=== PATIENT | female | born 1950 | race Caucasian/White ===

== ENCOUNTER → 2017-08-02 | Outpatient (CLI) | payer MEDICARE ==
[2017-08-02 11:33] LABS: ALT 35 U/L (9-52); AST 51 U/L (14-36); Albumin 2.6 g/dL (3.5-5.0); Alkaline Phosphatase 136 U/L (38-126); Amylase 79 U/L (30-110); Anion Gap 10 mmol/L; Bilirubin, Delta 0.4 mg/dL (0.0-0.2); Bilirubin,Unconjugated 0.5 mg/dL (0.0-1.1); Blood Urea Nitrogen 15 mg/dL (7-17); Calcium 7.9 mg/dL (8.4-10.2); Carbon Dioxide 32 mmol/L (22-30); Chloride 96 mmol/L (98-107); Glucose 245 mg/dL (74-99); LDH 631 U/L (313-618); Lipase 212 U/L (23-300); Potassium 3.4 mmol/L (3.5-5.1); Sodium 138 mmol/L (137-145); Total Bilirubin 0.9 mg/dL (0.2-1.3); Total Protein 5.7 g/dL (6.3-8.2)
[2017-08-02 11:42] LABS: Anisocytosis Slight; HGB 9.5 gm/dL (11.4-16.0); Hypochromasia Moderate; MCH 25.9 pg (25.0-35.0); MCHC 31.7 g/dL (31.0-37.0); MCV 81.6 fL (80.0-100.0); Mean Platelet Volume 7.3; Platelet Count 102 k/uL (150-450); Poikilocytosis Moderate; RBC 3.68 m/uL (3.80-5.40); WBC 5.7 k/uL (3.8-10.6)
[2017-08-02 17:39] LABS: Hemoglobin A1C 5.6 % (4.0-6.0)
[2017-08-02 17:52] LABS: Urine Alcohol Negative (Negative); Urine Barbiturate Negative (Negative); Urine Cocaine Negative (Negative); Urine Methadone Negative (Negative); Urine Opiates Negative (Negative); Urine Phencyclidine Negative (Negative)
== END | disposition home or self-care (01) ==
LOC: LABWHC1 10:54
PROVIDERS: ATTEND Nurse Practitioner Adult Health
DX: I25.10 Atherosclerotic heart disease of native coronary artery without angina pectoris (principal); I10 Essential (primary) hypertension; E78.5 Hyperlipidemia, unspecified; J44.0 Chronic obstructive pulmonary disease with (acute) lower respiratory infection; K72.90 Hepatic failure, unspecified without coma; E11.69 Type 2 diabetes mellitus with other specified complication
CPT/HCPCS: 36415; 80053; 80306; 82140; 82150; 82248; 83036; 83615; 83690; 85027

== ENCOUNTER 2017-08-05 16:32 | Observation (INO) | payer MEDICARE ==
[2017-08-05] MEDS ORDERED: KETOROLAC 30 MG/ML 1 ML VIAL IVP STA (17:05)
[2017-08-05] MEDS ORDERED: IPRATROPIUM-ALBUTEROL 3 ML NEB INHALATION STA (17:12)
--- NOTE | 2017-08-05 17:12 | ED ---
Abdominal Pain HPI - General Chief Complaint: Abdominal Pain Stated Complaint: SOB Time Seen by Provider: 08/05/17 16:56 Source: patient Mode of arrival: wheelchair Limitations: physical limitation - History of Present Illness Initial Comments: Patient is a 66-year-old female with a history of [place] who presents with a chief complaint of abdominal pain and distention. Patient states that she is new to the area just moved from [place]. Patient states she normally gets paracentesis performed every 2 weeks. She has not had a paracentesis in about 2 weeks. Patient states that her abdomen is very full and she has a "stretching " type pain. There are no aggravating or alleviating factors. Timing is constant. Patient denies fever, chills, or changes in shortness of breath. She has a history of COPD and currently smoke about 5 cigarettes a day. - Related Data Home Medications Medication Instructions Recorded Confirmed Acetaminophen Tab [Tylenol Tab] 1,000 mg PO Q6HR PRN 08/05/17 08/05/17 Albuterol Inhaler [Ventolin Hfa 1 - 2 puff INHALATION RT-Q6H PRN 08/05/17 Inhaler] Aspirin 81 mg PO DAILY 08/05/17 08/05/17 Atorvastatin [Lipitor] 80 mg PO DAILY 08/05/17 08/05/17 Diltiazem HCl 60 mg PO Q6H 08/05/17 08/05/17 Furosemide [Lasix] 40 mg PO DAILY 08/05/17 08/05/17 Glimepiride [Amaryl] 8 mg PO BID 08/05/17 08/05/17 Metoprolol Tartrate [Lopressor] 50 mg PO BID 08/05/17 08/05/17 Ondansetron [Zofran] 4 mg PO TID PRN 08/05/17 08/05/17 Pantoprazole [Protonix] 40 mg PO DAILY 08/05/17 08/05/17 Spironolactone 100 mg PO DAILY 08/05/17 08/05/17 Tiotropium 18 Mcg/Puff [Spiriva] 1 cap INHALATION RT-DAILY 08/05/17 08/05/17 Venlafaxine HCl [Effexor] 37.5 mg PO BID 08/05/17 08/05/17 Allergies Allergy/AdvReac Type Severity Reaction Status Date / Time albumin colloid, human AdvReac Dyspnea Verified 08/05/17 16:47 Review of Systems ROS Statement: Those systems with pertinent positive or pertinent negative responses have been documented in the HPI. ROS Other: All systems not noted in ROS Statement are negative. Gastrointestinal: Reports: abdominal pain Past Medical History Past Medical History: Atrial Fibrillation, Heart Failure, COPD, Diabetes Mellitus, GERD/Reflux, Hyperlipidemia Additional Past Medical History / Comment(s): end stage lever History of Any Multi-Drug Resistant Organisms: None Reported Past Surgical History: Adenoidectomy, Cholecystectomy, Heart Catheterization, Heart Catheterization With Stent, Joint Replacement, Tubal Ligation Additional Past Surgical History / Comment(s): paracentesis, lefroectomy, hip replace, esophageal banding, Past Psychological History: No Psychological Hx Reported Smoking Status: Current every day smoker Past Alcohol Use History: None Reported Past Drug Use History: None Reported General Exam Limitations: physical limitation General appearance: alert, in no apparent distress Head exam: Present: atraumatic, normocephalic Eye exam: Present: normal appearance, PERRL ENT exam: Present: normal exam, mucous membranes moist Neck exam: Present: normal inspection Respiratory exam: Present: wheezes. Absent: respiratory distress Cardiovascular Exam: Present: regular rate, normal rhythm GI/Abdominal exam: Present: distended Rectal exam: Present: deferred Extremities exam: Present: pedal edema Back exam: Present: normal inspection Neurological exam: Present: alert, oriented X3 Psychiatric exam: Present: normal affect, normal mood Skin exam: Present: warm, dry, intact Course Vital Signs 08/05/17 08/05/17 08/05/17 16:40 17:44 17:54 Temperature 98.0 F Pulse Rate 87 81 88 Respiratory 22 16 16 Rate Blood Pressure 129/60 O2 Sat by Pulse 99 Oximetry 08/05/17 18:02 Temperature 98.1 F Pulse Rate 84 Respiratory 20 Rate Blood Pressure 115/58 O2 Sat by Pulse 100 Oximetry Medical Decision Making - Medical Decision Making Patient is 66-year-old. His chief complaint of abdominal pain. Patient has a history of national requires periodic paracentesis, she states normally every 2 weeks. She is noted to the area and has not had a paracentesis since moving. On initial evaluation, vital signs are stable, patient is in no acute distress. Abdomen is full but non-peritoneal. Patient will need to have paracentesis arranged, I'll speak with interventional radiology to see her this can be arranged. 5:19 PM Case discussed with Dr. Chandler who states that if the patient is stable, she will have paracentesis performed in the AM. patient appears stable at this time. 524 PM Case discussed with Dr. Mcdonnell, he excepts admission for paracentesis in the morning. Patient will be evaluated with labs including coagulations study and liver enzymes. Patient given breathing treatments that she is wheezing on exam. Patient and daughter updated on a care plan, they're agreeable. 6:51 PM Blood gas analysis shows a stable pH of 7.37, CO2 is mildly elevated however patient appears well compensated and in no respiratory distress. Patient stable for transfer to the floor. - Lab Data Result diagrams: 08/05/17 17:20 08/05/17 17:20 Lab Results 08/05/17 08/05/17 08/05/17 Range/Units 17:20 17:20 17:20 WBC 5.9 (3.8-10.6) k/uL RBC 3.57 L (3.80-5.40) m/uL Hgb 9.1 L (11.4-16.0) gm/dL Hct 28.9 L (34.0-46.0) % MCV 81.0 (80.0-100.0) fL MCH 25.6 (25.0-35.0) pg MCHC 31.6 (31.0-37.0) g/dL RDW 17.0 H (11.5-15.5) % Plt Count 109 L (150-450) k/uL Neutrophils % 70 % Lymphocytes % 17 % Monocytes % 8 % Eosinophils % 2 % Basophils % 1 % Neutrophils # 4.2 (1.3-7.7) k/uL Lymphocytes # 1.0 (1.0-4.8) k/uL Monocytes # 0.4 (0-1.0) k/uL Eosinophils # 0.1 (0-0.7) k/uL Basophils # 0.0 (0-0.2) k/uL Hypochromasia Moderate Poikilocytosis Moderate Anisocytosis Slight PT 12.0 (9.0-12.0) sec INR 1.3 H (<1.2) Sodium 140 (137-145) mmol/L Potassium 3.7 (3.5-5.1) mmol/L Chloride 98 (98-107) mmol/L Carbon Dioxide 33 H (22-30) mmol/L Anion Gap 9 mmol/L BUN 15 (7-17) mg/dL Creatinine 0.60 (0.52-1.04) mg/dL Est GFR (CKD-EPI)AfAm >90 (>60 ml/min/1.73 sqM) Est GFR (CKD-EPI)NonAf >90 (>60 ml/min/1.73 sqM) Glucose 163 H (74-99) mg/dL Calcium 8.3 L (8.4-10.2) mg/dL Total Bilirubin 1.2 (0.2-1.3) mg/dL AST 60 H (14-36) U/L ALT 31 (9-52) U/L Alkaline Phosphatase 147 H (38-126) U/L Total Protein 5.7 L (6.3-8.2) g/dL Albumin 2.7 L (3.5-5.0) g/dL Disposition Clinical Impression: Ascites Disposition: ADMITTED IP TO THIS HOSP Condition: Good Is patient prescribed a controlled substance at d/c from ED?: No - Out of Hospital Transfer - Req. Specs Out of Hospital Transfer - Requested Specifics: Telemetry Unit
[2017-08-05] MEDS ORDERED: NALOXONE 0.4 MG/ML 1 ML VIAL IV PRN ×2 (17:21→21:33)
[2017-08-05 17:32] LABS: Anisocytosis Slight; Basophils % (A) 1 %; Eosinophils # (A) 0.1 k/uL (0-0.7); Eosinophils % (A) 2 %; HCT 28.9 % (34.0-46.0); HGB 9.1 gm/dL (11.4-16.0); Hypochromasia Moderate; Lymphocytes % (A) 17 %; MCH 25.6 pg (25.0-35.0); MCHC 31.6 g/dL (31.0-37.0); Mean Platelet Volume 7.5; Monocytes # (A) 0.4 k/uL (0-1.0); Monocytes % (A) 8 %; Neutrophils # (A) 4.2 k/uL (1.3-7.7); Neutrophils % (A) 70 %; Platelet Count 109 k/uL (150-450); Poikilocytosis Moderate; RBC 3.57 m/uL (3.80-5.40); WBC 5.9 k/uL (3.8-10.6)
[2017-08-05 17:39] LABS: INR 1.3 (<1.2)
[2017-08-05 17:41] LABS: ALT 31 U/L (9-52); AST 60 U/L (14-36); Albumin 2.7 g/dL (3.5-5.0); Alkaline Phosphatase 147 U/L (38-126); Anion Gap 9 mmol/L; Blood Urea Nitrogen 15 mg/dL (7-17); Calcium 8.3 mg/dL (8.4-10.2); Carbon Dioxide 33 mmol/L (22-30); Chloride 98 mmol/L (98-107); Glucose 163 mg/dL (74-99); Potassium 3.7 mmol/L (3.5-5.1); Sodium 140 mmol/L (137-145); Total Bilirubin 1.2 mg/dL (0.2-1.3); Total Protein 5.7 g/dL (6.3-8.2)
[2017-08-05 18:17] LABS: VBG PH 7.37 (7.31-7.41)
[2017-08-05 20:31] VITALS: BMI 37.2
[2017-08-05 20:35] LABS: Glucose,Whole Blood 174 mg/dL (75-99)
--- NOTE | 2017-08-05 21:47 | P.HPIM ---
History of Present Illness H&P Date: 08/05/17 This 66-year-old female with past medical history of [place] and liver cirrhosis and ascites that requires paracentesis every few weeks patient states that she has been taking Lasix without significant improvement in the symptoms and continued to get worse and came for shortness of breath and increased swelling in the abdomen and lower extremities denies any chest pain denies any vomiting or fever Review of systems and systems has been reviewed all negative and positive findings as per hpi Past Medical History Past Medical History: Atrial Fibrillation, Heart Failure, COPD, Diabetes Mellitus, GERD/Reflux, Hyperlipidemia Additional Past Medical History / Comment(s): end stage lever History of Any Multi-Drug Resistant Organisms: None Reported Past Surgical History: Adenoidectomy, Cholecystectomy, Heart Catheterization, Heart Catheterization With Stent, Joint Replacement, Tubal Ligation Additional Past Surgical History / Comment(s): paracentesis, lefroectomy, hip replace, esophageal banding, Past Psychological History: No Psychological Hx Reported Smoking Status: Current every day smoker Past Alcohol Use History: None Reported Past Drug Use History: None Reported family history not known at this time Vital Signs Temp Pulse Resp BP Pulse Ox 98.0 F 87 22 129/60 99 08/05/17 16:40 08/05/17 16:40 08/05/17 16:40 08/05/17 16:40 08/05/17 16:40 Laboratory Results - last 24 hr 08/05/17 08/05/17 08/05/17 17:20 17:20 17:20 WBC 5.9 RBC 3.57 L Hgb 9.1 L Hct 28.9 L MCV 81.0 MCH 25.6 MCHC 31.6 RDW 17.0 H Plt Count 109 L Neutrophils % 70 Lymphocytes % 17 Monocytes % 8 Eosinophils % 2 Basophils % 1 Neutrophils # 4.2 Lymphocytes # 1.0 Monocytes # 0.4 Eosinophils # 0.1 Basophils # 0.0 Hypochromasia Moderate Poikilocytosis Moderate Anisocytosis Slight PT 12.0 INR 1.3 H VBG pH VBG pCO2 VBG HCO3 Sodium 140 Potassium 3.7 Chloride 98 Carbon Dioxide 33 H Anion Gap 9 BUN 15 Creatinine 0.60 Est GFR (CKD-EPI)AfAm >90 Est GFR (CKD-EPI)NonAf >90 Glucose 163 H POC Glucose (mg/dL) POC Glu [employer] ID Calcium 8.3 L Total Bilirubin 1.2 AST 60 H ALT 31 Alkaline Phosphatase 147 H Total Protein 5.7 L Albumin 2.7 L 08/05/17 08/05/17 18:04 20:31 WBC RBC Hgb Hct MCV MCH MCHC RDW Plt Count Neutrophils % Lymphocytes % Monocytes % Eosinophils % Basophils % Neutrophils # Lymphocytes # Monocytes # Eosinophils # Basophils # Hypochromasia Poikilocytosis Anisocytosis PT INR VBG pH 7.37 VBG pCO2 61 H VBG HCO3 34 H Sodium Potassium Chloride Carbon Dioxide Anion Gap BUN Creatinine Est GFR (CKD-EPI)AfAm Est GFR (CKD-EPI)NonAf Glucose POC Glucose (mg/dL) 174 H POC Glu [employer] Laly Wilder Calcium Total Bilirubin AST ALT Alkaline Phosphatase Total Protein Albumin Constitutional: No acute distress, conversant, pleasant Eyes: Anicteric sclerae, moist conjunctiva, no lid-lag PERRLA ENMT: NC/AT Oropharynx clear, no erythema, exudates Neck: Supple, FROM, no masses, or JVD No carotid bruits No thyromegaly Lungs: Clear to auscultation Clear to percussion Normal respiratory effort, no accessory muscle use Cardiovascular: Heart regular in rate and rhythm, No murmurs, gallops, or rubs No peripheral edema Abdominal: Soft Nontender, significant ascites no tenderness Skin: Normal temperature, tone, texture, turgor No induration No subcutaneous nodules No rash, lesions No ulcers Extremities: No digital cyanosis No clubbing 4+ edema bilaterally Psychiatric:Alert and oriented to person, place and time Appropriate affect Intact judgement Neuro: Muscles Strength 5/5 in all 4 extremities Sensation to light touch grossly present throughout Cranial nerves II-XII grossly intact No focal sensory deficits Assessment and plan anasarca due to liver cirrhosis and [place] we will start the patient on IV Lasix patient did not respond to by mouth Lasix as an outpatient Recurrent ascites will consult interventional radiology for paracentesis Diabetes we'll put the patient with sliding scale insulin DVT and GI prophylaxis we will not start the patient on heparin or Plavix due to the thrombocytopenia Admit the patient regular medical floor Past Medical History Past Medical History: Atrial Fibrillation, Coronary Artery Disease (CAD), Heart Failure, COPD, Diabetes Mellitus, GERD/Reflux, GI Bleed, Hyperlipidemia, Hypertension Additional Past Medical History / Comment(s): COPD with 3.5Lnc home O2, end stage lever, cirrhosis, Barretts esophagus with bleed requiring banding X 3, hiatal hernia, iron def anemia, thrombocytopenia, chronic back pain, pancreatitis, colon polyps, pt states she needs one of her heart valve replaced but doesnt know which one - paperwork she provided suggests mitral valve, septic infection with PICC line since removed History of Any Multi-Drug Resistant Organisms: MRSA Date of last positivie culture/infection: 2015 MDRO Source:: nose Past Surgical History: Adenoidectomy, Appendectomy, Section, Cholecystectomy, Heart Catheterization, Heart Catheterization With Stent, Joint Replacement, Tubal Ligation Additional Past Surgical History / Comment(s): paracentesis, lefroectomy, right hip replace, esophageal banding, bone marrow bx, EGD and colonoscopy Past Anesthesia/Blood Transfusion Reactions: No Reported Reaction Date of Last Stent Placement:: 2016 Past Psychological History: Depression Smoking Status: Current every day smoker Past Alcohol Use History: None Reported Past Drug Use History: None Reported - Past Family History Father Family Medical History: Cancer, Coronary Artery Disease (CAD), Diabetes Mellitus Additional Family Medical History / Comment(s): bladder ca Mother Family Medical History: Cancer, COPD, Diabetes Mellitus Additional Family Medical History / Comment(s): lung ca Medications and Allergies Home Medications Medication Instructions Recorded Confirmed Type Acetaminophen Tab [Tylenol Tab] 1,000 mg PO Q6HR PRN 08/05/17 08/05/17 History Albuterol Inhaler [Ventolin Hfa 1 - 2 puff INHALATION RT-Q6H PRN 08/05/17 History Inhaler] Aspirin 81 mg PO DAILY 08/05/17 08/05/17 History Atorvastatin [Lipitor] 80 mg PO DAILY 08/05/17 08/05/17 History Diltiazem HCl 60 mg PO Q6H 08/05/17 08/05/17 History Furosemide [Lasix] 40 mg PO DAILY 08/05/17 08/05/17 History Glimepiride [Amaryl] 8 mg PO BID 08/05/17 08/05/17 History Metoprolol Tartrate [Lopressor] 50 mg PO BID 08/05/17 08/05/17 History Ondansetron [Zofran] 4 mg PO TID PRN 08/05/17 08/05/17 History Pantoprazole [Protonix] 40 mg PO DAILY 08/05/17 08/05/17 History Spironolactone 100 mg PO DAILY 08/05/17 08/05/17 History Tiotropium 18 Mcg/Puff [Spiriva] 1 cap INHALATION RT-DAILY 08/05/17 08/05/17 History Venlafaxine HCl [Effexor] 37.5 mg PO BID 08/05/17 08/05/17 History Allergies Allergy/AdvReac Type Severity Reaction Status Date / Time albumin colloid, human AdvReac Dyspnea Verified 08/05/17 16:47 sulfamethoxazole AdvReac Rash/Hives Verified 08/05/17 20:31 [From Bactrim] trimethoprim [From Bactrim] AdvReac Rash/Hives Verified 08/05/17 20:31 Physical Exam Vitals: Vital Signs Temp Pulse Pulse Resp BP BP Pulse Ox 08/05/17 19:25 98.0 F 96 16 132/62 97 08/05/17 18:02 98.1 F 84 20 115/58 100 08/05/17 17:54 88 16 08/05/17 17:44 81 16 08/05/17 16:40 98.0 F 87 22 129/60 99 Intake and Output 08/05/17 08/05/17 08/05/17 06:59 14:59 22:59 Other: Weight 98.4 kg Results CBC & Chem 7: 08/05/17 17:20 08/05/17 17:20 Labs: Abnormal Lab Results - Last 24 Hours (Table) 08/05/17 08/05/17 08/05/17 Range/Units 17:20 17:20 17:20 RBC 3.57 L (3.80-5.40) m/uL Hgb 9.1 L (11.4-16.0) gm/dL Hct 28.9 L (34.0-46.0) % RDW 17.0 H (11.5-15.5) % Plt Count 109 L (150-450) k/uL INR 1.3 H (<1.2) VBG pCO2 (37-51) mmHg VBG HCO3 (24-28) mmol/L Carbon Dioxide 33 H (22-30) mmol/L Glucose 163 H (74-99) mg/dL POC Glucose (mg/dL) (75-99) mg/dL Calcium 8.3 L (8.4-10.2) mg/dL AST 60 H (14-36) U/L Alkaline Phosphatase 147 H (38-126) U/L Total Protein 5.7 L (6.3-8.2) g/dL Albumin 2.7 L (3.5-5.0) g/dL 08/05/17 08/05/17 Range/Units 18:04 20:31 RBC (3.80-5.40) m/uL Hgb (11.4-16.0) gm/dL Hct (34.0-46.0) % RDW (11.5-15.5) % Plt Count (150-450) k/uL INR (<1.2) VBG pCO2 61 H (37-51) mmHg VBG HCO3 34 H (24-28) mmol/L Carbon Dioxide (22-30) mmol/L Glucose (74-99) mg/dL POC Glucose (mg/dL) 174 H (75-99) mg/dL Calcium (8.4-10.2) mg/dL AST (14-36) U/L Alkaline Phosphatase (38-126) U/L Total Protein (6.3-8.2) g/dL Albumin (3.5-5.0) g/dL Thrombosis Risk Factor Assmnt - Choose All That Apply Each Factor Represents 1 point: Abnormal pulmonary function (COPD), Obesity ( BMI >25), Swollen legs (current) Each Risk Factor Represents 2 Points: Age 61-74 years Thrombosis Risk Factor Assessment Total Risk Factor Score: 5 Thrombosis Risk Factor Assessment Level: High Risk
[2017-08-05] MEDS: DILTIAZEM ORAL 60 MG TAB PO SCH (22:17)
[2017-08-05] MEDS: PANTOPRAZOLE 40 MG TABLET PO SCH (22:17)
[2017-08-05] MEDS: VENLAFAXINE HCL 37.5 MG TAB PO SCH (22:18)
[2017-08-05] MEDS: METOPROLOL TARTRATE 50 MG TAB PO SCH (22:18)
[2017-08-05] MEDS: HYDROcodone/APAP 5-325MG 1 EACH TAB PO PRN (22:18)
[2017-08-05] MEDS: FUROSEMIDE 10 MG/ML 4 ML VIAL IV SCH (22:19)
[2017-08-06] MEDS: ALBUTEROL NEBULIZED 2.5 MG/3 ML INHALATION PRN ×2 (02:11→11:39)
[2017-08-06] MEDS: DILTIAZEM ORAL 60 MG TAB PO SCH ×2 (06:39→11:27)
[2017-08-06 06:48] LABS: Glucose,Whole Blood 163 mg/dL (75-99)
[2017-08-06 06:55] LABS: Anisocytosis Slight; Basophils % (A) 1 %; Eosinophils # (A) 0.1 k/uL (0-0.7); Eosinophils % (A) 1 %; HCT 27.2 % (34.0-46.0); HGB 8.2 gm/dL (11.4-16.0); Hypochromasia Marked; Lymphocytes # (A) 0.9 k/uL (1.0-4.8); Lymphocytes % (A) 21 %; MCH 24.8 pg (25.0-35.0); MCV 82.6 fL (80.0-100.0); Mean Platelet Volume 7.5; Monocytes # (A) 0.3 k/uL (0-1.0); Monocytes % (A) 8 %; Neutrophils % (A) 68 %; Poikilocytosis Slight; RBC 3.29 m/uL (3.80-5.40); RDW 17.6 % (11.5-15.5); WBC 4.4 k/uL (3.8-10.6)
[2017-08-06 06:58] LABS: INR 1.3 (<1.2)
[2017-08-06 07:08] LABS: ALT 35 U/L (9-52); AST 48 U/L (14-36); Albumin 2.3 g/dL (3.5-5.0); Alkaline Phosphatase 122 U/L (38-126); Anion Gap 5 mmol/L; Blood Urea Nitrogen 14 mg/dL (7-17); Carbon Dioxide 36 mmol/L (22-30); Chloride 99 mmol/L (98-107); Glucose 155 mg/dL (74-99); Potassium 3.7 mmol/L (3.5-5.1); Sodium 140 mmol/L (137-145); Total Bilirubin 0.8 mg/dL (0.2-1.3); Total Protein 5.1 g/dL (6.3-8.2)
[2017-08-06 07:11] LABS: Platelet Count 83 k/uL (150-450)
[2017-08-06] MEDS: IPRATROPIUM 0.5 MG/2.5 ML NEBU INHALATION SCH ×3 (08:04→16:14)
--- NOTE | 2017-08-06 08:25 | US ---
EXAMINATION TYPE: US venous doppler duplex LE DATE OF EXAM: 08/06/2017 8:08 AM COMPARISON: NONE CLINICAL HISTORY: LOWER EXT SWELLING RO DVT . Bilateral leg edema SIDE PERFORMED: Bilateral TECHNIQUE: The lower extremity deep venous system is examined utilizing real time linear array sonog carmelo with graded compression, doppler sonography and color-flow sonography. VESSELS IMAGED: External Iliac Vein (EIV) Common Femoral Vein Deep Femoral Vein Greater Saphenous Vein * Femoral Vein Popliteal Vein Small Saphenous Vein * Proximal Calf Veins (* superficial vessels) Somewhat limited study due to extensive edema to legs/ distal femoral vein bilaterally unable to be imaged Right Leg: Negative for DVT Left Leg: Negative for DVT Grayscale, color doppler, spectral doppler imaging performed of the deep veins of the bilateral lower extremities. There is normal flow, compressibility, vascular waveforms in the proximal portions. IMPRESSION: Suboptimal study due to moderate to severe subcutaneous edema noted bilaterally. Visuali zed portion of bilateral lower extremities show no acute DVT.
[2017-08-06] MEDS: FUROSEMIDE 10 MG/ML 4 ML VIAL IV SCH (08:26)
[2017-08-06] MEDS: METOPROLOL TARTRATE 50 MG TAB PO SCH (08:26)
[2017-08-06] MEDS: PANTOPRAZOLE 40 MG TABLET PO SCH (08:26)
[2017-08-06] MEDS: VENLAFAXINE HCL 37.5 MG TAB PO SCH (08:27)
--- NOTE | 2017-08-06 08:34 | CT ---
EXAMINATION TYPE: CT abdomen pelvis wo con DATE OF EXAM: 08/06/2017 HISTORY: Abd distention, BARRY ascites CT DLP: 1196.2 mGycm. Automated Exposure Control for Dose Reduction was Utilized. TECHNIQUE: CT scan of the abdomen and pelvis is performed without oral or IV contrast. COMPARISON: NONE FINDINGS: Within the limitations of a non-contrast study, the following observations are made. LUNG BASES: There are small to moderate-sized left pleural effusion with associated left basilar comp ressive atelectasis. There is trace right pleural effusion. There are calcifications at level of mitr al and aortic valve. LIVER/GB: Liver is small in size with lobulated peripheral contour, imaging findings consistent with underlying cirrhosis. Cholecystectomy clips are present. PANCREAS: No significant abnormality is seen. SPLEEN: Splenomegaly is seen measuring 17.5 cm long axis axial image 31. There is 1.8 cm splenule in splenic hilum. ADRENALS: No significant abnormality is seen. KIDNEYS: No significant abnormality is seen. BOWEL: Small size hiatal hernia is present. No suspicious bowel dilatation is seen. GENITAL ORGANS: Anteverted uterus is seen. Tubal ligation clips are noted in the periphery. LYMPH NODES: No greater than 1cm abdominal or pelvic lymph nodes are appreciated. OSSEOUS STRUCTURES: There is metallic hardware from total right hip arthroplasty causing streak artif act limiting evaluation of pelvic structures. OTHER: There is moderate calcified plaque of distal abdominal aorta extending into pelvic branch vess els. There is moderate to large amount of abdominal and pelvic ascites. There is moderate diffuse subcutan eous edema. IMPRESSION: Findings consistent with cirrhosis and underlying portal hypertension as there is cirrhot ic liver, splenomegaly, and moderate to large amount of abdominal ascites with moderate diffuse subcu taneous edema and small to moderate-sized left pleural effusion.
[2017-08-06] MEDS ORDERED: ASPIRIN 81 MG PO SCH (09:00)
[2017-08-06] MEDS ORDERED: ATORVASTATIN 80 MG TAB PO SCH (09:00)
[2017-08-06] MEDS ORDERED: SPIRONOLACTONE 25 MG TAB PO SCH (09:00)
[2017-08-06] MEDS: HYDROcodone/APAP 5-325MG 1 EACH TAB PO PRN (10:38)
[2017-08-06] MEDS ORDERED: LIDOCAINE (PF) 10 MG/ML 5ML AMP SQ STA (12:26)
[2017-08-06 12:58] LABS: Hemoglobin A1C 5.6 % (4.0-6.0)
[2017-08-06 14:17] LABS: Glucose,Whole Blood 120 mg/dL (75-99)
[2017-08-06 14:29] VITALS: RESP 18; TEMP 97.8
--- NOTE | 2017-08-06 15:31 | US ---
Therapeutic paracentesis. DATE OF EXAM: 08/06/2017 CLINICAL HISTORY: Ascites The procedure was discussed with the patient. The risks, complications, benefits, and alternatives we re discussed and any questions were answered. Informed consent was obtained. The patient was placed s upine on the ultrasound table and prepped and draped in the usual sterile fashion. All elements of maximal barrier technique were utilized. Under ultrasound guidance, access into the left lower quadrant was obtained, via the paracentesis catheter system and direct ultrasound guidance . Approximately 11.35 liters of straw-colored fluid was removed. The patient was stable throughout the procedure and remained stable upon discharge from Department of Radiology. IMPRESSION: Successful therapeutic paracentesis under ultrasound guidance.
[2017-08-06 16:26] VITALS: BP 113/41; PULSE 75
--- NOTE | 2017-08-06 16:55 | P.DS ---
Providers Date of admission: 08/05/17 17:21 Attending physician: Michael Silveira MD Consults: 08/05/17 17:21 Consult Physician Stat Consulting Provider: Shawn Chandler Reason/Comments: IR paracentesis, Ascites Do you want consulting provider notified?: Yes [facility] Course: final diagnosis at discharge Symptomatic ascites with SOB secondary chronic diagnosis Barrettes esophagus chronic anemia liver cirhosis This 66-year-old female with past medical history of [place] and liver cirrhosis and ascites that requires paracentesis every few weeks patient states that she has been taking Lasix without significant improvement in the symptoms and continued to get worse and came for shortness of breath and increased swelling in the abdomen and lower extremities denies any chest pain denies any vomiting or fever or abd pain. Patient underwent ultrasound-guided paracentesis today over 11 L were taken, patient reported that normally she would drain anywhere between 10-12 L each time she gets paracentesis. Patient was seen and examined today before discharge, Patient feels significantly better, denies any further shortness of breath or abdominal discomfort. Upon further questioning patient admits to off-and-on black stools with her history of melena and esophageal varices. She currently denies any active bleeding. Patient was informed that she has anemia. Constitutional: vital signs stable, Not in acute distress, pleasant, conversant Lungs: Clear to auscultation bilaterally, clear to percussion, normal respiratory effort Gastrointestinal: Soft, no tenderness to palpation bowel sounds positive Extremities: Bilateral leg edema +2 no tenderness palpation of the calf muscles Psych: Alert, oriented to place, person and time, appropriate affect, intact judgment Discharge home, referral given to PCP upon her request as she is new to the community, information for Dr. Nolasco was provided Patient was also provided information for Dr. Stapleton GI service for her request to follow Patient did not request any refills on her medications Patient counseled to continue on PPI for her parents esophagus history, and to monitor for any evidence of GI bleeding, I stressed the importance of following up with GI specialist Patient was discharged home in stable clinical condition Procedures: Ultrasound-guided paracentesis Patient Condition at Discharge: Good Plan - Discharge Summary New Discharge Prescriptions: Continue Aspirin 81 mg PO DAILY Albuterol Inhaler [Ventolin Hfa Inhaler] 1 - 2 puff INHALATION RT-Q6H PRN PRN Reason: Shortness Of Breath Venlafaxine HCl [Effexor] 37.5 mg PO BID Tiotropium 18 Mcg/Puff [Spiriva] 1 cap INHALATION RT-DAILY Pantoprazole [Protonix] 40 mg PO DAILY Ondansetron [Zofran] 4 mg PO TID PRN PRN Reason: Nausea Glimepiride [Amaryl] 8 mg PO BID Spironolactone 100 mg PO DAILY Metoprolol Tartrate [Lopressor] 50 mg PO BID Furosemide [Lasix] 40 mg PO DAILY Diltiazem HCl 60 mg PO Q6H Atorvastatin [Lipitor] 80 mg PO DAILY Acetaminophen Tab [Tylenol] 1,000 mg PO Q6HR PRN PRN Reason: Pain Discharge Medication List Acetaminophen Tab [Tylenol] 1,000 mg PO Q6HR PRN 08/05/17 [History] Albuterol Inhaler [Ventolin Hfa Inhaler] 1 - 2 puff INHALATION RT-Q6H PRN [History] Aspirin 81 mg PO DAILY 08/05/17 [History] Atorvastatin [Lipitor] 80 mg PO DAILY 08/05/17 [History] Diltiazem HCl 60 mg PO Q6H 08/05/17 [History] Furosemide [Lasix] 40 mg PO DAILY 08/05/17 [History] Glimepiride [Amaryl] 8 mg PO BID 08/05/17 [History] Metoprolol Tartrate [Lopressor] 50 mg PO BID 08/05/17 [History] Ondansetron [Zofran] 4 mg PO TID PRN 08/05/17 [History] Pantoprazole [Protonix] 40 mg PO DAILY 08/05/17 [History] Spironolactone 100 mg PO DAILY 08/05/17 [History] Tiotropium 18 Mcg/Puff [Spiriva] 1 cap INHALATION RT-DAILY 08/05/17 [History] Venlafaxine HCl [Effexor] 37.5 mg PO BID 08/05/17 [History] Follow up Appointment(s)/Referral(s): Irena Hernandez MD [STAFF PHYSICIAN] - As Needed Ivan Nolasco MD [Primary Care Provider] - 1-2 days Patient Instructions/Handouts: Ascites (DC) Discharge Disposition: HOME SELF-CARE
[2017-08-06 17:06] LABS: Glucose,Whole Blood 146 mg/dL (75-99)
== END 2017-08-06 17:35 | disposition home or self-care (01) ==
LOC: EC 16:32 → SUPCPDRO 16:32 → 3OBS 17:21
PROVIDERS: ADMIT Internal Medicine; ATTEND Internal Medicine
DX: K75.81 Nonalcoholic steatohepatitis (NASH) (principal); R18.8 Other ascites; K74.60 Unspecified cirrhosis of liver; K22.70 Barrett's esophagus without dysplasia; J44.9 Chronic obstructive pulmonary disease, unspecified; I85.00 Esophageal varices without bleeding; I11.0 Hypertensive heart disease with heart failure; I50.9 Heart failure, unspecified; K21.9 Gastro-esophageal reflux disease without esophagitis; D69.6 Thrombocytopenia, unspecified; I48.91 Unspecified atrial fibrillation; E78.5 Hyperlipidemia, unspecified; E11.9 Type 2 diabetes mellitus without complications; D50.9 Iron deficiency anemia, unspecified; F32.9 Major depressive disorder, single episode, unspecified; E66.9 Obesity, unspecified; Z68.37 Body mass index [BMI] 37.0-37.9, adult; D64.9 Anemia, unspecified; G89.29 Other chronic pain; M54.9 Dorsalgia, unspecified; K44.9 Diaphragmatic hernia without obstruction or gangrene; F17.210 Nicotine dependence, cigarettes, uncomplicated; Z95.5 Presence of coronary angioplasty implant and graft; Z79.82 Long term (current) use of aspirin; Z79.84 Long term (current) use of oral hypoglycemic drugs; Z79.899 Other long term (current) drug therapy; Z88.1 Allergy status to other antibiotic agents; Z88.2 Allergy status to sulfonamides; Z88.8 Allergy status to other drugs, medicaments and biological substances; Z87.19 Personal history of other diseases of the digestive system; Z86.010 Personal history of colon polyps; Z86.14 Personal history of Methicillin resistant Staphylococcus aureus infection; Z90.49 Acquired absence of other specified parts of digestive tract; Z96.641 Presence of right artificial hip joint; Z99.81 Dependence on supplemental oxygen; Z83.3 Family history of diabetes mellitus; Z82.49 Family history of ischemic heart disease and other diseases of the circulatory system; Z82.5 Family history of asthma and other chronic lower respiratory diseases; Z80.1 Family history of malignant neoplasm of trachea, bronchus and lung; Z80.52 Family history of malignant neoplasm of bladder
CPT/HCPCS: 99285 ×2; 96374 ×2; 96375; 96376; 36415; 94640 ×3; 93005; 80053 ×2; 82803; 85025 ×2; 85610 ×2; 83036; 49083; 93970; 74176; G0378 ×2; J1940 ×2; J2001; J1885

== ENCOUNTER 2017-08-11 20:39 | Inpatient (IN) | payer MEDICARE ==
[2017-08-11] MEDS ORDERED: HYDROcodone/APAP 5-325MG 1 EACH TAB PO STA (20:48)
[2017-08-11] MEDS ORDERED: cefTRIAXone IN SWFI 1,000 MG/10 ML SYRINGE IVP STA (20:49)
[2017-08-11] MEDS ORDERED: ACETAMINOPHEN TAB 325 MG TAB PO STA (21:04)
[2017-08-11 21:07] LABS: Anisocytosis Slight; Basophils % (A) 0 %; Eosinophils # (A) 0.3 k/uL (0-0.7); Eosinophils % (A) 2 %; HCT 31.2 % (34.0-46.0); HGB 10.1 gm/dL (11.4-16.0); Hypochromasia Moderate; Lymphocytes # (A) 1.1 k/uL (1.0-4.8); Lymphocytes % (A) 11 %; MCHC 32.4 g/dL (31.0-37.0); MCV 80.3 fL (80.0-100.0); Microcytosis Slight; Monocytes # (A) 0.7 k/uL (0-1.0); Monocytes % (A) 6 %; Neutrophils # (A) 8.1 k/uL (1.3-7.7); Neutrophils % (A) 79 %; Platelet Count 104 k/uL (150-450); Poikilocytosis Slight; RBC 3.89 m/uL (3.80-5.40); RDW 18.1 % (11.5-15.5); WBC 10.2 k/uL (3.8-10.6)
[2017-08-11] MEDS: SODIUM CHLORIDE 0.9% 500 ML IV SCH ×2 (21:08→21:44)
--- NOTE | 2017-08-11 21:13 | ED ---
Abdominal Pain HPI - General Chief Complaint: Abdominal Pain Stated Complaint: ABD PAIN Time Seen by Provider: 08/11/17 20:43 Source: patient, EMS Mode of arrival: EMS Limitations: no limitations - History of Present Illness Initial Comments: This is a 58-year-old female to history of [place] and liver cirrhosis with ascites who presents emergency department for shortness of breath, abdominal pain. She states that the symptoms gradually got worse over the last 5 days. She typically gets a paracentesis every 10 days and gets 10-12 L of fluid drained. She last had one on the ninth of this month. She states that she had increasing amount of ascites develop and developed some shortness of breath. She states that she has some abdominal discomfort as well. Denies any other urinary complaints. She does admit to some nausea and vomiting. No diarrhea. Admits to chills. No other acute complaints this time. - Related Data Home Medications Medication Instructions Recorded Confirmed Acetaminophen Tab [Tylenol] 1,000 mg PO Q6HR PRN 08/05/17 08/11/17 Albuterol Inhaler [Ventolin Hfa 1 - 2 puff INHALATION RT-Q6H PRN 08/05/17 Inhaler] Aspirin 81 mg PO DAILY 08/05/17 08/11/17 Atorvastatin [Lipitor] 80 mg PO DAILY 08/05/17 08/11/17 Diltiazem HCl 60 mg PO Q6H 08/05/17 08/11/17 Furosemide [Lasix] 40 mg PO DAILY 08/05/17 08/11/17 Glimepiride [Amaryl] 8 mg PO BID 08/05/17 08/11/17 Metoprolol Tartrate [Lopressor] 50 mg PO BID 08/05/17 08/11/17 Ondansetron [Zofran] 4 mg PO TID PRN 08/05/17 08/11/17 Pantoprazole [Protonix] 40 mg PO DAILY 08/05/17 08/11/17 Spironolactone 100 mg PO DAILY 08/05/17 08/11/17 Tiotropium 18 Mcg/Puff [Spiriva] 1 cap INHALATION RT-DAILY 08/05/17 08/11/17 Venlafaxine HCl [Effexor] 37.5 mg PO BID 08/05/17 08/11/17 Collagenase [Santyl] 1 applic TOPICAL DAILY 08/11/17 08/11/17 traMADol HCL [Ultram] 50 mg PO Q12H PRN 08/11/17 08/11/17 Allergies Allergy/AdvReac Type Severity Reaction Status Date / Time albumin colloid, human AdvReac Dyspnea Verified 08/11/17 21:01 sulfamethoxazole AdvReac Rash/Hives Verified 08/11/17 21:01 [From Bactrim] trimethoprim [From Bactrim] AdvReac Rash/Hives Verified 08/11/17 21:01 Review of Systems ROS Statement: Those systems with pertinent positive or pertinent negative responses have been documented in the HPI. ROS Other: All systems not noted in ROS Statement are negative. Past Medical History Past Medical History: Atrial Fibrillation, Coronary Artery Disease (CAD), Heart Failure, COPD, Diabetes Mellitus, GERD/Reflux, GI Bleed, Hyperlipidemia, Hypertension Additional Past Medical History / Comment(s): COPD with 3.5Lnc home O2, end stage lever, cirrhosis, Barretts esophagus with bleed requiring banding X 3, hiatal hernia, iron def anemia, thrombocytopenia, chronic back pain, pancreatitis, colon polyps, pt states she needs one of her heart valve replaced but doesnt know which one - paperwork she provided suggests mitral valve, septic infection with PICC line since removed History of Any Multi-Drug Resistant Organisms: MRSA Date of last positivie culture/infection: 2015 MDRO Source:: nose Past Surgical History: Adenoidectomy, Appendectomy, Section, Cholecystectomy, Heart Catheterization, Heart Catheterization With Stent, Joint Replacement, Tubal Ligation Additional Past Surgical History / Comment(s): paracentesis, lefroectomy, right hip replace, esophageal banding, bone marrow bx, EGD and colonoscopy Past Anesthesia/Blood Transfusion Reactions: No Reported Reaction Date of Last Stent Placement:: 2016 Past Psychological History: Depression Smoking Status: Current every day smoker Past Alcohol Use History: None Reported Past Drug Use History: None Reported - Past Family History Father Family Medical History: Cancer, Coronary Artery Disease (CAD), Diabetes Mellitus Additional Family Medical History / Comment(s): bladder ca Mother Family Medical History: Cancer, COPD, Diabetes Mellitus Additional Family Medical History / Comment(s): lung ca General Exam - General Exam Comments Initial Comments: Constitutional: Awake alert appears in mild distress Head: Normocephalic atraumatic Eyes: no conjunctival injection No scleral icterus EOMI Neck: No JVD Supple Heart: Tachycardic with regular rhythm normal S1-S2 no murmurs Lungs: Clear to auscultation bilaterally No wheezing No rales Abdomen: Soft abdomen is severely distended, generally tender however no rebound or guarding Extremities: Non edematous DP pulses intact Radial pulses intact Neuro: A&Ox3 No focal neurologic deficits Psych: Appropriate mood and affect Limitations: no limitations Course Vital Signs 08/11/17 08/11/17 08/11/17 20:45 21:10 21:38 Temperature 101 F H Pulse Rate 129 H 131 H 140 H Respiratory 24 22 22 Rate Blood Pressure 154/68 154/68 144/57 O2 Sat by Pulse 100 99 98 Oximetry 08/11/17 21:48 Temperature 99.8 F H Pulse Rate Respiratory Rate Blood Pressure O2 Sat by Pulse Oximetry - Reevaluation(s) Reevaluation #1: 08/11/17 21:13 EKG showing sinus tachycardia with a rate of 131. There is no abnormal ST segment changes or T-wave inversion. QTC is 443. Other intervals are normal. No ectopy. Procedures - Paracentesis Consent Obtained: written consent Local Anesthetic Used: Lidocaine 1% Amount of Anesthesia Used (mLs): 4 Fluid: clear, Sent to Lab for Analysis Post Procedure Exam: awake, alert, normal BP, normal SpO2 Patient Tolerated Procedure: well Complications: none Medical Decision Making - Medical Decision Making Is a 58-year-old female who presents emergency department for abdominal pain, nausea and abdominal distention. Patient was febrile on arrival and tachycardic. She did state that she did not take her metoprolol tonight. Blood pressure was normal. Patient did a little bit of tenderness on examination. A bedside paracentesis was performed for cell counts. This is currently pending. Chest x-ray did show possible pneumonia and vancomycin and Rocephin were given. Urinalysis is still pending. At this time the patient is hemodynamically improved however still tachycardic. I'm concern for SBP as the cause of her fever and tachycardia. The patient will be admitted to [facility] for close monitoring. Dr. Valverde with sound group except see admission. Patient was updated and agrees. - Lab Data Result diagrams: 08/11/17 20:51 08/11/17 20:51 Lab Results 08/11/17 08/11/17 08/11/17 Range/Units 20:51 20:51 20:51 WBC 10.2 (3.8-10.6) k/uL RBC 3.89 (3.80-5.40) m/uL Hgb 10.1 L (11.4-16.0) gm/dL Hct 31.2 L (34.0-46.0) % MCV 80.3 (80.0-100.0) fL MCH 26.0 (25.0-35.0) pg MCHC 32.4 (31.0-37.0) g/dL RDW 18.1 H (11.5-15.5) % Plt Count 104 L (150-450) k/uL Neutrophils % 79 % Lymphocytes % 11 % Monocytes % 6 % Eosinophils % 2 % Basophils % 0 % Neutrophils # 8.1 H (1.3-7.7) k/uL Lymphocytes # 1.1 (1.0-4.8) k/uL Monocytes # 0.7 (0-1.0) k/uL Eosinophils # 0.3 (0-0.7) k/uL Basophils # 0.0 (0-0.2) k/uL Hypochromasia Moderate Poikilocytosis Slight Anisocytosis Slight Microcytosis Slight PT (9.0-12.0) sec INR (<1.2) APTT (22.0-30.0) sec Sodium (137-145) mmol/L Potassium (3.5-5.1) mmol/L Chloride (98-107) mmol/L Carbon Dioxide (22-30) mmol/L Anion Gap mmol/L BUN (7-17) mg/dL Creatinine (0.52-1.04) mg/dL Est GFR (CKD-EPI)AfAm (>60 ml/min/1.73 sqM) Est GFR (CKD-EPI)NonAf (>60 ml/min/1.73 sqM) Glucose (74-99) mg/dL Plasma Lactic Acid [place] 1.8 (0.7-2.0) mmol/L Calcium (8.4-10.2) mg/dL Total Bilirubin (0.2-1.3) mg/dL AST (14-36) U/L ALT (9-52) U/L Alkaline Phosphatase (38-126) U/L Total Creatine Kinase 38 (30-135) U/L CK-MB (CK-2) 0.9 (0.0-2.4) ng/mL CK-MB (CK-2) Rel Index 2.4 Troponin I <0.012 (0.000-0.034) ng/mL Total Protein (6.3-8.2) g/dL Albumin (3.5-5.0) g/dL Influenza Type A RNA (Not Detectd) Influenza Type B (PCR) (Not Detectd) 08/11/17 08/11/17 08/11/17 Range/Units 20:51 20:51 21:36 WBC (3.8-10.6) k/uL RBC (3.80-5.40) m/uL Hgb (11.4-16.0) gm/dL Hct (34.0-46.0) % MCV (80.0-100.0) fL MCH (25.0-35.0) pg MCHC (31.0-37.0) g/dL RDW (11.5-15.5) % Plt Count (150-450) k/uL Neutrophils % % Lymphocytes % % Monocytes % % Eosinophils % % Basophils % % Neutrophils # (1.3-7.7) k/uL Lymphocytes # (1.0-4.8) k/uL Monocytes # (0-1.0) k/uL Eosinophils # (0-0.7) k/uL Basophils # (0-0.2) k/uL Hypochromasia Poikilocytosis Anisocytosis Microcytosis PT 12.2 H (9.0-12.0) sec INR 1.3 H (<1.2) APTT 24.4 (22.0-30.0) sec Sodium 134 L (137-145) mmol/L Potassium 4.1 (3.5-5.1) mmol/L Chloride 94 L (98-107) mmol/L Carbon Dioxide 30 (22-30) mmol/L Anion Gap 10 mmol/L BUN 20 H (7-17) mg/dL Creatinine 0.70 (0.52-1.04) mg/dL Est GFR (CKD-EPI)AfAm >90 (>60 ml/min/1.73 sqM) Est GFR (CKD-EPI)NonAf 89 (>60 ml/min/1.73 sqM) Glucose 160 H (74-99) mg/dL Plasma Lactic Acid [place] (0.7-2.0) mmol/L Calcium 7.9 L (8.4-10.2) mg/dL Total Bilirubin 1.2 (0.2-1.3) mg/dL AST 43 H (14-36) U/L ALT 40 (9-52) U/L Alkaline Phosphatase 126 (38-126) U/L Total Creatine Kinase (30-135) U/L CK-MB (CK-2) (0.0-2.4) ng/mL CK-MB (CK-2) Rel Index Troponin I (0.000-0.034) ng/mL Total Protein 5.7 L (6.3-8.2) g/dL Albumin 2.5 L (3.5-5.0) g/dL Influenza Type A RNA Not Detected (Not Detectd) Influenza Type B (PCR) Not Detected (Not Detectd) Disposition Clinical Impression: Ascites, SIRS (systemic inflammatory response syndrome), HCAP (healthcare- associated pneumonia) Disposition: ADMITTED IP TO THIS HOSP Condition: Serious
[2017-08-11 21:16] LABS: INR 1.3 (<1.2); Partial Thromboplastin Time 24.4 sec (22.0-30.0); Prothrombin Time 12.2 sec (9.0-12.0)
[2017-08-11 21:20] LABS: ALT 40 U/L (9-52); AST 43 U/L (14-36); Albumin 2.5 g/dL (3.5-5.0); Alkaline Phosphatase 126 U/L (38-126); Anion Gap 10 mmol/L; Blood Urea Nitrogen 20 mg/dL (7-17); Calcium 7.9 mg/dL (8.4-10.2); Carbon Dioxide 30 mmol/L (22-30); Chloride 94 mmol/L (98-107); Glucose 160 mg/dL (74-99); Potassium 4.1 mmol/L (3.5-5.1); Sodium 134 mmol/L (137-145); Total Bilirubin 1.2 mg/dL (0.2-1.3); Total Protein 5.7 g/dL (6.3-8.2)
[2017-08-11 21:21] LABS: Creatine Kinase 38 U/L (30-135)
[2017-08-11 21:34] LABS: Creatine Kinase MB 0.9 ng/mL (0.0-2.4); Troponin I <0.012 ng/mL (0.000-0.034)
--- NOTE | 2017-08-11 22:06 | XR ---
EXAMINATION: XR chest 1V portable DATE AND TIME: 08/11/2017 9:06 PM ORDERING PROVIDER: Yahir Justin DO CLINICAL INDICATION: Fever TECHNIQUE: Upright AP COMPARISON: None. DESCRIPTION: There is partial airlessness at the left lung base consistent with partial atelectasis and/or develop ing bronchopneumonia. The lungs are otherwise clear and well-expanded bilaterally. The pleural spaces are negative. The cardiac silhouette is not enlarged. The skeletal structures are intact without focal findings. The soft tissues are unremarkable. IMPRESSION: SUSPECT LEFT LOWER LOBE BRONCHOPNEUMONIA; WOULD ADVISE 9 WEEK FOLLOW-UP RADIOGRAPHS TO PROVE COMPLETE RESOLUTION.
[2017-08-11] MEDS ORDERED: METOPROLOL TARTRATE 5 MG/5 ML VIAL IVP STA (22:08)
[2017-08-11] MEDS ORDERED: VANCOMYCIN IV PER PHARMACY 1 EACH MISC MISCELLANE PRN (22:14)
[2017-08-11] MEDS ORDERED: VANCOMYCIN 2,000 MG in SODIUM CHLORIDE 0.9% 500 ML IVPB ONE (22:30)
[2017-08-11] MEDS ORDERED: SODIUM CHLORIDE 0.9% 1,000 ML IV SCH (22:45)
[2017-08-11 22:59] LABS: Appearance,BF Hazy; Color,BF Yellow; Nucleated Cells, Body Fluid 108 /uL; RBC, Body Fluid 1571 /uL
[2017-08-11 23:10] LABS: Mononuclear WBC,Body Fluid 31 %; Polynuclear WBC,Body Fluid 69 %; Total Cells Counted,Body Fluid 100
[2017-08-11] MEDS ORDERED: NALOXONE 0.4 MG/ML 1 ML VIAL IV PRN (23:31)
[2017-08-11] MEDS ORDERED: ACETAMINOPHEN TAB 325 MG TAB PO PRN (23:31)
[2017-08-11] MEDS ORDERED: MORPHINE ORAL SOLN 10 MG/5 ML CUP PO PRN ×2 (23:31→23:51)
[2017-08-11] MEDS ORDERED: MORPHINE SULFATE 4 MG/ML SYRINGE IV PRN ×2 (23:31→23:51)
[2017-08-11] MEDS ORDERED: ONDANSETRON 4 MG/2 ML VIAL IVP PRN (23:31)
[2017-08-11] MEDS ORDERED: traMADol 50 MG TAB PO PRN (23:47)
[2017-08-11] MEDS ORDERED: ALBUTEROL NEBULIZED 2.5 MG/3 ML INHALATION PRN (23:47)
--- NOTE | 2017-08-12 00:18 | P.HPIM ---
History of Present Illness H&P Date: 08/11/17 Chief Complaint: abdominal pain Patient is a 66-year-old female with a past medical history of cirrhosis that is dependent on frequent paracentesis secondary to an half, congestive heart failure, COPD on 4 L nasal cannula, [place]'s esophagus, esophageal varices, and diabetes mellitus who presented to the ER with abdominal pain. She had recently been hospitalized here from 08/05/2017 through and underwent large volume paracentesis. She was discharged home and subsequently continued to have reaccumulation of her ascites. In the ER she underwent an extensive evaluation. Her vital signs on arrival showed a temperature of 101, heart rate of 124, respirations 24 and blood pressure 154/ 68. EKG revealed sinus tachycardia. Chest x-ray revealed possible left-sided pneumonia. Laboratory analysis showed a normal white blood cell count, anemia consistent with her prior results, slightly elevated INR, and normal lactic acid. They did a bedside paracentesis to evaluate for SBP and she received a dose of rocephin and vancomycin. She will be admitted for further managemen of her SIRS and ascities. Patient seen and examined in the emergency department. She states that after leaving the hospital on 08/06 after large volume paracentesis she had immediately reaccumulation of her ascites. She has been taking her Lasix and Aldactone and has not missed any doses. She has also developed abdominal pain that is worsening as her distention is worsening. This is associated with a wheeze and shortness of breath. She developed diarrhea 3 days ago. She had a wheeze and her shortness of breath is worse with exertion. She was using oxygen at 3.5 L nasal cannula but has been wearing 4 L recently. Last night her daughter noted subjective fevers. Patient denies chills. Daughter said she had increased confusion last night. She has had a decreased appetite secondary to her abdominal distention and pain. She feels nauseous but has not vomited. She has had poor sleep secondary to her shortness of breath and the fact that her hospital bed was taken away and she is awaiting a new one. Her cough is productive of clear phlegm is chronic in nature. She reports that her palms are reddened and this is atypical for her. She also reports worsening lower extremity edema. She denies any chest pain, dysuria, headache, blurry vision, syncope, unusual weakness when laying. She also states that she was hospitalized in [facility] approximately one month ago. This was for paracentesis. She had a large amount of ascites drained off and ultimately ended up going into respiratory distress requiring ventilation and has sepsis secondary to what sounds like bacteremia. Her daughter states that for the last several months she has been requiring paracentesis every 12-14 days but this time has only made it 5 days without significant worsening. They have an appointment scheduled Dr. Hernandez on August 28 but have been unable to get in sooner than this. They also have a standing appointment for paracentesis on August 18 with interventional radiology. Review of Systems Hospitalist: +, Pain, + shortness of breath, + nausea, + decreased appetite, + edema Pertinent positives and negatives as discussed in HPI, a complete review of systems was performed and all other systems are negative. 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, Barretts esophagus, esophageal varicies with bleed requiring banding X 3, hiatal hernia, iron def anemia, thrombocytopenia, chronic back pain, pancreatitis, colon polyps, pt states she needs one of her heart valve replaced but doesnt know which one - paperwork she provided suggests mitral valve, septic infection with PICC line since removed History of Any Multi-Drug Resistant Organisms: MRSA Date of last positivie culture/infection: 2015 MDRO Source:: nose Past Surgical History: Adenoidectomy, Appendectomy, Section, Cholecystectomy, Heart Catheterization, Heart Catheterization With Stent, Joint Replacement, Tubal Ligation Additional Past Surgical History / Comment(s): paracentesis, right JUSTINO esophageal banding, bone marrow bx, EGD and colonoscopy Past Anesthesia/Blood Transfusion Reactions: No Reported Reaction Date of Last Stent Placement:: 2016 Past Psychological History: Depression Smoking Status: Current every day smoker Past Alcohol Use History: None Reported Past Drug Use History: None Reported Additional History: Lives with daughter, has multiple assistive devices - Past Family History Father Family Medical History: Cancer, Coronary Artery Disease (CAD), Diabetes Mellitus Additional Family Medical History / Comment(s): bladder ca Mother Family Medical History: Cancer, COPD, Diabetes Mellitus Additional Family Medical History / Comment(s): lung ca Medications and Allergies Home Medications Medication Instructions Recorded Confirmed Type Acetaminophen Tab [Tylenol] 1,000 mg PO Q6HR PRN 08/05/17 08/11/17 History Albuterol Inhaler [Ventolin Hfa 1 - 2 puff INHALATION RT-Q6H PRN 08/05/17 History Inhaler] Aspirin 81 mg PO DAILY 08/05/17 08/11/17 History Atorvastatin [Lipitor] 80 mg PO DAILY 08/05/17 08/11/17 History Diltiazem HCl 60 mg PO Q6H 08/05/17 08/11/17 History Furosemide [Lasix] 40 mg PO DAILY 08/05/17 08/11/17 History Glimepiride [Amaryl] 8 mg PO BID 08/05/17 08/11/17 History Metoprolol Tartrate [Lopressor] 50 mg PO BID 08/05/17 08/11/17 History Ondansetron [Zofran] 4 mg PO TID PRN 08/05/17 08/11/17 History Pantoprazole [Protonix] 40 mg PO DAILY 08/05/17 08/11/17 History Spironolactone 100 mg PO DAILY 08/05/17 08/11/17 History Tiotropium 18 Mcg/Puff [Spiriva] 1 cap INHALATION RT-DAILY 08/05/17 08/11/17 History Venlafaxine HCl [Effexor] 37.5 mg PO BID 08/05/17 08/11/17 History Collagenase [Santyl] 1 applic TOPICAL DAILY 08/11/17 08/11/17 History traMADol HCL [Ultram] 50 mg PO Q12H PRN 08/11/17 08/11/17 History Allergies Allergy/AdvReac Type Severity Reaction Status Date / Time albumin colloid, human AdvReac Dyspnea Verified 08/11/17 21:01 sulfamethoxazole AdvReac Rash/Hives Verified 08/11/17 21:01 [From Bactrim] trimethoprim [From Bactrim] AdvReac Rash/Hives Verified 08/11/17 21:01 Physical Exam Osteopathic Statement: *. No significant issues noted on an osteopathic structural exam other than those noted in the History and Physical/Consult. Vitals: Vital Signs Temp Pulse Resp BP Pulse Ox 08/11/17 23:16 110 H 22 136/65 100 08/11/17 22:56 119 H 22 136/65 100 08/11/17 22:53 129 H 22 146/73 100 08/11/17 21:48 99.8 F H 08/11/17 21:38 140 H 22 144/57 98 08/11/17 21:10 131 H 22 154/68 99 08/11/17 20:45 101 F H 129 H 24 154/68 100 Intake and Output 08/11/17 08/11/17 08/12/17 14:59 22:59 06:59 Other: Weight 98.43 kg General: Ill-appearing, moderate distress, appears older than stated age, normal weight Derm: Erythema of bilateral palms, diffuse ecchymoses, caput [place], stage IV sacral decub with good granulation tissue, not malodorus warm, dry Head: atraumatic, normocephalic, symmetric Eyes: EOMI, no lid lag, + anicteric sclera, pupils equal round reactive to light ENT: Nose and ears atraumatic, no thrush, no pharyngeal erythema Neck: No thyromegaly, no cervical lymphadenopathy, trachea midline, supple Mouth: no lip lesion, mucus membranes moist Cardiovascular: S1 and S2 tachycardic, no murmur, positive posterior tibial pulse bilateral, 3+ edema bilateral lower extremity, capillary refill less than 2 seconds Lungs: Bilateral bases, wheezes right base, + accessory muscle use Abdominal: soft distention, nontender to palpation, no guarding, no appreciable organomegaly, normal bowel sounds Ext: no gross muscle atrophy, muscle strength 5 out of 5 in all 4 extremities grossly, no contractures, Neuro: CN II-XI grossly intact, light touch intact all 4 extremities, finger to nose within normal limits, + asterixis Psych: Alert, oriented, appropriate affect Results CBC & Chem 7: 08/11/17 20:51 08/11/17 20:51 Labs: Abnormal Lab Results - Last 24 Hours (Table) 08/11/17 08/11/17 08/11/17 Range/Units 20:51 20:51 20:51 Hgb 10.1 L (11.4-16.0) gm/dL Hct 31.2 L (34.0-46.0) % RDW 18.1 H (11.5-15.5) % Plt Count 104 L (150-450) k/uL Neutrophils # 8.1 H (1.3-7.7) k/uL PT 12.2 H (9.0-12.0) sec INR 1.3 H (<1.2) Sodium 134 L (137-145) mmol/L Chloride 94 L (98-107) mmol/L BUN 20 H (7-17) mg/dL Glucose 160 H (74-99) mg/dL Calcium 7.9 L (8.4-10.2) mg/dL AST 43 H (14-36) U/L Total Protein 5.7 L (6.3-8.2) g/dL Albumin 2.5 L (3.5-5.0) g/dL Thrombosis Risk Factor Assmnt - DVT/VTE Prophylaxis DVT/VTE Prophylaxis: Mechanical Prophylaxis ordered Assessment and Plan Assessment: Cirrhosis with refractory ascites due to BARRY - NPO after midnight - diagnostic and therapeutic paracentesis with IR - change to IV lasix and aldactone - patient refuses albumin with paracentesis because she believes this caused pneumonia in the past. discussed at length that this seems unlikely - Rocephin until cultures from para available - consider GI consult - consider lovenox after paracentesis Systemic inflammatory response syndrome -Chest x-ray does not consistently like pneumonia, repeat chest x-ray after paracentesis tomorrow -Received 1 dose of Rocephin and 1 dose of vancomycin in the ER -Initial paracentesis not consistent with SBP -Check C. diff with history of diarrhea -Change fluids to half-normal saline -Await blood cultures -Obtain records from recent hospitalizations in [facility] with bacteremia Stage IV sacral decub - continue with santyl and daily dressing changes - good granulation tissue - frequent turns DM 2 - hold orals - follow BS - SSI - A1C 5.6 can likely come off oral meds at D/C Congestive heart failure, unknown ejection fraction, currently appears compensated in that fluid overload is coming from liver failure -Continue with beta jaime -IV Lasix secondary to ascites -Aldactone -Not chronically on SELMA inhibitor will not initiate at this point in time of plan for large volume paracentesis in a.m. and patient's refusal of albumin Chronic iron deficiency anemia -Hemoglobin is above what it was last time at discharge -Follow intermittent CBC Chronic: COPD without exacerbation Hypertension, controlled Coronary artery disease GERD History of esophageal varices Chronic back pain Coronary artery disease Surrogate decision-maker: Daughter Petrona Norwood [phone] CODE STATUS:Full DVT prophylaxis: SCDs Discussed with: Patient, family, ED physician, ED nursing, pharmacy Anticipated discharge: 3-[address]: home with home heal, ? hospice A total of 35 minutes was spent on the care of this complex patient more than 50 % of the time was spent in counseling and care coordination.
[2017-08-12] MEDS: HYDROcodone/APAP 5-325MG 1 EACH TAB PO PRN ×2 (00:47→20:27)
[2017-08-12] MEDS: SODIUM CHLORIDE 0.45% 1,000 ML IV SCH ×2 (02:00→09:37)
[2017-08-12 02:21] VITALS: BMI 35.8
[2017-08-12] MEDS: DILTIAZEM ORAL 60 MG TAB PO SCH ×4 (03:01→17:52)
[2017-08-12 06:15] LABS: Glucose,Whole Blood 118 mg/dL (75-99)
[2017-08-12] MEDS: INSULIN ASPART 100 UNIT/ML 1 ML 10 ML VIAL SQ SCH ×4 (06:24→21:39)
[2017-08-12 07:07] LABS: Appearance,Urine Cloudy (Clear); Bacteria,Urine Occasional /hpf; Bilirubin,Urine Negative (Negative); Blood,Urine Small (Negative); Color,Urine Yellow; Glucose,Urine (UA) Negative (Negative); Hyaline Casts,Urine 12 /lpf (0-2); Ketones,Urine Negative (Negative); Leukocyte Esterase,Urine Small (Negative); Mucus,Urine Rare /hpf; Nitrite,Urine Negative (Negative); Protein,Urine Trace (Negative); RBC,Urine 5 /hpf (0-5); Specific Gravity,Urine 1.014 (1.001-1.035); Squamous Epithelial Cell,Urine 13 /hpf (0-4); Urobilinogen,Urine <2.0 mg/dL (<2.0); WBC,Urine 3 /hpf (0-5)
[2017-08-12] MEDS: IPRATROPIUM 0.5 MG/2.5 ML NEBU INHALATION SCH ×4 (08:24→19:55)
--- NOTE | 2017-08-12 08:58 | P.PN ---
Subjective Progress Note Date: 08/12/17 Principal diagnosis: Patient is seen in follow-up for symptomatic ascites Patient seen and examined today, still reporting difficulty with breathing however positional due to huge belly. Denies any fevers or chills overnight. Denies any chest pain. Denies any leg pain however does report bilateral leg swelling. Objective - Vital Signs Vital signs: Vital Signs Temp 97.6 F 08/12/17 07:55 Pulse 100 08/12/17 08:34 Resp 18 08/12/17 08:24 BP 133/64 08/12/17 07:55 Pulse Ox 98 08/12/17 07:55 Intake & Output 08/11/17 08/12/17 08/12/17 18:59 06:59 18:59 Intake Total 1100 Output Total 300 Balance 1100 -300 Weight 94.6 kg Intake: IV 1100 Sodium Chloride 0.45% 1, 600 000 ml @ 100 mls/hr IV . Q10H [facility] Rx#:[id number] Vancomycin 2,000 mg In 500 Sodium Chloride 0.9% 500 ml @ 167 mls/hr IVPB ONCE ONE Rx#:[id number] Output: Urine 300 Other: Voiding Method Bedside Commode # Voids 1 # Bowel Movements 0 - Exam Constitutional: vital signs stable, Not in acute distress, pleasant, conversant Lungs: Decreased breath sounds at lung bases bilaterally right more than left, normal respiratory effort Cardiovascular: Regular rate and rhythm, no murmurs, no gallops, no rubs, +3 bilateral peripheral leg edema Gastrointestinal: Severely distended, no tenderness to palpation, some discomfort with deep palpation though, could not appreciate organomegaly due to severe abdominal distention, bowel sounds positive Skin: Stage IV sacral decub, dry, healthy granulation tissue Extremities: No digital cyanosis or clubbing, peripheral pulses palpable and equal over bilateral radial arteries and dorsalis pedis artery, no calf muscle tenderness, capillary refill is immediate bilaterally Psych: Alert, oriented to place, person and time, appropriate affect, intact judgment - Labs CBC & Chem 7: 08/11/17 20:51 08/11/17 20:51 Labs: Abnormal Lab Results - Last 24 Hours (Table) 08/11/17 08/11/17 08/11/17 Range/Units 20:51 20:51 20:51 Hgb 10.1 L (11.4-16.0) gm/dL Hct 31.2 L (34.0-46.0) % RDW 18.1 H (11.5-15.5) % Plt Count 104 L (150-450) k/uL Neutrophils # 8.1 H (1.3-7.7) k/uL PT 12.2 H (9.0-12.0) sec INR 1.3 H (<1.2) Sodium 134 L (137-145) mmol/L Chloride 94 L (98-107) mmol/L BUN 20 H (7-17) mg/dL Glucose 160 H (74-99) mg/dL POC Glucose (mg/dL) (75-99) mg/dL Calcium 7.9 L (8.4-10.2) mg/dL AST 43 H (14-36) U/L Total Protein 5.7 L (6.3-8.2) g/dL Albumin 2.5 L (3.5-5.0) g/dL Urine Appearance (Clear) Urine Protein (Negative) Urine Blood (Negative) Ur Leukocyte Esterase (Negative) Ur Squamous Epith Cells (0-4) /hpf Urine Bacteria (None) /hpf Hyaline Casts (0-2) /lpf Urine Mucus (None) /hpf 08/12/17 08/12/17 Range/Units 06:14 06:53 Hgb (11.4-16.0) gm/dL Hct (34.0-46.0) % RDW (11.5-15.5) % Plt Count (150-450) k/uL Neutrophils # (1.3-7.7) k/uL PT (9.0-12.0) sec INR (<1.2) Sodium (137-145) mmol/L Chloride (98-107) mmol/L BUN (7-17) mg/dL Glucose (74-99) mg/dL POC Glucose (mg/dL) 118 H (75-99) mg/dL Calcium (8.4-10.2) mg/dL AST (14-36) U/L Total Protein (6.3-8.2) g/dL Albumin (3.5-5.0) g/dL Urine Appearance Cloudy H (Clear) Urine Protein Trace H (Negative) Urine Blood Small H (Negative) Ur Leukocyte Esterase Small H (Negative) Ur Squamous Epith Cells 13 H (0-4) /hpf Urine Bacteria Occasional H (None) /hpf Hyaline Casts 12 H (0-2) /lpf Urine Mucus Rare H (None) /hpf Assessment and Plan Assessment: 66-year-old female with history of [place], she recently moved to the city and has not been able to establish relationship with outpatient GI and PCP service. Patient was here a week ago for therapeutic paracentesis after which she felt very comfortable when we removed around 11 L last admission. However that's been less than a week and she came back with her abdomen severely distended affecting her breathing. Patient was scheduled for outpatient paracentesis however she did not believe she can wait for another 6 days, so she presented to the hospital seeking further care. She initially was started on antibiotic for possible spontaneous bacterial peritonitis to do some abdominal pain. However diagnostic tap was performed in the ED prior to receiving any antibiotics and that did not show any evidence of SBP. However antibiotics were continued for presumed possible pneumonia, and until blood cultures were negative for more than 48 hours and bacteremia is ruled out due to patient reporting recent history of bacteremia at a different facility. Plan: #Severe symptomatic ascites due to [place] #Liver cirrhosis secondary to [place] Await therapeutic paracentesis Continue diuretics Patient continues to refuse albumin with paracentesis she believes that it has caused pneumonia in the past GI following #Sirs, rule out underlying infection Patient was started in the ER on antibiotic for presumed pneumonia, no clinical history of pneumonia However antibiotics were continued due to recent hospitalization and patient reporting bacteremia at a different facility recently. Blood cultures are negative to date. C. diff pending Await records from her recent hospitalization in [facility] with bacteremia #Stage IV sacral decub, present on admission Local wound care #Type 2 diabetes mellitus Continue insulin sliding scale #Chronic anemia Currently hemoglobin is stable #DVT prophylaxis Currently mechanical Once patient's gets her paracentesis done will start patient on heparin subcu Chronic conditions COPD without exacerbation Hypertension with Control blood pressure GERD Esophageal varices CAD CHF Possible discharge home if blood cultures continues to be negative after 48 hours
[2017-08-12] MEDS ORDERED: PANTOPRAZOLE 40 MG/10 ML VIAL IV SCH (09:00)
[2017-08-12] MEDS: SPIRONOLACTONE 25 MG TAB PO SCH (09:35)
[2017-08-12] MEDS: METOPROLOL TARTRATE 50 MG TAB PO SCH ×2 (09:35→20:20)
[2017-08-12] MEDS: VENLAFAXINE HCL 37.5 MG TAB PO SCH ×2 (09:36→20:20)
[2017-08-12] MEDS: FUROSEMIDE 10 MG/ML 4 ML VIAL IV SCH ×2 (09:36→20:20)
[2017-08-12] MEDS: ATORVASTATIN 80 MG TAB PO SCH (09:38)
[2017-08-12 11:46] LABS: Glucose,Whole Blood 215 mg/dL (75-99)
[2017-08-12] MEDS: COLLAGENASE 250 UNIT/GM OINTMENT 30 GM TUBE TOPICAL SCH (12:20)
[2017-08-12] MEDS ORDERED: MORPHINE ORAL SOLN 10 MG/5 ML CUP PO PRN (13:32)
[2017-08-12] MEDS ORDERED: LIDOCAINE (PF) 10 MG/ML 5ML AMP SQ STA (13:36)
[2017-08-12 14:33] LABS: Total Protein, Body Fluid 411 mg/dL
--- NOTE | 2017-08-12 15:22 | US ---
EXAMINATION TYPE: US paracentesis abd w/image DATE OF EXAM: 08/12/2017 COMPARISON: NONE HISTORY: Ascites. PROCEDURE: Maximal barrier technique was utilized. The skin overlying a suitable pocket of fluid was localized with ultrasound and the overlying skin was prepped and draped. Ultrasound was utilized with sterile technique. Lidocaine was used for local anesthesia and a skin aiden made with a scalpel. Catheter was advanced under direct ultrasound guidance into a suitable pocket of fluid and approximately 8 liters of serous fluid were removed. Catheter was withdrawn and hemostasis achieved. There is no immediate complication; the patient is discharged in stable condition. IMPRESSION: STATUS POST ULTRASOUND GUIDED PARACENTESIS FOR PALLIATION OF ASCITES. THIS PROCEDURE WA S PERFORMED BY THE UNDERSIGNED.
[2017-08-12 15:32] LABS: Hemoglobin A1C 5.8 % (4.0-6.0)
[2017-08-12] MEDS: VANCOMYCIN 1,750 MG in SODIUM CHLORIDE 0.9% 250 ML IVPB SCH (16:31)
[2017-08-12 16:50] LABS: Glucose,Whole Blood 118 mg/dL (75-99)
[2017-08-12] MEDS: cefTRIAXone IN SWFI 1,000 MG/10 ML SYRINGE IVP SCH (20:20)
[2017-08-12 21:21] LABS: Glucose,Whole Blood 143 mg/dL (75-99)
[2017-08-13] MEDS: DILTIAZEM ORAL 60 MG TAB PO SCH ×5 (00:24→23:22)
[2017-08-13 06:01] LABS: Glucose,Whole Blood 123 mg/dL (75-99)
[2017-08-13] MEDS: INSULIN ASPART 100 UNIT/ML 1 ML 10 ML VIAL SQ SCH ×4 (06:28→21:15)
[2017-08-13] MEDS: PANTOPRAZOLE 40 MG TABLET PO SCH (06:31)
[2017-08-13] MEDS: VANCOMYCIN 1,750 MG in SODIUM CHLORIDE 0.9% 250 ML IVPB SCH ×2 (06:31→21:47)
[2017-08-13 06:50] LABS: Calcium 7.5 mg/dL (8.4-10.2); Potassium 3.9 mmol/L (3.5-5.1)
[2017-08-13] MEDS: ATORVASTATIN 80 MG TAB PO SCH (08:00)
[2017-08-13] MEDS: SPIRONOLACTONE 25 MG TAB PO SCH (08:01)
[2017-08-13] MEDS: FUROSEMIDE 10 MG/ML 4 ML VIAL IV SCH (08:01)
[2017-08-13] MEDS: VENLAFAXINE HCL 37.5 MG TAB PO SCH ×2 (08:01→20:58)
[2017-08-13] MEDS: METOPROLOL TARTRATE 50 MG TAB PO SCH ×2 (08:01→20:59)
[2017-08-13] MEDS: HYDROcodone/APAP 5-325MG 1 EACH TAB PO PRN ×2 (08:07→21:03)
[2017-08-13] MEDS: IPRATROPIUM 0.5 MG/2.5 ML NEBU INHALATION SCH ×4 (08:11→19:49)
[2017-08-13] MEDS ORDERED: MORPHINE ORAL SOLN 10 MG/5 ML CUP PO PRN (10:32)
[2017-08-13 11:35] LABS: Glucose,Whole Blood 192 mg/dL (75-99)
--- NOTE | 2017-08-13 14:14 | P.PN ---
Subjective Progress Note Date: 08/13/17 Principal diagnosis: Patient is seen in follow-up for symptomatic ascites, and SIRS Patient seen and examined today, patient reports big relief after paracentesis where 8 L were removed. She denies any further shortness of breath or trouble breathing. Patient is eager to go home. She is tolerating by mouth intake. Objective - Vital Signs Vital signs: Vital Signs Temp 98.4 F 08/13/17 08:00 Pulse 65 08/13/17 11:28 Resp 20 08/13/17 08:00 BP 113/58 08/13/17 08:00 Pulse Ox 95 08/13/17 08:00 Intake & Output 08/12/17 08/13/17 08/13/17 18:59 06:59 18:59 Intake Total 240 1050 600 Output Total 300 550 200 Balance -60 500 400 Weight 94.6 kg 89.2 kg Intake: IV 1000 Sodium Chloride 0.45% 1, 1000 000 ml @ 100 mls/hr IV . Q10H [facility] Rx#:[id number] Intake, IV Titration 50 Amount cefTRIAXone 1,000 mg In 50 Sodium Chloride 0.9% 50 ml @ 100 mls/hr IVPB Q24HR [facility] Rx#:[id number] Oral 240 600 Output: Urine 300 550 200 Other: Voiding Method Bedside Commode Bedside Commode # Voids 2 1 # Bowel Movements 1 0 - Exam Constitutional: vital signs stable, Not in acute distress, pleasant, conversant Lungs: Decreased breath sounds at lung bases bilaterally right more than left, normal respiratory effort Cardiovascular: Regular rate and rhythm, no murmurs, no gallops, no rubs, +2 bilateral peripheral leg edema Gastrointestinal: distended abdomen improved compared to yesterday, no tenderness to palpation, bowel sounds positive Skin: Stage IV sacral decub, dry, healthy granulation tissue Extremities: No digital cyanosis or clubbing, peripheral pulses palpable and equal over bilateral radial arteries and dorsalis pedis artery, no calf muscle tenderness, capillary refill is immediate bilaterally Psych: Alert, oriented to place, person and time, appropriate affect, intact judgment - Labs CBC & Chem 7: 08/11/17 20:51 08/13/17 06:15 Labs: Abnormal Lab Results - Last 24 Hours (Table) 08/12/17 08/12/17 08/13/17 Range/Units 16:48 21:01 05:59 Sodium (137-145) mmol/L Chloride (98-107) mmol/L Carbon Dioxide (22-30) mmol/L BUN (7-17) mg/dL Glucose (74-99) mg/dL POC Glucose (mg/dL) 118 H 143 H 123 H (75-99) mg/dL Calcium (8.4-10.2) mg/dL 08/13/17 08/13/17 Range/Units 06:15 11:34 Sodium 133 L (137-145) mmol/L Chloride 96 L (98-107) mmol/L Carbon Dioxide 31 H (22-30) mmol/L BUN 19 H (7-17) mg/dL Glucose 121 H (74-99) mg/dL POC Glucose (mg/dL) 192 H (75-99) mg/dL Calcium 7.5 L (8.4-10.2) mg/dL Microbiology - Last 24 Hours (Table) 08/11/17 20:00 Gram Stain - Preliminary Paracentesis Fluid Body Fluid Culture - Preliminary 08/11/17 21:34 Blood Culture - Preliminary Blood No Growth after 24 hours 08/11/17 20:51 Blood Culture - Preliminary Blood No Growth after 24 hours 08/12/17 06:53 Urine Culture - Preliminary Urine,Voided Assessment and Plan Assessment: 66-year-old female with history of [place], she recently moved to the city and has not been able to establish relationship with outpatient GI and PCP service. Patient was here a week ago for therapeutic paracentesis after which she felt very comfortable when we removed around 11 L last admission. However that's been less than a week and she came back with her abdomen severely distended affecting her breathing. Patient was scheduled for outpatient paracentesis however she did not believe she can wait for another 6 days, so she presented to the hospital seeking further care. She initially was started on antibiotic for possible spontaneous bacterial peritonitis to do some abdominal pain. However diagnostic tap was performed in the ED prior to receiving any antibiotics and that did not show any evidence of SBP. However antibiotics were continued for presumed possible pneumonia, and until blood cultures were negative for more than 48 hours and bacteremia is ruled out due to patient reporting recent history of bacteremia at a different facility. Patient had paracentesis done yesterday 08/12 and 8 liters were taken out patient refused to have albumin infused due to concerns regarding pneumonia despite the fact that her physicians has explained to her that's probably not related. Patient was scheduled to have regular visits to IR to have scheduled paracentesis until she follows up with GI. For symptomatic relief Plan: #Severe symptomatic ascites due to [place] #Liver cirrhosis secondary to [place] Therapeutic paracentesis done 8 L removed Continue diuretics, switch to by mouth Patient continues to refuse albumin with paracentesis she believes that it has caused pneumonia in the past outpatient follow-up with GI #Sirs, rule out underlying infection Patient was started in the ER on antibiotic for presumed pneumonia, no clinical history of pneumonia However antibiotics were continued due to recent hospitalization and patient reporting bacteremia at a different facility recently. Blood cultures are negative to date. Await records from her recent hospitalization in [facility] with bacteremia, these are not available yet I will await negative blood cultures for 48 hours prior to discharge #Stage IV sacral decub, present on admission Local wound care #Type 2 diabetes mellitus Continue insulin sliding scale #Chronic anemia Currently hemoglobin is stable #DVT prophylaxis Start heparin subcu 3 times a day Chronic conditions COPD without exacerbation Hypertension with Control blood pressure GERD Esophageal varices CAD CHF Possible discharge home if blood cultures continues to be negative after 48 hours
[2017-08-13] MEDS: COLLAGENASE 250 UNIT/GM OINTMENT 30 GM TUBE TOPICAL SCH (16:34)
[2017-08-13] MEDS: HEPARIN SODIUM,PORCINE 5,000 UNIT/ML 1 ML VIAL SQ SCH ×2 (16:35→23:21)
[2017-08-13 16:46] LABS: Glucose,Whole Blood 193 mg/dL (75-99)
[2017-08-13] MEDS ORDERED: COLLAGENASE 250 UNIT/GM OINTMENT 30 GM TUBE TOPICAL SCH (21:00)
[2017-08-13] MEDS: cefTRIAXone IN SWFI 1,000 MG/10 ML SYRINGE IVP SCH (21:04)
[2017-08-13 21:07] LABS: Glucose,Whole Blood 211 mg/dL (75-99)
[2017-08-13 23:56] VITALS: RESP 17
[2017-08-14 06:16] VITALS: BP 124/59; TEMP 96.7
[2017-08-14] MEDS: DILTIAZEM ORAL 60 MG TAB PO SCH ×2 (06:30→11:27)
[2017-08-14] MEDS: IPRATROPIUM 0.5 MG/2.5 ML NEBU INHALATION SCH ×2 (07:35→11:50)
[2017-08-14 07:39] VITALS: PULSE 72
[2017-08-14] MEDS: HEPARIN SODIUM,PORCINE 5,000 UNIT/ML 1 ML VIAL SQ SCH (07:44)
[2017-08-14] MEDS: INSULIN ASPART 100 UNIT/ML 1 ML 10 ML VIAL SQ SCH ×2 (07:44→11:27)
[2017-08-14] MEDS: PANTOPRAZOLE 40 MG TABLET PO SCH (07:44)
[2017-08-14 07:45] LABS: Glucose,Whole Blood 166 mg/dL (75-99)
[2017-08-14] MEDS: ATORVASTATIN 80 MG TAB PO SCH (07:45)
[2017-08-14] MEDS: VENLAFAXINE HCL 37.5 MG TAB PO SCH (07:45)
[2017-08-14] MEDS: METOPROLOL TARTRATE 50 MG TAB PO SCH (07:45)
[2017-08-14] MEDS: SPIRONOLACTONE 25 MG TAB PO SCH (07:45)
[2017-08-14] MEDS ORDERED: FUROSEMIDE 40 MG TAB PO SCH (09:00)
--- NOTE | 2017-08-14 10:16 | P.DS ---
Providers Date of admission: 08/11/17 22:39 Expected date of discharge: 08/14/17 Attending physician: Pauline Fowler DO Primary care physician: Ivan Nolasco - Discharge Diagnosis(es) (1) Ascites Current Visit: Yes Status: Acute (2) Decubital ulcer Current Visit: Yes Status: Acute (3) Diabetes mellitus Current Visit: Yes Status: Acute (4) Anemia Current Visit: Yes Status: Acute Hospital Course: This is a 66-year-old female that was admitted with discomfort from ascites. Patient had paracentesis with 8 L out. There was report of patient having bacteremia at [place]. But there is no signs of any acute infection here. Blood cultures have been negative for 48 hours. So no need for further antibiotics upon discharge. Patient will be discharged home in stable condition Patient Condition at Discharge: Stable Plan - Discharge Summary Discharge Rx Participant: No New Discharge Prescriptions: Continue Aspirin 81 mg PO DAILY Albuterol Inhaler [Ventolin Hfa Inhaler] 1 - 2 puff INHALATION RT-Q6H PRN PRN Reason: Shortness Of Breath Venlafaxine HCl [Effexor] 37.5 mg PO BID Tiotropium 18 Mcg/Puff [Spiriva] 1 cap INHALATION RT-DAILY Pantoprazole [Protonix] 40 mg PO DAILY Ondansetron [Zofran] 4 mg PO TID PRN PRN Reason: Nausea Glimepiride [Amaryl] 8 mg PO BID Spironolactone 100 mg PO DAILY Metoprolol Tartrate [Lopressor] 50 mg PO BID Furosemide [Lasix] 40 mg PO DAILY Diltiazem HCl 60 mg PO Q6H Atorvastatin [Lipitor] 80 mg PO DAILY Acetaminophen Tab [Tylenol] 1,000 mg PO Q6HR PRN PRN Reason: Pain traMADol HCL [Ultram] 50 mg PO Q12H PRN PRN Reason: Pain Collagenase [Santyl] 1 applic TOPICAL DAILY Discharge Medication List Acetaminophen Tab [Tylenol] 1,000 mg PO Q6HR PRN 08/05/17 [History] Albuterol Inhaler [Ventolin Hfa Inhaler] 1 - 2 puff INHALATION RT-Q6H PRN [History] Aspirin 81 mg PO DAILY 08/05/17 [History] Atorvastatin [Lipitor] 80 mg PO DAILY 08/05/17 [History] Diltiazem HCl 60 mg PO Q6H 08/05/17 [History] Furosemide [Lasix] 40 mg PO DAILY 08/05/17 [History] Glimepiride [Amaryl] 8 mg PO BID 08/05/17 [History] Metoprolol Tartrate [Lopressor] 50 mg PO BID 08/05/17 [History] Ondansetron [Zofran] 4 mg PO TID PRN 08/05/17 [History] Pantoprazole [Protonix] 40 mg PO DAILY 08/05/17 [History] Spironolactone 100 mg PO DAILY 08/05/17 [History] Tiotropium 18 Mcg/Puff [Spiriva] 1 cap INHALATION RT-DAILY 08/05/17 [History] Venlafaxine HCl [Effexor] 37.5 mg PO BID 08/05/17 [History] Collagenase [Santyl] 1 applic TOPICAL DAILY 08/11/17 [History] traMADol HCL [Ultram] 50 mg PO Q12H PRN 08/11/17 [History] Follow up Appointment(s)/Referral(s): [facility], [NON-STAFF] - 1 Week Discharge Disposition: HOME SELF-CARE
[2017-08-14 11:39] LABS: Glucose,Whole Blood 201 mg/dL (75-99)
[2017-08-14] MEDS ORDERED: VANCOMYCIN TROUGH DUE 1 EACH MISC MISCELLANE ONE (13:00)
== END 2017-08-14 12:00 | disposition home health service (06) | DRG 441 ==
LOC: EC 20:39 → 6SEL 22:39 → 4MS4W 08-14 00:42
PROVIDERS: ADMIT Internal Medicine; ATTEND Internal Medicine
PROC: 0W9G3ZX Drainage of Peritoneal Cavity, Percutaneous Approach, Diagnostic (ICD-10-PCS; principal; 2017-08-11)
PROC: 0W9G3ZZ Drainage of Peritoneal Cavity, Percutaneous Approach (ICD-10-PCS; 2017-08-12)
DX: K75.81 Nonalcoholic steatohepatitis (NASH) (principal); L89.154 Pressure ulcer of sacral region, stage 4; R18.8 Other ascites; I85.10 Secondary esophageal varices without bleeding; R65.10 Systemic inflammatory response syndrome (SIRS) of non-infectious origin without acute organ dysfunction; K72.90 Hepatic failure, unspecified without coma; D69.6 Thrombocytopenia, unspecified; I11.0 Hypertensive heart disease with heart failure; I50.9 Heart failure, unspecified; Z99.81 Dependence on supplemental oxygen; K74.60 Unspecified cirrhosis of liver; J44.9 Chronic obstructive pulmonary disease, unspecified; D50.9 Iron deficiency anemia, unspecified; E11.9 Type 2 diabetes mellitus without complications; I25.10 Atherosclerotic heart disease of native coronary artery without angina pectoris; K21.9 Gastro-esophageal reflux disease without esophagitis; E78.5 Hyperlipidemia, unspecified; K22.70 Barrett's esophagus without dysplasia; F32.9 Major depressive disorder, single episode, unspecified; K44.9 Diaphragmatic hernia without obstruction or gangrene; M54.9 Dorsalgia, unspecified; G89.29 Other chronic pain; R19.7 Diarrhea, unspecified; F17.210 Nicotine dependence, cigarettes, uncomplicated; Z71.6 Tobacco abuse counseling; Z79.82 Long term (current) use of aspirin; Z79.84 Long term (current) use of oral hypoglycemic drugs; Z79.899 Other long term (current) drug therapy; Z86.14 Personal history of Methicillin resistant Staphylococcus aureus infection; Z86.010 Personal history of colon polyps; Z90.49 Acquired absence of other specified parts of digestive tract; Z95.5 Presence of coronary angioplasty implant and graft; Z96.641 Presence of right artificial hip joint; Z86.79 Personal history of other diseases of the circulatory system; Z98.51 Tubal ligation status; Z88.2 Allergy status to sulfonamides; Z88.8 Allergy status to other drugs, medicaments and biological substances; Z82.49 Family history of ischemic heart disease and other diseases of the circulatory system; Z83.3 Family history of diabetes mellitus; Z80.52 Family history of malignant neoplasm of bladder; Z80.1 Family history of malignant neoplasm of trachea, bronchus and lung; Z82.5 Family history of asthma and other chronic lower respiratory diseases
CPT/HCPCS: 36415; 49082; 49083; 71045; 80048; 80053; 81001; 82550; 82553; 82945; 83036; 83605; 84157; 84484; 85025; 85610; 85730; 87040; 87070; 87086; 87205; 87502; 89050; 93005; 94640; 96365; 96375; 99285

== ENCOUNTER 2017-08-18 08:41 | Day surgery (SDC) | payer MEDICARE ==
[2017-08-18 09:50] LABS: Mean Platelet Volume 7.4; Platelet Count 108 k/uL (150-450)
[2017-08-18 10:00] LABS: INR 1.2 (<1.2); Prothrombin Time 11.1 sec (9.0-12.0)
[2017-08-18 10:02] LABS: Glucose 142 mg/dL (74-99)
[2017-08-18] MEDS ORDERED: LIDOCAINE 1% INJ 10MG/ML (20 ML MDV) SQ ONE (10:22)
[2017-08-18 10:27] VITALS: TEMP 97.3
[2017-08-18] MEDS: ALBUMIN HUMAN 25% 50 ML in EMPTY BAG 1 BAG IVPB SCH ×4 (10:35→11:19)
[2017-08-18 11:22] VITALS: RESP 18
--- NOTE | 2017-08-18 11:58 | US ---
EXAMINATION TYPE: US paracentesis abd w/image DATE OF EXAM: 08/18/2017 COMPARISON: NONE HISTORY: Ascites. PROCEDURE: Maximal barrier technique was utilized. The skin overlying a suitable pocket of fluid was localized with ultrasound and the overlying skin was prepped and draped. Ultrasound was utilized with sterile technique. Lidocaine was used for local anesthesia and a skin aiden made with a scalpel. Catheter was advanced under direct ultrasound guidance into a suitable pocket of fluid and approximately 8.5 liter s of serous fluid were removed. Catheter was withdrawn and hemostasis achieved. There is no immedia te complication; the patient is discharged in stable condition. IMPRESSION: STATUS POST ULTRASOUND GUIDED PARACENTESIS FOR PALLIATION OF ASCITES. THIS PROCEDURE WA S PERFORMED BY THE UNDERSIGNED.
[2017-08-18 12:13] VITALS: BP 161/73; PULSE 108
== END 2017-08-18 12:00 | disposition home or self-care (01) ==
LOC: RADPROMAIN 08:41
PROVIDERS: ATTEND Internal Medicine
DX: R18.8 Other ascites (principal)
CPT/HCPCS: 82565; 82947; 85049; 85610; 96365; 36415; 49083; J2001; P9047

== ENCOUNTER 2017-08-26 11:50 | Day surgery (SDC) | payer MEDICARE ==
[2017-08-26 12:39] LABS: Mean Platelet Volume 7.1; Platelet Count 115 k/uL (150-450)
[2017-08-26 12:46] LABS: INR 1.3 (<1.2); Prothrombin Time 11.9 sec (9.0-12.0)
[2017-08-26 12:48] VITALS: TEMP 97.6
[2017-08-26] MEDS ORDERED: LIDOCAINE 1% INJ 10MG/ML (20 ML MDV) SQ ONE (13:28)
[2017-08-26 13:33] VITALS: RESP 16
[2017-08-26] MEDS: ALBUMIN HUMAN 25% 50 ML in EMPTY BAG 1 BAG IVPB SCH ×4 (13:45→14:32)
--- NOTE | 2017-08-26 14:30 | US ---
EXAMINATION TYPE: US paracentesis abd w/image DATE OF EXAM: 08/26/2017 COMPARISON: NONE HISTORY: Ascites. PROCEDURE: Maximal barrier technique was utilized. The skin overlying a suitable pocket of fluid was localized with ultrasound and the overlying skin was prepped and draped. Ultrasound was utilized with sterile technique. Lidocaine was used for local anesthesia and a skin aiden made with a scalpel. Catheter was advanced under direct ultrasound guidance into a suitable pocket of fluid and approximately 8.5 liter s of serous fluid were removed. Catheter was withdrawn and hemostasis achieved. There is no immedia te complication; the patient is discharged in stable condition. IMPRESSION: STATUS POST ULTRASOUND GUIDED PARACENTESIS FOR PALLIATION OF ASCITES. THIS PROCEDURE WA S PERFORMED BY THE UNDERSIGNED.
[2017-08-26 15:48] VITALS: BP 129/61; PULSE 71
== END 2017-08-26 15:00 | disposition home or self-care (01) ==
LOC: RADPROMAIN 11:50
PROVIDERS: ATTEND Internal Medicine
DX: R18.8 Other ascites (principal)
CPT/HCPCS: 82565; 82947; 85049; 85610; 96365; 36415; 49083; J2001; P9047

== ENCOUNTER 2017-09-01 12:09 | Day surgery (SDC) | payer MEDICARE ==
[2017-09-01 12:53] VITALS: TEMP 98.3
[2017-09-01 12:53] LABS: INR 1.3 (<1.2); Prothrombin Time 12.1 sec (9.0-12.0)
[2017-09-01 13:00] LABS: ALT 41 U/L (9-52); AST 53 U/L (14-36); Albumin 3.1 g/dL (3.5-5.0); Alkaline Phosphatase 116 U/L (38-126); Anion Gap 12 mmol/L; Blood Urea Nitrogen 15 mg/dL (7-17); Calcium 8.3 mg/dL (8.4-10.2); Carbon Dioxide 31 mmol/L (22-30); Chloride 96 mmol/L (98-107); Glucose 194 mg/dL (74-99); Potassium 3.7 mmol/L (3.5-5.1); Sodium 139 mmol/L (137-145); Total Bilirubin 1.1 mg/dL (0.2-1.3); Total Protein 6.2 g/dL (6.3-8.2)
[2017-09-01 13:24] LABS: Anisocytosis Slight; Basophils % (A) 0 %; Eosinophils # (A) 0.1 k/uL (0-0.7); Eosinophils % (A) 1 %; HCT 30.1 % (34.0-46.0); HGB 9.6 gm/dL (11.4-16.0); Hypochromasia Slight; Lymphocytes # (A) 0.9 k/uL (1.0-4.8); Lymphocytes % (A) 15 %; MCH 25.2 pg (25.0-35.0); MCHC 31.8 g/dL (31.0-37.0); MCV 79.4 fL (80.0-100.0); Mean Platelet Volume 7.6; Microcytosis Slight; Monocytes # (A) 0.4 k/uL (0-1.0); Monocytes % (A) 7 %; Neutrophils # (A) 4.2 k/uL (1.3-7.7); Neutrophils % (A) 75 %; Poikilocytosis Slight; RBC 3.79 m/uL (3.80-5.40); RDW 18.4 % (11.5-15.5); WBC 5.6 k/uL (3.8-10.6)
[2017-09-01 13:32] LABS: Platelet Count 95 k/uL (150-450)
[2017-09-01] MEDS ORDERED: LIDOCAINE 1% INJ 10MG/ML (20 ML MDV) SQ ONE (13:40)
[2017-09-01 13:47] VITALS: RESP 20
[2017-09-01] MEDS: ALBUMIN HUMAN 25% 50 ML in EMPTY BAG 1 BAG IVPB SCH ×6 (13:50→15:10)
--- NOTE | 2017-09-01 15:21 | US ---
EXAMINATION TYPE: US paracentesis abd w/image DATE OF EXAM: 09/01/2017 COMPARISON: NONE HISTORY: Ascites. PROCEDURE: Maximal barrier technique was utilized. The skin overlying a suitable pocket of fluid was localized with ultrasound and the overlying skin was prepped and draped. Ultrasound was utilized with sterile technique. Lidocaine was used for local anesthesia and a skin aiden made with a scalpel. Catheter was advanced under direct ultrasound guidance into a suitable pocket of fluid and approximately 10.1 lite rs of serous fluid were removed. Catheter was withdrawn and hemostasis achieved. There is no immedi ate complication; the patient is discharged in stable condition. IMPRESSION: STATUS POST ULTRASOUND GUIDED PARACENTESIS FOR PALLIATION OF ASCITES. THIS PROCEDURE WA S PERFORMED BY THE UNDERSIGNED.
[2017-09-01 15:29] VITALS: BP 133/61; PULSE 89
== END 2017-09-01 15:50 | disposition home or self-care (01) ==
LOC: RADPROMAIN 12:09
PROVIDERS: ATTEND Internal Medicine
DX: R18.8 Other ascites (principal); K74.60 Unspecified cirrhosis of liver
CPT/HCPCS: 80053; 85025; 85610; 96365; 36415; 49083; J2001; P9047

== ENCOUNTER 2017-09-08 12:10 | Day surgery (SDC) | payer MEDICARE ==
[2017-09-08 12:30] VITALS: RESP 20; TEMP 98.2
[2017-09-08] MEDS ORDERED: ALBUMIN HUMAN 25% 50 ML in EMPTY BAG 1 BAG IVPB SCH (12:30)
[2017-09-08 12:58] LABS: Anisocytosis Slight; Basophils % (A) 1 %; Eosinophils # (A) 0.1 k/uL (0-0.7); Eosinophils % (A) 2 %; HCT 28.7 % (34.0-46.0); HGB 9.1 gm/dL (11.4-16.0); Hypochromasia Moderate; INR 1.2 (<1.2); Lymphocytes % (A) 17 %; MCH 25.4 pg (25.0-35.0); MCHC 31.6 g/dL (31.0-37.0); MCV 80.4 fL (80.0-100.0); Mean Platelet Volume 7.4; Microcytosis Slight; Monocytes # (A) 0.4 k/uL (0-1.0); Monocytes % (A) 7 %; Neutrophils # (A) 4.3 k/uL (1.3-7.7); Neutrophils % (A) 71 %; Poikilocytosis Slight; Prothrombin Time 11.7 sec (9.0-12.0); RBC 3.57 m/uL (3.80-5.40)
[2017-09-08 13:00] LABS: Platelet Count 97 k/uL (150-450)
[2017-09-08 13:01] LABS: ALT 42 U/L (9-52); AST 61 U/L (14-36); Albumin 3.2 g/dL (3.5-5.0); Alkaline Phosphatase 116 U/L (38-126); Anion Gap 10 mmol/L; Blood Urea Nitrogen 14 mg/dL (7-17); Calcium 8.2 mg/dL (8.4-10.2); Carbon Dioxide 33 mmol/L (22-30); Chloride 95 mmol/L (98-107); Glucose 163 mg/dL (74-99); Sodium 138 mmol/L (137-145); Total Bilirubin 1.1 mg/dL (0.2-1.3); Total Protein 6.1 g/dL (6.3-8.2)
[2017-09-08 13:13] LABS: Potassium 2.9 mmol/L (3.5-5.1)
[2017-09-08] MEDS: ALBUMIN HUMAN 25% 50 ML in EMPTY BAG 1 BAG IVPB SCH ×6 (13:39→14:59)
[2017-09-08] MEDS ORDERED: POTASSIUM CHLORIDE ER 20 MEQ TAB.ER PO STA (13:50)
[2017-09-08 15:08] VITALS: BP 139/49; PULSE 91
--- NOTE | 2017-09-09 08:00 | US ---
Therapeutic paracentesis. DATE OF EXAM: 09/08/2017 CLINICAL HISTORY: Ascites The procedure was discussed with the patient. The risks, complications, benefits, and alternatives we re discussed and any questions were answered. Informed consent was obtained. The patient was placed s upine on the ultrasound table and prepped and draped in the usual sterile fashion. All elements of maximal barrier technique were utilized. Under ultrasound guidance, access into the left lower quadrant was obtained, via the paracentesis catheter system and direct ultrasound guidance . Approximately 10 liters of straw-colored fluid was removed. The patient was stable throughout the pro cedure and remained stable upon discharge from Department of Radiology. IMPRESSION: Successful therapeutic paracentesis under ultrasound guidance.
== END 2017-09-08 15:45 | disposition home or self-care (01) ==
LOC: RADPROMAIN 12:10
PROVIDERS: ATTEND Internal Medicine
DX: R18.8 Other ascites (principal); K74.60 Unspecified cirrhosis of liver
CPT/HCPCS: 80053; 85025; 85610; 96365; 96366; 36415; 49083; P9047

== ENCOUNTER 2017-09-15 11:42 | Day surgery (SDC) | payer MEDICARE ==
[2017-09-15 12:23] LABS: Anisocytosis Slight; Basophils % (A) 1 %; Eosinophils # (A) 0.1 k/uL (0-0.7); Eosinophils % (A) 1 %; HCT 31.6 % (34.0-46.0); HGB 9.9 gm/dL (11.4-16.0); Hypochromasia Moderate; Lymphocytes % (A) 19 %; MCHC 31.5 g/dL (31.0-37.0); MCV 79.6 fL (80.0-100.0); Mean Platelet Volume 7.9; Microcytosis Slight; Monocytes # (A) 0.5 k/uL (0-1.0); Monocytes % (A) 9 %; Neutrophils # (A) 3.6 k/uL (1.3-7.7); Neutrophils % (A) 68 %; Platelet Count 100 k/uL (150-450); Poikilocytosis Slight; RBC 3.97 m/uL (3.80-5.40); RDW 18.4 % (11.5-15.5); WBC 5.3 k/uL (3.8-10.6)
[2017-09-15 12:25] VITALS: TEMP 98.1
[2017-09-15 12:32] LABS: ALT 38 U/L (9-52); AST 55 U/L (14-36); Albumin 3.7 g/dL (3.5-5.0); Alkaline Phosphatase 116 U/L (38-126); Anion Gap 8 mmol/L; Blood Urea Nitrogen 12 mg/dL (7-17); Calcium 8.8 mg/dL (8.4-10.2); Carbon Dioxide 34 mmol/L (22-30); Chloride 97 mmol/L (98-107); Glucose 136 mg/dL (74-99); INR 1.2 (<1.2); Prothrombin Time 11.6 sec (9.0-12.0); Sodium 139 mmol/L (137-145); Total Bilirubin 1.1 mg/dL (0.2-1.3); Total Protein 6.8 g/dL (6.3-8.2)
[2017-09-15 12:36] LABS: Potassium 4.1 mmol/L (3.5-5.1)
[2017-09-15] MEDS: ALBUMIN HUMAN 25% 50 ML in EMPTY BAG 1 BAG IVPB SCH ×4 (14:00→14:58)
[2017-09-15 15:51] VITALS: RESP 16
[2017-09-15 15:52] VITALS: BP 115/68; PULSE 74
--- NOTE | 2017-09-15 15:59 | US ---
Therapeutic paracentesis. DATE OF EXAM: 09/15/2017 CLINICAL HISTORY: Ascites The procedure was discussed with the patient. The risks, complications, benefits, and alternatives we re discussed and any questions were answered. Informed consent was obtained. The patient was placed s upine on the ultrasound table and prepped and draped in the usual sterile fashion. All elements of maximal barrier technique were utilized. Under ultrasound guidance, access into the right lower quadrant was obtained, via the paracentesis catheter system and direct ultrasound guidanc e. Approximately 8.5 liters of straw-colored fluid was removed. The patient was stable throughout the pr ocedure and remained stable upon discharge from Department of Radiology. IMPRESSION: Successful therapeutic paracentesis under ultrasound guidance.
== END 2017-09-15 15:45 | disposition home or self-care (01) ==
LOC: RADPROMAIN 11:42
PROVIDERS: ATTEND Internal Medicine Gastroenterology
DX: R18.8 Other ascites (principal)
CPT/HCPCS: 80053; 85025; 85610; 96365; 36415; 49083; P9047

== ENCOUNTER 2017-09-22 11:50 | Day surgery (SDC) | payer MEDICARE ==
[2017-09-22 12:41] LABS: Anisocytosis Slight; Basophils % (A) 1 %; Eosinophils # (A) 0.1 k/uL (0-0.7); Eosinophils % (A) 1 %; HCT 31.5 % (34.0-46.0); Hypochromasia Marked; Lymphocytes % (A) 18 %; MCH 25.8 pg (25.0-35.0); MCHC 31.8 g/dL (31.0-37.0); MCV 81.1 fL (80.0-100.0); Mean Platelet Volume 7.2; Microcytosis Slight; Monocytes # (A) 0.5 k/uL (0-1.0); Monocytes % (A) 8 %; Neutrophils % (A) 70 %; Platelet Count 115 k/uL (150-450); Poikilocytosis Slight; RBC 3.88 m/uL (3.80-5.40); RDW 18.1 % (11.5-15.5); WBC 5.8 k/uL (3.8-10.6)
[2017-09-22 12:42] VITALS: RESP 16; TEMP 98.1
[2017-09-22 12:45] LABS: INR 1.2 (<1.2); Prothrombin Time 11.2 sec (9.0-12.0)
[2017-09-22 12:50] LABS: ALT 40 U/L (9-52); AST 54 U/L (14-36); Albumin 3.4 g/dL (3.5-5.0); Alkaline Phosphatase 111 U/L (38-126); Anion Gap 10 mmol/L; Blood Urea Nitrogen 14 mg/dL (7-17); Calcium 8.3 mg/dL (8.4-10.2); Carbon Dioxide 33 mmol/L (22-30); Chloride 96 mmol/L (98-107); Glucose 209 mg/dL (74-99); Potassium 3.6 mmol/L (3.5-5.1); Sodium 139 mmol/L (137-145); Total Bilirubin 1.2 mg/dL (0.2-1.3); Total Protein 6.1 g/dL (6.3-8.2)
[2017-09-22] MEDS: ALBUMIN HUMAN 25% 50 ML in EMPTY BAG 1 BAG IVPB SCH ×6 (13:26→15:06)
[2017-09-22] MEDS ORDERED: LIDOCAINE 1% INJ 10MG/ML (20 ML MDV) SQ ONE (14:00)
[2017-09-22 14:27] VITALS: BP 133/68; PULSE 76
--- NOTE | 2017-09-22 16:00 | US ---
EXAMINATION TYPE: US paracentesis abd w/image DATE OF EXAM: 09/22/2017 COMPARISON: NONE HISTORY: Ascites. PROCEDURE: Maximal barrier technique was utilized. The skin overlying a suitable pocket of fluid was localized with ultrasound and the overlying skin was prepped and draped. Ultrasound was utilized with sterile technique. Lidocaine was used for local anesthesia and a skin aiden made with a scalpel. Catheter was advanced under direct ultrasound guidance into a suitable pocket of fluid and approximately 7.7 liter s of serous fluid were removed. Catheter was withdrawn and hemostasis achieved. There is no immedia te complication; the patient is discharged in stable condition. IMPRESSION: STATUS POST ULTRASOUND GUIDED PARACENTESIS FOR PALLIATION OF ASCITES. THIS PROCEDURE WA S PERFORMED BY THE UNDERSIGNED.
== END 2017-09-22 15:20 | disposition home or self-care (01) ==
LOC: RADPROMAIN 11:50
PROVIDERS: ATTEND Internal Medicine Gastroenterology
DX: R18.8 Other ascites (principal); K74.60 Unspecified cirrhosis of liver
CPT/HCPCS: 80053; 85025; 85610; 96365; 49083; J2001; P9047

== ENCOUNTER 2017-09-29 11:47 | Day surgery (SDC) | payer MEDICARE ==
[2017-09-29 12:17] VITALS: RESP 16; TEMP 98.3
[2017-09-29 12:24] LABS: INR 1.2 (<1.2); Prothrombin Time 11.4 sec (9.0-12.0)
[2017-09-29 12:26] LABS: ALT 37 U/L (9-52); AST 42 U/L (14-36); Albumin 3.5 g/dL (3.5-5.0); Alkaline Phosphatase 109 U/L (38-126); Anion Gap 12 mmol/L; Blood Urea Nitrogen 11 mg/dL (7-17); Calcium 8.6 mg/dL (8.4-10.2); Carbon Dioxide 32 mmol/L (22-30); Chloride 93 mmol/L (98-107); Glucose 274 mg/dL (74-99); Potassium 3.7 mmol/L (3.5-5.1); Sodium 137 mmol/L (137-145); Total Bilirubin 1.2 mg/dL (0.2-1.3); Total Protein 6.3 g/dL (6.3-8.2)
[2017-09-29 12:28] LABS: Mean Platelet Volume 7.3; Platelet Count 114 k/uL (150-450)
[2017-09-29] MEDS: ALBUMIN HUMAN 25% 50 ML in EMPTY BAG 1 BAG IVPB SCH ×6 (13:14→15:20)
--- NOTE | 2017-09-29 14:42 | US ---
Therapeutic paracentesis. DATE OF EXAM: 09/29/2017 CLINICAL HISTORY: Ascites The procedure was discussed with the patient. The risks, complications, benefits, and alternatives we re discussed and any questions were answered. Informed consent was obtained. The patient was placed s upine on the ultrasound table and prepped and draped in the usual sterile fashion. All elements of maximal barrier technique were utilized. Under ultrasound guidance, access into the left lower quadrant was obtained, via the paracentesis catheter system and direct ultrasound guidance . Approximately 6.4 liters of straw-colored fluid was removed. The patient was stable throughout the pr ocedure and remained stable upon discharge from Department of Radiology. IMPRESSION: Successful therapeutic paracentesis under ultrasound guidance.
[2017-09-29 14:45] VITALS: BP 140/63; PULSE 98
== END 2017-09-29 14:55 | disposition home or self-care (01) ==
LOC: RADPROMAIN 11:47
PROVIDERS: ATTEND Internal Medicine Gastroenterology
DX: R18.8 Other ascites (principal); K74.60 Unspecified cirrhosis of liver
CPT/HCPCS: 80053; 85049; 85610; 96365; 49083; P9047

== ENCOUNTER 2017-10-06 11:49 | Day surgery (SDC) | payer MEDICARE ==
[2017-10-06 12:36] LABS: Mean Platelet Volume 8.1; Platelet Count 117 k/uL (150-450)
[2017-10-06 12:53] LABS: INR 1.2 (<1.2); Prothrombin Time 11.3 sec (9.0-12.0)
[2017-10-06] MEDS: ALBUMIN HUMAN 25% 50 ML in EMPTY BAG 1 BAG IVPB SCH ×3 (13:40→15:08)
[2017-10-06 14:29] LABS: Anisocytosis Slight; HCT 29.6 % (34.0-46.0); HGB 9.5 gm/dL (11.4-16.0); Hypochromasia Moderate; MCH 25.4 pg (25.0-35.0); MCHC 32.3 g/dL (31.0-37.0); MCV 78.6 fL (80.0-100.0); Mean Platelet Volume 7.4; Microcytosis Slight; Platelet Count 110 k/uL (150-450); Poikilocytosis Slight; RBC 3.76 m/uL (3.80-5.40); RDW 18.2 % (11.5-15.5); WBC 6.2 k/uL (3.8-10.6)
[2017-10-06 14:42] LABS: Albumin 3.6 g/dL (3.5-5.0); Calcium 9.1 mg/dL (8.4-10.2); Total Bilirubin 1.3 mg/dL (0.2-1.3); Total Protein 6.7 g/dL (6.3-8.2)
[2017-10-06 15:15] VITALS: TEMP 98.1
[2017-10-06 15:19] VITALS: RESP 16
[2017-10-06 15:20] VITALS: BP 132/74; PULSE 76
--- NOTE | 2017-10-06 15:53 | US ---
EXAMINATION TYPE: US paracentesis abd w/image DATE OF EXAM: 10/06/2017 COMPARISON: NONE HISTORY: Ascites. PROCEDURE: Maximal barrier technique was utilized. The skin overlying a suitable pocket of fluid was localized with ultrasound and the overlying skin was prepped and draped. Ultrasound was utilized with sterile technique. Lidocaine was used for local anesthesia and a skin aiden made with a scalpel. Catheter was advanced under direct ultrasound guidance into a suitable pocket of fluid and approximately 4.2 liter s of serous fluid were removed. Catheter was withdrawn and hemostasis achieved. There is no immedia te complication; the patient is discharged in stable condition. IMPRESSION: STATUS POST ULTRASOUND GUIDED PARACENTESIS FOR PALLIATION OF ASCITES. THIS PROCEDURE WA S PERFORMED BY THE UNDERSIGNED.
== END 2017-10-06 15:30 | disposition home or self-care (01) ==
LOC: RADPROMAIN 11:49
PROVIDERS: ATTEND Internal Medicine Gastroenterology
DX: R18.8 Other ascites (principal); K74.60 Unspecified cirrhosis of liver
CPT/HCPCS: 80053; 85027; 85049; 85610; 96365; 36415; 49083; P9047; 82565

== ENCOUNTER 2017-10-10 08:01 | Inpatient (IN) | payer MEDICARE ==
[2017-10-10] MEDS ORDERED: SODIUM CHLORIDE 0.9% 1,000 ML IV STA (08:29)
[2017-10-10 08:36] LABS: Anisocytosis Slight; Basophils % (A) 0 %; Eosinophils % (A) 1 %; HCT 27.4 % (34.0-46.0); HGB 8.8 gm/dL (11.4-16.0); Hypochromasia Moderate; Lymphocytes # (A) 0.7 k/uL (1.0-4.8); Lymphocytes % (A) 10 %; MCH 25.2 pg (25.0-35.0); MCV 78.6 fL (80.0-100.0); Mean Platelet Volume 6.8; Microcytosis Slight; Monocytes # (A) 0.6 k/uL (0-1.0); Monocytes % (A) 9 %; Neutrophils # (A) 5.9 k/uL (1.3-7.7); Neutrophils % (A) 79 %; Poikilocytosis Slight; RBC 3.48 m/uL (3.80-5.40); RDW 18.3 % (11.5-15.5); WBC 7.4 k/uL (3.8-10.6)
--- NOTE | 2017-10-10 08:37 | ED ---
General Adult HPI - General Source: EMS, RN notes reviewed Mode of arrival: EMS Limitations: no limitations <Gokul Saunders - Last Filed: 10/10/17 12:12> <Jasvir Dallas - Last Filed: 10/10/17 13:00> - General Chief complaint: Extremity Injury, Upper Stated complaint: fall Time Seen by Provider: 10/10/17 08:16 - History of Present Illness Initial comments: 66-year-old female with significant past medical history of liver cirrhosis, COPD, CHF, diabetes, presenting by EMS with a chief complaint of abdominal pain and a fall that occurred 2 days ago. Patient does admit that she does have a history of liver cirrhosis. States that she has abdominal ascites and had fluid drained 4 days ago. She states that since that time she's felt a little dizzy at times. She states that she had a fall in the middle of the night 2 nights ago when she was up getting some water. Patient's unsure if she tripped or slipped on something. She admits that she was having increased abdominal pain going across the abdomen today. She states it's worse than usual for her history of ascites and liver cirrhosis. Patient also admits to some right- sided chest pain underneath the right breast. Patient denies any other complaints or symptoms at this time. Patient was given 4 mg of morphine by EMS along with Zofran. Currently pain free. Patient denies any recent fever, chills , back pain, nausea or vomiting, numbness or tingling, dysuria or hematuria, constipation or diarrhea, headaches or visual changes, or any other complaints. (Gokul Saunders) - Related Data Home Medications Medication Instructions Recorded Confirmed Acetaminophen Tab [Tylenol] 1,000 mg PO Q6HR PRN 08/05/17 10/10/17 Atorvastatin [Lipitor] 80 mg PO HS 08/05/17 10/10/17 Diltiazem HCl 60 mg PO Q6H 08/05/17 10/10/17 Furosemide [Lasix] 80 mg PO BID 08/05/17 10/10/17 Metoprolol Tartrate [Lopressor] 50 mg PO BID 08/05/17 10/10/17 Ondansetron [Zofran] 4 mg PO TID PRN 08/05/17 10/10/17 Pantoprazole [Protonix] 40 mg PO DAILY 08/05/17 10/10/17 Spironolactone 100 mg PO DAILY 08/05/17 10/10/17 Tiotropium 18 Mcg/Puff [Spiriva] 1 cap INHALATION RT-DAILY 08/05/17 10/10/17 Venlafaxine HCl [Effexor] 37.5 mg PO BID 08/05/17 10/10/17 Albuterol Sulfate [Proair Hfa] 2 puff INHALATION RT-QID PRN 09/22/17 10/10/17 Aspirin EC [Ecotrin Low Dose] 81 mg PO HS 10/10/17 10/10/17 Glimepiride [Amaryl] 2 mg PO BID 10/10/17 10/10/17 Insulin Glargine,Hum.rec.anlog 20 unit SQ BID 10/10/17 10/10/17 [Lantus Solostar] Allergies Allergy/AdvReac Type Severity Reaction Status Date / Time sulfamethoxazole AdvReac Rash/Hives Verified 10/10/17 08:17 [From Bactrim] trimethoprim [From Bactrim] AdvReac Rash/Hives Verified 10/10/17 08:17 Review of Systems ROS Other: All systems not noted in ROS Statement are negative. <Gokul Saunders - Last Filed: 10/10/17 12:12> ROS Other: All systems not noted in ROS Statement are negative. <Jasvir Dallas - Last Filed: 10/10/17 13:00> ROS Statement: Those systems with pertinent positive or pertinent negative responses have been documented in the HPI. 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, Barretts esophagus, esophageal varicies with bleed requiring banding X 3, hiatal hernia, iron def anemia, thrombocytopenia, chronic back pain, pancreatitis, colon polyps, pt states she needs one of her heart valve replaced but doesnt know which one - paperwork she provided suggests mitral valve, septic infection with PICC line since removed History of Any Multi-Drug Resistant Organisms: MRSA Date of last positivie culture/infection: 2015 MDRO Source:: nose Past Surgical History: Adenoidectomy, Appendectomy, Section, Cholecystectomy, Heart Catheterization, Heart Catheterization With Stent, Joint Replacement, Tubal Ligation Additional Past Surgical History / Comment(s): paracentesis, right JUSTINO esophageal banding, bone marrow bx, EGD and colonoscopy Past Anesthesia/Blood Transfusion Reactions: No Reported Reaction Date of Last Stent Placement:: 2016 Past Psychological History: Depression Smoking Status: Current every day smoker Past Alcohol Use History: None Reported Past Drug Use History: None Reported - Past Family History Father Family Medical History: Cancer, Coronary Artery Disease (CAD), Diabetes Mellitus Additional Family Medical History / Comment(s): bladder ca Mother Family Medical History: Cancer, COPD, Diabetes Mellitus Additional Family Medical History / Comment(s): lung ca <Gokul Saunders - Last Filed: 10/10/17 12:12> General Exam Limitations: no limitations <Gokul Saunders - Last Filed: 10/10/17 12:12> <Jasvir Dallas - Last Filed: 10/10/17 13:00> - General Exam Comments Initial Comments: General: The patient is awake and alert, in no distress, and does not appear acutely ill. Eye: Pupils are equal, round and reactive to light, extra-ocular movements are intact. No nystagmus. There is normal conjunctiva bilaterally. No signs of icterus. Ears, nose, mouth and throat: There are moist mucous membranes and no oral lesions. Neck: The neck is supple, there is no tenderness or JVD. Cardiovascular: There is a regular rate and rhythm. No murmur, rub or gallop is appreciated. Respiratory: Lungs are clear to auscultation, respirations are non-labored, breath sounds are equal. No wheezes, stridor, rales, or rhonchi. Gastrointestinal: Distended abdomen. Tender over both right and left upper quadrants. No rebound, guarding or CVA tenderness. Musculoskeletal: Normal ROM, no tenderness. Strength 5/5. Sensation intact. Pulses equal bilaterally 2+. Neurological: A&O x 3. CN II-XII intact, There are no obvious motor or sensory deficits. Coordination appears grossly intact. Speech is normal. Skin: Skin is warm and dry and no rashes or lesions are noted. Psychiatric: Cooperative, appropriate mood & affect, normal judgment. (Gokul Saunders) Vital Signs 07/10/10/17 10/10/17 08:03 09:21 10:19 Temperature 98.5 F 98.8 F Pulse Rate 98 101 H 104 H Respiratory 18 20 18 Rate Blood Pressure 141/65 151/76 143/63 O2 Sat by Pulse 100 99 95 Oximetry 10/10/17 10/10/17 11:50 12:41 Temperature 98 F Pulse Rate 105 H 108 H Respiratory 18 18 Rate Blood Pressure 149/69 126/57 O2 Sat by Pulse 95 96 Oximetry Medical Decision Making - Lab Data Result diagrams: 10/10/17 08:09 10/10/17 08:09 <Gokul Saunders - Last Filed: 10/10/17 12:12> - Lab Data Result diagrams: 10/10/17 08:09 10/10/17 08:09 <Jasvir Dallas - Last Filed: 10/10/17 13:00> - Medical Decision Making Patient reexamined here the emergency room at this time shows no signs of distress. She is feeling better here in the emergency room. She was given 4 mg of morphine by EMS. She still very drowsy. Patient is arousable to voice. Patient labs been reviewed does show mildly elevated lipase. CT the abdomen and pelvis was reviewed and showing evidence for cirrhosis, ascites, possible enteritis. Patient does have moderate swelling of the abdomen. His discussed and seen by attending physician Dr. Salazar. Case was discussed with admitting physician Dr. [id number] with the patient with consult to Dr. Hernandez. ( Gokul Saunders) Provider Attestation PA attestation: I personally saw and examined the patient. I have reviewed and agree with the PA's findings, including all diagnostic interpretations and treatment plans as written unless ohterwise stated. I was present for sheets portions of any procedures performed and the inclusive time noted for any critical care statement. (Jasvir Dallas) - Lab Data Lab Results 10/10/17 10/10/17 10/10/17 Range/Units 08:09 08:09 08:09 WBC 7.4 (3.8-10.6) k/uL RBC 3.48 L (3.80-5.40) m/uL Hgb 8.8 L (11.4-16.0) gm/dL Hct 27.4 L (34.0-46.0) % MCV 78.6 L (80.0-100.0) fL MCH 25.2 (25.0-35.0) pg MCHC 32.0 (31.0-37.0) g/dL RDW 18.3 H (11.5-15.5) % Plt Count 98 L (150-450) k/uL Neutrophils % 79 % Lymphocytes % 10 % Monocytes % 9 % Eosinophils % 1 % Basophils % 0 % Neutrophils # 5.9 (1.3-7.7) k/uL Lymphocytes # 0.7 L (1.0-4.8) k/uL Monocytes # 0.6 (0-1.0) k/uL Eosinophils # 0.0 (0-0.7) k/uL Basophils # 0.0 (0-0.2) k/uL Dimorphic RBCs Present Polychromasia Present Hypochromasia Moderate Poikilocytosis Slight Anisocytosis Slight Microcytosis Slight Ovalocytes Present PT (9.0-12.0) sec INR (<1.2) APTT (22.0-30.0) sec Sodium 135 L (137-145) mmol/L Potassium 4.3 (3.5-5.1) mmol/L Chloride 95 L (98-107) mmol/L Carbon Dioxide 31 H (22-30) mmol/L Anion Gap 9 mmol/L BUN 16 (7-17) mg/dL Creatinine 0.92 (0.52-1.04) mg/dL Est GFR (CKD-EPI)AfAm 74 (>60 ml/min/1.73 sqM) Est GFR (CKD-EPI)NonAf 64 (>60 ml/min/1.73 sqM) Glucose 201 H (74-99) mg/dL Calcium 8.3 L (8.4-10.2) mg/dL Total Bilirubin 1.4 H (0.2-1.3) mg/dL AST 40 H (14-36) U/L ALT 36 (9-52) U/L Alkaline Phosphatase 107 (38-126) U/L Ammonia (<30) umol/L Total Creatine Kinase 64 (30-135) U/L CK-MB (CK-2) 0.5 (0.0-2.4) ng/mL CK-MB (CK-2) Rel Index 0.8 Troponin I <0.012 (0.000-0.034) ng/mL Total Protein 6.0 L (6.3-8.2) g/dL Albumin 3.3 L (3.5-5.0) g/dL Amylase 118 H (30-110) U/L Lipase 574 H (23-300) U/L 10/10/17 10/10/17 Range/Units 08:09 09:18 WBC (3.8-10.6) k/uL RBC (3.80-5.40) m/uL Hgb (11.4-16.0) gm/dL Hct (34.0-46.0) % MCV (80.0-100.0) fL MCH (25.0-35.0) pg MCHC (31.0-37.0) g/dL RDW (11.5-15.5) % Plt Count (150-450) k/uL Neutrophils % % Lymphocytes % % Monocytes % % Eosinophils % % Basophils % % Neutrophils # (1.3-7.7) k/uL Lymphocytes # (1.0-4.8) k/uL Monocytes # (0-1.0) k/uL Eosinophils # (0-0.7) k/uL Basophils # (0-0.2) k/uL Dimorphic RBCs Polychromasia Hypochromasia Poikilocytosis Anisocytosis Microcytosis Ovalocytes PT 11.7 (9.0-12.0) sec INR 1.2 H (<1.2) APTT 24.0 (22.0-30.0) sec Sodium (137-145) mmol/L Potassium (3.5-5.1) mmol/L Chloride (98-107) mmol/L Carbon Dioxide (22-30) mmol/L Anion Gap mmol/L BUN (7-17) mg/dL Creatinine (0.52-1.04) mg/dL Est GFR (CKD-EPI)AfAm (>60 ml/min/1.73 sqM) Est GFR (CKD-EPI)NonAf (>60 ml/min/1.73 sqM) Glucose (74-99) mg/dL Calcium (8.4-10.2) mg/dL Total Bilirubin (0.2-1.3) mg/dL AST (14-36) U/L ALT (9-52) U/L Alkaline Phosphatase (38-126) U/L Ammonia 22 (<30) umol/L Total Creatine Kinase (30-135) U/L CK-MB (CK-2) (0.0-2.4) ng/mL CK-MB (CK-2) Rel Index Troponin I (0.000-0.034) ng/mL Total Protein (6.3-8.2) g/dL Albumin (3.5-5.0) g/dL Amylase (30-110) U/L Lipase (23-300) U/L Disposition Is patient prescribed a controlled substance at d/c from ED?: No Time of Disposition: 12:04 <Gokul Saunders - Last Filed: 10/10/17 12:12> <Jasvir Dallas - Last Filed: 10/10/17 13:00> Clinical Impression: Ascites, Liver cirrhosis, Abdominal pain, Altered mental status, unspecified Disposition: ADMITTED IP TO THIS HOSP Condition: Stable
[2017-10-10 08:45] LABS: INR 1.2 (<1.2); Prothrombin Time 11.7 sec (9.0-12.0)
[2017-10-10 08:53] LABS: Albumin 3.3 g/dL (3.5-5.0); Calcium 8.3 mg/dL (8.4-10.2); Potassium 4.3 mmol/L (3.5-5.1); Total Bilirubin 1.4 mg/dL (0.2-1.3)
[2017-10-10 08:56] LABS: Creatine Kinase 64 U/L (30-135)
[2017-10-10 08:57] LABS: Platelet Count 98 k/uL (150-450)
[2017-10-10 08:58] LABS: Mixed Population RBC Present; Polychromasia Present
[2017-10-10 08:59] LABS: Ovalocytes Present
[2017-10-10 09:09] LABS: Creatine Kinase MB 0.5 ng/mL (0.0-2.4); Troponin I <0.012 ng/mL (0.000-0.034)
--- NOTE | 2017-10-10 09:35 | XR ---
EXAMINATION TYPE: XR KUB DATE OF EXAM: 10/10/2017 9:28 AM CLINICAL HISTORY: Recent paracentesis. Abdominal pain. Fall. Cirrhosis. TECHNIQUE: Single supine KUB image of the abdomen is obtained. COMPARISON: None. FINDINGS: There is large bowel dilatation along the splenic flexure measuring up to 8.9 cm that appea rs gaseous. Some air is seen in the distal large bowel with surgical clips in the right hemipelvis an d low pelvis centrally. Right-sided arthroplasty is seen. Retained right hemicolonic stool is moderat e. Gastric rugal folds are pronounced and thickened. Cholecystectomy clips are seen within the right upper quadrant. IMPRESSION: Nonspecific gaseous dilation of the splenic flexure with overall paucity of gas in the re ctum. Findings could be on the basis of colonic ileus or early obstruction.
--- NOTE | 2017-10-10 09:40 | XR ---
EXAMINATION TYPE: XR chest 2V DATE OF EXAM: 10/10/2017 COMPARISON: 08/11/2017 HISTORY: Shortness of breath TECHNIQUE: Frontal and lateral views of the chest are obtained. FINDINGS: Scattered senescent parenchymal changes noted. Hyperinflation compatible with COPD. No evidence for infiltrate. No evidence for atelectasis. Heart size is stable. Mediastinal structures are stable and grossly unremarkable. No evidence for hilar prominence. Degenerative changes dorsal spine. IMPRESSION: 1. No evidence for acute pulmonary disease.
--- NOTE | 2017-10-10 09:41 | XR ---
EXAMINATION TYPE: XR ribs RT DATE OF EXAM: 10/10/2017 CLINICAL HISTORY: Pain, Fall Four views of the ribs fail demonstrate evidence for displaced rib fracture or secondary sign of rib fracture. Visualized lungs are clear. No evidence for pneumothorax. IMPRESSION: 1. No displaced rib fractures seen. ICD 10 NO FRACTURE, INITIAL EVALUATION
--- NOTE | 2017-10-10 11:27 | CT ---
EXAMINATION TYPE: CT abdomen pelvis w con DATE OF EXAM: 10/10/2017 COMPARISON: 08/06/2017 HISTORY: No prior CT. No contrast. Fall in driveway, multiple facial abrasions CT DLP: 838.8 mGycm CONTRAST: CT scan of the abdomen and pelvis is performed without Oral Contrast and with IV Contrast, patient in jected with 100 mL of Isovue 300. FINDINGS: LUNG BASES-: No visible nodule. No infiltrate. Right basilar pleural effusion AP dimension of 3.2 cm . LIVER/GB: Cirrhotic liver disease are noted with moderate to large amount of surrounding fluid. Tahira cystectomy clips in place. No evidence for hepatic mass. PANCREAS: No inflammation. No distinct mass. SPLEEN: Splenomegaly measuring 15.1 cm craniocaudal dimension. No lesion seen. ADRENALS: No nodule. No thickening. KIDNEYS/BLADDER: No hydronephrosis. No nephrolithiasis. No distinct renal mass. Urinary bladder g rossly unremarkable. BOWEL: Distal esophageal paraesophageal varices. Jejunal wall thickening which may reflect enteritis. Nonvisualization of the appendix. Normal appendix. Normal bowel caliber. No inflammation. GENITAL ORGANS: Leiomyomatous change of the uterus. LYMPH NODES: No greater than 1cm abdominal or pelvic lymph nodes are appreciated. AORTA: No significant abnormality. OSSEOUS STRUCTURES: No significant abnormality is seen. OTHER: Low anterior abdominal wall hernia is again stable. Moderate ascites improved from prior exami nation. IMPRESSION: 1. Cirrhotic liver disease. 2. Splenomegaly. 3. Paraesophageal varices. 4. Moderate but improved ascites in right basilar pleural effusion. 5. Jejunal enteritis is suspected.
[2017-10-10] MEDS ORDERED: SODIUM CHLORIDE 0.9% 1,000 ML IV ONE (12:09)
[2017-10-10] MEDS ORDERED: ACETAMINOPHEN TAB 325 MG TAB PO PRN (12:09)
[2017-10-10] MEDS ORDERED: NALOXONE 0.4 MG/ML 1 ML VIAL IV PRN ×2 (12:09→15:43)
[2017-10-10] MEDS ORDERED: LORazepam 2 MG/ML INJ IV PRN (12:09)
[2017-10-10] MEDS ORDERED: ONDANSETRON 4 MG/2 ML VIAL IVP PRN (12:09)
[2017-10-10] MEDS ORDERED: ALBUTEROL NEBULIZED 2.5 MG/3 ML INHALATION PRN (15:37)
[2017-10-10] MEDS ORDERED: ONDANSETRON 4 MG TAB PO PRN (15:37)
[2017-10-10] MEDS ORDERED: ACETAMINOPHEN TAB 500 MG TAB PO PRN (15:37)
--- NOTE | 2017-10-10 16:08 | CT ---
EXAMINATION TYPE: CT brain wo con DATE OF EXAM: 10/10/2017 COMPARISON: NONE HISTORY: Lethargy and fall. CT DLP: 1072.3 mGycm Automated exposure control for dose reduction was used. FINDINGS: There are generalized changes of sulcal prominence and ventriculomegaly, compatible with atrophic connie nge. There is diffuse periventricular white matter lucency, compatible with chronic white matter isch emic change. There is no discrete focal lesion, mass effect or midline shift. I do not see evidence o f intracranial blood. The orbits are unremarkable. There is an air-fluid level in the left maxillary sinus. The remainder the paranasal sinuses and mast oids are clear. The bony calvarium is intact. IMPRESSION: 1. NO ACUTE INTRACRANIAL ABNORMALITY. 2. ACUTE LEFT MAXILLARY SINUSITIS. 3. DEGENERATIVE CHANGE.
--- NOTE | 2017-10-10 16:09 | XR ---
EXAMINATION TYPE: XR Hip Complete RT , 2 VIEWS DATE OF EXAM ORDERED: 10/10/2017 HISTORY: pain, fall. COMPARISON: None. FINDINGS: There is a right hip arthroplasty in place. Prosthetic elements appear in good position. N o fracture is seen. IMPRESSION: STATUS POST RIGHT HIP ARTHROPLASTY.
--- NOTE | 2017-10-10 16:13 | P.HPIM ---
History of Present Illness H&P Date: 10/10/17 Chief Complaint: Fall and confusion Patient is a 66 yo CF with a history of Cirrhosis requiring frequent large volume paracentesis, CHF, COPD with chronic home O2 use and multiple other conditions who presented with abdominal pain following. In the emergency department she underwent an extensive evaluation. Her initial vital signs are normal limits. Initial laboratory analysis was consistent with her baseline labs. Chest x-ray was negative, rib x-ray did not show any fractures, KUB was negative. CT abdomen and pelvis showed cirrhotic liver, splenomegaly, paraesophageal varices, and moderately improved ascites of the right basilar pleural effusion. It also showed suspected jejunal enteritis. She was started on IVF and admitted to the general medical floor. Patient seen and examined at bedside. She is lethargic and having a hard time staying awake. She states that she fell last night when trying to get up. She denies and lightheadedness or passing out. She complains of lower abdominal pain but it unable to quantify. She denied any associated chest pain or shortness of breath. She denies any diarrhea or constipation. She states she never started taking the lactulose prescribed to her as it makes her vomit. Patient also complains of pain in her right hip. Her daughter states that she has been complaining of dizziness last 1 week. She states that her mother has not seen a complex director and she will hospital last time. She did recently have her Lasix increased to 80 mg twice daily by Dr. Stapleton. She has been getting paracentesis every 7 days but after an increase in her diuretics. Trying to stretch it every 10 days. Her daughter reports that she's been more confused over the last 2 days but today is a large difference from yesterday. She is a poor historian and daughter helps with history giving. Thorough records review occurred of her last hospitilazation in July 2017. 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, Barretts esophagus, esophageal varicies with bleed requiring banding X 3, hiatal hernia, iron def anemia, thrombocytopenia, chronic back pain, pancreatitis, colon polyps, needs one of her heart valve replaced , septic infection with PICC line since removed History of Any Multi-Drug Resistant Organisms: MRSA Date of last positivie culture/infection: 2015 MDRO Source:: nose Past Surgical History: Adenoidectomy, Appendectomy, Section, Cholecystectomy, Heart Catheterization, Heart Catheterization With Stent, Joint Replacement, Tubal Ligation Additional Past Surgical History / Comment(s): paracentesis, right JUSTINO, esophageal banding X 3, bone marrow bx, EGD and colonoscopy Past Anesthesia/Blood Transfusion Reactions: No Reported Reaction Date of Last Stent Placement:: 2016 Past Psychological History: Depression Smoking Status: Current every day smoker Past Alcohol Use History: None Reported Past Drug Use History: None Reported Additional History: Lives with daughter. Uses a cane but no longer needs a walker. - Past Family History Father Family Medical History: Cancer, Coronary Artery Disease (CAD), Diabetes Mellitus Additional Family Medical History / Comment(s): bladder ca Mother Family Medical History: Cancer, COPD, Diabetes Mellitus Additional Family Medical History / Comment(s): lung ca Medications and Allergies Home Medications Medication Instructions Recorded Confirmed Type Acetaminophen Tab [Tylenol] 1,000 mg PO Q6HR PRN 08/05/17 10/10/17 History Atorvastatin [Lipitor] 80 mg PO HS 08/05/17 10/10/17 History Diltiazem HCl 60 mg PO Q6H 08/05/17 10/10/17 History Furosemide [Lasix] 80 mg PO BID 08/05/17 10/10/17 History Metoprolol Tartrate [Lopressor] 50 mg PO BID 08/05/17 10/10/17 History Ondansetron [Zofran] 4 mg PO TID PRN 08/05/17 10/10/17 History Pantoprazole [Protonix] 40 mg PO DAILY 08/05/17 10/10/17 History Spironolactone 100 mg PO DAILY 08/05/17 10/10/17 History Tiotropium 18 Mcg/Puff [Spiriva] 1 cap INHALATION RT-DAILY 08/05/17 10/10/17 History Venlafaxine HCl [Effexor] 37.5 mg PO BID 08/05/17 10/10/17 History Albuterol Sulfate [Proair Hfa] 2 puff INHALATION RT-QID PRN 09/22/17 10/10/17 History Aspirin EC [Ecotrin Low Dose] 81 mg PO HS 10/10/17 10/10/17 History Glimepiride [Amaryl] 2 mg PO BID 10/10/17 10/10/17 History Insulin Glargine,Hum.rec.anlog 20 unit SQ BID 10/10/17 10/10/17 History [Lantus Solostar] Allergies Allergy/AdvReac Type Severity Reaction Status Date / Time sulfamethoxazole AdvReac Rash/Hives Verified 10/10/17 08:17 [From Bactrim] trimethoprim [From Bactrim] AdvReac Rash/Hives Verified 10/10/17 08:17 Physical Exam Osteopathic Statement: *. No significant issues noted on an osteopathic structural exam other than those noted in the History and Physical/Consult. Vitals: Vital Signs Temp Pulse Pulse Resp BP BP Pulse Ox 10/10/17 15:07 16 10/10/17 15:00 99.4 F 115 H 16 127/76 98 10/10/17 12:41 98 F 108 H 18 126/57 96 10/10/17 11:50 105 H 18 149/69 95 10/10/17 10:19 98.8 F 104 H 18 143/63 95 10/10/17 09:21 101 H 20 151/76 99 10/10/17 08:03 98.5 F 98 18 141/65 100 Intake and Output 10/10/17 10/10/17 10/10/17 06:59 14:59 22:59 Other: Voiding Method Bedpan Weight 73.936 kg General: ill appearing, no distress, appears older than stated age, normal weight Derm: no unusual rashes/lesions + ecchymoses suprapubic, warm, dry Head: atraumatic, normocephalic, symmetric Eyes: EOMI, no lid lag, anicteric sclera, pupils equal round reactive to light ENT: Nose and ears atraumatic, no thrush, no pharyngeal erythema Neck: No thyromegaly, no cervical lymphadenopathy, trachea midline, supple Mouth: no lip lesion, mucus membranes dry Cardiovascular: S1S2 reg, no murmur, positive posterior tibial pulse bilateral, 3+ edema, capillary refill less than 2 seconds Lungs: Wheeze b/l with Rhonchi , no accessory muscle use Abdominal: + distended, nontender RUQ and suprapubic, no guarding, no appreciable organomegaly, normal bowel sounds Ext: Atrophy bilaterally. There is and extensors, muscle strength 5 out of 5 in all 4 extremities grossly, no contractures, Neuro: CN II-XI grossly intact, light touch intact all 4 extremities, poor finger to nose, + asterixis Psych: Alert, oriented to self, not place or year, answers questions appropriately but falls back asleep quickly. Results CBC & Chem 7: 10/10/17 08:09 10/10/17 08:09 Labs: Abnormal Lab Results - Last 24 Hours (Table) 10/10/17 10/10/17 10/10/17 Range/Units 08:09 08:09 08:09 RBC 3.48 L (3.80-5.40) m/uL Hgb 8.8 L (11.4-16.0) gm/dL Hct 27.4 L (34.0-46.0) % MCV 78.6 L (80.0-100.0) fL RDW 18.3 H (11.5-15.5) % Plt Count 98 L (150-450) k/uL Lymphocytes # 0.7 L (1.0-4.8) k/uL INR 1.2 H (<1.2) Sodium 135 L (137-145) mmol/L Chloride 95 L (98-107) mmol/L Carbon Dioxide 31 H (22-30) mmol/L Glucose 201 H (74-99) mg/dL Calcium 8.3 L (8.4-10.2) mg/dL Total Bilirubin 1.4 H (0.2-1.3) mg/dL AST 40 H (14-36) U/L Total Protein 6.0 L (6.3-8.2) g/dL Albumin 3.3 L (3.5-5.0) g/dL Amylase 118 H (30-110) U/L Lipase 574 H (23-300) U/L Chest x-ray: report reviewed Abdominal x-ray: report reviewed CT scan - abdomen: report reviewed CT scan - pelvis: report reviewed Thrombosis Risk Factor Assmnt - DVT/VTE Prophylaxis DVT/VTE Prophylaxis: Contraindicated - See note (May need paracentesis) Assessment and Plan Assessment: Altered mentation after fall - stat head CT - recheck Ammonia level - Neuro checks - UA - Fall precautions - PT/OT consult Abdominal pain - Check UA - Consult GI - check right hip x-ray Dizziness - Tele - echo - check orthostatic vitals Cirrhosis with ascites due to [place], compensated compared to baseline in this patient - Continue with lasix and aldactone - on metoprolol so no propranolol - check Ammonia level - GI consult -Patient is trying to wait for her outpatient thoracentesis until Friday -Initiate SBP prophylaxis COPD with probable exacerbation -Bronchodilators -Solu-Medrol -Check ABG -Pulmonary hygiene Diabetes mellitus type 2 -Hold Amaryl -Hold Lantus dose with patient not tolerating diet -Sliding-scale insulin -Hemoglobin A1c 5.8 08/11/2017 Chronic conditions: Hypertension Coronary artery disease GERD History of esophageal varices Chronic back pain Coronary artery disease The patient is admitted with an anticipated greater than 2 midnight stay for evaluation of altered mentation, dizziness, and COPD exacerbation. Treatment with frequent bronchodilators, Solu-Medrol.. Surrogate decision-maker: Daughter Petrona Norwood [phone] CODE STATUS:Full DVT prophylaxis: SCDs Discussed with: Patient, daughter, nursing Anticipated discharge date: 2-[address]: home with home health A total of 75 minutes was spent on the care of this complex patient more than 50 % of the time was spent in counseling and care coordination.
[2017-10-10] MEDS: methylPREDNISolone SOD SUCCI 125 MG/2 ML VIAL IV SCH (17:21)
[2017-10-10] MEDS: DILTIAZEM ORAL 60 MG TAB PO SCH (17:22)
[2017-10-10] MEDS: INSULIN ASPART 100 UNIT/ML 1 ML 10 ML VIAL SQ SCH ×2 (17:23→21:12)
[2017-10-10 17:24] LABS: Glucose,Whole Blood 156 mg/dL (75-99)
[2017-10-10 17:35] LABS: ABG PCO2 48 mmHg (35-45); ABG PH 7.44 (7.35-7.45)
[2017-10-10 17:36] LABS: ABG Base Excess 8.2 mmol/L; ABG HCO3 32 mmol/L (21-25); ABG PO2 72 mmHg (83-108); ABG TCO2 34 mmol/L (19-24)
[2017-10-10] MEDS ORDERED: DILTIAZEM DRIP BOLUS FROM BAG 1 MG SOLN IV ONE (18:50)
[2017-10-10] MEDS ORDERED: SODIUM CHLORIDE 0.9% 500 ML IV ONE (18:57)
[2017-10-10] MEDS ORDERED: DILTIAZEM 50 MG in SODIUM CHLORIDE 0.9% 40 ML IV SCH ×4 (19:00)
[2017-10-10 19:02] LABS: Appearance,Urine Clear (Clear); Bilirubin,Urine Negative (Negative); Blood,Urine Negative (Negative); Color,Urine Light Yellow; Glucose,Urine (UA) Negative (Negative); Ketones,Urine Negative (Negative); Leukocyte Esterase,Urine Negative (Negative); Nitrite,Urine Negative (Negative); PH, Urine 5.5 (5.0-8.0); Protein,Urine Negative (Negative); Specific Gravity,Urine 1.018 (1.001-1.035); Urobilinogen,Urine <2.0 mg/dL (<2.0)
[2017-10-10] MEDS: IPRATROPIUM-ALBUTEROL 3 ML NEB INHALATION SCH (19:18)
[2017-10-10] MEDS: SODIUM CHLORIDE 0.9% 1,000 ML IV SCH (20:17)
--- NOTE | 2017-10-10 20:28 | P.PN ---
Progress Note - Text Progress Note Date: 10/10/17 patient converted to sinus rhythm on her own, heart rate in low 100 cardizem was not started, and will be discontinued
[2017-10-10 20:52] LABS: Glucose,Whole Blood 135 mg/dL (75-99)
[2017-10-10] MEDS ORDERED: GLIMEPIRIDE 2 MG TAB PO SCH (21:00)
[2017-10-10] MEDS ORDERED: INSULIN DETEMIR 100 UNIT/ML 10 ML VIAL SQ SCH (21:00)
[2017-10-10] MEDS: ATORVASTATIN 80 MG TAB PO SCH (21:12)
[2017-10-10] MEDS: FUROSEMIDE 80 MG TAB PO SCH (21:12)
[2017-10-10] MEDS: METOPROLOL TARTRATE 50 MG TAB PO SCH (21:12)
[2017-10-10] MEDS: VENLAFAXINE HCL 37.5 MG TAB PO SCH (21:12)
[2017-10-11] MEDS: methylPREDNISolone SOD SUCCI 125 MG/2 ML VIAL IV SCH ×2 (00:54→08:46)
[2017-10-11] MEDS: DILTIAZEM ORAL 60 MG TAB PO SCH ×5 (00:54→23:47)
[2017-10-11] MEDS: HYDROcodone/APAP 5-325MG 1 EACH TAB PO PRN ×2 (03:26→18:33)
[2017-10-11 06:16] LABS: Glucose,Whole Blood 174 mg/dL (75-99)
[2017-10-11 06:29] LABS: Anisocytosis Slight; Basophils % (A) 0 %; Eosinophils % (A) 0 %; HCT 27.2 % (34.0-46.0); HGB 8.4 gm/dL (11.4-16.0); Hypochromasia Moderate; Lymphocytes # (A) 0.3 k/uL (1.0-4.8); Lymphocytes % (A) 5 %; MCH 24.4 pg (25.0-35.0); MCV 78.7 fL (80.0-100.0); Mean Platelet Volume 6.9; Microcytosis Slight; Monocytes # (A) 0.3 k/uL (0-1.0); Monocytes % (A) 5 %; Neutrophils # (A) 5.7 k/uL (1.3-7.7); Neutrophils % (A) 89 %; Poikilocytosis Slight; RBC 3.46 m/uL (3.80-5.40); RDW 18.5 % (11.5-15.5); WBC 6.4 k/uL (3.8-10.6)
[2017-10-11 06:33] LABS: Platelet Count 68 k/uL (150-450)
[2017-10-11] MEDS: INSULIN ASPART 100 UNIT/ML 1 ML 10 ML VIAL SQ SCH ×4 (06:40→21:20)
[2017-10-11] MEDS: PANTOPRAZOLE 40 MG TABLET PO SCH (06:40)
[2017-10-11] MEDS: SODIUM CHLORIDE 0.9% 1,000 ML IV SCH (06:41)
[2017-10-11 06:54] LABS: Albumin 2.8 g/dL (3.5-5.0); Calcium 8.3 mg/dL (8.4-10.2); Potassium 3.8 mmol/L (3.5-5.1); Total Protein 5.5 g/dL (6.3-8.2)
[2017-10-11] MEDS ORDERED: IPRATROPIUM 0.5 MG/2.5 ML NEBU INHALATION SCH (08:00)
[2017-10-11] MEDS: FUROSEMIDE 80 MG TAB PO SCH ×2 (08:46→20:44)
[2017-10-11] MEDS: SPIRONOLACTONE 25 MG TAB PO SCH (08:46)
[2017-10-11] MEDS: VENLAFAXINE HCL 37.5 MG TAB PO SCH ×2 (08:47→20:44)
[2017-10-11] MEDS ORDERED: CIPROFLOXACIN HCL 500 MG TAB PO SCH (09:00)
--- NOTE | 2017-10-11 09:13 | P.PN ---
Subjective Progress Note Date: 10/11/17 Principal diagnosis: abdominal pain Patient is a 66 yo CF with a history of Cirrhosis requiring frequent large volume paracentesis, CHF, COPD with chronic home O2 use and multiple other conditions who presented with abdominal pain following a fall. In the emergency department she underwent an extensive evaluation. Her initial vital signs were within normal limits. Initial laboratory analysis was consistent with her baseline labs. Chest x-ray was negative, rib x-ray did not show any fractures, KUB was negative. CT abdomen and pelvis showed cirrhotic liver, splenomegaly, paraesophageal varices, and moderately improved ascites of the right basilar pleural effusion. It also showed suspected jejunal enteritis. She was started on IVF and admitted to the general medical floor. She underwent CT of head which showed no acute process. Her ammonia level was normal and UA was negative. She developed A fib with RVR and a fever of 100.2 She was transferred to [facility] care. She received a bolus of fluids and IV fluids were started her heart rate normalized without need for additional medications. There was concern for BMP and rocephin was ordered. IR consult was also ordered but they are not available at this time. Patient seen and examined at bedside with daughter present. She is feeling better today and is less sleepy. She is still having lower abdominal pain, no nausea, decreased appetite. minial SOB but better than yesterday. No other complaints currently. Objective - Vital Signs Vital signs: Vital Signs Temp 98.3 F 10/11/17 08:00 Pulse 89 10/11/17 08:00 Resp 18 10/11/17 08:00 BP 108/45 10/11/17 08:00 Pulse Ox 93 L 10/11/17 08:00 Intake & Output 10/10/17 10/11/17 10/11/17 18:59 06:59 18:59 Intake Total 1300 120 Output Total 1100 Balance 200 120 Weight 73.936 kg 75.5 kg Intake: Intake, IV Titration 1300 Amount Sodium Chloride 0.9% 1, 800 000 ml @ 100 mls/hr IV . Q10H [facility]ART[facility] Rx#:[id number] Sodium Chloride 0.9% 500 500 ml @ 999 mls/hr IV .Q31M ONE Rx#:[id number] Oral 120 Output: Urine 1100 Other: Voiding Method Bedpan Bedside Commode Bedside Commode # Voids 1 - Exam General: ill appearing, no distress, appears older than stated age Derm: warm, dry, no additional ecchymosis Head: atraumatic, normocephalic, symmetric Eyes: EOMI, no lid lag, anicteric sclera Mouth: no lip lesion, mucus membranes dry Cardiovascular: S1S2 irreg with murmur systolic, positive posterior tibial pulse bilateral, Lungs: Rhonchi b/l without wheeze] , no accessory muscle use Abdominal: soft, distentded, + tender to palpation suprapubic, no guarding, no appreciable organomegaly, reducible periumbilical hernia Ext: no gross muscle atrophy, no edema, no contractures Neuro: CN II-XI grossly intact, no focal neuro deficits Psych: Alert, oriented, appropriate affect - Labs CBC & Chem 7: 10/11/17 06:16 10/11/17 06:16 Labs: Abnormal Lab Results - Last 24 Hours (Table) 10/10/17 10/10/17 10/10/17 Range/Units 08:09 08:09 17:22 RBC 3.48 L (3.80-5.40) m/uL Hgb 8.8 L (11.4-16.0) gm/dL Hct 27.4 L (34.0-46.0) % MCV 78.6 L (80.0-100.0) fL MCH (25.0-35.0) pg RDW 18.3 H (11.5-15.5) % Plt Count 98 L (150-450) k/uL Lymphocytes # 0.7 L (1.0-4.8) k/uL ABG pCO2 (35-45) mmHg ABG pO2 (83-108) mmHg ABG HCO3 (21-25) mmol/L ABG Total CO2 (19-24) mmol/L Sodium 135 L (137-145) mmol/L Chloride 95 L (98-107) mmol/L Carbon Dioxide 31 H (22-30) mmol/L Glucose 201 H (74-99) mg/dL POC Glucose (mg/dL) 156 H (75-99) mg/dL Calcium 8.3 L (8.4-10.2) mg/dL Total Bilirubin 1.4 H (0.2-1.3) mg/dL AST 40 H (14-36) U/L Total Protein 6.0 L (6.3-8.2) g/dL Albumin 3.3 L (3.5-5.0) g/dL Amylase 118 H (30-110) U/L Lipase 574 H (23-300) U/L 10/10/17 10/10/17 10/11/17 Range/Units 17:29 20:51 06:15 RBC (3.80-5.40) m/uL Hgb (11.4-16.0) gm/dL Hct (34.0-46.0) % MCV (80.0-100.0) fL MCH (25.0-35.0) pg RDW (11.5-15.5) % Plt Count (150-450) k/uL Lymphocytes # (1.0-4.8) k/uL ABG pCO2 48 H (35-45) mmHg ABG pO2 72 L (83-108) mmHg ABG HCO3 32 H (21-25) mmol/L ABG Total CO2 34 H (19-24) mmol/L Sodium (137-145) mmol/L Chloride (98-107) mmol/L Carbon Dioxide (22-30) mmol/L Glucose (74-99) mg/dL POC Glucose (mg/dL) 135 H 174 H (75-99) mg/dL Calcium (8.4-10.2) mg/dL Total Bilirubin (0.2-1.3) mg/dL AST (14-36) U/L Total Protein (6.3-8.2) g/dL Albumin (3.5-5.0) g/dL Amylase (30-110) U/L Lipase (23-300) U/L 10/11/17 10/11/17 Range/Units 06:16 06:16 RBC 3.46 L (3.80-5.40) m/uL Hgb 8.4 L (11.4-16.0) gm/dL Hct 27.2 L (34.0-46.0) % MCV 78.7 L (80.0-100.0) fL MCH 24.4 L (25.0-35.0) pg RDW 18.5 H (11.5-15.5) % Plt Count 68 L (150-450) k/uL Lymphocytes # 0.3 L (1.0-4.8) k/uL ABG pCO2 (35-45) mmHg ABG pO2 (83-108) mmHg ABG HCO3 (21-25) mmol/L ABG Total CO2 (19-24) mmol/L Sodium (137-145) mmol/L Chloride (98-107) mmol/L Carbon Dioxide (22-30) mmol/L Glucose 148 H (74-99) mg/dL POC Glucose (mg/dL) (75-99) mg/dL Calcium 8.3 L (8.4-10.2) mg/dL Total Bilirubin 2.0 H (0.2-1.3) mg/dL AST (14-36) U/L Total Protein 5.5 L (6.3-8.2) g/dL Albumin 2.8 L (3.5-5.0) g/dL Amylase (30-110) U/L Lipase (23-300) U/L Assessment and Plan Assessment: Acute encephalopathy after fall - ? secondary to BMP - Neuro checks - work up as below - Ammonia was normal Probable SBP Abdominal pain - [place] - Consult GI -IR consult ordered not here over weekend. Empiric abx started. Cirrhosis with ascites due to [place], compensated compared to baseline in this patient - Continue with lasix and aldactone - on metoprolol so no propranolol - GI consult -Patient is trying to wait for her outpatient thoracentesis until Friday when IR available due to IVF needed -Rocephin COPD with probable exacerbation -Bronchodilators -Solu-Medrol change to prednisone -ABG with in normal -Pulmonary hygiene -Rocephin Diabetes mellitus type 2 -Hold Amaryl -Hold Lantus -Sliding-scale insulin -Hemoglobin A1c 5.8 08/11/2017 Chronic conditions: Hypertension Coronary artery disease GERD History of esophageal varices Chronic back pain Coronary artery disease Dizziness, resolved DVT prophylaxis: SCDs Discussed with: Patient, daughter Anticipated discharge date: 2-[address]: home with home health A total of 35 minutes was spent on the care of this complex patient more than 50 % of the time was spent in counseling and care coordination.
[2017-10-11] MEDS: IPRATROPIUM-ALBUTEROL 3 ML NEB INHALATION SCH ×4 (09:29→20:01)
--- NOTE | 2017-10-11 09:33 | P.CRDCN ---
History of Present Illness Consult date: 10/11/17 Chief complaint: Shortness of breath History of present illness: Physical pleasant 66-year-old female patient with an extensive past medical history consistent off coronary artery disease and prior coronary artery stenting with unknown details, valvular heart disease, liver cirrhosis and the patient requires paracentesis every 7 days, as well as diabetes, hypertension, dyslipidemia presented to the hospital complaining of shortness of breath. The patient did not have any symptoms of chest pain or chest discomfort nor heart racing or fluttering nor dizziness or lightheadedness or syncope. The patient stated that his symptoms started only a few days before. The chest x-ray showed no acute abnormalities. The EKG showed sinus rhythm with the patient presented to the hospital. During her hospitalization she went into an A. fib with RVR and she was started on Cardizem drip and converted to normal sinus mechanism and she has been maintaining normal sinus mechanism on Cardizem by mouth. The patient is not a candidate to receive any kind of oral anticoagulation giving her history of liver cirrhosis and the paracentesis required every 7 days. She stated that she does have valvular heart disease and she was seen recently by a marbleizer in [place] who recommended a valve replacement but the patient did go through her liver issues and that was not done. She does have quite significant systolic murmur in the right upper sternal border as well as in the apex. Past Medical History Past Medical History: Atrial Fibrillation, Coronary Artery Disease (CAD), Heart Failure, COPD, Diabetes Mellitus, GERD/Reflux, GI Bleed, Hyperlipidemia, Hypertension Additional Past Medical History / Comment(s): COPD with home O2 at night, end stage liver disease (was previously documentedwith refractory acsities q7-10 days). Barretts esophagus, esophageal varicies with bleed requiring banding X 3 , hiatal hernia, iron def anemia, thrombocytopenia, chronic back pain, pancreatitis, colon polyps, needs one of her heart valve replaced , septic infection with PICC line since removed History of Any Multi-Drug Resistant Organisms: MRSA Date of last positivie culture/infection: 2015 MDRO Source:: nose Past Surgical History: Adenoidectomy, Appendectomy, Section, Cholecystectomy, Heart Catheterization, Heart Catheterization With Stent, Joint Replacement, Tubal Ligation Additional Past Surgical History / Comment(s): paracentesis, right JUSTINO, esophageal banding X 3, bone marrow bx, EGD and colonoscopy Past Anesthesia/Blood Transfusion Reactions: No Reported Reaction Date of Last Stent Placement:: 2016 Smoking Status: Current every day smoker - Past Family History Father Family Medical History: Cancer, Coronary Artery Disease (CAD), Diabetes Mellitus Additional Family Medical History / Comment(s): bladder ca Mother Family Medical History: Cancer, COPD, Diabetes Mellitus Additional Family Medical History / Comment(s): lung ca Medications and Allergies Home Medications Medication Instructions Recorded Confirmed Type Acetaminophen Tab [Tylenol] 1,000 mg PO Q6HR PRN 08/05/17 10/10/17 History Atorvastatin [Lipitor] 80 mg PO HS 08/05/17 10/10/17 History Diltiazem HCl 60 mg PO Q6H 08/05/17 10/10/17 History Furosemide [Lasix] 80 mg PO BID 08/05/17 10/10/17 History Metoprolol Tartrate [Lopressor] 50 mg PO BID 08/05/17 10/10/17 History Ondansetron [Zofran] 4 mg PO TID PRN 08/05/17 10/10/17 History Pantoprazole [Protonix] 40 mg PO DAILY 08/05/17 10/10/17 History Spironolactone 100 mg PO DAILY 08/05/17 10/10/17 History Tiotropium 18 Mcg/Puff [Spiriva] 1 cap INHALATION RT-DAILY 08/05/17 10/10/17 History Venlafaxine HCl [Effexor] 37.5 mg PO BID 08/05/17 10/10/17 History Albuterol Sulfate [Proair Hfa] 2 puff INHALATION RT-QID PRN 09/22/17 10/10/17 History Aspirin EC [Ecotrin Low Dose] 81 mg PO HS 10/10/17 10/10/17 History Glimepiride [Amaryl] 2 mg PO BID 10/10/17 10/10/17 History Insulin Glargine,Hum.rec.anlog 20 unit SQ BID 10/10/17 10/10/17 History [Lantus Solostar] Allergies Allergy/AdvReac Type Severity Reaction Status Date / Time sulfamethoxazole AdvReac Rash/Hives Verified 10/10/17 08:17 [From Bactrim] trimethoprim [From Bactrim] AdvReac Rash/Hives Verified 10/10/17 08:17 Physical Exam Vitals: Vital Signs Temp Pulse Pulse Resp BP BP Pulse Ox 10/11/17 08:00 98.3 F 89 18 108/45 93 L 10/11/17 04:00 98.3 F 85 21 107/56 96 10/10/17 23:55 97.1 F L 86 19 101/50 96 10/10/17 20:20 99.7 F H 107 H 18 125/54 98 10/10/17 19:30 110 H 16 10/10/17 19:22 99 10/10/17 19:18 109 H 16 10/10/17 15:07 16 10/10/17 15:00 99.4 F 115 H 16 127/76 98 10/10/17 12:41 98 F 108 H 18 126/57 96 10/10/17 11:50 105 H 18 149/69 95 10/10/17 10:19 98.8 F 104 H 18 143/63 95 Intake and Output 10/10/17 10/11/17 10/11/17 22:59 06:59 14:59 Intake Total 500 800 120 Output Total 600 500 Balance -100 300 120 Intake: Intake, IV Titration 500 800 Amount Sodium Chloride 0.9% 1, 800 000 ml @ 100 mls/hr IV . Q10H [facility] Rx#:[id number] Sodium Chloride 0.9% 500 500 ml @ 999 mls/hr IV .Q31M [facility] Rx#:[id number] Oral 120 Output: Urine 600 500 Other: Voiding Method Bedside Commode Bedside Commode Bedside Commode # Voids 1 Weight 75.5 kg - Constitutional General appearance: no acute distress - Respiratory Respiratory: bilateral: wheezing - Cardiovascular Rhythm: regular Heart sounds: normal: S1, S2 Abnormal Heart Sounds: systolic murmur Results 10/11/17 06:16 10/11/17 06:16 Cardiac Enzymes 10/10/17 10/11/17 Range/Units 18:28 06:16 AST 36 (14-36) U/L Troponin I <0.012 (0.000-0.034) ng/mL CBC 10/11/17 Range/Units 06:16 WBC 6.4 (3.8-10.6) k/uL RBC 3.46 L (3.80-5.40) m/uL Hgb 8.4 L (11.4-16.0) gm/dL Hct 27.2 L (34.0-46.0) % Plt Count 68 L (150-450) k/uL Comprehensive Metabolic Panel 10/11/17 Range/Units 06:16 Sodium 137 (137-145) mmol/L Potassium 3.8 (3.5-5.1) mmol/L Chloride 100 (98-107) mmol/L Carbon Dioxide 30 (22-30) mmol/L BUN 15 (7-17) mg/dL Creatinine 0.80 (0.52-1.04) mg/dL Glucose 148 H (74-99) mg/dL Calcium 8.3 L (8.4-10.2) mg/dL AST 36 (14-36) U/L ALT 35 (9-52) U/L Alkaline Phosphatase 97 (38-126) U/L Total Protein 5.5 L (6.3-8.2) g/dL Albumin 2.8 L (3.5-5.0) g/dL Current Medications Generic Name Dose Route Start Last Admin Trade Name Freq PRN Reason Stop Dose Admin Acetaminophen 650 mg 10/10/17 12:09 10/10/17 21:15 Tylenol Tab PO 650 mg Q6HR PRN Administration Mild Pain or Fever > 100.5 Hydrocodone Bitart/Acetaminophen 1 each 10/10/17 12:09 10/11/17 03:26 [place] 5-325 PO 1 each Q4HR PRN Administration Moderate Pain Albuterol Sulfate 2.5 mg 10/10/17 15:37 Ventolin Nebulized INHALATION RT-QID PRN Shortness Of Breath Albuterol/Ipratropium 3 ml 10/10/17 20:00 10/10/17 19:18 Duoneb 0.5 Mg-3 Mg/3 Ml Soln INHALATION 3 ml RT-QID [facility] Administration Atorvastatin Calcium 80 mg 10/10/17 21:00 10/10/17 21:12 Lipitor PO 80 mg HS [facility] Administration Ceftriaxone Sodium 2,000 mg 10/11/17 09:00 Rocephin IVP Q24HR [facility] Diltiazem HCl 60 mg 10/10/17 18:00 10/11/17 06:40 Cardizem Oral PO 60 mg Q6HR [facility] Administration Furosemide 80 mg 10/10/17 21:00 10/11/17 08:46 Lasix PO 80 mg BID [facility] Administration Diltiazem HCl 50 mg/ Sodium 50 mls @ 0 mls/hr 10/10/17 19:00 Chloride IV .Q0M [facility] Protocol Per Protocol Insulin Aspart 0 unit 10/10/17 17:30 10/11/17 06:40 Novolog SQ 2 unit ACHS [facility] Administration Protocol Metoprolol Tartrate 50 mg 10/10/17 21:00 10/10/17 21:12 Lopressor PO 50 mg BID [facility] Administration Naloxone HCl 0.2 mg 10/10/17 15:43 Narcan IV Q2M PRN Opioid Reversal Ondansetron HCl 4 mg 10/10/17 12:09 Zofran IVP Q8HR PRN Nausea And Vomiting Ondansetron HCl 4 mg 10/10/17 15:37 Zofran PO TID PRN Nausea Pantoprazole Sodium 40 mg 10/11/17 07:30 10/11/17 06:40 Protonix PO 40 mg [id number]-[id number] [facility] Administration Prednisone 60 mg 10/12/17 09:00 PO DAILY [facility] Spironolactone 100 mg 10/11/17 09:00 10/11/17 08:46 Aldactone PO 100 mg DAILY [facility] Administration Venlafaxine HCl 37.5 mg 10/10/17 21:00 10/11/17 08:47 Effexor PO 37.5 mg BID [facility] Administration Intake and Output 10/10/17 10/11/17 10/11/17 22:59 06:59 14:59 Intake Total 500 800 120 Output Total 600 500 Balance -100 300 120 Intake: Intake, IV Titration 500 800 Amount Sodium Chloride 0.9% 1, 800 000 ml @ 100 mls/hr IV . Q10H [facility] Rx#:[id number] Sodium Chloride 0.9% 500 500 ml @ 999 mls/hr IV .Q31M [facility] Rx#:[id number] Oral 120 Output: Urine 600 500 Other: Voiding Method Bedside Commode Bedside Commode Bedside Commode # Voids 1 Weight 75.5 kg 10/11/17 06:16 10/11/17 06:16 Assessment and Plan Assessment: Assessment #1 A. fib with RVR. The patient converted to normal sinus mechanism #2 coronary artery disease and prior stenting with unknown details #3 end-stage liver disease/liver cirrhosis. #4 recurrent ascites #5 valvular heart disease Plan #1 the patient was converted to normal sinus mechanism. #2 we will continue the Cardizem by mouth at this point. #3 she is not a candidate to have any oral anticoagulation #4 we will obtain an echocardiogram was Doppler #5 she does have bilateral expiratory wheezing on examination. She seems euvolemic otherwise. She is on Lasix by mouth. I'm going to obtain a BNP at this point. #6 follow-up with the patient. Thank you for allowing us participate in her care
[2017-10-11] MEDS: cefTRIAXone IN SWFI 2,000 MG/20 ML SYRINGE IVP SCH (09:50)
[2017-10-11] MEDS: METOPROLOL TARTRATE 50 MG TAB PO SCH ×2 (09:52→20:44)
[2017-10-11 11:44] LABS: Glucose,Whole Blood 323 mg/dL (75-99)
--- NOTE | 2017-10-11 13:30 | ECHOF ---
Referral Reason:dizziness MEASUREMENTS -------- HEIGHT: 162.6 cm WEIGHT: 75.3 kg BP: 107/56 RVIDd: 2.4 cm (< 3.3) IVSd: 1.1 cm (0.6 - 1.1) LVIDd: 4.6 cm (3.9 - 5.3) LVPWd: 1.1 cm (0.6 - 1.1) IVSs: 1.3 cm LVIDs: 2.6 cm LVPWs: 1.4 cm LAESV Index (A-L): 35.48 ml/m Ao Diam: 3.3 cm (2.0 - 3.7) AV Cusp: 1.0 cm (1.5 - 2.6) LA Diam: 3.7 cm (2.7 - 3.8) MV E Tyron: 1.19 m/s MV DecT: 225 ms MV A Tyron: 1.39 m/s MV E/A Ratio: 0.86 AV maxP.19 mmHg AV meanP.78 mmHg AR PHT: 265 ms RAP: 5.00 mmHg RVSP: 47.28 mmHg FINDINGS -------- Sinus rhythm. This was a technically good study. The left ventricular size is normal. There is borderline concentric left ventricular hypertrophy. Overall left ventricular systolic function is normal with, an EF between 55 - 60 %. The right ventricle is normal in size and function. LA is moderately dilated 34-39 ml/m2 The right atrium is normal in size. There is severe aortic valve sclerosis. There is isef-tr-uxwjfzeo aortic regurgitation. There is ftnlvkca-dh-htonxc aortic stenosis present. Peak/mean gradient across the Aortic Valve is 63.19mmHg / 39.78mmHg. The mitral valve leaflets are mildly thickened. Todr-po-vrtyuapq mitral regurgitation is present. There is mildly calcified chordae. Mild tricuspid regurgitation present. There is mild pulmonary hypertension. The right ventricular systolic pressure, as measured by Doppler, is 47.28mmHg. The pulmonic valve was not well visualized. The aortic root size is normal. Normal inferior vena cava with normal inspiratory collapse consistent with estimated right atrial pre ssure of 5 mmHg. There is no pericardial effusion. CONCLUSIONS -------- 1. Sinus rhythm. 2. This was a technically good study. 3. The left ventricular size is normal. 4. There is borderline concentric left ventricular hypertrophy. 5. Overall left ventricular systolic function is normal with, an EF between 55 - 60 %. 6. LA is moderately dilated 34-39 ml/m2 7. There is severe aortic valve sclerosis. 8. There is vstl-xr-kedrbomn aortic regurgitation. 9. There is emiurpiz-em-yvqyqc aortic stenosis present. 10. Peak/mean gradient across the Aortic Valve is 63.19mmHg / 39.78mmHg. 11. The mitral valve leaflets are mildly thickened. 12. Kahk-lg-taspzubx mitral regurgitation is present. 13. There is mildly calcified chordae. 14. Mild tricuspid regurgitation present. 15. There is mild pulmonary hypertension. 16. The right ventricular systolic pressure, as measured by Doppler, is 47.28mmHg. 17. The pulmonic valve was not well visualized. 18. The aortic root size is normal. 19. There is no pericardial effusion. MANAGER LEARNING: Jayjay Mcpherson RDCS
[2017-10-11 16:54] LABS: Glucose,Whole Blood 352 mg/dL (75-99)
[2017-10-11] MEDS: ATORVASTATIN 80 MG TAB PO SCH (20:44)
[2017-10-11] MEDS ORDERED: INSULIN DETEMIR 100 UNIT/ML 10 ML VIAL SQ SCH (21:00)
[2017-10-11 21:09] LABS: Glucose,Whole Blood 384 mg/dL (75-99)
[2017-10-12] MEDS: HYDROcodone/APAP 5-325MG 1 EACH TAB PO PRN ×4 (00:09→20:57)
[2017-10-12 05:51] LABS: Glucose,Whole Blood 299 mg/dL (75-99)
[2017-10-12 06:24] LABS: Anisocytosis Slight; HCT 26.2 % (34.0-46.0); HGB 8.3 gm/dL (11.4-16.0); Hypochromasia Marked; MCHC 31.6 g/dL (31.0-37.0); MCV 79.2 fL (80.0-100.0); Mean Platelet Volume 7.6; Microcytosis Slight; Poikilocytosis Slight; RBC 3.31 m/uL (3.80-5.40); RDW 18.7 % (11.5-15.5); WBC 10.3 k/uL (3.8-10.6)
[2017-10-12 06:47] LABS: Albumin 2.8 g/dL (3.5-5.0); Calcium 8.2 mg/dL (8.4-10.2); Potassium 3.6 mmol/L (3.5-5.1); Total Bilirubin 0.9 mg/dL (0.2-1.3); Total Protein 5.3 g/dL (6.3-8.2)
[2017-10-12] MEDS: INSULIN ASPART 100 UNIT/ML 1 ML 10 ML VIAL SQ SCH ×4 (06:48→22:39)
[2017-10-12 06:49] LABS: Platelet Count 105 k/uL (150-450)
[2017-10-12] MEDS: DILTIAZEM ORAL 60 MG TAB PO SCH ×4 (06:49→23:23)
[2017-10-12] MEDS: PANTOPRAZOLE 40 MG TABLET PO SCH (06:49)
[2017-10-12] MEDS: IPRATROPIUM-ALBUTEROL 3 ML NEB INHALATION SCH ×4 (07:54→20:01)
[2017-10-12] MEDS: VENLAFAXINE HCL 37.5 MG TAB PO SCH ×2 (09:43→20:57)
[2017-10-12] MEDS: predniSONE 20 MG TAB PO SCH (09:43)
[2017-10-12] MEDS: METOPROLOL TARTRATE 50 MG TAB PO SCH ×2 (09:43→20:57)
[2017-10-12] MEDS: cefTRIAXone IN SWFI 2,000 MG/20 ML SYRINGE IVP SCH (09:43)
[2017-10-12] MEDS: SPIRONOLACTONE 25 MG TAB PO SCH (09:43)
[2017-10-12] MEDS: FUROSEMIDE 80 MG TAB PO SCH ×2 (09:43→20:57)
--- NOTE | 2017-10-12 09:59 | P.PN ---
Subjective Progress Note Date: 10/12/17 Principal diagnosis: abdominal pain Patient is a 66 yo CF with a history of Cirrhosis requiring frequent large volume paracentesis, CHF, COPD with chronic home O2 use and multiple other conditions who presented with abdominal pain following a fall. In the emergency department she underwent an extensive evaluation. Her initial vital signs were within normal limits. Initial laboratory analysis was consistent with her baseline labs. Chest x-ray was negative, rib x-ray did not show any fractures, KUB was negative. CT abdomen and pelvis showed cirrhotic liver, splenomegaly, paraesophageal varices, and moderately improved ascites of the right basilar pleural effusion. It also showed suspected jejunal enteritis. She was started on IVF and admitted to the general medical floor. She underwent CT of head which showed no acute process. Her ammonia level was normal and UA was negative. She developed A fib with RVR and a fever of 100.2 She was transferred to [facility] care. She received a bolus of fluids and IV fluids were started her heart rate normalized without need for additional medications. There was concern for SBP and rocephin was ordered. IR consult was also ordered but they are not available at this time. She felt much bettre after antibiotics were started and her confusion improved. She was asking about going home. ECHO show moderate to sever aortic stenosis and EF 40-45% Patient seen and examined at bedside. She feels almost back to baseline. Abdominal pain is resolved. no chest pain, mild shortness of breath. No nausea or vomiting. Foggy feeling has cleared. Objective - Vital Signs Vital signs: Vital Signs Temp 97.1 F L 10/12/17 04:00 Pulse 84 10/12/17 08:08 Resp 15 10/12/17 04:00 BP 108/54 10/12/17 04:00 Pulse Ox 92 L 10/12/17 04:00 Intake & Output 10/11/17 10/12/17 10/12/17 18:59 06:59 18:59 Intake Total 480 490 120 Output Total 1350 350 Balance -870 140 120 Weight 76.1 kg Intake: Intake, IV Titration 10 Amount Sodium Chloride 0.9% 1, 10 000 ml @ 100 mls/hr IV . Q10H [facility] Rx#:[id number] Oral 480 480 120 Output: Urine 1350 350 Other: Voiding Method Bedside Commode Bedside Commode # Bowel Movements 0 - Exam General: non toxic, no distress, appears older than stated age Derm: warm, dry, no additional ecchymosis Head: atraumatic, normocephalic, symmetric Eyes: EOMI, no lid lag, anicteric sclera Mouth: no lip lesion, mucus membranes dry Cardiovascular: S1S2 irreg with murmur systolic, positive posterior tibial pulse bilateral, Lungs: Rhonchi b/l without wheeze , no accessory muscle use Abdominal: soft, distentded, non tender to palpation, no guarding, no appreciable organomegaly, reducible periumbilical hernia Ext: no gross muscle atrophy, no edema, no contractures Neuro: CN II-XI grossly intact, no focal neuro deficits Psych: Alert, oriented, appropriate affect - Labs CBC & Chem 7: 10/12/17 06:00 10/12/17 06:00 Labs: Abnormal Lab Results - Last 24 Hours (Table) 10/11/17 10/11/17 10/11/17 Range/Units 11:37 16:32 21:07 RBC (3.80-5.40) m/uL Hgb (11.4-16.0) gm/dL Hct (34.0-46.0) % MCV (80.0-100.0) fL RDW (11.5-15.5) % Plt Count (150-450) k/uL Sodium (137-145) mmol/L Chloride (98-107) mmol/L Carbon Dioxide (22-30) mmol/L BUN (7-17) mg/dL Glucose (74-99) mg/dL POC Glucose (mg/dL) 323 H 352 H 384 H (75-99) mg/dL Calcium (8.4-10.2) mg/dL Total Protein (6.3-8.2) g/dL Albumin (3.5-5.0) g/dL 10/12/17 10/12/17 10/12/17 Range/Units 05:50 06:00 06:00 RBC 3.31 L (3.80-5.40) m/uL Hgb 8.3 L (11.4-16.0) gm/dL Hct 26.2 L (34.0-46.0) % MCV 79.2 L (80.0-100.0) fL RDW 18.7 H (11.5-15.5) % Plt Count 105 L D (150-450) k/uL Sodium 133 L (137-145) mmol/L Chloride 95 L (98-107) mmol/L Carbon Dioxide 31 H (22-30) mmol/L BUN 28 H (7-17) mg/dL Glucose 260 H (74-99) mg/dL POC Glucose (mg/dL) 299 H (75-99) mg/dL Calcium 8.2 L (8.4-10.2) mg/dL Total Protein 5.3 L (6.3-8.2) g/dL Albumin 2.8 L (3.5-5.0) g/dL Microbiology - Last 24 Hours (Table) 10/10/17 18:28 Blood Culture - Preliminary Blood No Growth after 24 hours Assessment and Plan Assessment: Probable SBP Abdominal pain - [place] - GI recs -IR consult ordered not here over weekend. Empiric abx started. Await paracentesis results, albumin needed with paracentesis Cirrhosis with ascites due to [place], compensated compared to baseline in this patient - Continue with lasix and aldactone - on metoprolol so no propranolol - GI recs -Patient is trying to wait for her outpatient thoracentesis until Friday, will have on friday when IR available due to IVF needed -Rocephin COPD with exacerbation -Bronchodilators -Prednisone -ABG with in normal -Pulmonary hygiene -Rocephin Diabetes mellitus type 2 -Levemir added twice daily -Sliding-scale insulin -Hemoglobin A1c 5.8 08/11/2017 Chronic conditions: Hypertension Coronary artery disease GERD History of esophageal varices Chronic back pain Coronary artery disease Dizziness, resolved Toxic metabolic encepalopathy likely related to SBP, resolved DVT prophylaxis: SCDs Discussed with: Patient, daughter Anticipated discharge date: 2-[address]: home with home health A total of 35 minutes was spent on the care of this complex patient more than 50 % of the time was spent in counseling and care coordination.
--- NOTE | 2017-10-12 10:40 | P.PN ---
Subjective Progress Note Date: 10/12/17 Principal diagnosis: Valvular heart disease This is a pleasant 66-year-old female patient with an extensive past medical history consistent off coronary artery disease and prior coronary artery stenting with unknown details, valvular heart disease, liver cirrhosis and the patient requires paracentesis every 7 days, as well as diabetes, hypertension, dyslipidemia presented to the hospital complaining of shortness of breath. The patient did not have any symptoms of chest pain or chest discomfort nor heart racing or fluttering nor dizziness or lightheadedness or syncope. The patient stated that his symptoms started only a few days before. The chest x-ray showed no acute abnormalities. The EKG showed sinus rhythm with the patient presented to the hospital. During her hospitalization she went into an A. fib with RVR and she was started on Cardizem drip and converted to normal sinus mechanism and she has been maintaining normal sinus mechanism on Cardizem by mouth. The patient is not a candidate to receive any kind of oral anticoagulation giving her history of liver cirrhosis and the paracentesis required every 7 days. She stated that she does have valvular heart disease and she was seen recently by a dietary aide cook in [place] who recommended a valve replacement but the patient did go through her liver issues and that was not done. She does have quite significant systolic murmur in the right upper sternal border as well as in the apex. The echocardiogram revealed normal LV function with evidence of moderate to severe aortic stenosis, salh-kb-kblqfjkb MR, and moderate pulmonary hypertension. On follow-up with the patient today, she is feeling better overall. She denies having any chest pain or discomfort or shortness of breath at this point. Hemodynamically the blood pressure is within normal limits and she is slightly tachycardic with a resting heart rate in the 90s. I would not push any of her medication to control the heart rate at this point because the pressure has been marginally low and we don't want to drop the pressure in patient with severe aortic stenosis. Objective - Vital Signs Vital signs: Vital Signs Temp 97.1 F L 10/12/17 04:00 Pulse 84 10/12/17 08:08 Resp 15 10/12/17 04:00 BP 108/54 10/12/17 04:00 Pulse Ox 92 L 10/12/17 04:00 Intake & Output 10/11/17 10/12/17 10/12/17 18:59 06:59 18:59 Intake Total 480 490 120 Output Total 1350 350 Balance -870 140 120 Weight 76.1 kg Intake: Intake, IV Titration 10 Amount Sodium Chloride 0.9% 1, 10 000 ml @ 100 mls/hr IV . Q10H [facility] Rx#:[id number] Oral 480 480 120 Output: Urine 1350 350 Other: Voiding Method Bedside Commode Bedside Commode # Bowel Movements 0 - Constitutional General appearance: Present: no acute distress - Respiratory Respiratory: bilateral: CTA - Cardiovascular Heart sounds: normal: S1, S2 Abnormal Heart Sounds: Present: systolic murmur - Labs CBC & Chem 7: 10/12/17 06:00 10/12/17 06:00 Labs: Abnormal Lab Results - Last 24 Hours (Table) 10/11/17 10/11/17 10/11/17 Range/Units 11:37 16:32 21:07 RBC (3.80-5.40) m/uL Hgb (11.4-16.0) gm/dL Hct (34.0-46.0) % MCV (80.0-100.0) fL RDW (11.5-15.5) % Plt Count (150-450) k/uL Sodium (137-145) mmol/L Chloride (98-107) mmol/L Carbon Dioxide (22-30) mmol/L BUN (7-17) mg/dL Glucose (74-99) mg/dL POC Glucose (mg/dL) 323 H 352 H 384 H (75-99) mg/dL Calcium (8.4-10.2) mg/dL Total Protein (6.3-8.2) g/dL Albumin (3.5-5.0) g/dL 10/12/17 10/12/17 10/12/17 Range/Units 05:50 06:00 06:00 RBC 3.31 L (3.80-5.40) m/uL Hgb 8.3 L (11.4-16.0) gm/dL Hct 26.2 L (34.0-46.0) % MCV 79.2 L (80.0-100.0) fL RDW 18.7 H (11.5-15.5) % Plt Count 105 L D (150-450) k/uL Sodium 133 L (137-145) mmol/L Chloride 95 L (98-107) mmol/L Carbon Dioxide 31 H (22-30) mmol/L BUN 28 H (7-17) mg/dL Glucose 260 H (74-99) mg/dL POC Glucose (mg/dL) 299 H (75-99) mg/dL Calcium 8.2 L (8.4-10.2) mg/dL Total Protein 5.3 L (6.3-8.2) g/dL Albumin 2.8 L (3.5-5.0) g/dL Microbiology - Last 24 Hours (Table) 10/10/17 18:28 Blood Culture - Preliminary Blood No Growth after 24 hours Assessment and Plan Assessment: Assessment #1 A. fib with RVR. The patient converted to normal sinus mechanism #2 coronary artery disease and prior stenting with unknown details #3 end-stage liver disease/liver cirrhosis. #4 recurrent ascites #5 valvular heart disease Plan #1 continue the current medical regimen #2 we will continue the Cardizem by mouth at this point. #3 she is not a candidate to have any oral anticoagulation #4 the echocardiogram was reviewed and described above #5 follow-up with the patient Thank you for allowing us participate in her care
[2017-10-12 11:51] LABS: Glucose,Whole Blood 274 mg/dL (75-99)
[2017-10-12] MEDS: INSULIN DETEMIR 100 UNIT/ML 10 ML VIAL SQ SCH ×2 (12:16→20:58)
[2017-10-12 20:51] LABS: Glucose,Whole Blood 432 mg/dL (75-99)
[2017-10-12] MEDS: ATORVASTATIN 80 MG TAB PO SCH (20:57)
[2017-10-13 05:02] LABS: Glucose,Whole Blood 322 mg/dL (75-99)
[2017-10-13] MEDS: DILTIAZEM ORAL 60 MG TAB PO SCH ×4 (06:12→23:19)
[2017-10-13] MEDS: PANTOPRAZOLE 40 MG TABLET PO SCH (06:12)
[2017-10-13 06:34] LABS: Glucose,Whole Blood 293 mg/dL (75-99)
[2017-10-13 06:45] LABS: Anisocytosis Slight; HCT 27.1 % (34.0-46.0); HGB 8.4 gm/dL (11.4-16.0); Hypochromasia Marked; MCH 24.8 pg (25.0-35.0); MCHC 31.1 g/dL (31.0-37.0); MCV 79.7 fL (80.0-100.0); Mean Platelet Volume 7.2; Microcytosis Slight; Platelet Count 110 k/uL (150-450); Poikilocytosis Slight; RDW 18.9 % (11.5-15.5); WBC 10.5 k/uL (3.8-10.6)
[2017-10-13 06:48] LABS: INR 1.3 (<1.2); Prothrombin Time 12.2 sec (9.0-12.0)
[2017-10-13 06:56] LABS: Albumin 2.8 g/dL (3.5-5.0); Calcium 8.3 mg/dL (8.4-10.2); Potassium 3.4 mmol/L (3.5-5.1); Total Bilirubin 0.6 mg/dL (0.2-1.3); Total Protein 5.4 g/dL (6.3-8.2)
[2017-10-13] MEDS: INSULIN ASPART 100 UNIT/ML 1 ML 10 ML VIAL SQ SCH ×4 (07:06→21:09)
--- NOTE | 2017-10-13 07:54 | P.CONS ---
History of Present Illness - Reason for Consult Consult date: 10/12/17 Ascites and possible Spontaneous Bacterial Peritinitis SBP - History of Present Illness 66-year-old female with significant past medical history of liver cirrhosis, COPD, CHF, diabetes, presenting by EMS with a chief complaint of abdominal pain and a fall that occurred 2 days ago. Patient does admit that she does have a history of liver cirrhosis. States that she has abdominal ascites and had fluid drained 4 days ago. She states that since that time she's felt a little dizzy at times. She states that she had a fall in the middle of the night 2 nights ago when she was up getting some water. Patient's unsure if she tripped or slipped on something. She admits that she was having increased abdominal pain going across the abdomen today. She states it's worse than usual for her history of ascites and liver cirrhosis. Patient also admits to some right- sided chest pain underneath the right breast. Patient denies any other complaints or symptoms at this time. Patient was given 4 mg of morphine by EMS along with Zofran. Currently pain free. Patient denies any recent fever, chills , back pain, nausea or vomiting, numbness or tingling, dysuria or hematuria, constipation or diarrhea, headaches or visual changes, or any other complaints. Review of Systems Constitutional: Denies fever, chills or unintentional weight loss Neurologic: No headaches, double vision, slurring in the speech or other sensory or motor changes Cardiopulmonary: No chest pains, shortness of breath or palpitations Gastrointestinal: See present illness above Genitourinary: No hematuria, dysuria or frequency Musculoskeletal: No joint swelling or pain Skin: No rashes Endocrine: No diabetes or thyroid disease Hematologic: No bleeding tendency or anemia Psychiatry: No anxiety or depression Past Medical History Past Medical History: Atrial Fibrillation, Coronary Artery Disease (CAD), Heart Failure, COPD, Diabetes Mellitus, GERD/Reflux, GI Bleed, Hyperlipidemia, Hypertension Additional Past Medical History / Comment(s): COPD with home O2 at night, end stage liver disease (was previously documentedwith refractory acsities q7-10 days). Barretts esophagus, esophageal varicies with bleed requiring banding X 3 , hiatal hernia, iron def anemia, thrombocytopenia, chronic back pain, pancreatitis, colon polyps, needs one of her heart valve replaced , septic infection with PICC line since removed History of Any Multi-Drug Resistant Organisms: MRSA Year Discovered:: 2016 MDRO Source:: nose Past Surgical History: Adenoidectomy, Appendectomy, Section, Cholecystectomy, Heart Catheterization, Heart Catheterization With Stent, Joint Replacement, Tubal Ligation Additional Past Surgical History / Comment(s): paracentesis, right JUSTINO, esophageal banding X 3, bone marrow bx, EGD and colonoscopy Past Anesthesia/Blood Transfusion Reactions: No Reported Reaction Date of Last Stent Placement:: 2016 Smoking Status: Current every day smoker - Past Family History Father Family Medical History: Cancer, Coronary Artery Disease (CAD), Diabetes Mellitus Additional Family Medical History / Comment(s): bladder ca Mother Family Medical History: Cancer, COPD, Diabetes Mellitus Additional Family Medical History / Comment(s): lung ca Medications and Allergies Home Medications Medication Instructions Recorded Confirmed Type Acetaminophen Tab [Tylenol] 1,000 mg PO Q6HR PRN 08/05/17 10/10/17 History Atorvastatin [Lipitor] 80 mg PO HS 08/05/17 10/10/17 History Diltiazem HCl 60 mg PO Q6H 08/05/17 10/10/17 History Furosemide [Lasix] 80 mg PO BID 08/05/17 10/10/17 History Metoprolol Tartrate [Lopressor] 50 mg PO BID 08/05/17 10/10/17 History Ondansetron [Zofran] 4 mg PO TID PRN 08/05/17 10/10/17 History Pantoprazole [Protonix] 40 mg PO DAILY 08/05/17 10/10/17 History Spironolactone 100 mg PO DAILY 08/05/17 10/10/17 History Tiotropium 18 Mcg/Puff [Spiriva] 1 cap INHALATION RT-DAILY 08/05/17 10/10/17 History Venlafaxine HCl [Effexor] 37.5 mg PO BID 08/05/17 10/10/17 History Albuterol Sulfate [Proair Hfa] 2 puff INHALATION RT-QID PRN 09/22/17 10/10/17 History Aspirin EC [Ecotrin Low Dose] 81 mg PO HS 10/10/17 10/10/17 History Glimepiride [Amaryl] 2 mg PO BID 10/10/17 10/10/17 History Insulin Glargine,Hum.rec.anlog 20 unit SQ BID 10/10/17 10/10/17 History [Lantus Tamaraostar] Allergies Allergy/AdvReac Type Severity Reaction Status Date / Time sulfamethoxazole AdvReac Rash/Hives Verified 10/10/17 08:17 [From Bactrim] trimethoprim [From Bactrim] AdvReac Rash/Hives Verified 10/10/17 08:17 Physical Exam Vitals: Vital Signs Temp Pulse Pulse Resp BP Pulse Ox 10/12/17 16:00 97.4 F L 89 16 107/46 90 L 10/12/17 12:00 97.3 F L 74 16 92/43 92 L 10/12/17 11:52 87 10/12/17 11:40 82 10/12/17 08:20 97.4 F L 87 16 98/39 94 L 10/12/17 08:08 84 10/12/17 07:54 84 10/12/17 04:00 97.1 F L 117 H 15 108/54 92 L 10/12/17 00:00 97.6 F 105 H 17 114/54 92 L 10/11/17 20:11 88 10/11/17 20:02 107 H 94 L 10/11/17 20:00 98.8 F 110 H 18 130/55 93 L 10/11/17 16:37 80 10/11/17 16:25 80 Intake and Output 10/12/17 10/12/17 10/12/17 06:59 14:59 22:59 Intake Total 490 120 Output Total 250 Balance 490 -130 Intake: Intake, IV Titration 10 Amount Sodium Chloride 0.9% 1, 10 000 ml @ 100 mls/hr IV . Q10H [facility] Rx#:[id number] Oral 480 120 Output: Urine 250 Other: Voiding Method Bedside Commode # Bowel Movements 0 Weight 76.1 kg General: Appeared stated age, very pleasant in no acute distress Head and neck: Normocephalic and atraumatic, conjunctivae pink and sclerae are not icteric, mucous membranes moist and pink. No masses in the neck or tracheal shifts Lungs: Clear to auscultation with no dullness to percussion Heart: Regular, no murmurs, gallops or friction rubs Abdomen: Soft, no masses or organomegalies. No tenderness. Bowel sounds present Extremities: No clubbing, cyanosis or edema Neurologic: Alert and oriented 3. Cranial nerves grossly intact, no gross sensory or motor abnormalities Results CBC & Chem 7: 10/13/17 06:15 10/13/17 06:15 Labs: Abnormal Lab Results - Last 24 Hours (Table) 10/11/17 10/11/17 10/12/17 Range/Units 16:32 21:07 05:50 RBC (3.80-5.40) m/uL Hgb (11.4-16.0) gm/dL Hct (34.0-46.0) % MCV (80.0-100.0) fL RDW (11.5-15.5) % Plt Count (150-450) k/uL Sodium (137-145) mmol/L Chloride (98-107) mmol/L Carbon Dioxide (22-30) mmol/L BUN (7-17) mg/dL Glucose (74-99) mg/dL POC Glucose (mg/dL) 352 H 384 H 299 H (75-99) mg/dL Calcium (8.4-10.2) mg/dL Total Protein (6.3-8.2) g/dL Albumin (3.5-5.0) g/dL 10/12/17 10/12/17 10/12/17 Range/Units 06:00 06:00 11:49 RBC 3.31 L (3.80-5.40) m/uL Hgb 8.3 L (11.4-16.0) gm/dL Hct 26.2 L (34.0-46.0) % MCV 79.2 L (80.0-100.0) fL RDW 18.7 H (11.5-15.5) % Plt Count 105 L D (150-450) k/uL Sodium 133 L (137-145) mmol/L Chloride 95 L (98-107) mmol/L Carbon Dioxide 31 H (22-30) mmol/L BUN 28 H (7-17) mg/dL Glucose 260 H (74-99) mg/dL POC Glucose (mg/dL) 274 H (75-99) mg/dL Calcium 8.2 L (8.4-10.2) mg/dL Total Protein 5.3 L (6.3-8.2) g/dL Albumin 2.8 L (3.5-5.0) g/dL Microbiology - Last 24 Hours (Table) 10/10/17 18:28 Blood Culture - Preliminary Blood No Growth after 24 hours Assessment and Plan Assessment: 66-year-old female with nonalcoholic cirrhosis of the liver with history of intractable ascites requiring frequent large volume paracentesis presenting with mental changes that could be related to spontaneous bacterial peritonitis. Plan: Agree with your current management. The patient is already on antibiotics. Large volume paracentesis is planned for Friday. Will review the ascitic fluid studies and make any further adjustments accordingly. I will discuss with you and follow with you with interest.
[2017-10-13] MEDS: IPRATROPIUM-ALBUTEROL 3 ML NEB INHALATION SCH ×4 (08:06→19:23)
--- NOTE | 2017-10-13 10:56 | CDI ---
Last Revision, February 2017 Documentation Clarification Form Date: 10/13/2017 12:00:00 AM From: Jessica Oliveira RN, CCDS Admit Date: 10/10/2017 12:09:00 PM Patient Name: Jenny Lenz Visit Number: [id number] Discharge Date: ATTENTION: The Clinical Documentation Specialists (CDI) and [facility] Coding Staff appreciate your assistance in clarifying documentation. Please respond to the clarification below the line at the bottom and electronically sign. The CDI & [facility] Coding staff will review the response and follow-up if needed. Please note: Queries are made part of the Legal Health Record. If you have any questions, please contact the author of this message via ITS. Dr. Don Figueroa Atrial fibrillation is documented in the past medical history and your consult and ongoing progress notes. History/Risk Factors: Atrial Fibrillation, Coronary Artery disease, heart Failure, COPD, Diabetes mellitus, Hypertension, End Stage liver disease, Clinical Indicators: On admission EKG was showing normal sinus rhythm, on she went into a. fib with with rvr Vital signs: 127/76 115 16 99.4 ECHO: Normal LV function with evidence of moderate to severe aortic stenosis, mild-to moderate MR and Moderate pulmonary hypertension. EF 55-60 % Treatment: Regional Maintenance Manager Cardizem PO In your professional opinion, can you please clarify the type of atrial fibrillation, if known? Chronic/Permanent Paroxysmal Persistent Other, please specify Unable to determine Please continue to document in your progress notes and discharge summary in order to capture severity of illness and risk of mortality. Include clinical findings that support your diagnosis. MTDD
[2017-10-13] MEDS: SPIRONOLACTONE 25 MG TAB PO SCH (11:28)
[2017-10-13] MEDS: METOPROLOL TARTRATE 50 MG TAB PO SCH ×2 (11:28→21:09)
[2017-10-13] MEDS ORDERED: FUROSEMIDE 10 MG/ML 2 ML VIAL IV ONE (11:29)
[2017-10-13] MEDS: VENLAFAXINE HCL 37.5 MG TAB PO SCH ×2 (11:29→21:09)
[2017-10-13] MEDS: predniSONE 20 MG TAB PO SCH (11:29)
[2017-10-13] MEDS: FUROSEMIDE 80 MG TAB PO SCH (11:29)
[2017-10-13] MEDS: INSULIN DETEMIR 100 UNIT/ML 10 ML VIAL SQ SCH ×2 (11:30→21:09)
[2017-10-13] MEDS: cefTRIAXone IN SWFI 2,000 MG/20 ML SYRINGE IVP SCH (11:33)
[2017-10-13 11:55] LABS: Glucose,Whole Blood 179 mg/dL (75-99)
--- NOTE | 2017-10-13 12:08 | XR ---
EXAMINATION TYPE: XR chest 1V portable DATE OF EXAM: 10/13/2017 COMPARISON: Prior chest 10/10/[address] abdomen pelvis 10/10/2017 HISTORY: Dyspnea TECHNIQUE: Single frontal view of the chest is obtained. FINDINGS: There is been interval increased right pleural effusion and associated atelectasis. No dayron dent pneumothorax. Heart size is somewhat obscured but thought to be stable. Left lung is clear. Ther e are overlying cardiac leads. IMPRESSION: Interval progression right pleural effusion and associated atelectasis possibly due to p osterior right rib fractures at the 10th and 11th ribs.
--- NOTE | 2017-10-13 12:57 | US ---
Discontinued paracentesis HISTORY: Ascites Exam correlated to prior ultrasound 10/06/2017 There is no significant ascites evident within the abdomen on this limited scan. IMPRESSION: Aborted paracentesis.
--- NOTE | 2017-10-13 13:19 | P.PN ---
Subjective Progress Note Date: 10/13/17 Principal diagnosis: Patient is a 66 yo CF with a history of Cirrhosis requiring frequent large volume paracentesis, CHF, COPD with chronic home O2 use and multiple other conditions who presented with abdominal pain following a fall. In the emergency department she underwent an extensive evaluation. Her initial vital signs were within normal limits. Initial laboratory analysis was consistent with her baseline labs. Chest x-ray was negative, rib x-ray did not show any fractures, KUB was negative. CT abdomen and pelvis showed cirrhotic liver, splenomegaly, paraesophageal varices, and moderately improved ascites of the right basilar pleural effusion. It also showed suspected jejunal enteritis. She was started on IVF and admitted to the general medical floor. She underwent CT of head which showed no acute process. Her ammonia level was normal and UA was negative. She developed A fib with RVR and a fever of 100.2 She [facility] She received a bolus of fluids and IV fluids were started her heart rate normalized without need for additional medications. There was concern for SBP and rocephin was ordered. IR consult was also ordered but they are not available at this time. She felt much bettre after antibiotics were started and her confusion improved. She was asking about going home. ECHO show moderate to sever aortic stenosis and EF 40-45% Patient is feeling good today, reports improvement of her dizziness. Nursing reports that apparently they were unable to get any fluid via paracentesis. Patient breathing comfortably on 4 L nasal cannula. Objective - Vital Signs Vital signs: Vital Signs Temp 97.5 F L 10/13/17 08:00 Pulse 88 10/13/17 12:05 Resp 16 10/13/17 04:00 BP 112/46 10/13/17 08:00 Pulse Ox 95 10/13/17 08:07 Intake & Output 10/12/17 10/13/17 10/13/17 18:59 06:59 18:59 Intake Total 480 Output Total 700 800 Balance -220 -800 Weight 75.4 kg Intake: Oral 480 Output: Urine 700 800 Other: Voiding Method Bedside Commode # Voids 1 1 # Bowel Movements 0 - Exam General: non toxic, no distress, appears older than stated age Derm: warm, dry, no additional ecchymosis Head: atraumatic, normocephalic, symmetric Eyes: EOMI, no lid lag, anicteric sclera Mouth: no lip lesion, mucus membranes dry Cardiovascular: S1S2 irreg with murmur systolic, positive posterior tibial pulse bilateral, Lungs: Rhonchi b/l without wheeze , no accessory muscle use Abdominal: soft, distentded, non tender to palpation, no guarding, no appreciable organomegaly, reducible periumbilical hernia Ext: no gross muscle atrophy, no edema, no contractures Neuro: CN II-XI grossly intact, no focal neuro deficits Psych: Alert, oriented, appropriate affect - Labs CBC & Chem 7: 10/13/17 06:15 10/13/17 06:15 Labs: Abnormal Lab Results - Last 24 Hours (Table) 10/12/17 10/13/17 10/13/17 Range/Units 20:48 04:59 06:15 RBC 3.40 L (3.80-5.40) m/uL Hgb 8.4 L (11.4-16.0) gm/dL Hct 27.1 L (34.0-46.0) % MCV 79.7 L (80.0-100.0) fL MCH 24.8 L (25.0-35.0) pg RDW 18.9 H (11.5-15.5) % Plt Count 110 L (150-450) k/uL PT (9.0-12.0) sec INR (<1.2) Sodium (137-145) mmol/L Potassium (3.5-5.1) mmol/L Chloride (98-107) mmol/L Carbon Dioxide (22-30) mmol/L BUN (7-17) mg/dL Glucose (74-99) mg/dL POC Glucose (mg/dL) 432 H 322 H (75-99) mg/dL Calcium (8.4-10.2) mg/dL Total Protein (6.3-8.2) g/dL Albumin (3.5-5.0) g/dL 10/13/17 10/13/17 10/13/17 Range/Units 06:15 06:15 06:32 RBC (3.80-5.40) m/uL Hgb (11.4-16.0) gm/dL Hct (34.0-46.0) % MCV (80.0-100.0) fL MCH (25.0-35.0) pg RDW (11.5-15.5) % Plt Count (150-450) k/uL PT 12.2 H (9.0-12.0) sec INR 1.3 H (<1.2) Sodium 136 L (137-145) mmol/L Potassium 3.4 L (3.5-5.1) mmol/L Chloride 96 L (98-107) mmol/L Carbon Dioxide 32 H (22-30) mmol/L BUN 29 H (7-17) mg/dL Glucose 258 H (74-99) mg/dL POC Glucose (mg/dL) 293 H (75-99) mg/dL Calcium 8.3 L (8.4-10.2) mg/dL Total Protein 5.4 L (6.3-8.2) g/dL Albumin 2.8 L (3.5-5.0) g/dL 10/13/17 Range/Units 11:45 RBC (3.80-5.40) m/uL Hgb (11.4-16.0) gm/dL Hct (34.0-46.0) % MCV (80.0-100.0) fL MCH (25.0-35.0) pg RDW (11.5-15.5) % Plt Count (150-450) k/uL PT (9.0-12.0) sec INR (<1.2) Sodium (137-145) mmol/L Potassium (3.5-5.1) mmol/L Chloride (98-107) mmol/L Carbon Dioxide (22-30) mmol/L BUN (7-17) mg/dL Glucose (74-99) mg/dL POC Glucose (mg/dL) 179 H (75-99) mg/dL Calcium (8.4-10.2) mg/dL Total Protein (6.3-8.2) g/dL Albumin (3.5-5.0) g/dL Microbiology - Last 24 Hours (Table) 10/10/17 18:28 Blood Culture - Preliminary Blood No Growth after 48 hours Assessment and Plan Plan: Probable SBP Abdominal pain - [place] - GI recs -IR consult ordered not here over weekend. Empiric abx started. Await paracentesis results, albumin needed with paracentesis Cirrhosis with ascites due to [place], compensated compared to baseline in this patient - Continue with lasix and aldactone - on metoprolol so no propranolol - GI recs -Patient is trying to wait for her outpatient thoracentesis until Friday, will have on friday when IR available due to IVF needed -Rocephin COPD with exacerbation -Bronchodilators -Prednisone -ABG with in normal -Pulmonary hygiene -Rocephin Diabetes mellitus type 2 -Levemir added twice daily -Sliding-scale insulin -Hemoglobin A1c 5.8 08/11/2017 Chronic conditions: Hypertension Coronary artery disease GERD History of esophageal varices Chronic back pain Coronary artery disease Dizziness, resolved Toxic metabolic encepalopathy likely related to SBP, resolved
--- NOTE | 2017-10-13 13:23 | P.PN ---
Subjective Progress Note Date: 10/13/17 Physical pleasant 66-year-old female patient with an extensive past medical history including coronary artery disease, prior coronary artery stenting with unknown details, valvular heart disease, liver cirrhosis, requiring paracentesis every 7 days, diabetes, hypertension, dyslipidemia. She has known severe aortic stenosis and was evaluated by a international sourcing manager in [place] who recommended valve replacement but due to the patient's significant liver issues this wasn't done. Echocardiogram revealed normal LV function with evidence of moderate to severe aortic stenosis, mild to moderate MR and moderate pulmonary hypertension. Upon examination this morning, patient sitting up at the side of the bed. She is quite tachypneic with labored breathing. Her oxygen saturation is 85% on 4 L. Objective - Vital Signs Vital signs: Vital Signs Temp 97.5 F L 10/13/17 08:00 Pulse 88 10/13/17 12:05 Resp 16 10/13/17 04:00 BP 112/46 10/13/17 08:00 Pulse Ox 95 10/13/17 08:07 Intake & Output 10/12/17 10/13/17 10/13/17 18:59 06:59 18:59 Intake Total 480 Output Total 700 800 Balance -220 -800 Weight 75.4 kg Intake: Oral 480 Output: Urine 700 800 Other: Voiding Method Bedside Commode # Voids 1 1 # Bowel Movements 0 - Exam PHYSICAL EXAMINATION: HEENT: Head is atraumatic, normocephalic. Pupils equal, round. Neck is supple. There is no elevated jugular venous pressure. HEART EXAMINATION: Heart sounds regular, S1 and S2 with a systolic ejection murmur. CHEST EXAMINATION: Lungs reveal extremely diminished air entry bilaterally with faint crackles in the right lower lobe. No chest wall tenderness is noted on palpation or with deep breathing. ABDOMEN: Soft, nontender. Bowel sounds are heard. No organomegaly noted. EXTREMITIES: 2+ peripheral pulses with no evidence of peripheral edema and no calf tenderness noted. NEUROLOGIC patient is awake, alert and oriented x3. . - Labs CBC & Chem 7: 10/13/17 06:15 10/13/17 06:15 Labs: Abnormal Lab Results - Last 24 Hours (Table) 10/12/17 10/13/17 10/13/17 Range/Units 20:48 04:59 06:15 RBC 3.40 L (3.80-5.40) m/uL Hgb 8.4 L (11.4-16.0) gm/dL Hct 27.1 L (34.0-46.0) % MCV 79.7 L (80.0-100.0) fL MCH 24.8 L (25.0-35.0) pg RDW 18.9 H (11.5-15.5) % Plt Count 110 L (150-450) k/uL PT (9.0-12.0) sec INR (<1.2) Sodium (137-145) mmol/L Potassium (3.5-5.1) mmol/L Chloride (98-107) mmol/L Carbon Dioxide (22-30) mmol/L BUN (7-17) mg/dL Glucose (74-99) mg/dL POC Glucose (mg/dL) 432 H 322 H (75-99) mg/dL Calcium (8.4-10.2) mg/dL Total Protein (6.3-8.2) g/dL Albumin (3.5-5.0) g/dL 10/13/17 10/13/17 10/13/17 Range/Units 06:15 06:15 06:32 RBC (3.80-5.40) m/uL Hgb (11.4-16.0) gm/dL Hct (34.0-46.0) % MCV (80.0-100.0) fL MCH (25.0-35.0) pg RDW (11.5-15.5) % Plt Count (150-450) k/uL PT 12.2 H (9.0-12.0) sec INR 1.3 H (<1.2) Sodium 136 L (137-145) mmol/L Potassium 3.4 L (3.5-5.1) mmol/L Chloride 96 L (98-107) mmol/L Carbon Dioxide 32 H (22-30) mmol/L BUN 29 H (7-17) mg/dL Glucose 258 H (74-99) mg/dL POC Glucose (mg/dL) 293 H (75-99) mg/dL Calcium 8.3 L (8.4-10.2) mg/dL Total Protein 5.4 L (6.3-8.2) g/dL Albumin 2.8 L (3.5-5.0) g/dL 10/13/17 Range/Units 11:45 RBC (3.80-5.40) m/uL Hgb (11.4-16.0) gm/dL Hct (34.0-46.0) % MCV (80.0-100.0) fL MCH (25.0-35.0) pg RDW (11.5-15.5) % Plt Count (150-450) k/uL PT (9.0-12.0) sec INR (<1.2) Sodium (137-145) mmol/L Potassium (3.5-5.1) mmol/L Chloride (98-107) mmol/L Carbon Dioxide (22-30) mmol/L BUN (7-17) mg/dL Glucose (74-99) mg/dL POC Glucose (mg/dL) 179 H (75-99) mg/dL Calcium (8.4-10.2) mg/dL Total Protein (6.3-8.2) g/dL Albumin (3.5-5.0) g/dL Microbiology - Last 24 Hours (Table) 10/10/17 18:28 Blood Culture - Preliminary Blood No Growth after 48 hours Assessment and Plan Assessment: #1 atrial fibrillation with rapid ventricular response, paroxysmal, currently maintaining sinus rhythm #2 coronary artery disease with prior stenting of unknown detail #3 end-stage liver disease, liver cirrhosis #4 recurrent ascites #5 valvular heart disease #6 symptoms of dyspnea, with labored breathing and hypoxia Plan: From cardiology's perspective, we obtained a chest x-ray which showed significant right-sided pleural effusion. We will give 1 dose of IV Lasix now and change patient to Lasix 80 mg IV push twice a day. Monitor electrolytes and renal function, daily weights and intake and output. We will order an ultrasound of the right chest. Further recommendations to follow. ASSISTANT INFANT TEACHER note has been reviewed, I agree with a documented findings and plan of care. Patient was seen and examined.
--- NOTE | 2017-10-13 15:54 | US ---
EXAMINATION TYPE: US chest DATE OF EXAM: 10/13/2017 COMPARISON: X-Ray 10/13/17 CLINICAL HISTORY: Right pleural effusion. EXAM MEASUREMENTS: Right Pleural Effusion fluid pocket: 2.1 cm Right skin to fluid thickness: 5.6 cm Right side marked for possible thoracentesis outside the dept. Pulmonologists are able to review the images in the patient?s EMR. IMPRESSIONS: Right-sided pleural effusion, appearing moderate in degree as seen on the prior chest ra diograph
[2017-10-13 16:53] LABS: Glucose,Whole Blood 245 mg/dL (75-99)
[2017-10-13 20:13] LABS: Glucose,Whole Blood 331 mg/dL (75-99)
[2017-10-13] MEDS: ATORVASTATIN 80 MG TAB PO SCH (21:09)
[2017-10-13] MEDS: FUROSEMIDE 10 MG/ML 10 ML VIAL IV SCH (21:09)
[2017-10-13] MEDS: HYDROcodone/APAP 5-325MG 1 EACH TAB PO PRN (21:18)
[2017-10-14 05:56] LABS: Glucose,Whole Blood 319 mg/dL (75-99)
[2017-10-14] MEDS: INSULIN ASPART 100 UNIT/ML 1 ML 10 ML VIAL SQ SCH ×4 (06:44→21:11)
[2017-10-14] MEDS: PANTOPRAZOLE 40 MG TABLET PO SCH (06:44)
[2017-10-14] MEDS: DILTIAZEM ORAL 60 MG TAB PO SCH ×4 (06:44→22:54)
[2017-10-14] MEDS: IPRATROPIUM-ALBUTEROL 3 ML NEB INHALATION SCH ×4 (07:22→19:50)
[2017-10-14] MEDS: cefTRIAXone IN SWFI 2,000 MG/20 ML SYRINGE IVP SCH (08:46)
[2017-10-14] MEDS: FUROSEMIDE 10 MG/ML 10 ML VIAL IV SCH ×2 (08:47→21:02)
[2017-10-14] MEDS: predniSONE 20 MG TAB PO SCH (08:47)
[2017-10-14] MEDS: SPIRONOLACTONE 25 MG TAB PO SCH (08:49)
[2017-10-14] MEDS: INSULIN DETEMIR 100 UNIT/ML 10 ML VIAL SQ SCH ×2 (08:49→21:11)
[2017-10-14] MEDS: METOPROLOL TARTRATE 50 MG TAB PO SCH ×2 (08:50→21:02)
[2017-10-14] MEDS: VENLAFAXINE HCL 37.5 MG TAB PO SCH ×2 (08:50→21:03)
--- NOTE | 2017-10-14 10:45 | P.PN ---
Subjective Progress Note Date: 10/14/17 Principal diagnosis: Valvular heart disease This is a pleasant 66-year-old female patient with an extensive past medical history including coronary artery disease, prior coronary artery stenting with unknown details, valvular heart disease, liver cirrhosis, requiring paracentesis every 7 days, diabetes, hypertension, dyslipidemia. She has known severe aortic stenosis and was evaluated by a tow car driver in [place] who recommended valve replacement but due to the patient's significant liver issues this wasn't done. Echocardiogram revealed normal LV function with evidence of moderate to severe aortic stenosis, mild to moderate MR and moderate pulmonary hypertension. When the patient was seen yesterday she was more short of breath. She was also slightly tachycardic. He goes of that we ordered a chest x-ray which showed right sided pleural effusion. Subsequently ordered an ultrasound of the chest which showed moderate right pleural effusion. The patient currently continues to be on IV Lasix. She is feeling slightly better today. Objective - Vital Signs Vital signs: Vital Signs Temp 97.9 F 10/14/17 08:00 Pulse 73 10/14/17 08:00 Resp 18 10/14/17 08:00 BP 107/58 10/14/17 08:00 Pulse Ox 94 L 10/14/17 08:00 Intake & Output 10/13/17 10/14/17 10/14/17 18:59 06:59 18:59 Intake Total 360 10 240 Output Total 350 650 Balance 10 -640 240 Weight 74.3 kg Intake: IV 10 .9 10 Oral 360 240 Output: Urine 350 650 Other: Voiding Method Bedside Commode Bedside Commode # Bowel Movements 1 - Constitutional General appearance: Present: no acute distress - Respiratory Respiratory: right: diminished, left: CTA - Cardiovascular Rhythm: regular Heart sounds: normal: S1, S2 Abnormal Heart Sounds: Present: systolic murmur - Labs CBC & Chem 7: 10/13/17 06:15 10/13/17 06:15 Labs: Abnormal Lab Results - Last 24 Hours (Table) 10/13/17 10/13/17 10/13/17 Range/Units 11:45 16:32 20:10 POC Glucose (mg/dL) 179 H 245 H 331 H (75-99) mg/dL 10/14/17 Range/Units 05:52 POC Glucose (mg/dL) 319 H (75-99) mg/dL Microbiology - Last 24 Hours (Table) 10/10/17 18:28 Blood Culture - Preliminary Blood No Growth after 72 hours Assessment and Plan Assessment: Assessment #1 A. fib with RVR. The patient converted to normal sinus mechanism #2 coronary artery disease and prior stenting with unknown details #3 end-stage liver disease/liver cirrhosis. #4 recurrent ascites #5 valvular heart disease #6 right sided pleural effusion Plan #1 continue the current medical regimen including diuretics #2 we will continue the Cardizem by mouth at this point. #3 she is not a candidate to have any oral anticoagulation #4 the echocardiogram was reviewed and described above #5 follow-up with the patient Thank you for allowing us participate in her care
[2017-10-14 11:57] LABS: Glucose,Whole Blood 264 mg/dL (75-99)
[2017-10-14 12:24] LABS: Albumin 2.9 g/dL (3.5-5.0); Calcium 8.1 mg/dL (8.4-10.2); Potassium 3.1 mmol/L (3.5-5.1); Total Bilirubin 0.6 mg/dL (0.2-1.3); Total Protein 5.6 g/dL (6.3-8.2)
[2017-10-14 12:45] LABS: Anisocytosis Slight; Basophils % (A) 0 %; Eosinophils # (A) 0.1 k/uL (0-0.7); Eosinophils % (A) 0 %; HCT 28.8 % (34.0-46.0); HGB 9.1 gm/dL (11.4-16.0); Hypochromasia Moderate; Lymphocytes # (A) 0.6 k/uL (1.0-4.8); Lymphocytes % (A) 5 %; MCHC 31.7 g/dL (31.0-37.0); MCV 78.7 fL (80.0-100.0); Mean Platelet Volume 7.3; Microcytosis Slight; Monocytes # (A) 0.8 k/uL (0-1.0); Monocytes % (A) 7 %; Neutrophils # (A) 10.3 k/uL (1.3-7.7); Neutrophils % (A) 86 %; Platelet Count 110 k/uL (150-450); Poikilocytosis Slight; RBC 3.66 m/uL (3.80-5.40)
[2017-10-14] MEDS ORDERED: Potassium Replacement Protocol 1 EACH MISC MISCELLANE PRN (13:05)
--- NOTE | 2017-10-14 13:19 | P.PN ---
Subjective Progress Note Date: 10/14/17 Principal diagnosis: Patient is a 66 yo CF with a history of Cirrhosis requiring frequent large volume paracentesis, CHF, COPD with chronic home O2 use and multiple other conditions who presented with abdominal pain following a fall. In the emergency department she underwent an extensive evaluation. Her initial vital signs were within normal limits. Initial laboratory analysis was consistent with her baseline labs. Chest x-ray was negative, rib x-ray did not show any fractures, KUB was negative. CT abdomen and pelvis showed cirrhotic liver, splenomegaly, paraesophageal varices, and moderately improved ascites of the right basilar pleural effusion. It also showed suspected jejunal enteritis. She was started on IVF and admitted to the general medical floor. She underwent CT of head which showed no acute process. Her ammonia level was normal and UA was negative. She developed A fib with RVR and a fever of 100.2 She was transferred to [facility]. She received a bolus of fluids and IV fluids were started her heart rate normalized without need for additional medications. There was concern for SBP and rocephin was ordered. IR consult was also ordered but they are not available at this time. She felt much bettre after antibiotics were started and her confusion improved. She was asking about going home. ECHO show moderate to sever aortic stenosis and EF 40-45% Patient is feeling good today, reports improvement of her dizziness. Nursing reports that apparently they were unable to get any fluid via paracentesis. Patient breathing comfortably on 4 L nasal cannula. Chest x-ray from yesterday indicating interval progression of the right pleural effusion and associated atelectasis. Chest ultrasound consistent with a moderate pleural effusion Objective - Vital Signs Vital signs: Vital Signs Temp 97.9 F 10/14/17 08:00 Pulse 88 10/14/17 12:00 Resp 18 10/14/17 08:00 BP 107/58 10/14/17 08:00 Pulse Ox 94 L 10/14/17 08:00 Intake & Output 10/13/17 10/14/17 10/14/17 18:59 06:59 18:59 Intake Total 360 10 240 Output Total 350 650 Balance 10 -640 240 Weight 74.3 kg Intake: IV 10 .9 10 Oral 360 240 Output: Urine 350 650 Other: Voiding Method Bedside Commode Bedside Commode # Voids 1 # Bowel Movements 1 - Exam General: non toxic, no distress, appears older than stated age Derm: warm, dry, no additional ecchymosis Head: atraumatic, normocephalic, symmetric Eyes: EOMI, no lid lag, anicteric sclera Mouth: no lip lesion, mucus membranes dry Cardiovascular: S1S2 irreg with murmur systolic, positive posterior tibial pulse bilateral, Lungs: Rhonchi b/l without wheeze , no accessory muscle use Abdominal: soft, distentded, non tender to palpation, no guarding, no appreciable organomegaly, reducible periumbilical hernia Ext: no gross muscle atrophy, no edema, no contractures Neuro: CN II-XI grossly intact, no focal neuro deficits Psych: Alert, oriented, appropriate affect - Labs CBC & Chem 7: 10/14/17 11:26 10/14/17 11:26 Labs: Abnormal Lab Results - Last 24 Hours (Table) 10/13/17 10/13/17 10/14/17 Range/Units 16:32 20:10 05:52 WBC (3.8-10.6) k/uL RBC (3.80-5.40) m/uL Hgb (11.4-16.0) gm/dL Hct (34.0-46.0) % MCV (80.0-100.0) fL RDW (11.5-15.5) % Plt Count (150-450) k/uL Sodium (137-145) mmol/L Potassium (3.5-5.1) mmol/L Chloride (98-107) mmol/L Carbon Dioxide (22-30) mmol/L BUN (7-17) mg/dL Glucose (74-99) mg/dL POC Glucose (mg/dL) 245 H 331 H 319 H (75-99) mg/dL Calcium (8.4-10.2) mg/dL Total Protein (6.3-8.2) g/dL Albumin (3.5-5.0) g/dL 10/14/17 10/14/17 10/14/17 Range/Units 11:26 11:26 11:37 WBC 12.0 H (3.8-10.6) k/uL RBC 3.66 L (3.80-5.40) m/uL Hgb 9.1 L (11.4-16.0) gm/dL Hct 28.8 L (34.0-46.0) % MCV 78.7 L (80.0-100.0) fL RDW 19.0 H (11.5-15.5) % Plt Count 110 L (150-450) k/uL Sodium 134 L (137-145) mmol/L Potassium 3.1 L (3.5-5.1) mmol/L Chloride 92 L (98-107) mmol/L Carbon Dioxide 35 H (22-30) mmol/L BUN 27 H (7-17) mg/dL Glucose 234 H (74-99) mg/dL POC Glucose (mg/dL) 264 H (75-99) mg/dL Calcium 8.1 L (8.4-10.2) mg/dL Total Protein 5.6 L (6.3-8.2) g/dL Albumin 2.9 L (3.5-5.0) g/dL Microbiology - Last 24 Hours (Table) 10/10/17 18:28 Blood Culture - Preliminary Blood No Growth after 72 hours Assessment and Plan Plan: Probable SBP Abdominal pain - Rocpehin - GI recs -Appreciate ID recommendations, will plan to continue Ceftin as patient approaches discharge Cirrhosis with ascites due to [place], compensated compared to baseline in this patient - Continue with lasix and aldactone - on metoprolol so no propranolol - GI recs -Patient is trying to wait for her outpatient thoracentesis until Friday, will have on friday when IR available due to IVF needed -Rocephin * Patient initiated on IV Lasix at 80 mg IV twice a day by cardiology Pleural effusion * Moderate right-sided pleural effusion * IR consulted for a right-sided thoracentesis due to moderate size pleural effusion Hypokalemia * Replace and recheck, likely precipitated by IV diuresis with Lasix COPD with exacerbation -Bronchodilators -Prednisone -ABG with in normal -Pulmonary hygiene -Rocephin Diabetes mellitus type 2 with hyperglycemia * Likely precipitated by steroids that for her COPD exacerbation we'll add sliding scale insulin -Levemir added twice daily -Sliding-scale insulin -Hemoglobin A1c 5.8 08/11/2017 Chronic conditions: Hypertension Coronary artery disease GERD History of esophageal varices Chronic back pain Coronary artery disease Dizziness, resolved Toxic metabolic encepalopathy likely related to SBP, resolved
--- NOTE | 2017-10-14 14:28 | CDI ---
Last Revision, February 2017 Documentation Clarification Form Date: 10/15/2017 12:00:00 AM From: Jessica Oliveira RN CCDS Admit Date: 10/10/2017 12:09:00 PM Patient Name: Jenny Lenz Visit Number: [id number] Discharge Date: ATTENTION: The Clinical Documentation Specialists (CDI) and [facility] Coding Staff appreciate your assistance in clarifying documentation. Please respond to the clarification below the line at the bottom and electronically sign. The CDI & [facility] Coding staff will review the response and follow-up if needed. Please note: Queries are made part of the Legal Health Record. If you have any questions, please contact the author of this message via ITS. Dr. Brett Callejas History/Risk Factors: COPD, Atrial fibrillation, coronary artery disease, heart Failure, Diabetes, mellitus, Hypertension, Barretts esophagus, End stage Liver disease Tobacco use: Current every day smoker Home oxygen: Chronic home O2, 4/L NC Clinical Indicators: 10/13/17 patient with complaints of dyspnea. She was sitting up at the bed side She is quite tachypneic with labored breathing. Her oxygen saturation is 85 % on 4/L NC Chest x-ray revealed progression right pleural effusion and associated atelectasis possible due to posterior right rib fractures at the 10 and 11th ribs Chest Ultrasound: Right-sided pleural effusion appearing moderate in degree as seen in the prior chest radiograph Vital signs: 103/43 74 84 % 4/L NC Lung/Breathing assessment: extremely diminished air entry bilaterally with faint crackles in the right lower lobe Treatment: Duoneb's QID Ventolin Nebulized PRN Lasix IV Monitor O2 Sat's (titrate) Prednisone PO In your professional opinion, can you please clarify if these findings signify one of the following conditions? Refer to progress note Please continue to document in your progress notes and discharge summary in order to capture severity of illness and risk of mortality. Include clinical findings that support your diagnosis. MTDD
[2017-10-14] MEDS: POTASSIUM CHLORIDE ER 20 MEQ TAB.ER PO SCH ×2 (14:36→15:14)
[2017-10-14 14:42] LABS: Poikilocytosis (M) Present; Polychromasia Present
--- NOTE | 2017-10-14 14:59 | CDI ---
Last Revision, February 2017 Documentation Clarification Form Date: 10/14/2017 12:00:00 AM From: Jessica Oliveira RN, CCDS Admit Date: 10/10/2017 12:09:00 PM Patient Name: Jenny Lenz Visit Number: [id number] Discharge Date: ATTENTION: The Clinical Documentation Specialists (CDI) and [facility] Coding Staff appreciate your assistance in clarifying documentation. Please respond to the clarification below the line at the bottom and electronically sign. The CDI & [facility] Coding staff will review the response and follow-up if needed. Please note: Queries are made part of the Legal Health Record. If you have any questions, please contact the author of this message via ITS. Dr. Don Figueroa History/Risk Factors:. COPD, Heart Failure, Diabetes mellitus, Hypertension, Atrial Fibrillation, End stage liver disease Clinical Indicators: Per past medical history patient has a diagnosis of heart failure. She present with abdominal pain and states she had ascites fluid drained 4 days ago. 10/13/17 She was noted to have symptoms of dyspnea, with labored breathing and hypoxia VS/Pulse OX: 112/46 77 90 % 4/L NC Echocardiogram Results: EF between 55-60 % moderate pulmonary hypertension Chest X Ray: significant right-sided pleural effusion Treatment: IV Lasix Aldactone PO Lopressor PO In your professional opinion, can you please clarify the acuity and type of CHF if known? Systolic Heart Failure: Acute Chronic Acute on Chronic Diastolic Heart Failure: Acute Chronic Acute on Chronic Systolic & Diastolic Heart Failure: Acute Chronic Acute on Chronic Heart Failure Unable to Determine Other, please specify Please continue to document in your progress notes and discharge summary in order to capture severity of illness and risk of mortality. Include clinical findings that support your diagnosis. MTDD
--- NOTE | 2017-10-14 16:55 | US ---
EXAMINATION TYPE: US thoracentesis DATE OF EXAM: 10/14/2017 COMPARISON: NONE HISTORY: Pleural effusion. FINDINGS: Maximal barrier technique was utilized. The skin overlying a suitable pocket of fluid was localized and the overlying skin prepped and draped. Lidocaine was used for local anesthesia. Ultras ound was used with sterile technique. A 5 Fr catheter over needle was advanced into the pleural flui d collection using ultrasound guidance and the catheter advanced, needle removed. Approximately 1.1 liter(s) of serous sanguinous fluid was removed. Catheter was withdrawn and hemostasis achieved. Th ere is no immediate complication. The patient discharged in stable condition without complication. IMPRESSION: STATUS POST ULTRASOUND GUIDED THORACENTESIS, POST PROCEDURE CHEST X-RAY PENDING. THIS WI OCEDURE WAS PERFORMED BY THE UNDERSIGNED.
[2017-10-14] MEDS: HYDROcodone/APAP 5-325MG 1 EACH TAB PO PRN (17:02)
[2017-10-14 17:15] LABS: Glucose,Whole Blood 348 mg/dL (75-99)
--- NOTE | 2017-10-14 17:17 | XR ---
EXAMINATION TYPE: XR chest 1V DATE OF EXAM: 10/14/2017 COMPARISON: Prior chest x-ray dated 10/13/2017 HISTORY: Rib fractures, trauma, status post thoracentesis TECHNIQUE: Single frontal view of the chest is obtained. FINDINGS: There is interval improvement in the amount of pleural fluid. Patient's posterior rib frac tures are not well seen as on CT scan 10/27/2017. No evident pneumothorax. Residual increased density present at the right lung base. IMPRESSION: No evident complication status post right thoracentesis.
[2017-10-14 21:01] LABS: Glucose,Whole Blood 374 mg/dL (75-99)
[2017-10-14] MEDS: ATORVASTATIN 80 MG TAB PO SCH (21:03)
--- NOTE | 2017-10-14 22:38 | CONS ---
CONSULTATION DATE OF SERVICE: 10/14/2017 REASON FOR CONSULTATION: Antibiotic recommendation. HISTORY OF PRESENT ILLNESS: The patient is a 66-year-old female with past medical history significant for liver cirrhosis. The patient did have an abdominal paracentesis done about 4 days prior to presentation to hospital on 10/10/2017. The patient presenting with the chief complaints of abdominal pain and a fall that occurred about 2 days prior to presentation to hospital. The patient did mention after the paracentesis, she has been feeling dizzy and weak. Apparently, did trip and fell down. The patient has been complaining of increasing abdominal pain. Pain has been mostly a dull aching pain in lower abdominal area 4/10 to 5/10 and no radiation. The patient denies any nausea, any vomiting with or without any diarrhea. With these symptoms, the patient has been evaluated by the ER physician. The patient has been afebrile since she presented to the hospital. The patient did have a normal white count of 7.4, though has been slightly elevated 17.4 today. She did have a UA that has been negative. The patient did have a CT of abdomen and pelvis completed with liver cirrhotic, large amount of chronic fluid, cholecystectomy clips in place, splenomegaly, esophageal varices and moderate, but improved ascites. Patient has been treated with Rocephin. Infectious Disease was consulted for further recommendation regarding antibiotic therapy. Overall, the patient has been feeling better since admitted to hospital. Her abdominal pain has resolved. Denies having nausea, vomiting. Breathing has improved and denies having any diarrhea. REVIEW OF SYSTEMS: CONSTITUTIONAL: Positive for weakness, but denies any high-grade fever. EYES: No complaint. ENT: No complaint. RESPIRATORY: No complaint. CARDIOVASCULAR: No complaint. GENITOURINARY: No complaint. GASTROINTESTINAL: As per HPI. MUSCULOSKELETAL: No complaint. INTEGUMENTARY: No complaint. PSYCHOLOGICAL: No complaint. ENDOCRINE: No complaint. NEUROLOGIC: No complaint. PAST MEDICAL HISTORY: Atrial fibrillation, coronary artery disease, heart failure, COPD, diabetes mellitus, disease, GI bleed, hypertension, hyperlipidemia, COPD, cirrhosis of the liver. PAST SURGICAL HISTORY: Appendectomy, , cholecystectomy, heart catheterization with stent, tubal ligation, esophageal variceal banding. SOCIAL HISTORY: Current everyday smoker. Denies drinking or drug use. FAMILY HISTORY: Father with history of diabetes mellitus and bladder cancer. Mother with history of lung cancer and COPD. ALLERGIES: To BACTRIM. MEDICATIONS: Include the patient is currently on: 1. Tylenol. 2. Longbranch. 3. Ventolin and. 4. DuoNeb. 5. Lipitor. 6. Rocephin. 7. Cardizem. 8. Lasix. 9. NovoLog. 10.Levemir. 11.Lopressor. 12.Narcan. 13.Zofran. 14.Protonix. 15.Prednisone. 16.Aldactone and. 17.Effexor. EXAMINATION: Blood pressure is 122/60 with a pulse of 82, temperature 98.3. She is 93% on 5L nasal cannula. General description is an elderly female lying in bed in no distress. No tachypnea or accessory muscles of respiration use. HEENT shows slight pallor. No scleral icterus. Oral mucosa is dry. No pharyngeal erythema or thrush. NECK: Trachea is central. No thyromegaly. LUNGS: Unlabored breathing. Clear to auscultation anteriorly. No wheeze or crackle. HEART: S1, S2. Regular rate and rhythm. ABDOMEN: Soft. No guarding, rigidity. No organomegaly. EXTREMITIES: No edema of feet. SKIN: No rash or mass palpable. Neurologically, patient is awake, alert, oriented. Mood and affect normal. LABS: Hemoglobin is 9.1, white count 12.1 with a BUN of 27, creatinine 0.90. Potassium slightly on the low side. Liver enzymes are normal. Blood culture on admission has been negative. No paracentesis done this admission. DIAGNOSTIC IMPRESSION AND PLAN: The patient admitted to the hospital with abdominal pain. The patient did have a history of cirrhosis. She did have a paracentesis done about 4 days prior to admission to the hospital with concern for possible spontaneous bacterial peritonitis; could be, however, no paracentesis has been done this admission. Hence, this cannot be ruled out or excluded, though the patient seemed to have shown overall improvement in abdominal pain with the Rocephin and Rocephin with transition to oral Ceftin discharge. PLAN: 1. Will keep the patient on Rocephin 1 g IV piggyback daily. 2. If the patient spikes any fever or any changes in clinical condition, do a re- culture and adjust antibiotic further. 3. If the patient continues to improve, continue therapy with oral Ceftin 500 mg b.i.d. for about a week. 4. We will follow up on clinical condition and further adjust medication if needed. Thank you for this consultation. Will follow the patient along with you. ANTONINO / PILLO: [id number] /
[2017-10-15 06:31] LABS: Glucose,Whole Blood 300 mg/dL (75-99)
[2017-10-15 06:56] LABS: Albumin 2.8 g/dL (3.5-5.0); Magnesium 2.2 mg/dL (1.6-2.3); Potassium 3.5 mmol/L (3.5-5.1); Total Bilirubin 0.7 mg/dL (0.2-1.3); Total Protein 5.3 g/dL (6.3-8.2)
[2017-10-15] MEDS: DILTIAZEM ORAL 60 MG TAB PO SCH ×3 (07:04→16:56)
[2017-10-15] MEDS: PANTOPRAZOLE 40 MG TABLET PO SCH (07:04)
[2017-10-15] MEDS: INSULIN ASPART 100 UNIT/ML 1 ML 10 ML VIAL SQ SCH ×4 (07:04→22:17)
[2017-10-15] MEDS: IPRATROPIUM-ALBUTEROL 3 ML NEB INHALATION SCH ×4 (07:39→20:09)
--- NOTE | 2017-10-15 08:11 | P.PN ---
Subjective Progress Note Date: 10/15/17 Principal diagnosis: BARRY s/p thoracentesis, No ascites for paracentesis at this time. Feels well. Afebrile. Objective - Vital Signs Vital signs: Vital Signs Temp 98.2 F 10/15/17 04:10 Pulse 70 10/15/17 07:55 Resp 17 10/15/17 04:10 BP 126/55 10/15/17 04:10 Pulse Ox 98 10/15/17 07:55 Intake & Output 10/14/17 10/15/17 10/15/17 18:59 06:59 18:59 Intake Total 600 380 360 Output Total 500 Balance 600 -120 360 Intake: IV 20 .9 20 Oral 600 360 360 Output: Urine 500 Other: Voiding Method Bedside Commode Bedside Commode # Voids 2 3 - Constitutional General appearance: Present: average body habitus - EENT Eyes: Present: normal appearance - Respiratory Respiratory: bilateral: CTA (slight diminsihed in bases bilaterally) - Cardiovascular Rhythm: regular Heart sounds: normal: S1, S2 - Gastrointestinal General gastrointestinal: Present: soft - Labs CBC & Chem 7: 10/14/17 11:26 10/15/17 06:23 Labs: Abnormal Lab Results - Last 24 Hours (Table) 10/14/17 10/14/17 10/14/17 Range/Units 11:26 11:26 11:37 WBC 12.0 H (3.8-10.6) k/uL RBC 3.66 L (3.80-5.40) m/uL Hgb 9.1 L (11.4-16.0) gm/dL Hct 28.8 L (34.0-46.0) % MCV 78.7 L (80.0-100.0) fL RDW 19.0 H (11.5-15.5) % Plt Count 110 L (150-450) k/uL Neutrophils # 10.3 H (1.3-7.7) k/uL Lymphocytes # 0.6 L (1.0-4.8) k/uL Sodium 134 L (137-145) mmol/L Potassium 3.1 L (3.5-5.1) mmol/L Chloride 92 L (98-107) mmol/L Carbon Dioxide 35 H (22-30) mmol/L BUN 27 H (7-17) mg/dL Glucose 234 H (74-99) mg/dL POC Glucose (mg/dL) 264 H (75-99) mg/dL Calcium 8.1 L (8.4-10.2) mg/dL Total Protein 5.6 L (6.3-8.2) g/dL Albumin 2.9 L (3.5-5.0) g/dL 10/14/17 10/14/17 10/15/17 Range/Units 17:10 20:59 06:23 WBC (3.8-10.6) k/uL RBC (3.80-5.40) m/uL Hgb (11.4-16.0) gm/dL Hct (34.0-46.0) % MCV (80.0-100.0) fL RDW (11.5-15.5) % Plt Count (150-450) k/uL Neutrophils # (1.3-7.7) k/uL Lymphocytes # (1.0-4.8) k/uL Sodium 135 L (137-145) mmol/L Potassium (3.5-5.1) mmol/L Chloride 92 L (98-107) mmol/L Carbon Dioxide 38 H (22-30) mmol/L BUN 27 H (7-17) mg/dL Glucose 250 H (74-99) mg/dL POC Glucose (mg/dL) 348 H 374 H (75-99) mg/dL Calcium 8.0 L (8.4-10.2) mg/dL Total Protein 5.3 L (6.3-8.2) g/dL Albumin 2.8 L (3.5-5.0) g/dL 10/15/17 Range/Units 06:29 WBC (3.8-10.6) k/uL RBC (3.80-5.40) m/uL Hgb (11.4-16.0) gm/dL Hct (34.0-46.0) % MCV (80.0-100.0) fL RDW (11.5-15.5) % Plt Count (150-450) k/uL Neutrophils # (1.3-7.7) k/uL Lymphocytes # (1.0-4.8) k/uL Sodium (137-145) mmol/L Potassium (3.5-5.1) mmol/L Chloride (98-107) mmol/L Carbon Dioxide (22-30) mmol/L BUN (7-17) mg/dL Glucose (74-99) mg/dL POC Glucose (mg/dL) 300 H (75-99) mg/dL Calcium (8.4-10.2) mg/dL Total Protein (6.3-8.2) g/dL Albumin (3.5-5.0) g/dL Microbiology - Last 24 Hours (Table) 10/10/17 18:28 Blood Culture - Preliminary Blood No Growth after 96 hours Assessment and Plan (1) BARRY (nonalcoholic steatohepatitis) Current Visit: Yes Status: Acute Code(s): K75.81 - NONALCOHOLIC STEATOHEPATITIS (BARRY) SNOMED Code(s): 866192851 (2) Portal hypertension Current Visit: Yes Status: Acute Code(s): K76.6 - PORTAL HYPERTENSION SNOMED Code(s): 39658821 (3) Pleural effusion Current Visit: Yes Status: Acute Code(s): J90 - PLEURAL EFFUSION, NOT ELSEWHERE CLASSIFIED SNOMED Code(s): 13458866 (4) S/P abdominal paracentesis Current Visit: Yes Status: Acute Code(s): Z98.890 - OTHER SPECIFIED POSTPROCEDURAL STATES SNOMED Code(s): 954625488 (5) SBP (spontaneous bacterial peritonitis) Narrative/Plan: resolved Current Visit: Yes Status: Acute Code(s): K65.2 - SPONTANEOUS BACTERIAL PERITONITIS SNOMED Code(s): 39975532 Plan: 1. Low salt diet. 2. Continue w/diuretics. 3. DC per medicine. 4. Paracentesis evaluation next Friday. Assessment and plan of care discussed with Dr. Hernandez
[2017-10-15] MEDS: SPIRONOLACTONE 25 MG TAB PO SCH (08:44)
[2017-10-15] MEDS: METOPROLOL TARTRATE 50 MG TAB PO SCH ×2 (08:45→22:18)
[2017-10-15] MEDS: VENLAFAXINE HCL 37.5 MG TAB PO SCH ×2 (08:45→22:18)
[2017-10-15] MEDS: cefTRIAXone IN SWFI 2,000 MG/20 ML SYRINGE IVP SCH (08:50)
[2017-10-15] MEDS: FUROSEMIDE 80 MG TAB PO SCH ×2 (08:50→16:56)
[2017-10-15] MEDS: HYDROcodone/APAP 5-325MG 1 EACH TAB PO PRN ×2 (08:51→22:28)
[2017-10-15] MEDS: INSULIN DETEMIR 100 UNIT/ML 10 ML VIAL SQ SCH ×3 (08:51→22:18)
[2017-10-15] MEDS ORDERED: predniSONE 20 MG TAB PO SCH (09:00)
--- NOTE | 2017-10-15 11:36 | P.PN ---
Subjective Progress Note Date: 10/15/17 Patient is feeling good today, reports improvement of her dizziness. Nursing reports that apparently they were unable to get any fluid via paracentesis. Patient breathing comfortably today and reports a significant improvement in her breathing. Patient had 1.1 L aspirated from her right lung field yesterday and feels much better Objective - Vital Signs Vital signs: Vital Signs Temp 97.5 F L 10/15/17 08:00 Pulse 76 10/15/17 11:23 Resp 16 10/15/17 08:00 BP 132/60 10/15/17 08:00 Pulse Ox 100 10/15/17 08:00 Intake & Output 10/14/17 10/15/17 10/15/17 18:59 06:59 18:59 Intake Total 600 380 360 Output Total 500 Balance 600 -120 360 Intake: IV 20 .9 20 Oral 600 360 360 Output: Urine 500 Other: Voiding Method Bedside Commode Bedside Commode # Voids 2 3 - Exam General: non toxic, no distress, appears older than stated age Derm: warm, dry, no additional ecchymosis Head: atraumatic, normocephalic, symmetric Eyes: EOMI, no lid lag, anicteric sclera Mouth: no lip lesion, mucus membranes dry Cardiovascular: S1S2 irreg with murmur systolic, positive posterior tibial pulse bilateral, Lungs: Rhonchi b/l without wheeze , no accessory muscle use Abdominal: soft, distentded, non tender to palpation, no guarding, no appreciable organomegaly, reducible periumbilical hernia Ext: no gross muscle atrophy, no edema, no contractures Neuro: CN II-XI grossly intact, no focal neuro deficits Psych: Alert, oriented, appropriate affect - Labs CBC & Chem 7: 10/14/17 11:26 10/15/17 06:23 Labs: Abnormal Lab Results - Last 24 Hours (Table) 10/14/17 10/14/17 10/14/17 Range/Units 11:26 11:26 11:37 WBC 12.0 H (3.8-10.6) k/uL RBC 3.66 L (3.80-5.40) m/uL Hgb 9.1 L (11.4-16.0) gm/dL Hct 28.8 L (34.0-46.0) % MCV 78.7 L (80.0-100.0) fL RDW 19.0 H (11.5-15.5) % Plt Count 110 L (150-450) k/uL Neutrophils # 10.3 H (1.3-7.7) k/uL Lymphocytes # 0.6 L (1.0-4.8) k/uL Sodium 134 L (137-145) mmol/L Potassium 3.1 L (3.5-5.1) mmol/L Chloride 92 L (98-107) mmol/L Carbon Dioxide 35 H (22-30) mmol/L BUN 27 H (7-17) mg/dL Glucose 234 H (74-99) mg/dL POC Glucose (mg/dL) 264 H (75-99) mg/dL Calcium 8.1 L (8.4-10.2) mg/dL Total Protein 5.6 L (6.3-8.2) g/dL Albumin 2.9 L (3.5-5.0) g/dL 10/14/17 10/14/17 10/15/17 Range/Units 17:10 20:59 06:23 WBC (3.8-10.6) k/uL RBC (3.80-5.40) m/uL Hgb (11.4-16.0) gm/dL Hct (34.0-46.0) % MCV (80.0-100.0) fL RDW (11.5-15.5) % Plt Count (150-450) k/uL Neutrophils # (1.3-7.7) k/uL Lymphocytes # (1.0-4.8) k/uL Sodium 135 L (137-145) mmol/L Potassium (3.5-5.1) mmol/L Chloride 92 L (98-107) mmol/L Carbon Dioxide 38 H (22-30) mmol/L BUN 27 H (7-17) mg/dL Glucose 250 H (74-99) mg/dL POC Glucose (mg/dL) 348 H 374 H (75-99) mg/dL Calcium 8.0 L (8.4-10.2) mg/dL Total Protein 5.3 L (6.3-8.2) g/dL Albumin 2.8 L (3.5-5.0) g/dL 10/15/17 Range/Units 06:29 WBC (3.8-10.6) k/uL RBC (3.80-5.40) m/uL Hgb (11.4-16.0) gm/dL Hct (34.0-46.0) % MCV (80.0-100.0) fL RDW (11.5-15.5) % Plt Count (150-450) k/uL Neutrophils # (1.3-7.7) k/uL Lymphocytes # (1.0-4.8) k/uL Sodium (137-145) mmol/L Potassium (3.5-5.1) mmol/L Chloride (98-107) mmol/L Carbon Dioxide (22-30) mmol/L BUN (7-17) mg/dL Glucose (74-99) mg/dL POC Glucose (mg/dL) 300 H (75-99) mg/dL Calcium (8.4-10.2) mg/dL Total Protein (6.3-8.2) g/dL Albumin (3.5-5.0) g/dL Microbiology - Last 24 Hours (Table) 10/10/17 18:28 Blood Culture - Preliminary Blood No Growth after 96 hours Assessment and Plan Plan: Acute on chronic respiratory failure * Multifactorial secondary to acute systolic CHF exacerbation superimposed on volume overload due to liver cirrhosis with a right pleural effusion with COPD exacerbation * Now resolved post thoracentesis * Weaned down to patient's baseline of 3 L Pleural effusion (resolved) * Status post right thoracentesis 1.1 L of serosanguineous fluid Cirrhosis with ascites due to [place], compensated compared to baseline in this patient - Continue with lasix and aldactone - on metoprolol * Patient resumed on Lasix 80 mg by mouth twice a day COPD with exacerbation -Bronchodilators -Prednisone -ABG with in normal -Pulmonary hygiene -Rocephin Acute systolic CHF exacerbation * Continue metoprolol Lasix and Aldactone * Now compensated Probable SBP Abdominal pain - Rocpehin - GI recs -Appreciate ID recommendations, will plan to continue Ceftin as patient approaches discharge Diabetes mellitus type 2 with hyperglycemia * Likely precipitated by steroids that for her COPD exacerbation we'll add sliding scale insulin -Levemir added twice daily -Sliding-scale insulin -Hemoglobin A1c 5.8 08/11/2017 Chronic conditions: Hypertension Coronary artery disease GERD History of esophageal varices Chronic back pain Coronary artery disease Dizziness, resolved Toxic metabolic encepalopathy likely related to SBP, resolved Disposition * Approaching discharge can likely be sent to [facility] tomorrow * Stable for transfer to the medical floor
[2017-10-15 11:46] LABS: Glucose,Whole Blood 424 mg/dL (75-99)
--- NOTE | 2017-10-15 15:42 | P.PN ---
Subjective Progress Note Date: 10/15/17 Physical pleasant 66-year-old female patient with an extensive past medical history including coronary artery disease, prior coronary artery stenting with unknown details, valvular heart disease, liver cirrhosis, requiring paracentesis every 7 days, diabetes, hypertension, dyslipidemia. She has known severe aortic stenosis and was evaluated by a django developer in [place] who recommended valve replacement but due to the patient's significant liver issues this wasn't done. Echocardiogram revealed normal LV function with evidence of moderate to severe aortic stenosis, mild to moderate MR and moderate pulmonary hypertension. Patient did have an episode of respiratory distress and hypoxia at which time chest x-ray showed significant right pleural effusion. Ultrasound showed moderate right-sided pleural effusion and patient subsequently underwent thoracentesis with drainage of 1.1 L. Upon examination this morning, patient is resting comfortably in bed. She feels her breathing is quite a bit better. She is anticipating being discharged to an extended care facility. Objective - Vital Signs Vital signs: Vital Signs Temp 97.5 F L 10/15/17 08:00 Pulse 71 10/15/17 12:00 Resp 16 10/15/17 11:44 BP 125/58 10/15/17 12:00 Pulse Ox 96 10/15/17 13:12 Intake & Output 10/14/17 10/15/17 10/15/17 18:59 06:59 18:59 Intake Total 600 380 840 Output Total 500 200 Balance 600 -120 640 Intake: IV 20 .9 20 Oral 600 360 840 Output: Urine 500 200 Other: Voiding Method Bedside Commode Bedside Commode Bedside Commode # Voids 2 3 1 # Bowel Movements 0 - Exam PHYSICAL EXAMINATION: HEENT: Head is atraumatic, normocephalic. Pupils equal, round. Neck is supple. There is no elevated jugular venous pressure. HEART EXAMINATION: Heart sounds regular, S1 and S2 with a systolic ejection murmur. CHEST EXAMINATION: Lungs reveal diminished air entry to right lower lobe. No chest wall tenderness is noted on palpation or with deep breathing. ABDOMEN: Soft, nontender. Bowel sounds are heard. No organomegaly noted. EXTREMITIES: 2+ peripheral pulses with no evidence of peripheral edema and no calf tenderness noted. NEUROLOGIC patient is awake, alert and oriented x3. . - Labs CBC & Chem 7: 10/14/17 11:26 10/15/17 06:23 Labs: Abnormal Lab Results - Last 24 Hours (Table) 10/14/17 10/14/17 10/15/17 Range/Units 17:10 20:59 06:23 Sodium 135 L (137-145) mmol/L Chloride 92 L (98-107) mmol/L Carbon Dioxide 38 H (22-30) mmol/L BUN 27 H (7-17) mg/dL Glucose 250 H (74-99) mg/dL POC Glucose (mg/dL) 348 H 374 H (75-99) mg/dL Calcium 8.0 L (8.4-10.2) mg/dL Total Protein 5.3 L (6.3-8.2) g/dL Albumin 2.8 L (3.5-5.0) g/dL 10/15/17 10/15/17 Range/Units 06:29 11:44 Sodium (137-145) mmol/L Chloride (98-107) mmol/L Carbon Dioxide (22-30) mmol/L BUN (7-17) mg/dL Glucose (74-99) mg/dL POC Glucose (mg/dL) 300 H 424 H (75-99) mg/dL Calcium (8.4-10.2) mg/dL Total Protein (6.3-8.2) g/dL Albumin (3.5-5.0) g/dL Microbiology - Last 24 Hours (Table) 10/10/17 18:28 Blood Culture - Preliminary Blood No Growth after 96 hours Assessment and Plan Assessment: #1 atrial fibrillation with rapid ventricular response, paroxysmal, currently maintaining sinus rhythm #2 coronary artery disease with prior stenting of unknown detail #3 end-stage liver disease, liver cirrhosis #4 recurrent ascites #5 valvular heart disease #6 right sided pleural effusion, s/p thoracentesis Plan: From cardiology's perspective, continue current dose of Lasix. From our perspective, patient is stable for discharge. She'll follow-up as an outpatient with Dr. Figueroa about 2-3 weeks. 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 Patient was seen and examined.
[2017-10-15 16:45] LABS: Glucose,Whole Blood 465 mg/dL (75-99)
[2017-10-15 16:46] LABS: Glucose,Whole Blood 420 mg/dL (75-99)
[2017-10-15 21:02] LABS: Glucose,Whole Blood 483 mg/dL (75-99)
[2017-10-15] MEDS: ATORVASTATIN 80 MG TAB PO SCH (22:18)
--- NOTE | 2017-10-15 23:15 | PN ---
PROGRESS NOTE DATE OF SERVICE: 10/15/2017. REASON FOR FOLLOWUP VISIT: Possible SBP. INTERVAL HISTORY: The patient is afebrile. She is breathing comfortably. She denies having any chest pain or shortness of breath cough. Her abdominal pain has improved. No nausea, vomiting or any diarrhea. EXAMINATION: Blood pressure 132/60 with a pulse of 75, temperature 97.5. She is 100% on 5L nasal cannula. General description is an elderly female lying in bed in no distress. RESPIRATORY SYSTEM: Unlabored breathing. Clear to auscultation anteriorly. HEART: S1, S2. Regular rate and rhythm. ABDOMEN: Soft. No tenderness. EXTREMITIES: No edema of the feet. LABS: BUN of 27, creatinine 0.7. DIAGNOSTIC IMPRESSION AND PLAN: Patient admitted to hospital with abdominal pain and the patient found to have history of underlying cirrhosis with recent paracentesis with concern for possible spontaneous bacterial peritonitis. Unfortunately, no paracentesis was done during this admission. She has responded to the Rocephin with a plan to finish therapy with oral Ceftin. Continue supportive care. MMODL / IJN: [id number] /
[2017-10-15 23:32] LABS: Glucose,Whole Blood 459 mg/dL (75-99)
--- NOTE | 2017-10-16 00:56 | P.PN ---
Progress Note - Text Progress Note Date: 10/16/17 patient was seen status post fall, patient claims that she slipped off the edge of the bed when she was trying to get up. denies any head injury or LOC. careful physical exam revealed no neck pain or focal neurological symptoms over the upper or lower extremities. no point tenderness over palpation of the spine no further imaging in required at this time neck collar could be safely removed at this time
[2017-10-16] MEDS ORDERED: INSULIN ASPART 100 UNIT/ML 1 ML 10 ML VIAL SQ ONE (01:04)
[2017-10-16] MEDS: KETOROLAC 30 MG/ML 1 ML VIAL IVP PRN (01:14)
[2017-10-16] MEDS: DILTIAZEM ORAL 60 MG TAB PO SCH ×3 (01:19→13:00)
[2017-10-16 04:29] LABS: Glucose,Whole Blood 268 mg/dL (75-99)
[2017-10-16] MEDS: INSULIN ASPART 100 UNIT/ML 1 ML 10 ML VIAL SQ SCH ×5 (04:50→20:52)
[2017-10-16 07:10] LABS: Glucose,Whole Blood 157 mg/dL (75-99)
[2017-10-16] MEDS: FUROSEMIDE 80 MG TAB PO SCH ×2 (07:51→17:13)
[2017-10-16] MEDS: METOPROLOL TARTRATE 50 MG TAB PO SCH ×2 (07:51→20:53)
[2017-10-16] MEDS: VENLAFAXINE HCL 37.5 MG TAB PO SCH ×2 (07:51→20:53)
[2017-10-16] MEDS: SPIRONOLACTONE 25 MG TAB PO SCH (07:51)
[2017-10-16] MEDS: PANTOPRAZOLE 40 MG TABLET PO SCH (07:51)
[2017-10-16] MEDS: IPRATROPIUM-ALBUTEROL 3 ML NEB INHALATION SCH ×4 (08:08→19:13)
[2017-10-16 09:26] LABS: Anisocytosis Slight; HCT 29.6 % (34.0-46.0); HGB 9.2 gm/dL (11.4-16.0); Hypochromasia Moderate; MCH 24.1 pg (25.0-35.0); MCV 77.8 fL (80.0-100.0); Mean Platelet Volume 7.1; Microcytosis Slight; Platelet Count 150 k/uL (150-450); Poikilocytosis Slight; RDW 18.6 % (11.5-15.5); WBC 14.6 k/uL (3.8-10.6)
[2017-10-16 09:32] LABS: Albumin 2.8 g/dL (3.5-5.0); Calcium 7.9 mg/dL (8.4-10.2); Potassium 3.3 mmol/L (3.5-5.1); Total Bilirubin 0.8 mg/dL (0.2-1.3); Total Protein 5.2 g/dL (6.3-8.2)
[2017-10-16] MEDS: INSULIN DETEMIR 100 UNIT/ML 10 ML VIAL SQ SCH ×2 (10:01→20:53)
[2017-10-16] MEDS: cefTRIAXone IN SWFI 2,000 MG/20 ML SYRINGE IVP SCH (10:01)
[2017-10-16 11:24] LABS: Glucose,Whole Blood 156 mg/dL (75-99)
[2017-10-16 13:19] VITALS: BMI 29.5
--- NOTE | 2017-10-16 13:36 | P.PN ---
Subjective Progress Note Date: 10/16/17 Principal diagnosis: abdominal pain Patient is a 66 yo CF with a history of Cirrhosis requiring frequent large volume paracentesis, CHF, COPD with chronic home O2 use and multiple other conditions who presented with abdominal pain following a fall. In the emergency department she underwent an extensive evaluation. Her initial vital signs were within normal limits. Initial laboratory analysis was consistent with her baseline labs. Chest x-ray was negative, rib x-ray did not show any fractures, KUB was negative. CT abdomen and pelvis showed cirrhotic liver, splenomegaly, paraesophageal varices, and moderately improved ascites of the right basilar pleural effusion. It also showed suspected jejunal enteritis. She was started on IVF and admitted to the general medical floor. She underwent CT of head which showed no acute process. Her ammonia level was normal and UA was negative. She developed A fib with RVR and a fever of 100.2 She was transferred to [facility] care. She received a bolus of fluids and IV fluids were started her heart rate normalized without need for additional medications. There was concern for SBP and rocephin was ordered. IR consult was also ordered but they are not available at this time. She felt much better after antibiotics were started and her confusion improved. She was asking about going home. ECHO show moderate to sever aortic stenosis and EF 40-45%. She was found to have a right sided pleural effusion and she had a thoracentesis completed by IR, unfortunately not fluid was sent for diagnositic analysis. She was found to have 2 right sided rib fractures. ID saw the patient and suggested completing a course of ceftin as she did not have enough fluid for paracentesis. She fell twice overnight on 10/15 and feels that she might be passing out. Patient seen and examined at bedside. Having right rib pain. Belly pain is resolved. Fell twice. No new pain. No neuro deficits. She is concerned that she may be passing out when standing but isnt certain. She is going to rehab on discharge. Objective - Vital Signs Vital signs: Vital Signs Temp 98 F 10/16/17 07:23 Pulse 76 10/16/17 11:49 Resp 16 10/16/17 08:00 BP 113/55 10/16/17 07:23 Pulse Ox 95 10/16/17 08:09 Intake & Output 10/15/17 10/16/17 10/16/17 18:59 06:59 18:59 Intake Total 840 790 Output Total 200 Balance 640 790 Weight 78 kg Intake: Oral 840 790 Output: Urine 200 Other: Voiding Method Bedside Commode Bedside Commode Bedpan # Voids 1 3 # Bowel Movements 0 - Exam General: non toxic, no distress, appears older than stated age Derm: warm, dry, Large ecchymosis right flank Head: atraumatic, normocephalic, symmetric Eyes: EOMI, no lid lag, anicteric sclera Mouth: no lip lesion, mucus membranes dry Cardiovascular: S1S2 irreg with murmur systolic, positive posterior tibial pulse bilateral, Lungs: decreased bs b/l , no accessory muscle use Abdominal: soft, distentded, non tender to palpation, no guarding, no appreciable organomegaly, reducible periumbilical hernia Ext: no gross muscle atrophy, no edema, no contractures Neuro: CN II-XI grossly intact, no focal neuro deficits Psych: Alert, oriented, appropriate affect - Labs CBC & Chem 7: 10/16/17 08:55 10/16/17 08:55 Labs: Abnormal Lab Results - Last 24 Hours (Table) 10/15/17 10/15/17 10/15/17 Range/Units 16:43 16:44 21:00 WBC (3.8-10.6) k/uL Hgb (11.4-16.0) gm/dL Hct (34.0-46.0) % MCV (80.0-100.0) fL MCH (25.0-35.0) pg RDW (11.5-15.5) % Sodium (137-145) mmol/L Potassium (3.5-5.1) mmol/L Chloride (98-107) mmol/L Carbon Dioxide (22-30) mmol/L BUN (7-17) mg/dL Glucose (74-99) mg/dL POC Glucose (mg/dL) 465 H 420 H 483 H (75-99) mg/dL Calcium (8.4-10.2) mg/dL AST (14-36) U/L Total Protein (6.3-8.2) g/dL Albumin (3.5-5.0) g/dL 10/15/17 10/16/17 10/16/17 Range/Units 23:29 04:28 07:09 WBC (3.8-10.6) k/uL Hgb (11.4-16.0) gm/dL Hct (34.0-46.0) % MCV (80.0-100.0) fL MCH (25.0-35.0) pg RDW (11.5-15.5) % Sodium (137-145) mmol/L Potassium (3.5-5.1) mmol/L Chloride (98-107) mmol/L Carbon Dioxide (22-30) mmol/L BUN (7-17) mg/dL Glucose (74-99) mg/dL POC Glucose (mg/dL) 459 H 268 H 157 H (75-99) mg/dL Calcium (8.4-10.2) mg/dL AST (14-36) U/L Total Protein (6.3-8.2) g/dL Albumin (3.5-5.0) g/dL 10/16/17 10/16/17 10/16/17 Range/Units 08:55 08:55 11:23 WBC 14.6 H (3.8-10.6) k/uL Hgb 9.2 L (11.4-16.0) gm/dL Hct 29.6 L (34.0-46.0) % MCV 77.8 L (80.0-100.0) fL MCH 24.1 L (25.0-35.0) pg RDW 18.6 H (11.5-15.5) % Sodium 133 L (137-145) mmol/L Potassium 3.3 L (3.5-5.1) mmol/L Chloride 89 L (98-107) mmol/L Carbon Dioxide 38 H (22-30) mmol/L BUN 25 H (7-17) mg/dL Glucose 141 H (74-99) mg/dL POC Glucose (mg/dL) 156 H (75-99) mg/dL Calcium 7.9 L (8.4-10.2) mg/dL AST 41 H (14-36) U/L Total Protein 5.2 L (6.3-8.2) g/dL Albumin 2.8 L (3.5-5.0) g/dL Microbiology - Last 24 Hours (Table) 10/10/17 18:28 Blood Culture - Preliminary Blood No Growth after 120 hours Assessment and Plan Assessment: Falls, possible syncopal event - orthostatic vitals - PT/OT recs - SNF on D/C - Fall precuations Probable SBP Abdominal pain - Rocpehin - GI recs - Unable to obtain paracentesis due to not enough fluid - ID recs, complete course of ceftin Acute exacerbation of systolic CHF, EF 45% with severe aortic stenosis -Metoprolol, lasix, aldactone - f/u Dr. Figueroa 2-3 weeks - no ACEI due to severe aortic stenosis Leukocytes, due to steroids - check UA again Cirrhosis with ascites due to [place], compensated compared to baseline in this patient - Continue with lasix and aldactone - on metoprolol so no propranolol - GI recs - Patient is trying to wait for her outpatient thoracentesis until Friday - Rocepwvn COPD with exacerbation, resolved -Bronchodilators -Prednisone completed -ABG with in normal -Pulmonary hygiene -Rocephin Diabetes mellitus type 2, hypeglycemia is improving. -Levemir increased yesterday twice daily -Sliding-scale insulin -Hemoglobin A1c 5.8 08/11/2017 Chronic conditions: Hypertension Coronary artery disease GERD History of esophageal varices Chronic back pain Coronary artery disease Dizziness, resolved Toxic metabolic encepalopathy likely related to SBP, resolved DVT prophylaxis: SCDs Discussed with: Patient, nursing Anticipated discharge date: 1-[address]: [facility] A total of 35 minutes was spent on the care of this complex patient more than 50 % of the time was spent in counseling and care coordination.
[2017-10-16 17:01] LABS: Glucose,Whole Blood 263 mg/dL (75-99)
[2017-10-16] MEDS: DILTIAZEM ORAL 30 MG TAB PO SCH (17:13)
[2017-10-16 17:52] LABS: Appearance,Urine Clear (Clear); Bacteria,Urine Rare /hpf; Bilirubin,Urine Negative (Negative); Blood,Urine Negative (Negative); Color,Urine Yellow; Glucose,Urine (UA) 1+ (Negative); Hyaline Casts,Urine 5 /lpf (0-2); Ketones,Urine Negative (Negative); Leukocyte Esterase,Urine Moderate (Negative); Mucus,Urine Rare /hpf; Nitrite,Urine Negative (Negative); PH, Urine 5.5 (5.0-8.0); Protein,Urine Negative (Negative); RBC,Urine 1 /hpf (0-5); Specific Gravity,Urine 1.008 (1.001-1.035); Squamous Epithelial Cell,Urine 1 /hpf (0-4); Urobilinogen,Urine <2.0 mg/dL (<2.0); WBC,Urine 3 /hpf (0-5)
[2017-10-16] MEDS: HYDROcodone/APAP 5-325MG 1 EACH TAB PO PRN (19:46)
[2017-10-16 20:48] LABS: Glucose,Whole Blood 216 mg/dL (75-99)
[2017-10-16] MEDS: ATORVASTATIN 80 MG TAB PO SCH (20:52)
[2017-10-16] MEDS ORDERED: FLUCONAZOLE 100 MG TAB PO ONE (21:00)
--- NOTE | 2017-10-16 21:22 | PN ---
PROGRESS NOTE DATE OF SERVICE: 10/16/2017. REASON FOR FOLLOWUP: Possible spontaneous bacterial peritonitis. INTERVAL HISTORY: The patient is afebrile. Her abdominal pain has improved, but did mention she did have 2 falls in the last 24 hours as the patient tried to get to the bathroom. The patient not having any chest pain or shortness of breath or cough. Abdominal pain has not resolved. No nausea, vomiting and no diarrhea. EXAMINATION: Blood pressure is 151/59 with a pulse of 82, temperature 98.4. She is 93% on 3L nasal cannula. General description is an elderly female lying in bed in no distress. RESPIRATORY SYSTEM: Unlabored breathing. Clear to auscultation anteriorly. HEART: S1, S2. Regular rate and rhythm. ABDOMEN: Soft. No tenderness. EXTREMITIES: No edema of feet. LABS: Hemoglobin 9.2, white count of 14.6 with a BUN of 25, creatinine 0.5. The patient did have a UA, showed mildly positive. DIAGNOSTIC IMPRESSION AND PLAN: Patient admitted to the hospital with abdominal pain with concern for possible spontaneous bacterial peritonitis; unfortunately, no paracentesis has been done. The patient initially responded to the Rocephin, now with slight the white count, questionably associated. Diflucan will be added to see response to the same. Repeating a CBC tomorrow. Continue supportive care. MMODL / IJN: [id number] /
[2017-10-17] MEDS ORDERED: DILTIAZEM ORAL 30 MG TAB ONE (00:45)
[2017-10-17] MEDS ORDERED: KETOROLAC 30 MG/ML 1 ML VIAL ONE (00:45)
[2017-10-17] MEDS ORDERED: HYDROcodone/APAP 5-325MG 1 EACH TAB ONE (00:45)
[2017-10-17 01:46] LABS: Glucose,Whole Blood 145 mg/dL (75-99)
[2017-10-17] MEDS ORDERED: DILTIAZEM 50 MG in SODIUM CHLORIDE 0.9% 40 ML IV SCH (02:15)
[2017-10-17] MEDS: DILTIAZEM ORAL 30 MG TAB PO SCH ×2 (04:57→06:22)
[2017-10-17 07:28] LABS: Glucose,Whole Blood 96 mg/dL (75-99)
[2017-10-17] MEDS: IPRATROPIUM-ALBUTEROL 3 ML NEB INHALATION SCH ×4 (07:44→19:44)
[2017-10-17] MEDS: INSULIN ASPART 100 UNIT/ML 1 ML 10 ML VIAL SQ SCH ×4 (08:04→21:03)
[2017-10-17 08:05] LABS: Anisocytosis Slight; HCT 29.7 % (34.0-46.0); HGB 9.5 gm/dL (11.4-16.0); Hypochromasia Moderate; MCH 24.7 pg (25.0-35.0); MCV 77.2 fL (80.0-100.0); Mean Platelet Volume 7.3; Microcytosis Slight; Platelet Count 102 k/uL (150-450); Poikilocytosis Slight; RBC 3.85 m/uL (3.80-5.40); RDW 18.6 % (11.5-15.5); WBC 14.3 k/uL (3.8-10.6)
[2017-10-17] MEDS: METOPROLOL TARTRATE 50 MG TAB PO SCH ×2 (08:09→20:11)
[2017-10-17] MEDS: PANTOPRAZOLE 40 MG TABLET PO SCH (08:09)
[2017-10-17] MEDS: cefTRIAXone IN SWFI 2,000 MG/20 ML SYRINGE IVP SCH (08:09)
[2017-10-17] MEDS: VENLAFAXINE HCL 37.5 MG TAB PO SCH ×2 (08:09→20:11)
[2017-10-17] MEDS: SPIRONOLACTONE 25 MG TAB PO SCH (08:09)
[2017-10-17] MEDS: FUROSEMIDE 80 MG TAB PO SCH ×2 (08:09→16:30)
[2017-10-17] MEDS: INSULIN DETEMIR 100 UNIT/ML 10 ML VIAL SQ SCH ×2 (08:10→21:03)
[2017-10-17 08:16] LABS: Albumin 2.7 g/dL (3.5-5.0); Calcium 7.8 mg/dL (8.4-10.2); Potassium 3.3 mmol/L (3.5-5.1); Total Bilirubin 1.1 mg/dL (0.2-1.3)
[2017-10-17] MEDS ORDERED: DIGOXIN 250 MCG/ML 2 ML AMP IVP ONE (11:18)
[2017-10-17 12:01] LABS: Glucose,Whole Blood 133 mg/dL (75-99)
--- NOTE | 2017-10-17 16:44 | P.PN ---
Subjective Progress Note Date: 10/17/17 Principal diagnosis: abdominal pain Patient is a 66 yo CF with a history of Cirrhosis requiring frequent large volume paracentesis, CHF, COPD with chronic home O2 use and multiple other conditions who presented with abdominal pain following a fall. In the emergency department she underwent an extensive evaluation. Her initial vital signs were within normal limits. Initial laboratory analysis was consistent with her baseline labs. Chest x-ray was negative, rib x-ray did not show any fractures, KUB was negative. CT abdomen and pelvis showed cirrhotic liver, splenomegaly, paraesophageal varices, and moderately improved ascites of the right basilar pleural effusion. It also showed suspected jejunal enteritis. She was started on IVF and admitted to the general medical floor. She underwent CT of head which showed no acute process. Her ammonia level was normal and UA was negative. She developed A fib with RVR and a fever of 100.2 She was transferred to [facility] care. She received a bolus of fluids and IV fluids were started her heart rate normalized without need for additional medications. There was concern for SBP and rocephin was ordered. IR consult was also ordered but they are not available at this time. She felt much better after antibiotics were started and her confusion improved. She was asking about going home. ECHO show moderate to sever aortic stenosis and EF 40-45%. She was found to have a right sided pleural effusion and she had a thoracentesis completed by IR, unfortunately not fluid was sent for diagnositic analysis. She was found to have 2 right sided rib fractures. ID saw the patient and suggested completing a course of ceftin as she did not have enough fluid for paracentesis. She fell twice overnight on 10/15 and feels that she might be passing out. On 10/16 her Cardizem was decreased to 30 mg by mouth every 6 hours secondary to orthostatic hypotension. At midnight on 10/17 she went into A. fib with RVR and then spontaneously converted to hours later. Patient seen and examined at bedside. Still feeling slightly dizzy but better than yesterday. She denies shortness of breath though appears dyspneic. Still having some right-sided rib pain. No nausea or vomiting. We had a long discussion regarding her prognosis with her valvular heart disease. Objective - Vital Signs Vital signs: Vital Signs Temp 98.1 F 10/17/17 05:45 Pulse 84 10/17/17 11:18 Resp 18 10/17/17 08:09 BP 111/53 10/17/17 05:45 Pulse Ox 97 10/17/17 07:47 Intake & Output 10/16/17 10/17/17 10/17/17 18:59 06:59 18:59 Intake Total 750 200 Balance 750 200 Weight 78 kg Intake: Oral 750 200 Other: Voiding Method Bedpan Bedpan Bedpan # Voids 2 1 # Bowel Movements 1 1 - Exam General: non toxic, no distress, appears older than stated age Derm: warm, dry, Large ecchymosis right flank Head: atraumatic, normocephalic, symmetric Eyes: EOMI, no lid lag, anicteric sclera Mouth: no lip lesion, mucus membranes dry Cardiovascular: S1S2 irreg with murmur systolic, positive posterior tibial pulse bilateral, Lungs: decreased bs b/l , no accessory muscle use Abdominal: soft, distentded, + tender to palpation over ecchymoses on right flank, no guarding, no appreciable organomegaly, reducible periumbilical hernia Ext: no gross muscle atrophy, no edema, no contractures Neuro: CN II-XI grossly intact, no focal neuro deficits Psych: Alert, oriented, appropriate affect - Labs CBC & Chem 7: 10/17/17 07:11 10/17/17 07:11 Labs: Abnormal Lab Results - Last 24 Hours (Table) 10/16/17 10/16/17 10/16/17 Range/Units 11:23 16:59 17:19 WBC (3.8-10.6) k/uL Hgb (11.4-16.0) gm/dL Hct (34.0-46.0) % MCV (80.0-100.0) fL MCH (25.0-35.0) pg RDW (11.5-15.5) % Plt Count (150-450) k/uL Sodium (137-145) mmol/L Potassium (3.5-5.1) mmol/L Chloride (98-107) mmol/L Carbon Dioxide (22-30) mmol/L BUN (7-17) mg/dL POC Glucose (mg/dL) 156 H 263 H (75-99) mg/dL Calcium (8.4-10.2) mg/dL AST (14-36) U/L Total Protein (6.3-8.2) g/dL Albumin (3.5-5.0) g/dL Urine Glucose (UA) 1+ H (Negative) Ur Leukocyte Esterase Moderate H (Negative) Urine Bacteria Rare H (None) /hpf Hyaline Casts 5 H (0-2) /lpf Urine Mucus Rare H (None) /hpf 10/16/17 10/17/17 10/17/17 Range/Units 20:46 01:45 07:11 WBC 14.3 H (3.8-10.6) k/uL Hgb 9.5 L (11.4-16.0) gm/dL Hct 29.7 L (34.0-46.0) % MCV 77.2 L (80.0-100.0) fL MCH 24.7 L (25.0-35.0) pg RDW 18.6 H (11.5-15.5) % Plt Count 102 L (150-450) k/uL Sodium (137-145) mmol/L Potassium (3.5-5.1) mmol/L Chloride (98-107) mmol/L Carbon Dioxide (22-30) mmol/L BUN (7-17) mg/dL POC Glucose (mg/dL) 216 H 145 H (75-99) mg/dL Calcium (8.4-10.2) mg/dL AST (14-36) U/L Total Protein (6.3-8.2) g/dL Albumin (3.5-5.0) g/dL Urine Glucose (UA) (Negative) Ur Leukocyte Esterase (Negative) Urine Bacteria (None) /hpf Hyaline Casts (0-2) /lpf Urine Mucus (None) /hpf 10/17/17 Range/Units 07:11 WBC (3.8-10.6) k/uL Hgb (11.4-16.0) gm/dL Hct (34.0-46.0) % MCV (80.0-100.0) fL MCH (25.0-35.0) pg RDW (11.5-15.5) % Plt Count (150-450) k/uL Sodium 132 L (137-145) mmol/L Potassium 3.3 L (3.5-5.1) mmol/L Chloride 88 L (98-107) mmol/L Carbon Dioxide 37 H (22-30) mmol/L BUN 26 H (7-17) mg/dL POC Glucose (mg/dL) (75-99) mg/dL Calcium 7.8 L (8.4-10.2) mg/dL AST 48 H (14-36) U/L Total Protein 5.0 L (6.3-8.2) g/dL Albumin 2.7 L (3.5-5.0) g/dL Urine Glucose (UA) (Negative) Ur Leukocyte Esterase (Negative) Urine Bacteria (None) /hpf Hyaline Casts (0-2) /lpf Urine Mucus (None) /hpf Microbiology - Last 24 Hours (Table) 10/10/17 18:28 Blood Culture - Final Blood No Growth after 144 hours Assessment and Plan Assessment: A. fib with RVR -Discontinue Cardizem in light of patient's orthostatic hypotension. As discussed with cardiology. We'll start digoxin. -Continue to monitor telemetry -Not a candidate for anticoagulation secondary to liver disease, coagulopathy, and frequent need for paracentesis -Continue with metoprolol Orthostatic hypotension -Concern for possible syncopal event related to aortic stenosis -Medication adjustments as outlined above -Repeat orthostatics in a.m. Falls, possible syncopal event - orthostatic vitals were positive on 10/16 - PT/OT recs - SN[facility] on D/C - Fall precuations Probable SBP Abdominal pain - [place] - GI recs - Unable to obtain paracentesis due to not enough fluid - ID recs, complete course of ceftin Acute exacerbation of systolic CHF, EF 45% with severe aortic stenosis -Metoprolol, lasix, aldactone - f/u Dr. Figueroa 2-3 weeks - no ACEI due to severe aortic stenosis Leukocytes, due to steroids -ID recommendations -Received 1 dose of Diflucan on 10/16 -Repeat CBC in a.m. Cirrhosis with ascites due to [place], compensated compared to baseline in this patient - Continue with lasix and aldactone - on metoprolol so no propranolol - GI recs - Patient is trying to wait for her outpatient thoracentesis until Friday - Rocephin COPD with exacerbation, resolved -Bronchodilators -Prednisone completed -ABG with in normal -Pulmonary hygiene -Rocephin Diabetes mellitus type 2, -Levemir twice daily -Sliding-scale insulin -Hemoglobin A1c 5.8 08/11/2017 Chronic conditions: Hypertension Coronary artery disease GERD History of esophageal varices Chronic back pain Coronary artery disease Dizziness, resolved Toxic metabolic encepalopathy likely related to SBP, resolved Hyperglycemia resolved DVT prophylaxis: SCDs Discussed with: Patient, nursing Anticipated discharge date: 1-[address]: [facility] A total of 35 minutes was spent on the care of this complex patient more than 50 % of the time was spent in counseling and care coordination.
[2017-10-17 17:11] LABS: Glucose,Whole Blood 136 mg/dL (75-99)
--- NOTE | 2017-10-17 17:26 | PN ---
PROGRESS NOTE DATE OF SERVICE: 10/17/2017 REASON FOR FOLLOWUP: Possible SBP. INTERVAL HISTORY: The patient is afebrile. She has been breathing comfortably. Denies having any chest pain or shortness of breath or cough. No abdominal pain or any diarrhea. PHYSICAL EXAMINATION: Her blood pressure is 111/53 with a pulse of 77, temperature 98.1. She is 98% on 4 L nasal cannula. General description is an elderly female lying in bed in no distress. RESPIRATORY SYSTEM: Unlabored breathing. Clear to auscultation anteriorly. HEART: S1, S2. Regular rate and rhythm. ABDOMEN: Soft. No tenderness. LABS: White count 14.3, BUN of 26, creatinine 0.93. DIAGNOSTIC IMPRESSION AND PLAN: Patient admitted to hospital with abdominal pain with concern for possible spontaneous bacterial peritonitis. Patient's abdominal pain resolved with the Rocephin the patient is currently on, transitioning to oral Ceftin on discharge. She did have elevated white count with slight improvement. The patient was started on Diflucan and that will be continued for about a week. Continue with supportive care. MMODL / IJN: [id number] /
[2017-10-17] MEDS: FLUCONAZOLE 100 MG TAB PO SCH (17:30)
[2017-10-17] MEDS: KETOROLAC 30 MG/ML 1 ML VIAL IVP PRN (17:30)
[2017-10-17] MEDS: DIGOXIN 125 MCG TAB PO SCH (17:31)
[2017-10-17] MEDS: ATORVASTATIN 80 MG TAB PO SCH (20:12)
[2017-10-17] MEDS: HYDROcodone/APAP 5-325MG 1 EACH TAB PO PRN (20:14)
[2017-10-17 20:19] LABS: Glucose,Whole Blood 239 mg/dL (75-99)
[2017-10-17] MEDS ORDERED: METOPROLOL TARTRATE 50 MG TAB PO STA (20:30)
[2017-10-18 07:13] LABS: Glucose,Whole Blood 111 mg/dL (75-99)
[2017-10-18] MEDS: INSULIN ASPART 100 UNIT/ML 1 ML 10 ML VIAL SQ SCH ×4 (07:23→21:39)
[2017-10-18] MEDS: PANTOPRAZOLE 40 MG TABLET PO SCH (07:31)
[2017-10-18] MEDS: DIGOXIN 125 MCG TAB PO SCH (07:31)
[2017-10-18] MEDS: VENLAFAXINE HCL 37.5 MG TAB PO SCH ×2 (07:31→21:27)
[2017-10-18] MEDS: FUROSEMIDE 20 MG TAB PO SCH ×2 (07:31→16:57)
[2017-10-18] MEDS: FLUCONAZOLE 100 MG TAB PO SCH (07:32)
[2017-10-18] MEDS: METOPROLOL TARTRATE 50 MG TAB PO SCH ×2 (07:32→18:42)
[2017-10-18] MEDS: SPIRONOLACTONE 25 MG TAB PO SCH (07:32)
[2017-10-18] MEDS: cefTRIAXone IN SWFI 2,000 MG/20 ML SYRINGE IVP SCH (07:32)
[2017-10-18] MEDS: IPRATROPIUM-ALBUTEROL 3 ML NEB INHALATION SCH ×4 (07:40→19:02)
[2017-10-18 07:52] LABS: Anisocytosis Slight; HCT 30.5 % (34.0-46.0); Hypochromasia Slight; MCH 24.9 pg (25.0-35.0); MCHC 32.7 g/dL (31.0-37.0); MCV 76.4 fL (80.0-100.0); Mean Platelet Volume 7.1; Microcytosis Slight; Platelet Count 122 k/uL (150-450); Poikilocytosis Moderate; RDW 18.5 % (11.5-15.5); WBC 22.3 k/uL (3.8-10.6)
[2017-10-18 08:24] LABS: Calcium 7.8 mg/dL (8.4-10.2); Potassium 3.6 mmol/L (3.5-5.1)
--- NOTE | 2017-10-18 10:19 | XR ---
EXAMINATION TYPE: XR chest 1V DATE OF EXAM: 10/18/2017 HISTORY: shortness of breath. REFERENCE: Previous study dated 10/13/2017. FINDINGS: There is worsening opacification of the right hemithorax. This is likely due to combination of fluid and atelectasis. Heart size is obscured. The right lung is clear. The patient's right-sided rib fractures are not visualized on this study. IMPRESSION: WORSENING OPACIFICATION OF THE RIGHT HEMITHORAX.
[2017-10-18 10:57] LABS: ABG HCO3 37 mmol/L (21-25); ABG PCO2 46 mmHg (35-45); ABG PH 7.51 (7.35-7.45); ABG PO2 72 mmHg (83-108)
[2017-10-18 10:58] LABS: ABG Base Excess 13.5 mmol/L; ABG TCO2 38 mmol/L (19-24)
--- NOTE | 2017-10-18 11:02 | XR ---
EXAMINATION TYPE: XR chest 1V portable DATE OF EXAM: 10/18/2017 HISTORY: paracentisis. REFERENCE: Previous study of earlier today. FINDINGS: I presume the history should be thoracentesis rather than paracentesis. There is been a reduction in the amount of pleural fluid on the right. There is improved aeration of the right lung. The left lung is clear. The heart is not enlarged. No pneumothorax is seen. IMPRESSION: IMPROVED AERATION, RIGHT LUNG.
[2017-10-18] MEDS: INSULIN DETEMIR 100 UNIT/ML 10 ML VIAL SQ SCH ×2 (11:41→21:38)
[2017-10-18 11:46] LABS: Glucose,Whole Blood 132 mg/dL (75-99)
[2017-10-18 12:09] LABS: Appearance,Urine Cloudy (Clear); Bilirubin,Urine Negative (Negative); Blood,Urine Negative (Negative); Cellular Casts,Urine 5 /lpf (0); Color,Urine Yellow; Glucose,Urine (UA) Negative (Negative); Hyaline Casts,Urine 26 /lpf (0-2); Ketones,Urine Negative (Negative); Leukocyte Esterase,Urine Negative (Negative); Mucus,Urine Rare /hpf; Nitrite,Urine Negative (Negative); PH, Urine 5.5 (5.0-8.0); Protein,Urine 1+ (Negative); RBC,Urine 2 /hpf (0-5); Specific Gravity,Urine 1.018 (1.001-1.035); Squamous Epithelial Cell,Urine <1 /hpf (0-4); Urobilinogen,Urine <2.0 mg/dL (<2.0); WBC,Urine 4 /hpf (0-5)
[2017-10-18 12:30] LABS: Glucose,Whole Blood 165 mg/dL (75-99)
--- NOTE | 2017-10-18 12:47 | P.CNPUL ---
History of Present Illness Consult date: 10/18/17 Requesting physician: Pauline Fowler Reason for consult: dyspnea, abnormal CXR/CT Chief complaint: Shortness breath History of present illness: This is a pleasant 66-year-old female patient who was admitted back on 2017 for complaints of abdominal pain following a fall. She does have a history of cirrhosis requiring frequent large-volume paracentesis, congestive heart failure, chronic hypoxic respiratory failure with chronic obstructive pulmonary disease and a computed tomography scan of the abdomen and pelvis showed cirrhotic liver, splenomegaly, para esophageal varices, and right pleural effusion. There is also concerned regarding jejunal enteritis which the patient was subsequently admitted. She is also had issues with atrial fibrillation with RVR. Echocardiogram showed severe aortic stenosis and impaired left ventricular function with ejection fraction 40-45%. She did undergo ultrasound guided thoracentesis of the right pleural effusion by IR with 1.1 L of serosanguineous fluid removed. Fluid was not sent for analysis or cytology at that time. We're consulted today 10/18/2017 as the patient developed significant shortness of breath. Chest x-ray showed worsening opacification of the right lung. She was noted to have rib fractures as well. She required increase of oxygen from 3 L to 5 L to maintain O2 saturations in the 90s. Arterial blood gases revealed a PaO2 of 72, pCO2 46, pH 7.51 on 40% FiO2. Lab results revealed WBC 22.3. Hemoglobin 10.0. Sodium 131. Potassium 3.6. Creatinine 1.04. Dr. Martinez came in and removed 2400 ML's of dark bloody fluid from the right chest. The patient did improve and is back down to 3 L/ min per nasal cannula. Review of Systems 14 point review of system was conducted. All negative other than as mentioned in the HPI. Past Medical History Past Medical History: Atrial Fibrillation, Coronary Artery Disease (CAD), Heart Failure, COPD, Diabetes Mellitus, GERD/Reflux, GI Bleed, Hyperlipidemia, Hypertension Additional Past Medical History / Comment(s): COPD with home O2 at night, end stage liver disease (was previously documentedwith refractory acsities q7-10 days). Barretts esophagus, esophageal varicies with bleed requiring banding X 3 , hiatal hernia, iron def anemia, thrombocytopenia, chronic back pain, pancreatitis, colon polyps, needs one of her heart valve replaced , septic infection with PICC line since removed History of Any Multi-Drug Resistant Organisms: MRSA Date of last positivie culture/infection: 2015 MDRO Source:: nose Past Surgical History: Adenoidectomy, Appendectomy, Section, Cholecystectomy, Heart Catheterization, Heart Catheterization With Stent, Joint Replacement, Tubal Ligation Additional Past Surgical History / Comment(s): paracentesis, right JUSTINO, esophageal banding X 3, bone marrow bx, EGD and colonoscopy Past Anesthesia/Blood Transfusion Reactions: No Reported Reaction Date of Last Stent Placement:: 2016 Smoking Status: Current every day smoker - Past Family History Father Family Medical History: Cancer, Coronary Artery Disease (CAD), Diabetes Mellitus Additional Family Medical History / Comment(s): bladder ca Mother Family Medical History: Cancer, COPD, Diabetes Mellitus Additional Family Medical History / Comment(s): lung ca Medications and Allergies Home Medications Medication Instructions Recorded Confirmed Type Acetaminophen Tab [Tylenol] 1,000 mg PO Q6HR PRN 08/05/17 10/10/17 History Atorvastatin [Lipitor] 80 mg PO HS 08/05/17 10/10/17 History Diltiazem HCl 60 mg PO Q6H 08/05/17 10/10/17 History Furosemide [Lasix] 80 mg PO BID 08/05/17 10/10/17 History Metoprolol Tartrate [Lopressor] 50 mg PO BID 08/05/17 10/10/17 History Ondansetron [Zofran] 4 mg PO TID PRN 08/05/17 10/10/17 History Pantoprazole [Protonix] 40 mg PO DAILY 08/05/17 10/10/17 History Spironolactone 100 mg PO DAILY 08/05/17 10/10/17 History Tiotropium 18 Mcg/Puff [Spiriva] 1 cap INHALATION RT-DAILY 08/05/17 10/10/17 History Venlafaxine HCl [Effexor] 37.5 mg PO BID 08/05/17 10/10/17 History Albuterol Sulfate [Proair Hfa] 2 puff INHALATION RT-QID PRN 09/22/17 10/10/17 History Aspirin EC [Ecotrin Low Dose] 81 mg PO HS 10/10/17 10/10/17 History Glimepiride [Amaryl] 2 mg PO BID 10/10/17 10/10/17 History Insulin Glargine,Hum.rec.anlog 20 unit SQ BID 10/10/17 10/10/17 History [Lynette Bee] Allergies Allergy/AdvReac Type Severity Reaction Status Date / Time sulfamethoxazole AdvReac Rash/Hives Verified 10/10/17 08:17 [From Bactrim] trimethoprim [From Bactrim] AdvReac Rash/Hives Verified 10/10/17 08:17 Physical Exam Vitals: Vital Signs Temp Pulse Pulse Pulse Pulse Resp BP 10/18/17 11:22 97.1 F L 104 H 20 10/18/17 10:53 100 10/18/17 08:50 82 93 102 H 24 10/18/17 07:53 92 10/18/17 07:41 98 10/18/17 07:00 98.7 F 102 H 24 10/17/17 23:30 98.4 F 77 16 10/17/17 22:00 82 10/17/17 21:33 98.9 F 136 H 18 10/17/17 21:05 127 H 20 10/17/17 20:10 157 H 20 10/17/17 19:55 82 10/17/17 19:45 80 10/17/17 16:00 82 77 18 10/17/17 15:41 84 10/17/17 13:43 82 93 93 90/47 BP BP Pulse Ox 10/18/17 11:22 122/60 93 L 10/18/17 10:53 10/18/17 08:50 10/18/17 07:53 10/18/17 07:41 10/18/17 07:00 120/67 92 L 10/17/17 23:30 95/67 96 10/17/17 22:00 107/52 10/17/17 21:33 90/50 94 L 10/17/17 21:05 101/60 94 L 10/17/17 20:10 114/54 92 L 10/17/17 19:55 10/17/17 19:45 10/17/17 16:00 10/17/17 15:41 93 L 10/17/17 13:43 91/42 127/58 Intake and Output 10/17/17 10/18/17 10/18/17 22:59 06:59 14:59 Intake Total 60 Output Total 600 100 Balance -600 -40 Intake: Oral 60 Output: Urine 600 100 Straight 600 Other: Voiding Method Bedpan Bedpan Incontinent # Voids 1 0 # Bowel Movements 1 GENERAL EXAM: Thin, frail, cachectic. Alert, in mild respiratory distress. HEAD: Normocephalic. EYES: Normal reaction of pupils, equal size. NOSE: Clear with pink turbinates. THROAT: No erythema or exudates. NECK: No masses, no JVD. CHEST: No chest wall deformity. LUNGS: Diminished in the right lung base. CVS: S1 and S2 normal with an audible murmur, irregular rhythm. ABDOMEN: Distended. Hepatomegaly, umbilical hernia, normal bowel sounds, no guarding or rigidity. SPINE: Scoliosis SKIN: No rashes CENTRAL NERVOUS SYSTEM: No focal deficits, tone is normal in all 4 extremities. EXTREMITIES: There is no peripheral edema. No clubbing, no cyanosis. Peripheral pulses are intact. Results - Laboratory Findings CBC and BMP: 10/18/17 07:20 10/18/17 07:20 ABG ABG pH 7.51 (7.35-7.45) H 10/18/17 10:22 ABG pCO2 46 mmHg (35-45) H 10/18/17 10:22 ABG pO2 72 mmHg (83-108) L 10/18/17 10:22 ABG O2 Saturation 95.0 % (94-97) 10/18/17 10:22 PT/INR, D-dimer PT 12.2 sec (9.0-12.0) H 10/13/17 06:15 INR 1.3 (<1.2) H 10/13/17 06:15 Abnormal lab findings: Abnormal Labs 10/10/17 10/10/17 10/10/17 08:09 08:09 08:09 WBC RBC 3.48 L Hgb 8.8 L Hct 27.4 L MCV 78.6 L MCH RDW 18.3 H Plt Count 98 L Neutrophils # Lymphocytes # 0.7 L PT INR 1.2 H ABG pH ABG pCO2 ABG pO2 ABG HCO3 ABG Total CO2 Sodium 135 L Potassium Chloride 95 L Carbon Dioxide 31 H BUN Glucose 201 H POC Glucose (mg/dL) Calcium 8.3 L Total Bilirubin 1.4 H AST 40 H Total Protein 6.0 L Albumin 3.3 L Amylase 118 H Lipase 574 H Urine Appearance Urine Protein Urine Glucose (UA) Ur Leukocyte Esterase Urine Bacteria Hyaline Casts Urine Mucus 10/10/17 10/10/17 10/10/17 17:22 17:29 20:51 WBC RBC Hgb Hct MCV MCH RDW Plt Count Neutrophils # Lymphocytes # PT INR ABG pH ABG pCO2 48 H ABG pO2 72 L ABG HCO3 32 H ABG Total CO2 34 H Sodium Potassium Chloride Carbon Dioxide BUN Glucose POC Glucose (mg/dL) 156 H 135 H Calcium Total Bilirubin AST Total Protein Albumin Amylase Lipase Urine Appearance Urine Protein Urine Glucose (UA) Ur Leukocyte Esterase Urine Bacteria Hyaline Casts Urine Mucus 10/11/17 10/11/17 10/11/17 06:15 06:16 06:16 WBC RBC 3.46 L Hgb 8.4 L Hct 27.2 L MCV 78.7 L MCH 24.4 L RDW 18.5 H Plt Count 68 L Neutrophils # Lymphocytes # 0.3 L PT INR ABG pH ABG pCO2 ABG pO2 ABG HCO3 ABG Total CO2 Sodium Potassium Chloride Carbon Dioxide BUN Glucose 148 H POC Glucose (mg/dL) 174 H Calcium 8.3 L Total Bilirubin 2.0 H AST Total Protein 5.5 L Albumin 2.8 L Amylase Lipase Urine Appearance Urine Protein Urine Glucose (UA) Ur Leukocyte Esterase Urine Bacteria Hyaline Casts Urine Mucus 10/11/17 10/11/17 10/11/17 11:37 16:32 21:07 WBC RBC Hgb Hct MCV MCH RDW Plt Count Neutrophils # Lymphocytes # PT INR ABG pH ABG pCO2 ABG pO2 ABG HCO3 ABG Total CO2 Sodium Potassium Chloride Carbon Dioxide BUN Glucose POC Glucose (mg/dL) 323 H 352 H 384 H Calcium Total Bilirubin AST Total Protein Albumin Amylase Lipase Urine Appearance Urine Protein Urine Glucose (UA) Ur Leukocyte Esterase Urine Bacteria Hyaline Casts Urine Mucus 10/12/17 10/12/17 10/12/17 05:50 06:00 06:00 WBC RBC 3.31 L Hgb 8.3 L Hct 26.2 L MCV 79.2 L MCH RDW 18.7 H Plt Count 105 L D Neutrophils # Lymphocytes # PT INR ABG pH ABG pCO2 ABG pO2 ABG HCO3 ABG Total CO2 Sodium 133 L Potassium Chloride 95 L Carbon Dioxide 31 H BUN 28 H Glucose 260 H POC Glucose (mg/dL) 299 H Calcium 8.2 L Total Bilirubin AST Total Protein 5.3 L Albumin 2.8 L Amylase Lipase Urine Appearance Urine Protein Urine Glucose (UA) Ur Leukocyte Esterase Urine Bacteria Hyaline Casts Urine Mucus 10/12/17 10/12/17 10/13/17 11:49 20:48 04:59 WBC RBC Hgb Hct MCV MCH RDW Plt Count Neutrophils # Lymphocytes # PT INR ABG pH ABG pCO2 ABG pO2 ABG HCO3 ABG Total CO2 Sodium Potassium Chloride Carbon Dioxide BUN Glucose POC Glucose (mg/dL) 274 H 432 H 322 H Calcium Total Bilirubin AST Total Protein Albumin Amylase Lipase Urine Appearance Urine Protein Urine Glucose (UA) Ur Leukocyte Esterase Urine Bacteria Hyaline Casts Urine Mucus 10/13/17 10/13/17 10/13/17 06:15 06:15 06:15 WBC RBC 3.40 L Hgb 8.4 L Hct 27.1 L MCV 79.7 L MCH 24.8 L RDW 18.9 H Plt Count 110 L Neutrophils # Lymphocytes # PT 12.2 H INR 1.3 H ABG pH ABG pCO2 ABG pO2 ABG HCO3 ABG Total CO2 Sodium 136 L Potassium 3.4 L Chloride 96 L Carbon Dioxide 32 H BUN 29 H Glucose 258 H POC Glucose (mg/dL) Calcium 8.3 L Total Bilirubin AST Total Protein 5.4 L Albumin 2.8 L Amylase Lipase Urine Appearance Urine Protein Urine Glucose (UA) Ur Leukocyte Esterase Urine Bacteria Hyaline Casts Urine Mucus 10/13/17 10/13/17 10/13/17 06:32 11:45 16:32 WBC RBC Hgb Hct MCV MCH RDW Plt Count Neutrophils # Lymphocytes # PT INR ABG pH ABG pCO2 ABG pO2 ABG HCO3 ABG Total CO2 Sodium Potassium Chloride Carbon Dioxide BUN Glucose POC Glucose (mg/dL) 293 H 179 H 245 H Calcium Total Bilirubin AST Total Protein Albumin Amylase Lipase Urine Appearance Urine Protein Urine Glucose (UA) Ur Leukocyte Esterase Urine Bacteria Hyaline Casts Urine Mucus 10/13/17 10/14/17 10/14/17 20:10 05:52 11:26 WBC 12.0 H RBC 3.66 L Hgb 9.1 L Hct 28.8 L MCV 78.7 L MCH RDW 19.0 H Plt Count 110 L Neutrophils # 10.3 H Lymphocytes # 0.6 L PT INR ABG pH ABG pCO2 ABG pO2 ABG HCO3 ABG Total CO2 Sodium Potassium Chloride Carbon Dioxide BUN Glucose POC Glucose (mg/dL) 331 H 319 H Calcium Total Bilirubin AST Total Protein Albumin Amylase Lipase Urine Appearance Urine Protein Urine Glucose (UA) Ur Leukocyte Esterase Urine Bacteria Hyaline Casts Urine Mucus 10/14/17 10/14/17 10/14/17 11:26 11:37 17:10 WBC RBC Hgb Hct MCV MCH RDW Plt Count Neutrophils # Lymphocytes # PT INR ABG pH ABG pCO2 ABG pO2 ABG HCO3 ABG Total CO2 Sodium 134 L Potassium 3.1 L Chloride 92 L Carbon Dioxide 35 H BUN 27 H Glucose 234 H POC Glucose (mg/dL) 264 H 348 H Calcium 8.1 L Total Bilirubin AST Total Protein 5.6 L Albumin 2.9 L Amylase Lipase Urine Appearance Urine Protein Urine Glucose (UA) Ur Leukocyte Esterase Urine Bacteria Hyaline Casts Urine Mucus 10/14/17 10/15/17 10/15/17 20:59 06:23 06:29 WBC RBC Hgb Hct MCV MCH RDW Plt Count Neutrophils # Lymphocytes # PT INR ABG pH ABG pCO2 ABG pO2 ABG HCO3 ABG Total CO2 Sodium 135 L Potassium Chloride 92 L Carbon Dioxide 38 H BUN 27 H Glucose 250 H POC Glucose (mg/dL) 374 H 300 H Calcium 8.0 L Total Bilirubin AST Total Protein 5.3 L Albumin 2.8 L Amylase Lipase Urine Appearance Urine Protein Urine Glucose (UA) Ur Leukocyte Esterase Urine Bacteria Hyaline Casts Urine Mucus 10/15/17 10/15/17 10/15/17 11:44 16:43 16:44 WBC RBC Hgb Hct MCV MCH RDW Plt Count Neutrophils # Lymphocytes # PT INR ABG pH ABG pCO2 ABG pO2 ABG HCO3 ABG Total CO2 Sodium Potassium Chloride Carbon Dioxide BUN Glucose POC Glucose (mg/dL) 424 H 465 H 420 H Calcium Total Bilirubin AST Total Protein Albumin Amylase Lipase Urine Appearance Urine Protein Urine Glucose (UA) Ur Leukocyte Esterase Urine Bacteria Hyaline Casts Urine Mucus 10/15/17 10/15/17 10/16/17 21:00 23:29 04:28 WBC RBC Hgb Hct MCV MCH RDW Plt Count Neutrophils # Lymphocytes # PT INR ABG pH ABG pCO2 ABG pO2 ABG HCO3 ABG Total CO2 Sodium Potassium Chloride Carbon Dioxide BUN Glucose POC Glucose (mg/dL) 483 H 459 H 268 H Calcium Total Bilirubin AST Total Protein Albumin Amylase Lipase Urine Appearance Urine Protein Urine Glucose (UA) Ur Leukocyte Esterase Urine Bacteria Hyaline Casts Urine Mucus 10/16/17 10/16/17 10/16/17 07:09 08:55 08:55 WBC 14.6 H RBC Hgb 9.2 L Hct 29.6 L MCV 77.8 L MCH 24.1 L RDW 18.6 H Plt Count Neutrophils # Lymphocytes # PT INR ABG pH ABG pCO2 ABG pO2 ABG HCO3 ABG Total CO2 Sodium 133 L Potassium 3.3 L Chloride 89 L Carbon Dioxide 38 H BUN 25 H Glucose 141 H POC Glucose (mg/dL) 157 H Calcium 7.9 L Total Bilirubin AST 41 H Total Protein 5.2 L Albumin 2.8 L Amylase Lipase Urine Appearance Urine Protein Urine Glucose (UA) Ur Leukocyte Esterase Urine Bacteria Hyaline Casts Urine Mucus 10/16/17 10/16/17 10/16/17 11:23 16:59 17:19 WBC RBC Hgb Hct MCV MCH RDW Plt Count Neutrophils # Lymphocytes # PT INR ABG pH ABG pCO2 ABG pO2 ABG HCO3 ABG Total CO2 Sodium Potassium Chloride Carbon Dioxide BUN Glucose POC Glucose (mg/dL) 156 H 263 H Calcium Total Bilirubin AST Total Protein Albumin Amylase Lipase Urine Appearance Urine Protein Urine Glucose (UA) 1+ H Ur Leukocyte Esterase Moderate H Urine Bacteria Rare H Hyaline Casts 5 H Urine Mucus Rare H 10/16/17 10/17/17 10/17/17 20:46 01:45 07:11 WBC 14.3 H RBC Hgb 9.5 L Hct 29.7 L MCV 77.2 L MCH 24.7 L RDW 18.6 H Plt Count 102 L Neutrophils # Lymphocytes # PT INR ABG pH ABG pCO2 ABG pO2 ABG HCO3 ABG Total CO2 Sodium Potassium Chloride Carbon Dioxide BUN Glucose POC Glucose (mg/dL) 216 H 145 H Calcium Total Bilirubin AST Total Protein Albumin Amylase Lipase Urine Appearance Urine Protein Urine Glucose (UA) Ur Leukocyte Esterase Urine Bacteria Hyaline Casts Urine Mucus 10/17/17 10/17/17 10/17/17 07:11 12:00 17:10 WBC RBC Hgb Hct MCV MCH RDW Plt Count Neutrophils # Lymphocytes # PT INR ABG pH ABG pCO2 ABG pO2 ABG HCO3 ABG Total CO2 Sodium 132 L Potassium 3.3 L Chloride 88 L Carbon Dioxide 37 H BUN 26 H Glucose POC Glucose (mg/dL) 133 H 136 H Calcium 7.8 L Total Bilirubin AST 48 H Total Protein 5.0 L Albumin 2.7 L Amylase Lipase Urine Appearance Urine Protein Urine Glucose (UA) Ur Leukocyte Esterase Urine Bacteria Hyaline Casts Urine Mucus 10/17/17 10/18/17 10/18/17 20:17 07:12 07:20 WBC 22.3 H RBC Hgb 10.0 L Hct 30.5 L MCV 76.4 L MCH 24.9 L RDW 18.5 H Plt Count 122 L Neutrophils # Lymphocytes # PT INR ABG pH ABG pCO2 ABG pO2 ABG HCO3 ABG Total CO2 Sodium Potassium Chloride Carbon Dioxide BUN Glucose POC Glucose (mg/dL) 239 H 111 H Calcium Total Bilirubin AST Total Protein Albumin Amylase Lipase Urine Appearance Urine Protein Urine Glucose (UA) Ur Leukocyte Esterase Urine Bacteria Hyaline Casts Urine Mucus 10/18/17 10/18/17 10/18/17 07:20 10:22 10:30 WBC RBC Hgb Hct MCV MCH RDW Plt Count Neutrophils # Lymphocytes # PT INR ABG pH 7.51 H ABG pCO2 46 H ABG pO2 72 L ABG HCO3 37 H ABG Total CO2 38 H Sodium 131 L Potassium Chloride 88 L Carbon Dioxide 35 H BUN 34 H Glucose POC Glucose (mg/dL) Calcium 7.8 L Total Bilirubin AST Total Protein Albumin Amylase Lipase Urine Appearance Cloudy H Urine Protein 1+ H Urine Glucose (UA) Ur Leukocyte Esterase Urine Bacteria Hyaline Casts 26 H Urine Mucus Rare H 10/18/17 11:44 WBC RBC Hgb Hct MCV MCH RDW Plt Count Neutrophils # Lymphocytes # PT INR ABG pH ABG pCO2 ABG pO2 ABG HCO3 ABG Total CO2 Sodium Potassium Chloride Carbon Dioxide BUN Glucose POC Glucose (mg/dL) 132 H Calcium Total Bilirubin AST Total Protein Albumin Amylase Lipase Urine Appearance Urine Protein Urine Glucose (UA) Ur Leukocyte Esterase Urine Bacteria Hyaline Casts Urine Mucus - Diagnostic Findings Chest x-ray: image reviewed Assessment and Plan Assessment: Impression: #1 Acute on chronic hypoxic respiratory failure secondary to large right pleural effusion, acute exacerbation of chronic systolic congestive heart failure,, moderate to severe aortic stenosis, acute exacerbation of chronic obstructive pulmonary disease.. #2 Large right pleural effusion status post thoracentesis with 2400 ML's of dark bloody fluid returned. Suspect hemothorax status post fall with rib fracture. #3 Acute exacerbation of chronic systolic congestive heart failure with ejection fraction 45%. #4 Moderate to severe aortic stenosis. #5 Cirrhosis with ascites requiring multiple paracentesis. #6 Chronic obstructive pulmonary disease. #7 Diabetes mellitus, type II. #8 Hypertension. #9 Gastroesophageal reflux disease. #10 History of esophageal varices. #11 Coronary artery disease. Plan: The patient was seen and evaluated by Dr. Martinez. Chest x-ray and labs were reviewed. He did perform a right-sided thoracentesis with approximately 2400 ML 's of dark bloody fluid returned. Suspect hemothorax. Cytology and fluid analysis pending. Continue with bronchodilators. Continue diuretics. Continue antibiotics. We will increase her activity as tolerated. We'll continue to follow. Plan upon discharge is to subacute rehabilitation. I, the cosigning physician, performed a history & physical examination of the patient. Lungs sounds diminished in the right lung base. Maintaining good O2 saturations in the 90s on 3 L/m per nasal cannula. I discussed the assessment and plan of care with my nurse practitioner, Awa Falcon. I attest to the above note as dictated by her. Time with Patient: Greater than 30
--- NOTE | 2017-10-18 12:50 | P.CNPUL ---
History of Present Illness Consult date: 10/18/17 Requesting physician: Pauline Fowler Reason for consult: pleural effusion Chief complaint: Shortness of breath History of present illness: This is a 66-year-old female admitted on 10/10/2017, known to have history of liver cirrhosis, multiple previous paracentesis procedures done in the past, history of recurrent falls patient was admitted with mostly chief complaint of fall and confusion. Upon admission she had extensive workup, and his CT of the abdomen and pelvis showed cirrhotic liver and splenomegaly paraesophageal varices, ascites, and right-sided pleural effusion. Patient has been quite lethargic since admission, since admission the patient was seen by many consultants including internal medicine, cardiology, gastroenterology, infectious disease, and she was even seen by interventional radiology underwent right-sided thoracentesis on 10/14/2017, but the fluid was not sent for any diagnostic studies. She was supposed to undergo paracentesis, but there was no evidence of significant ascites, hence the procedure was aborted. This morning , the patient was noted to have significant increase in her shortness of breath , and I was asked to see her on a stat consultation for a right sided thoracentesis. Chest x-ray showed significant whitening gout of the right lung , and large right-sided pleural effusion. In the meantime arrangements were being made to transfer the patient to a monitor bed on [facility]. I saw the patient immediately, reviewed her chest x-ray, and proceeded with a right-sided thoracentesis after the patient's consent, and she felt significantly improved post right sided thoracentesis. However the fluid was grossly bloody and I was able to drain 2400 mL of bloody pleural effusion, most likely related to fall or trauma with right sided hemothorax. The fluid was sent for different diagnostic studies, and the patient felt much better after the thoracentesis. The patient herself is not a great historian, she was in a quite a bit of distress before the thoracentesis which was done basically on an emergency basis. During my evaluation, patient had no headaches, no blurred vision, she did feel dizzy and lightheaded weak, denied any chest pain, but she was short of breath. Denies any nausea vomiting, no abdominal pain. No dysuria and no frequency no urgency. Review of Systems Patient is not the greatest historian, 14 point review of systems were obtained , please refer to pertinent positives in HPI otherwise remaining systems are negative. Past Medical History Past Medical History: Atrial Fibrillation, Coronary Artery Disease (CAD), Heart Failure, COPD, Diabetes Mellitus, GERD/Reflux, GI Bleed, Hyperlipidemia, Hypertension Additional Past Medical History / Comment(s): COPD with home O2 at night, end stage liver disease (was previously documentedwith refractory acsities q7-10 days). Barretts esophagus, esophageal varicies with bleed requiring banding X 3 , hiatal hernia, iron def anemia, thrombocytopenia, chronic back pain, pancreatitis, colon polyps, needs one of her heart valve replaced , septic infection with PICC line since removed History of Any Multi-Drug Resistant Organisms: MRSA Date of last positivie culture/infection: 2015 MDRO Source:: nose Past Surgical History: Adenoidectomy, Appendectomy, Section, Cholecystectomy, Heart Catheterization, Heart Catheterization With Stent, Joint Replacement, Tubal Ligation Additional Past Surgical History / Comment(s): paracentesis, right JUSTINO, esophageal banding X 3, bone marrow bx, EGD and colonoscopy Past Anesthesia/Blood Transfusion Reactions: No Reported Reaction Date of Last Stent Placement:: 2016 Smoking Status: Current every day smoker - Past Family History Father Family Medical History: Cancer, Coronary Artery Disease (CAD), Diabetes Mellitus Additional Family Medical History / Comment(s): bladder ca Mother Family Medical History: Cancer, COPD, Diabetes Mellitus Additional Family Medical History / Comment(s): lung ca Medications and Allergies Home Medications Medication Instructions Recorded Confirmed Type Acetaminophen Tab [Tylenol] 1,000 mg PO Q6HR PRN 08/05/17 10/10/17 History Atorvastatin [Lipitor] 80 mg PO HS 08/05/17 10/10/17 History Diltiazem HCl 60 mg PO Q6H 08/05/17 10/10/17 History Furosemide [Lasix] 80 mg PO BID 08/05/17 10/10/17 History Metoprolol Tartrate [Lopressor] 50 mg PO BID 08/05/17 10/10/17 History Ondansetron [Zofran] 4 mg PO TID PRN 08/05/17 10/10/17 History Pantoprazole [Protonix] 40 mg PO DAILY 08/05/17 10/10/17 History Spironolactone 100 mg PO DAILY 08/05/17 10/10/17 History Tiotropium 18 Mcg/Puff [Spiriva] 1 cap INHALATION RT-DAILY 08/05/17 10/10/17 History Venlafaxine HCl [Effexor] 37.5 mg PO BID 08/05/17 10/10/17 History Albuterol Sulfate [Proair Hfa] 2 puff INHALATION RT-QID PRN 09/22/17 10/10/17 History Aspirin EC [Ecotrin Low Dose] 81 mg PO HS 10/10/17 10/10/17 History Glimepiride [Amaryl] 2 mg PO BID 10/10/17 10/10/17 History Insulin Glargine,Hum.rec.anlog 20 unit SQ BID 10/10/17 10/10/17 History [Lantus Solostar] Allergies Allergy/AdvReac Type Severity Reaction Status Date / Time sulfamethoxazole AdvReac Rash/Hives Verified 10/10/17 08:17 [From Bactrim] trimethoprim [From Bactrim] AdvReac Rash/Hives Verified 10/10/17 08:17 Physical Exam Vitals: Vital Signs Temp Pulse Pulse Pulse Pulse Resp BP 10/18/17 11:22 97.1 F L 104 H 20 10/18/17 10:53 100 10/18/17 08:50 82 93 102 H 24 10/18/17 07:53 92 10/18/17 07:41 98 10/18/17 07:00 98.7 F 102 H 24 10/17/17 23:30 98.4 F 77 16 10/17/17 22:00 82 10/17/17 21:33 98.9 F 136 H 18 10/17/17 21:05 127 H 20 10/17/17 20:10 157 H 20 10/17/17 19:55 82 10/17/17 19:45 80 10/17/17 16:00 82 77 18 10/17/17 15:41 84 10/17/17 13:43 82 93 93 90/47 BP BP Pulse Ox 10/18/17 11:22 122/60 93 L 10/18/17 10:53 10/18/17 08:50 10/18/17 07:53 10/18/17 07:41 10/18/17 07:00 120/67 92 L 10/17/17 23:30 95/67 96 10/17/17 22:00 107/52 10/17/17 21:33 90/50 94 L 10/17/17 21:05 101/60 94 L 10/17/17 20:10 114/54 92 L 10/17/17 19:55 10/17/17 19:45 10/17/17 16:00 10/17/17 15:41 93 L 10/17/17 13:43 91/42 127/58 Intake and Output 10/17/17 10/18/17 10/18/17 22:59 06:59 14:59 Intake Total 60 Output Total 600 100 Balance -600 -40 Intake: Oral 60 Output: Urine 600 100 Straight 600 Other: Voiding Method Bedpan Bedpan Incontinent # Voids 1 0 # Bowel Movements 1 Physical Exam revealed a 66-year-old female, cachectic looking, frail, chronically ill, and looks much older than his stated age. Head: Atraumatic, normocephalic. HEENT:[Neck is supple.] [No neck masses.] [No thyromegaly.] [No JVD.] Dry mucous membranes. Chest: [Diminished breath sounds and dullness at the right base. Significant soft tissue edema noted, right flank hematoma/ecchymosis is noted..] Cardiac Exam: [Normal S1 and S2, no S3 gallop, no murmur.] Abdomen: [Soft, nontender, no megaly, no rebound, no guarding, normal bowel sounds.] Ecchymosis is noted in the right flank area. Extremities: [No clubbing, trace of bipedal edema, no cyanosis.] Neurological Exam: Patient is slightly lethargic, but arousable, followed all simple instructions, and seems to be oriented to place. Lymphatics: No lymphadenopathy. Results - Laboratory Findings CBC and BMP: 10/18/17 07:20 10/18/17 07:20 ABG ABG pH 7.51 (7.35-7.45) H 10/18/17 10:22 ABG pCO2 46 mmHg (35-45) H 10/18/17 10:22 ABG pO2 72 mmHg (83-108) L 10/18/17 10:22 ABG O2 Saturation 95.0 % (94-97) 10/18/17 10:22 PT/INR, D-dimer PT 12.2 sec (9.0-12.0) H 10/13/17 06:15 INR 1.3 (<1.2) H 10/13/17 06:15 Abnormal lab findings: Abnormal Labs 10/10/17 10/10/17 10/10/17 08:09 08:09 08:09 WBC RBC 3.48 L Hgb 8.8 L Hct 27.4 L MCV 78.6 L MCH RDW 18.3 H Plt Count 98 L Neutrophils # Lymphocytes # 0.7 L PT INR 1.2 H ABG pH ABG pCO2 ABG pO2 ABG HCO3 ABG Total CO2 Sodium 135 L Potassium Chloride 95 L Carbon Dioxide 31 H BUN Glucose 201 H POC Glucose (mg/dL) Calcium 8.3 L Total Bilirubin 1.4 H AST 40 H Total Protein 6.0 L Albumin 3.3 L Amylase 118 H Lipase 574 H Urine Appearance Urine Protein Urine Glucose (UA) Ur Leukocyte Esterase Urine Bacteria Hyaline Casts Urine Mucus 10/10/17 10/10/17 10/10/17 17:22 17:29 20:51 WBC RBC Hgb Hct MCV MCH RDW Plt Count Neutrophils # Lymphocytes # PT INR ABG pH ABG pCO2 48 H ABG pO2 72 L ABG HCO3 32 H ABG Total CO2 34 H Sodium Potassium Chloride Carbon Dioxide BUN Glucose POC Glucose (mg/dL) 156 H 135 H Calcium Total Bilirubin AST Total Protein Albumin Amylase Lipase Urine Appearance Urine Protein Urine Glucose (UA) Ur Leukocyte Esterase Urine Bacteria Hyaline Casts Urine Mucus 10/11/17 10/11/17 10/11/17 06:15 06:16 06:16 WBC RBC 3.46 L Hgb 8.4 L Hct 27.2 L MCV 78.7 L MCH 24.4 L RDW 18.5 H Plt Count 68 L Neutrophils # Lymphocytes # 0.3 L PT INR ABG pH ABG pCO2 ABG pO2 ABG HCO3 ABG Total CO2 Sodium Potassium Chloride Carbon Dioxide BUN Glucose 148 H POC Glucose (mg/dL) 174 H Calcium 8.3 L Total Bilirubin 2.0 H AST Total Protein 5.5 L Albumin 2.8 L Amylase Lipase Urine Appearance Urine Protein Urine Glucose (UA) Ur Leukocyte Esterase Urine Bacteria Hyaline Casts Urine Mucus 10/11/17 10/11/17 10/11/17 11:37 16:32 21:07 WBC RBC Hgb Hct MCV MCH RDW Plt Count Neutrophils # Lymphocytes # PT INR ABG pH ABG pCO2 ABG pO2 ABG HCO3 ABG Total CO2 Sodium Potassium Chloride Carbon Dioxide BUN Glucose POC Glucose (mg/dL) 323 H 352 H 384 H Calcium Total Bilirubin AST Total Protein Albumin Amylase Lipase Urine Appearance Urine Protein Urine Glucose (UA) Ur Leukocyte Esterase Urine Bacteria Hyaline Casts Urine Mucus 10/12/17 10/12/17 10/12/17 05:50 06:00 06:00 WBC RBC 3.31 L Hgb 8.3 L Hct 26.2 L MCV 79.2 L MCH RDW 18.7 H Plt Count 105 L D Neutrophils # Lymphocytes # PT INR ABG pH ABG pCO2 ABG pO2 ABG HCO3 ABG Total CO2 Sodium 133 L Potassium Chloride 95 L Carbon Dioxide 31 H BUN 28 H Glucose 260 H POC Glucose (mg/dL) 299 H Calcium 8.2 L Total Bilirubin AST Total Protein 5.3 L Albumin 2.8 L Amylase Lipase Urine Appearance Urine Protein Urine Glucose (UA) Ur Leukocyte Esterase Urine Bacteria Hyaline Casts Urine Mucus 10/12/17 10/12/17 10/13/17 11:49 20:48 04:59 WBC RBC Hgb Hct MCV MCH RDW Plt Count Neutrophils # Lymphocytes # PT INR ABG pH ABG pCO2 ABG pO2 ABG HCO3 ABG Total CO2 Sodium Potassium Chloride Carbon Dioxide BUN Glucose POC Glucose (mg/dL) 274 H 432 H 322 H Calcium Total Bilirubin AST Total Protein Albumin Amylase Lipase Urine Appearance Urine Protein Urine Glucose (UA) Ur Leukocyte Esterase Urine Bacteria Hyaline Casts Urine Mucus 10/13/17 10/13/17 10/13/17 06:15 06:15 06:15 WBC RBC 3.40 L Hgb 8.4 L Hct 27.1 L MCV 79.7 L MCH 24.8 L RDW 18.9 H Plt Count 110 L Neutrophils # Lymphocytes # PT 12.2 H INR 1.3 H ABG pH ABG pCO2 ABG pO2 ABG HCO3 ABG Total CO2 Sodium 136 L Potassium 3.4 L Chloride 96 L Carbon Dioxide 32 H BUN 29 H Glucose 258 H POC Glucose (mg/dL) Calcium 8.3 L Total Bilirubin AST Total Protein 5.4 L Albumin 2.8 L Amylase Lipase Urine Appearance Urine Protein Urine Glucose (UA) Ur Leukocyte Esterase Urine Bacteria Hyaline Casts Urine Mucus 10/13/17 10/13/17 10/13/17 06:32 11:45 16:32 WBC RBC Hgb Hct MCV MCH RDW Plt Count Neutrophils # Lymphocytes # PT INR ABG pH ABG pCO2 ABG pO2 ABG HCO3 ABG Total CO2 Sodium Potassium Chloride Carbon Dioxide BUN Glucose POC Glucose (mg/dL) 293 H 179 H 245 H Calcium Total Bilirubin AST Total Protein Albumin Amylase Lipase Urine Appearance Urine Protein Urine Glucose (UA) Ur Leukocyte Esterase Urine Bacteria Hyaline Casts Urine Mucus 10/13/17 10/14/17 10/14/17 20:10 05:52 11:26 WBC 12.0 H RBC 3.66 L Hgb 9.1 L Hct 28.8 L MCV 78.7 L MCH RDW 19.0 H Plt Count 110 L Neutrophils # 10.3 H Lymphocytes # 0.6 L PT INR ABG pH ABG pCO2 ABG pO2 ABG HCO3 ABG Total CO2 Sodium Potassium Chloride Carbon Dioxide BUN Glucose POC Glucose (mg/dL) 331 H 319 H Calcium Total Bilirubin AST Total Protein Albumin Amylase Lipase Urine Appearance Urine Protein Urine Glucose (UA) Ur Leukocyte Esterase Urine Bacteria Hyaline Casts Urine Mucus 10/14/17 10/14/17 10/14/17 11:26 11:37 17:10 WBC RBC Hgb Hct MCV MCH RDW Plt Count Neutrophils # Lymphocytes # PT INR ABG pH ABG pCO2 ABG pO2 ABG HCO3 ABG Total CO2 Sodium 134 L Potassium 3.1 L Chloride 92 L Carbon Dioxide 35 H BUN 27 H Glucose 234 H POC Glucose (mg/dL) 264 H 348 H Calcium 8.1 L Total Bilirubin AST Total Protein 5.6 L Albumin 2.9 L Amylase Lipase Urine Appearance Urine Protein Urine Glucose (UA) Ur Leukocyte Esterase Urine Bacteria Hyaline Casts Urine Mucus 10/14/17 10/15/17 10/15/17 20:59 06:23 06:29 WBC RBC Hgb Hct MCV MCH RDW Plt Count Neutrophils # Lymphocytes # PT INR ABG pH ABG pCO2 ABG pO2 ABG HCO3 ABG Total CO2 Sodium 135 L Potassium Chloride 92 L Carbon Dioxide 38 H BUN 27 H Glucose 250 H POC Glucose (mg/dL) 374 H 300 H Calcium 8.0 L Total Bilirubin AST Total Protein 5.3 L Albumin 2.8 L Amylase Lipase Urine Appearance Urine Protein Urine Glucose (UA) Ur Leukocyte Esterase Urine Bacteria Hyaline Casts Urine Mucus 10/15/17 10/15/17 10/15/17 11:44 16:43 16:44 WBC RBC Hgb Hct MCV MCH RDW Plt Count Neutrophils # Lymphocytes # PT INR ABG pH ABG pCO2 ABG pO2 ABG HCO3 ABG Total CO2 Sodium Potassium Chloride Carbon Dioxide BUN Glucose POC Glucose (mg/dL) 424 H 465 H 420 H Calcium Total Bilirubin AST Total Protein Albumin Amylase Lipase Urine Appearance Urine Protein Urine Glucose (UA) Ur Leukocyte Esterase Urine Bacteria Hyaline Casts Urine Mucus 10/15/17 10/15/17 10/16/17 21:00 23:29 04:28 WBC RBC Hgb Hct MCV MCH RDW Plt Count Neutrophils # Lymphocytes # PT INR ABG pH ABG pCO2 ABG pO2 ABG HCO3 ABG Total CO2 Sodium Potassium Chloride Carbon Dioxide BUN Glucose POC Glucose (mg/dL) 483 H 459 H 268 H Calcium Total Bilirubin AST Total Protein Albumin Amylase Lipase Urine Appearance Urine Protein Urine Glucose (UA) Ur Leukocyte Esterase Urine Bacteria Hyaline Casts Urine Mucus 10/16/17 10/16/17 10/16/17 07:09 08:55 08:55 WBC 14.6 H RBC Hgb 9.2 L Hct 29.6 L MCV 77.8 L MCH 24.1 L RDW 18.6 H Plt Count Neutrophils # Lymphocytes # PT INR ABG pH ABG pCO2 ABG pO2 ABG HCO3 ABG Total CO2 Sodium 133 L Potassium 3.3 L Chloride 89 L Carbon Dioxide 38 H BUN 25 H Glucose 141 H POC Glucose (mg/dL) 157 H Calcium 7.9 L Total Bilirubin AST 41 H Total Protein 5.2 L Albumin 2.8 L Amylase Lipase Urine Appearance Urine Protein Urine Glucose (UA) Ur Leukocyte Esterase Urine Bacteria Hyaline Casts Urine Mucus 10/16/17 10/16/17 10/16/17 11:23 16:59 17:19 WBC RBC Hgb Hct MCV MCH RDW Plt Count Neutrophils # Lymphocytes # PT INR ABG pH ABG pCO2 ABG pO2 ABG HCO3 ABG Total CO2 Sodium Potassium Chloride Carbon Dioxide BUN Glucose POC Glucose (mg/dL) 156 H 263 H Calcium Total Bilirubin AST Total Protein Albumin Amylase Lipase Urine Appearance Urine Protein Urine Glucose (UA) 1+ H Ur Leukocyte Esterase Moderate H Urine Bacteria Rare H Hyaline Casts 5 H Urine Mucus Rare H 10/16/17 10/17/17 10/17/17 20:46 01:45 07:11 WBC 14.3 H RBC Hgb 9.5 L Hct 29.7 L MCV 77.2 L MCH 24.7 L RDW 18.6 H Plt Count 102 L Neutrophils # Lymphocytes # PT INR ABG pH ABG pCO2 ABG pO2 ABG HCO3 ABG Total CO2 Sodium Potassium Chloride Carbon Dioxide BUN Glucose POC Glucose (mg/dL) 216 H 145 H Calcium Total Bilirubin AST Total Protein Albumin Amylase Lipase Urine Appearance Urine Protein Urine Glucose (UA) Ur Leukocyte Esterase Urine Bacteria Hyaline Casts Urine Mucus 10/17/17 10/17/17 10/17/17 07:11 12:00 17:10 WBC RBC Hgb Hct MCV MCH RDW Plt Count Neutrophils # Lymphocytes # PT INR ABG pH ABG pCO2 ABG pO2 ABG HCO3 ABG Total CO2 Sodium 132 L Potassium 3.3 L Chloride 88 L Carbon Dioxide 37 H BUN 26 H Glucose POC Glucose (mg/dL) 133 H 136 H Calcium 7.8 L Total Bilirubin AST 48 H Total Protein 5.0 L Albumin 2.7 L Amylase Lipase Urine Appearance Urine Protein Urine Glucose (UA) Ur Leukocyte Esterase Urine Bacteria Hyaline Casts Urine Mucus 10/17/17 10/18/17 10/18/17 20:17 07:12 07:20 WBC 22.3 H RBC Hgb 10.0 L Hct 30.5 L MCV 76.4 L MCH 24.9 L RDW 18.5 H Plt Count 122 L Neutrophils # Lymphocytes # PT INR ABG pH ABG pCO2 ABG pO2 ABG HCO3 ABG Total CO2 Sodium Potassium Chloride Carbon Dioxide BUN Glucose POC Glucose (mg/dL) 239 H 111 H Calcium Total Bilirubin AST Total Protein Albumin Amylase Lipase Urine Appearance Urine Protein Urine Glucose (UA) Ur Leukocyte Esterase Urine Bacteria Hyaline Casts Urine Mucus 10/18/17 10/18/17 10/18/17 07:20 10:22 10:30 WBC RBC Hgb Hct MCV MCH RDW Plt Count Neutrophils # Lymphocytes # PT INR ABG pH 7.51 H ABG pCO2 46 H ABG pO2 72 L ABG HCO3 37 H ABG Total CO2 38 H Sodium 131 L Potassium Chloride 88 L Carbon Dioxide 35 H BUN 34 H Glucose POC Glucose (mg/dL) Calcium 7.8 L Total Bilirubin AST Total Protein Albumin Amylase Lipase Urine Appearance Cloudy H Urine Protein 1+ H Urine Glucose (UA) Ur Leukocyte Esterase Urine Bacteria Hyaline Casts 26 H Urine Mucus Rare H 10/18/17 10/18/17 11:44 12:25 WBC RBC Hgb Hct MCV MCH RDW Plt Count Neutrophils # Lymphocytes # PT INR ABG pH ABG pCO2 ABG pO2 ABG HCO3 ABG Total CO2 Sodium Potassium Chloride Carbon Dioxide BUN Glucose POC Glucose (mg/dL) 132 H 165 H Calcium Total Bilirubin AST Total Protein Albumin Amylase Lipase Urine Appearance Urine Protein Urine Glucose (UA) Ur Leukocyte Esterase Urine Bacteria Hyaline Casts Urine Mucus - Diagnostic Findings Chest x-ray: image reviewed (Large right sided pleural effusion noted) Assessment and Plan Assessment: Impression: 1 right sided pleural effusion, bloody in nature, consistent with hemothorax and most likely related to recent fall or trauma. Status post right-sided thoracentesis. Will need a follow-up chest x-ray and possibly follow-up ultrasound in the next 24 hours. 2 status post right sided thoracentesis, 2400 mL of bloody effusion removed from the right pleural space. 3 impending hypoxic respiratory failure secondary to large right-sided pleural effusion and multiple other comorbidities. 4 cirrhosis of the liver and ascites secondary to [place]. 5 history of COPD, presently inactive. 6 multiple comorbidities including diabetes, medical debility, hypertension, coronary artery disease, GERD, esophageal varices, chronic back pain and chronic dizziness and recurrent falls and trauma Recommendation: Patient underwent a right-sided thoracentesis, again 2400 mL of bloody effusion removed from the right pleural space, will need to keep a close watch on her chest x-ray, and she will need a follow-up chest x-ray in a.m., possibly repeat ultrasound early next week and decide whether she requires more drainage of the right pleural space. Prognosis is definitely poor and guarded, we'll continue to follow. Time with Patient: Greater than 30
[2017-10-18 13:04] LABS: Total Protein 5.2 g/dL (6.3-8.2)
[2017-10-18 14:07] LABS: Appearance,BF Bloody; Nucleated Cells, Body Fluid 750 /uL; RBC, Body Fluid 180500 /uL
[2017-10-18 14:09] LABS: Mononuclear WBC,Body Fluid 34 %; Polynuclear WBC,Body Fluid 66 %; Total Cells Counted,Body Fluid 100
--- NOTE | 2017-10-18 14:09 | PCN ---
PROCEDURE NOTE OPERATIVE REPORT: Right-sided thoracentesis. PREOPERATIVE DIAGNOSIS: Right pleural effusion. POSTOPERATIVE DIAGNOSIS: Right-sided bloody pleural effusion/hemothorax. ANESTHESIA: Used 4 mL of 1% lidocaine. PROCEDURE: The patient was placed in a sitting upright position. The area below the right scapula was prepared in a sterile fashion and drapes were applied. The area was earlier localized by ultrasound guidance. After adequate local lidocaine, a standard 26-gauge needle was inserted at the same site, advanced into the pleural space, and the fluid was localized with a needle. Fluid was clearly bloody in nature. Then a small incision was made, and a standard thoracentesis catheter and needle were used, advanced into the pleural space, once the fluid was obtained, the catheter was advanced out of the needle and the needle was pulled out of the pleural space. Free-flowing fluid was removed, roughly 2400 mL of bloody pleural effusion was removed from the right pleural space. The patient felt significantly better after the thoracentesis. Chest x-ray showed significant improvement. The fluid was sent for different diagnostic studies. Again, the procedure was well tolerated, and no evidence of any immediate complications. MMODL / IJN: [id number] /
--- NOTE | 2017-10-18 15:43 | P.PN ---
Subjective Progress Note Date: 10/18/17 Principal diagnosis: abdominal pain Patient is a 66 yo CF with a history of Cirrhosis requiring frequent large volume paracentesis, CHF, COPD with chronic home O2 use and multiple other conditions who presented with abdominal pain following a fall. In the emergency department she underwent an extensive evaluation. Her initial vital signs were within normal limits. Initial laboratory analysis was consistent with her baseline labs. Chest x-ray was negative, rib x-ray did not show any fractures, KUB was negative. CT abdomen and pelvis showed cirrhotic liver, splenomegaly, paraesophageal varices, and moderately improved ascites of the right basilar pleural effusion. It also showed suspected jejunal enteritis. She was started on IVF and admitted to the general medical floor. She underwent CT of head which showed no acute process. Her ammonia level was normal and UA was negative. She developed A fib with RVR and a fever of 100.2 She was transferred to the [facility] care. She received a bolus of fluids and IV fluids were started her heart rate normalized without need for additional medications. There was concern for SBP and rocephin was ordered. IR consult was also ordered but they are not available at this time. She felt much better after antibiotics were started and her confusion improved. She was asking about going home. ECHO show moderate to sever aortic stenosis and EF 40-45%. She was found to have a right sided pleural effusion and she had a thoracentesis completed by IR, unfortunately not fluid was sent for diagnositic analysis. She was found to have 2 right sided rib fractures. ID saw the patient and suggested completing a course of ceftin as she did not have enough fluid for paracentesis. She fell twice overnight on 10/15 and feels that she might be passing out. On 10/16 her Cardizem was decreased to 30 mg by mouth every 6 hours secondary to orthostatic hypotension. At midnight on 10/17 she went into A. fib with RVR and then spontaneously converted to hours later. She again went into A fib wtih RVR on the night on 10/17 and she was given an extra dose of metoprolol. Patient seen and examined at bedside the morning of 10/18 at 10am. She was in active respiratory distress. Her WBC had increase to 22.5. Her UA was negative and CXR showed large right sided pleural effusion. She was complaining of being tired and not being able to breath, unable to fuylly verbalize due to work of breath. Dr. Coleman was contacted and was able to preform thoracentesis with removal of bloody pleural effusion on the right. Objective - Vital Signs Vital signs: Vital Signs Temp 97.1 F L 10/18/17 11:22 Pulse 90 10/18/17 12:25 Resp 16 10/18/17 12:25 BP 129/58 10/18/17 12:25 Pulse Ox 100 10/18/17 12:25 Intake & Output 10/17/17 10/18/17 10/18/17 18:59 06:59 18:59 Intake Total 60 Output Total 600 100 Balance -600 -40 Intake: Oral 60 Output: Urine 600 100 Straight 600 Other: Voiding Method Bedpan Bedpan Incontinent # Voids 3 0 # Bowel Movements 1 - Exam General:ill appearing, moderate distress, appears older than stated age Derm: warm, dry, Large ecchymosis right flank Head: atraumatic, normocephalic, symmetric Eyes: EOMI, no lid lag, anicteric sclera Mouth: no lip lesion, mucus membranes dry Cardiovascular: S1S2 irreg with murmur systolic, positive posterior tibial pulse bilateral, Lungs: absent breath sound on the right base, no accessory muscle use Abdominal: soft, distentded, non tender to palpation, no guarding, no appreciable organomegaly, reducible periumbilical hernia Ext: no gross muscle atrophy, no edema, no contractures Neuro: CN II-XI grossly intact, no focal neuro deficits Psych: Alert, oriented, appropriate affect - Labs CBC & Chem 7: 10/18/17 07:20 10/18/17 07:20 Labs: Abnormal Lab Results - Last 24 Hours (Table) 10/17/17 10/17/17 10/18/17 Range/Units 17:10 20:17 07:12 WBC (3.8-10.6) k/uL Hgb (11.4-16.0) gm/dL Hct (34.0-46.0) % MCV (80.0-100.0) fL MCH (25.0-35.0) pg RDW (11.5-15.5) % Plt Count (150-450) k/uL ABG pH (7.35-7.45) ABG pCO2 (35-45) mmHg ABG pO2 (83-108) mmHg ABG HCO3 (21-25) mmol/L ABG Total CO2 (19-24) mmol/L Sodium (137-145) mmol/L Chloride (98-107) mmol/L Carbon Dioxide (22-30) mmol/L BUN (7-17) mg/dL POC Glucose (mg/dL) 136 H 239 H 111 H (75-99) mg/dL Calcium (8.4-10.2) mg/dL Lactate Dehydrogenase (313-618) U/L Total Protein (6.3-8.2) g/dL Urine Appearance (Clear) Urine Protein (Negative) Hyaline Casts (0-2) /lpf Urine Mucus (None) /hpf 10/18/17 10/18/17 10/18/17 Range/Units 07:20 07:20 07:20 WBC 22.3 H (3.8-10.6) k/uL Hgb 10.0 L (11.4-16.0) gm/dL Hct 30.5 L (34.0-46.0) % MCV 76.4 L (80.0-100.0) fL MCH 24.9 L (25.0-35.0) pg RDW 18.5 H (11.5-15.5) % Plt Count 122 L (150-450) k/uL ABG pH (7.35-7.45) ABG pCO2 (35-45) mmHg ABG pO2 (83-108) mmHg ABG HCO3 (21-25) mmol/L ABG Total CO2 (19-24) mmol/L Sodium 131 L (137-145) mmol/L Chloride 88 L (98-107) mmol/L Carbon Dioxide 35 H (22-30) mmol/L BUN 34 H (7-17) mg/dL POC Glucose (mg/dL) (75-99) mg/dL Calcium 7.8 L (8.4-10.2) mg/dL Lactate Dehydrogenase 999 H (313-618) U/L Total Protein 5.2 L (6.3-8.2) g/dL Urine Appearance (Clear) Urine Protein (Negative) Hyaline Casts (0-2) /lpf Urine Mucus (None) /hpf 10/18/17 10/18/17 10/18/17 Range/Units 10:22 10:30 11:44 WBC (3.8-10.6) k/uL Hgb (11.4-16.0) gm/dL Hct (34.0-46.0) % MCV (80.0-100.0) fL MCH (25.0-35.0) pg RDW (11.5-15.5) % Plt Count (150-450) k/uL ABG pH 7.51 H (7.35-7.45) ABG pCO2 46 H (35-45) mmHg ABG pO2 72 L (83-108) mmHg ABG HCO3 37 H (21-25) mmol/L ABG Total CO2 38 H (19-24) mmol/L Sodium (137-145) mmol/L Chloride (98-107) mmol/L Carbon Dioxide (22-30) mmol/L BUN (7-17) mg/dL POC Glucose (mg/dL) 132 H (75-99) mg/dL Calcium (8.4-10.2) mg/dL Lactate Dehydrogenase (313-618) U/L Total Protein (6.3-8.2) g/dL Urine Appearance Cloudy H (Clear) Urine Protein 1+ H (Negative) Hyaline Casts 26 H (0-2) /lpf Urine Mucus Rare H (None) /hpf 10/18/17 Range/Units 12:25 WBC (3.8-10.6) k/uL Hgb (11.4-16.0) gm/dL Hct (34.0-46.0) % MCV (80.0-100.0) fL MCH (25.0-35.0) pg RDW (11.5-15.5) % Plt Count (150-450) k/uL ABG pH (7.35-7.45) ABG pCO2 (35-45) mmHg ABG pO2 (83-108) mmHg ABG HCO3 (21-25) mmol/L ABG Total CO2 (19-24) mmol/L Sodium (137-145) mmol/L Chloride (98-107) mmol/L Carbon Dioxide (22-30) mmol/L BUN (7-17) mg/dL POC Glucose (mg/dL) 165 H (75-99) mg/dL Calcium (8.4-10.2) mg/dL Lactate Dehydrogenase (313-618) U/L Total Protein (6.3-8.2) g/dL Urine Appearance (Clear) Urine Protein (Negative) Hyaline Casts (0-2) /lpf Urine Mucus (None) /hpf Assessment and Plan Assessment: Large right sided pleural effusion with hemothorax - s/p emergent thoracentesis - Pulm recs appreciated - repeat CXR in AM - Add zosyn as cannot r/o infiltrate and increasing WBC A. fib with RVR -Off cardizem, dig loaded on 10/17 -Continue to monitor telemetry -Not a candidate for anticoagulation secondary to liver disease, coagulopathy, and frequent need for paracentesis -Continue with metoprolol Orthostatic hypotension, improved -Concern for possible syncopal event related to aortic stenosis -off cadizem HUMBERTO - Improving with smaller dose of lasix - no additional nephrotoxic agents. - follow renal function [place], possible syncopal event - orthostatic vitals were positive on 10/16 - PT/OT recs - Fall precuations Probable SBP Abdominal pain - [place] to zosyn to cover for possible PNA - GI recs - Unable to obtain paracentesis due to not enough fluid - ID recs, complete course of ceftin Acute exacerbation of systolic CHF, EF 45% with severe aortic stenosis -Metoprolol, lasix, aldactone - f/u Dr. Figueroa 2-3 weeks - no ACEI due to severe aortic stenosis Leukocytes - CXR with pleural effusion - UA negative - concern for PNA untop of effusion transition to zosyn -ID recommendations -diflucan -Repeat CBC in a.m. Cirrhosis with ascites due to [place], compensated compared to baseline in this patient - Continue with lasix and aldactone - on metoprolol so no propranolol - GI recs - Patient is trying to wait for her outpatient thoracentesis until Friday - Dwainepjason COPD with exacerbation, resolved -Bronchodilators -Prednisone completed -ABG with in normal -Pulmonary hygiene -Rocephin Diabetes mellitus type 2, -Levemir twice daily -Sliding-scale insulin -Hemoglobin A1c 5.8 08/11/2017 Chronic conditions: Hypertension Coronary artery disease GERD History of esophageal varices Chronic back pain Coronary artery disease Dizziness, resolved Toxic metabolic encepalopathy likely related to SBP, resolved Hyperglycemia resolved DVT prophylaxis: SCDs Discussed with: Patient, nursing, family Anticipated discharge date: undetermind Anticipated discharge place: undetermined A total of 45 minutes was spent on the care of this complex patient more than 50 % of the time was spent in counseling and care coordination.
[2017-10-18] MEDS ORDERED: METOPROLOL TARTRATE 5 MG/5 ML VIAL IVP SCH (16:45)
[2017-10-18] MEDS: PIPERACILLIN-TAZOBACTAM 3.375 GM in DEXTROSE/WATER 1 50ML.BAG IVPB SCH ×2 (16:56→23:32)
[2017-10-18 17:00] LABS: Glucose,Whole Blood 151 mg/dL (75-99)
[2017-10-18] MEDS ORDERED: MORPHINE SULFATE 2 MG/ML SYRINGE IVP STA (17:15)
[2017-10-18] MEDS ORDERED: SODIUM CHLORIDE 0.9% 500 ML IV ONE (17:15)
[2017-10-18] MEDS ORDERED: METOPROLOL TARTRATE 5 MG/5 ML VIAL IVP STA (17:22)
[2017-10-18 17:48] LABS: Total Protein, Body Fluid 1040 mg/dL
--- NOTE | 2017-10-18 17:52 | XR ---
EXAMINATION TYPE: XR chest 1V portable DATE OF EXAM: 10/18/2017 COMPARISON: Prior chest x-ray dated 10/18/2017. HISTORY: Shortness of breath TECHNIQUE: Single frontal view of the chest is obtained. FINDINGS: There is persistent loss of volume in the right hemithorax with silhouetting of the right d iaphragm. Not much improvement as compared with the prior study. The lung remains relatively well hyd rated. Monitor leads are superimposing the patient chest. The patient is partially rotated towards th e left side. IMPRESSION: Persistent loss of volume in the right hemithorax with silhouetting of the right diaphragm infiltrati ve density at the right lung base. Limitation by patient rotation and portable technique utilized. No t much improvement as compared with the prior study.
[2017-10-18 18:45] LABS: Anisocytosis Slight; HCT 28.9 % (34.0-46.0); HGB 8.9 gm/dL (11.4-16.0); Hypochromasia Moderate; MCH 23.7 pg (25.0-35.0); MCHC 30.7 g/dL (31.0-37.0); MCV 77.2 fL (80.0-100.0); Mean Platelet Volume 6.7; Microcytosis Slight; Platelet Count 106 k/uL (150-450); Poikilocytosis Moderate; RBC 3.75 m/uL (3.80-5.40); RDW 18.5 % (11.5-15.5); WBC 18.9 k/uL (3.8-10.6)
[2017-10-18 20:44] LABS: Glucose,Whole Blood 172 mg/dL (75-99)
[2017-10-18] MEDS: ATORVASTATIN 80 MG TAB PO SCH (21:27)
[2017-10-18] MEDS: LACTULOSE 20 GM/30 ML CUP PO SCH (21:27)
[2017-10-18] MEDS: MORPHINE SULFATE 2 MG/ML SYRINGE IVP PRN (23:46)
[2017-10-19] MEDS ORDERED: METOPROLOL TARTRATE 5 MG/5 ML VIAL IVP STA ×2 (01:53→10:39)
[2017-10-19 02:26] LABS: Glucose,Whole Blood 193 mg/dL (75-99)
[2017-10-19 03:24] LABS: Glucose,Whole Blood 190 mg/dL (75-99)
[2017-10-19] MEDS: MORPHINE SULFATE 2 MG/ML SYRINGE IVP PRN ×3 (04:01→12:22)
[2017-10-19] MEDS: METOPROLOL TARTRATE 50 MG TAB PO SCH (05:57)
[2017-10-19 06:12] LABS: Anisocytosis Slight; HCT 30.8 % (34.0-46.0); HGB 9.7 gm/dL (11.4-16.0); Hypochromasia Moderate; MCH 24.4 pg (25.0-35.0); MCHC 31.5 g/dL (31.0-37.0); MCV 77.4 fL (80.0-100.0); Mean Platelet Volume 7.3; Microcytosis Slight; Platelet Count 133 k/uL (150-450); Poikilocytosis Moderate; RBC 3.98 m/uL (3.80-5.40); RDW 18.8 % (11.5-15.5); WBC 23.1 k/uL (3.8-10.6)
[2017-10-19 06:13] LABS: Albumin 2.3 g/dL (3.5-5.0); Calcium 7.7 mg/dL (8.4-10.2); Magnesium 2.2 mg/dL (1.6-2.3); Potassium 3.5 mmol/L (3.5-5.1); Total Bilirubin 1.8 mg/dL (0.2-1.3); Total Protein 4.6 g/dL (6.3-8.2)
[2017-10-19 06:16] LABS: INR 1.4 (<1.2); Prothrombin Time 13.2 sec (9.0-12.0)
[2017-10-19 06:17] LABS: Glucose,Whole Blood 186 mg/dL (75-99)
[2017-10-19] MEDS: PANTOPRAZOLE 40 MG TABLET PO SCH (06:30)
[2017-10-19] MEDS: INSULIN ASPART 100 UNIT/ML 1 ML 10 ML VIAL SQ SCH ×2 (06:31→12:27)
--- NOTE | 2017-10-19 06:58 | PN ---
PROGRESS NOTE DATE OF SERVICE: 10/18/2017. REASON FOR FOLLOWUP: 1. Possible SBP. 2. Elevated white count with right-sided hemothorax. INTERVAL HISTORY: The patient is afebrile. She seems to be hypoxic and was more confused today. No nausea or vomiting has been noticed. The patient has been followed by Pulmonary and did have a right thoracentesis with mL of bloody pleural fluid. The patient unable to give any reliable history today. EXAMINATION: Blood pressure 126/65 with a pulse of 87, temperature 98.1. She is 95% 3 L nasal cannula. General description is an elderly female up in the bed in no distress. Respiratory system: Unlabored breathing, decreased breath sounds at the bases. No wheeze. Heart S1, S2. Regular rate and rhythm. Abdomen soft, no tenderness. Extremities: No edema of the feet. LABS: White count 18.9. DIAGNOSTIC IMPRESSION AND PLAN: Patient admitted to the hospital with abdominal pain with outpatient paracentesis with concern for possible SBP. The patient did have multiple followup with right sided pleural fluid status post thoracocentesis mostly bloody and possible related to trauma. There was some question of possible compressive atelectasis at the right base or pneumonia. Antibiotic has been brought into. Zosyn will be continue and will monitor clinical course closely. Continue supportive care. MMODL / IJN: [id number] /
[2017-10-19] MEDS: IPRATROPIUM-ALBUTEROL 3 ML NEB INHALATION SCH ×2 (07:40→11:04)
[2017-10-19 08:09] VITALS: TEMP 97.4
[2017-10-19] MEDS: PIPERACILLIN-TAZOBACTAM 3.375 GM in DEXTROSE/WATER 1 50ML.BAG IVPB SCH (08:12)
[2017-10-19] MEDS ORDERED: FUROSEMIDE 10 MG/ML 4 ML VIAL IV SCH (09:30)
--- NOTE | 2017-10-19 09:46 | P.PN ---
Subjective Progress Note Date: 10/19/17 Principal diagnosis: abdominal pain Patient is a 66 yo CF with a history of Cirrhosis requiring frequent large volume paracentesis, CHF, COPD with chronic home O2 use and multiple other conditions who presented with abdominal pain following a fall. In the emergency department she underwent an extensive evaluation. Her initial vital signs were within normal limits. Initial laboratory analysis was consistent with her baseline labs. Chest x-ray was negative, rib x-ray did not show any fractures, KUB was negative. CT abdomen and pelvis showed cirrhotic liver, splenomegaly, paraesophageal varices, and moderately improved ascites of the right basilar pleural effusion. It also showed suspected jejunal enteritis. She was started on IVF and admitted to the general medical floor. She underwent CT of head which showed no acute process. Her ammonia level was normal and UA was negative. She developed A fib with RVR and a fever of 100.2 She was transferred to [facility] care. She received a bolus of fluids and IV fluids were started her heart rate normalized without need for additional medications. There was concern for SBP and rocephin was ordered. IR consult was also ordered but they are not available at this time. She felt much better after antibiotics were started and her confusion improved. She was asking about going home. ECHO show moderate to sever aortic stenosis and EF 40-45%. She was found to have a right sided pleural effusion and she had a thoracentesis completed by IR, unfortunately not fluid was sent for diagnositic analysis. She was found to have 2 right sided rib fractures. ID saw the patient and suggested completing a course of ceftin as she did not have enough fluid for paracentesis. She fell twice overnight on 10/15 and feels that she might be passing out. On 10/16 her Cardizem was decreased to 30 mg by mouth every 6 hours secondary to orthostatic hypotension. At midnight on 10/17 she went into A. fib with RVR and then spontaneously converted to hours later. She again went into A fib wtih RVR on the night on 10/17 and she was given an extra dose of metoprolol. On 10/18 patient again went into A fib with RVR and developed respiratory distress. Her WBC had increased. UA was negative and her CXR showed a large right sided pleural effusion. Dr. Martinez urgently tapped her. Cardiology was asked to re-eval the patient with her frequent episode of RVR. She required multiple doses of IV metoprolol on 10/18 and had been started on digoxin on . She had indicated that she wanted to be made a DNR and hospice consult was requested for 10/19. Her ammonia level was also found to be elevated when it had previously been normal and she was started on lactulose. Patient seen and examined at bedside. She states that she is feeling better than yesterday. Still very sleepy. States that her belly pain and shortness of breath are slightly better. Still wants to meet with hospice. Objective - Vital Signs Vital signs: Vital Signs Temp 97.4 F L 10/19/17 08:00 Pulse 142 H 10/19/17 09:22 Resp 18 10/19/17 09:22 BP 100/64 10/19/17 09:22 Pulse Ox 93 L 10/19/17 09:22 Intake & Output 10/18/17 10/19/17 10/19/17 18:59 06:59 18:59 Intake Total 60 50 Output Total 100 Balance -40 50 Weight 65.5 kg Intake: Intake, IV Titration 50 Amount Piperacillin-Tazobactam 3 50 .375 gm In Dextrose/Water 1 50ml.bag @ 12.5 mls/hr IVPB Q8HR [facility] Rx#: [id number] Oral 60 Output: Urine 100 Other: Voiding Method Incontinent Bedpan Bedpan # Voids 1 - Exam General:ill appearing, moderate distress, appears older than stated age Derm: warm, dry, Large ecchymosis right flank Head: atraumatic, normocephalic, symmetric Eyes: EOMI, no lid lag, anicteric sclera Mouth: no lip lesion, mucus membranes dry Cardiovascular: S1S2 irreg and tachy with murmur systolic, positive posterior tibial pulse bilateral, Lungs: crackles right side, + minimal accessory muscle use, + 3 word conversational dyspnea Abdominal: soft, distentded, non tender to palpation, no guarding, no appreciable organomegaly, reducible periumbilical hernia Ext: no gross muscle atrophy, 1+ edema, no contractures Neuro: CN II-XI grossly intact, no focal neuro deficits Psych: lethargic, appropriate affect - Labs CBC & Chem 7: 10/19/17 05:54 10/19/17 05:54 Labs: Abnormal Lab Results - Last 24 Hours (Table) 10/18/17 10/18/17 10/18/17 Range/Units 07:20 10:22 10:30 WBC (3.8-10.6) k/uL RBC (3.80-5.40) m/uL Hgb (11.4-16.0) gm/dL Hct (34.0-46.0) % MCV (80.0-100.0) fL MCH (25.0-35.0) pg MCHC (31.0-37.0) g/dL RDW (11.5-15.5) % Plt Count (150-450) k/uL PT (9.0-12.0) sec INR (<1.2) ABG pH 7.51 H (7.35-7.45) ABG pCO2 46 H (35-45) mmHg ABG pO2 72 L (83-108) mmHg ABG HCO3 37 H (21-25) mmol/L ABG Total CO2 38 H (19-24) mmol/L Sodium (137-145) mmol/L Chloride (98-107) mmol/L Carbon Dioxide (22-30) mmol/L BUN (7-17) mg/dL Glucose (74-99) mg/dL POC Glucose (mg/dL) (75-99) mg/dL Calcium (8.4-10.2) mg/dL Total Bilirubin (0.2-1.3) mg/dL AST (14-36) U/L Ammonia (<30) umol/L Lactate Dehydrogenase 999 H (313-618) U/L Total Protein 5.2 L (6.3-8.2) g/dL Albumin (3.5-5.0) g/dL Urine Appearance Cloudy H (Clear) Urine Protein 1+ H (Negative) Hyaline Casts 26 H (0-2) /lpf Urine Mucus Rare H (None) /hpf 10/18/17 10/18/17 10/18/17 Range/Units 11:44 12:25 15:53 WBC (3.8-10.6) k/uL RBC (3.80-5.40) m/uL Hgb (11.4-16.0) gm/dL Hct (34.0-46.0) % MCV (80.0-100.0) fL MCH (25.0-35.0) pg MCHC (31.0-37.0) g/dL RDW (11.5-15.5) % Plt Count (150-450) k/uL PT (9.0-12.0) sec INR (<1.2) ABG pH (7.35-7.45) ABG pCO2 (35-45) mmHg ABG pO2 (83-108) mmHg ABG HCO3 (21-25) mmol/L ABG Total CO2 (19-24) mmol/L Sodium (137-145) mmol/L Chloride (98-107) mmol/L Carbon Dioxide (22-30) mmol/L BUN (7-17) mg/dL Glucose (74-99) mg/dL POC Glucose (mg/dL) 132 H 165 H (75-99) mg/dL Calcium (8.4-10.2) mg/dL Total Bilirubin (0.2-1.3) mg/dL AST (14-36) U/L Ammonia 83 H (<30) umol/L Lactate Dehydrogenase (313-618) U/L Total Protein (6.3-8.2) g/dL Albumin (3.5-5.0) g/dL Urine Appearance (Clear) Urine Protein (Negative) Hyaline Casts (0-2) /lpf Urine Mucus (None) /hpf 10/18/17 10/18/17 10/18/17 Range/Units 16:43 18:11 20:41 WBC 18.9 H (3.8-10.6) k/uL RBC 3.75 L (3.80-5.40) m/uL Hgb 8.9 L (11.4-16.0) gm/dL Hct 28.9 L (34.0-46.0) % MCV 77.2 L (80.0-100.0) fL MCH 23.7 L (25.0-35.0) pg MCHC 30.7 L (31.0-37.0) g/dL RDW 18.5 H (11.5-15.5) % Plt Count 106 L (150-450) k/uL PT (9.0-12.0) sec INR (<1.2) ABG pH (7.35-7.45) ABG pCO2 (35-45) mmHg ABG pO2 (83-108) mmHg ABG HCO3 (21-25) mmol/L ABG Total CO2 (19-24) mmol/L Sodium (137-145) mmol/L Chloride (98-107) mmol/L Carbon Dioxide (22-30) mmol/L BUN (7-17) mg/dL Glucose (74-99) mg/dL POC Glucose (mg/dL) 151 H 172 H (75-99) mg/dL Calcium (8.4-10.2) mg/dL Total Bilirubin (0.2-1.3) mg/dL AST (14-36) U/L Ammonia (<30) umol/L Lactate Dehydrogenase (313-618) U/L Total Protein (6.3-8.2) g/dL Albumin (3.5-5.0) g/dL Urine Appearance (Clear) Urine Protein (Negative) Hyaline Casts (0-2) /lpf Urine Mucus (None) /hpf 10/19/17 10/19/17 10/19/17 Range/Units 02:23 03:12 05:54 WBC 23.1 H (3.8-10.6) k/uL RBC (3.80-5.40) m/uL Hgb 9.7 L (11.4-16.0) gm/dL Hct 30.8 L (34.0-46.0) % MCV 77.4 L (80.0-100.0) fL MCH 24.4 L (25.0-35.0) pg MCHC (31.0-37.0) g/dL RDW 18.8 H (11.5-15.5) % Plt Count 133 L (150-450) k/uL PT (9.0-12.0) sec INR (<1.2) ABG pH (7.35-7.45) ABG pCO2 (35-45) mmHg ABG pO2 (83-108) mmHg ABG HCO3 (21-25) mmol/L ABG Total CO2 (19-24) mmol/L Sodium (137-145) mmol/L Chloride (98-107) mmol/L Carbon Dioxide (22-30) mmol/L BUN (7-17) mg/dL Glucose (74-99) mg/dL POC Glucose (mg/dL) 193 H 190 H (75-99) mg/dL Calcium (8.4-10.2) mg/dL Total Bilirubin (0.2-1.3) mg/dL AST (14-36) U/L Ammonia (<30) umol/L Lactate Dehydrogenase (313-618) U/L Total Protein (6.3-8.2) g/dL Albumin (3.5-5.0) g/dL Urine Appearance (Clear) Urine Protein (Negative) Hyaline Casts (0-2) /lpf Urine Mucus (None) /hpf 10/19/17 10/19/17 10/19/17 Range/Units 05:54 05:54 06:15 WBC (3.8-10.6) k/uL RBC (3.80-5.40) m/uL Hgb (11.4-16.0) gm/dL Hct (34.0-46.0) % MCV (80.0-100.0) fL MCH (25.0-35.0) pg MCHC (31.0-37.0) g/dL RDW (11.5-15.5) % Plt Count (150-450) k/uL PT 13.2 H (9.0-12.0) sec INR 1.4 H (<1.2) ABG pH (7.35-7.45) ABG pCO2 (35-45) mmHg ABG pO2 (83-108) mmHg ABG HCO3 (21-25) mmol/L ABG Total CO2 (19-24) mmol/L Sodium 135 L (137-145) mmol/L Chloride 93 L (98-107) mmol/L Carbon Dioxide 32 H (22-30) mmol/L BUN 38 H (7-17) mg/dL Glucose 182 H (74-99) mg/dL POC Glucose (mg/dL) 186 H (75-99) mg/dL Calcium 7.7 L (8.4-10.2) mg/dL Total Bilirubin 1.8 H (0.2-1.3) mg/dL AST 59 H (14-36) U/L Ammonia (<30) umol/L Lactate Dehydrogenase (313-618) U/L Total Protein 4.6 L (6.3-8.2) g/dL Albumin 2.3 L (3.5-5.0) g/dL Urine Appearance (Clear) Urine Protein (Negative) Hyaline Casts (0-2) /lpf Urine Mucus (None) /hpf Microbiology - Last 24 Hours (Table) 10/18/17 10:30 Gram Stain - Preliminary Thoracic Fluid Body Fluid Culture - Preliminary Assessment and Plan Assessment: A. fib with RVR - difficult to control despite maximal therapy -Off cardizem, dig loaded on 10/17, metoprolol increased to TID - cardio recs -Continue to monitor telemetry -Not a candidate for anticoagulation secondary to liver disease, coagulopathy, and frequent need for paracentesis Large right sided pleural effusion with hemothorax - s/p emergent thoracentesis 10/18 - Pulm recs appreciated - repeat CXR today - Continue zosyn as cannot r/o infiltrate and increasing WBC Leukocytes - possible component of demargination due to stress. - blood cultures pending - CXR with pleural effusion - UA negative - concern for PNA untop of effusion zosyn added 10/19 -ID recommendations -diflucan -Repeat CBC in a.m. Orthostatic hypotension, improved -Concern for possible syncopal event related to aortic stenosis -off cadizem HUMBERTO - Laisx needed for respiraotry distress and Cr is only 1.02 - no additional nephrotoxic agents. - follow renal function [place], possible syncopal event - orthostatic vitals were positive on 10/16 - PT/OT recs - Fall precuations Probable SBP Abdominal pain - Rocpehin was changed to zosyn to cover for possible PNA 10/18 - GI recs - Paracentesis reordered for 10/20 - ID recx Acute exacerbation of systolic CHF, EF 45% with severe aortic stenosis -Metoprolol, lasix, aldactone - f/u Dr. Figueroa 2-3 weeks - no ACEI due to severe aortic stenosis Cirrhosis with ascites due to [place], compensated compared to baseline in this patient - Continue with lasix and aldactone - on metoprolol so no propranolol - GI recs - Patient is trying to wait for her outpatient thoracentesis until Friday - Rocephin COPD with exacerbation, resolved -Bronchodilators -Prednisone completed -Pulmonary hygiene Diabetes mellitus type 2, -Levemir decreased to daily -Sliding-scale insulin -Hemoglobin A1c 5.8 08/11/2017 Chronic conditions: Hypertension Coronary artery disease GERD History of esophageal varices Chronic back pain Coronary artery disease Dizziness, resolved Toxic metabolic encepalopathy likely related to SBP, resolved Hyperglycemia resolved Poor prognosis, Hospice consult today. DVT prophylaxis: SCDs Discussed with: Patient, nursing, family Anticipated discharge date: undetermind Anticipated discharge place: undetermined A total of 45 minutes was spent on the care of this complex patient more than 50 % of the time was spent in counseling and care coordination.
[2017-10-19] MEDS: SPIRONOLACTONE 25 MG TAB PO SCH (10:09)
[2017-10-19] MEDS: FLUCONAZOLE 100 MG TAB PO SCH (10:09)
[2017-10-19] MEDS: LACTULOSE 20 GM/30 ML CUP PO SCH (10:10)
[2017-10-19] MEDS: DIGOXIN 125 MCG TAB PO SCH (10:10)
[2017-10-19] MEDS ORDERED: INSULIN DETEMIR 100 UNIT/ML 10 ML VIAL SQ SCH (10:30)
--- NOTE | 2017-10-19 10:40 | XR ---
EXAMINATION TYPE: XR chest 1V portable DATE OF EXAM: 10/19/2017 HISTORY: pleural effusion. REFERENCE: Previous study dated 10/18/2017. FINDINGS: There is worsening opacity of the right lower lobe. The heart is not enlarged. The left alyssia g is clear. I cannot exclude a right-sided effusion. IMPRESSION: WORSENING OPACITY OF THE RIGHT HEMITHORAX.
[2017-10-19 11:35] VITALS: RESP 16
--- NOTE | 2017-10-19 11:52 | PN ---
PROGRESS NOTE DATE OF SERVICE: October 19, 2017 The patient is a 66-year-old white female with history of cirrhosis of the liver, who was admitted to hospital with abdominal pain, ascites, possible SBP on broad-spectrum antibiotics. While in the hospital, she developed pleural effusion, right-sided pleural effusion for which she underwent thoracentesis yesterday by Dr. Martinez and 2 L was removed. In the meantime, the patient developed atrial fibrillation with RVR and also low-grade fever and hence she was transferred to the [facility]. Presently on broad-spectrum antibiotics. She appears very sleepy during the interview. However, she does respond to simple questions. She denies any abdominal pain. She reports no nausea, vomiting. She states her bleeding is much better. PHYSICAL EXAMINATION: She appears comfortable but quite sleepy. Blood pressure is 110/57, pulse 93, temperature 97.4. HEENT examination unremarkable. Conjunctivae pink. Sclerae anicteric. Oral cavity no lesions. Neck no jugular venous distention or lymph node enlargement. Chest was clear to auscultation. HEART: Regular rate and rhythm. ABDOMEN: Soft. There was no fluid in the abdomen. Nontender. Extremities: No pedal edema. Skin no rashes. NEUROLOGIC: Alert and oriented x3. No focal deficits. LABS: From today WBC is 23.9, hemoglobin 9.7, platelets are 133. INR is 1.4. Sodium 135, potassium 3.5, chloride 93, CO2 32, BUN 38, creatinine 1.02, T bilirubin is 1.8, AST 59, ALT 39, alkaline phosphatase 62. Urinalysis done yesterday is negative. She did have a chest x-ray done this morning. There were worsening opacity of the right hemithorax. IMPRESSION: 1. Cirrhosis of the liver with portal hypertension secondary to nonalcoholic fatty liver disease. 2. Ascites on Lasix and Aldactone. 3. Mild lethargy, possible hepatic encephalopathy. Ammonia level done this morning was 65. The patient was started on lactulose 30 mL 3 times daily. 4. Right-sided pleural effusion for which Dr. Martinez following the patient closely. Status post thoracentesis yesterday. She had a repeat chest x-ray this morning shows worsening opacity of the right lung. 5. Atrial fibrillation. The patient transferred to [facility] Unit. She was on a Cardizem drip, but presently on metoprolol. 6. Leukocytosis. Chest x-ray, urinalysis were all ordered. On broad-spectrum antibiotics for possible SBP. RECOMMENDATION: 1. Continue with broad-spectrum antibiotics. 2. Await ID input. 3. Continue lactulose 30 mL 3 times daily and titrate it so that she has 3-4 soft bowel movements daily. 4. If she still has altered mental status, we can add Xifaxan to the current regimen for hepatic encephalopathy. Thank you for this consultation. We will follow the patient closely during the hospital stay. ANTONINO / PILLO: [id number] /
--- NOTE | 2017-10-19 11:56 | P.PN ---
Subjective Progress Note Date: 10/19/17 Principal diagnosis: Right-sided pleural effusion/hemothorax. This is a pleasant 66-year-old female patient who was admitted back on 2017 for complaints of abdominal pain following a fall. She does have a history of cirrhosis requiring frequent large-volume paracentesis, congestive heart failure, chronic hypoxic respiratory failure with chronic obstructive pulmonary disease and a computed tomography scan of the abdomen and pelvis showed cirrhotic liver, splenomegaly, para esophageal varices, and right pleural effusion. There is also concerned regarding jejunal enteritis which the patient was subsequently admitted. She is also had issues with atrial fibrillation with RVR. Echocardiogram showed severe aortic stenosis and impaired left ventricular function with ejection fraction 40-45%. She did undergo ultrasound guided thoracentesis of the right pleural effusion by IR with 1.1 L of serosanguineous fluid removed. Fluid was not sent for analysis or cytology at that time. We're consulted today 10/18/2017 as the patient developed significant shortness of breath. Chest x-ray showed worsening opacification of the right lung. She was noted to have rib fractures as well. She required increase of oxygen from 3 L to 5 L to maintain O2 saturations in the 90s. Arterial blood gases revealed a PaO2 of 72, pCO2 46, pH 7.51 on 40% FiO2. Lab results revealed WBC 22.3. Hemoglobin 10.0. Sodium 131. Potassium 3.6. Creatinine 1.04. Dr. Martinez came in and removed 2400 ML's of dark bloody fluid from the right chest. The patient did improve and is back down to 3 L/ min per nasal cannula. Patient was reevaluated today on 10/19/2017, feeling much better, breathing a lot easier, she is on 3 L nasal cannula, and in no distress. CBC showed leukocytosis with WBC of 23.1, hemoglobin is 9.7. The final report on the pleural effusion is pending, I was able to review the cell count and differential. Patient clearly stated that her abdominal pain and shortness of breath are significantly improved, according to the admitting physician, patient is requesting to meet with hospice. Objective - Vital Signs Vital signs: Vital Signs Temp 97.4 F L 10/19/17 08:00 Pulse 156 H 10/19/17 11:10 Resp 16 10/19/17 11:10 BP 92/58 10/19/17 11:10 Pulse Ox 97 10/19/17 11:10 Intake & Output 10/18/17 10/19/17 10/19/17 18:59 06:59 18:59 Intake Total 60 50 Output Total 100 Balance -40 50 Weight 65.5 kg Intake: Intake, IV Titration 50 Amount Piperacillin-Tazobactam 3 50 .375 gm In Dextrose/Water 1 50ml.bag @ 12.5 mls/hr IVPB Q8HR [facility] Rx#: [id number] Oral 60 Output: Urine 100 Other: Voiding Method Incontinent Bedpan Bedpan # Voids 1 - Exam Physical Exam revealed a 66-year-old female, cachectic looking, frail, chronically ill, and looks much older than his stated age. Head: Atraumatic, normocephalic. HEENT:[Neck is supple.] [No neck masses.] [No thyromegaly.] [No JVD.] Dry mucous membranes. Chest: [Diminished breath sounds and dullness at the right base. Significant soft tissue edema noted, right flank hematoma/ecchymosis is noted..] Cardiac Exam: [Normal S1 and S2, no S3 gallop, no murmur.] Abdomen: [Soft, nontender, no megaly, no rebound, no guarding, normal bowel sounds.] Ecchymosis is noted in the right flank area. Extremities: [No clubbing, trace of bipedal edema, no cyanosis.] Neurological Exam: Patient is awake today, no gross focal neurologic deficit. But she is noted to be generally weak. Lymphatics: No lymphadenopathy. - Labs CBC & Chem 7: 10/19/17 05:54 10/19/17 05:54 Labs: Abnormal Lab Results - Last 24 Hours (Table) 10/18/17 10/18/17 10/18/17 Range/Units 07:20 10:30 12:25 WBC (3.8-10.6) k/uL RBC (3.80-5.40) m/uL Hgb (11.4-16.0) gm/dL Hct (34.0-46.0) % MCV (80.0-100.0) fL MCH (25.0-35.0) pg MCHC (31.0-37.0) g/dL RDW (11.5-15.5) % Plt Count (150-450) k/uL PT (9.0-12.0) sec INR (<1.2) Sodium (137-145) mmol/L Chloride (98-107) mmol/L Carbon Dioxide (22-30) mmol/L BUN (7-17) mg/dL Glucose (74-99) mg/dL POC Glucose (mg/dL) 165 H (75-99) mg/dL Calcium (8.4-10.2) mg/dL Total Bilirubin (0.2-1.3) mg/dL AST (14-36) U/L Ammonia (<30) umol/L Lactate Dehydrogenase 999 H (313-618) U/L Total Protein 5.2 L (6.3-8.2) g/dL Albumin (3.5-5.0) g/dL Urine Appearance Cloudy H (Clear) Urine Protein 1+ H (Negative) Hyaline Casts 26 H (0-2) /lpf Urine Mucus Rare H (None) /hpf 10/18/17 10/18/17 10/18/17 Range/Units 15:53 16:43 18:11 WBC 18.9 H (3.8-10.6) k/uL RBC 3.75 L (3.80-5.40) m/uL Hgb 8.9 L (11.4-16.0) gm/dL Hct 28.9 L (34.0-46.0) % MCV 77.2 L (80.0-100.0) fL MCH 23.7 L (25.0-35.0) pg MCHC 30.7 L (31.0-37.0) g/dL RDW 18.5 H (11.5-15.5) % Plt Count 106 L (150-450) k/uL PT (9.0-12.0) sec INR (<1.2) Sodium (137-145) mmol/L Chloride (98-107) mmol/L Carbon Dioxide (22-30) mmol/L BUN (7-17) mg/dL Glucose (74-99) mg/dL POC Glucose (mg/dL) 151 H (75-99) mg/dL Calcium (8.4-10.2) mg/dL Total Bilirubin (0.2-1.3) mg/dL AST (14-36) U/L Ammonia 83 H (<30) umol/L Lactate Dehydrogenase (313-618) U/L Total Protein (6.3-8.2) g/dL Albumin (3.5-5.0) g/dL Urine Appearance (Clear) Urine Protein (Negative) Hyaline Casts (0-2) /lpf Urine Mucus (None) /hpf 10/18/17 10/19/17 10/19/17 Range/Units 20:41 02:23 03:12 WBC (3.8-10.6) k/uL RBC (3.80-5.40) m/uL Hgb (11.4-16.0) gm/dL Hct (34.0-46.0) % MCV (80.0-100.0) fL MCH (25.0-35.0) pg MCHC (31.0-37.0) g/dL RDW (11.5-15.5) % Plt Count (150-450) k/uL PT (9.0-12.0) sec INR (<1.2) Sodium (137-145) mmol/L Chloride (98-107) mmol/L Carbon Dioxide (22-30) mmol/L BUN (7-17) mg/dL Glucose (74-99) mg/dL POC Glucose (mg/dL) 172 H 193 H 190 H (75-99) mg/dL Calcium (8.4-10.2) mg/dL Total Bilirubin (0.2-1.3) mg/dL AST (14-36) U/L Ammonia (<30) umol/L Lactate Dehydrogenase (313-618) U/L Total Protein (6.3-8.2) g/dL Albumin (3.5-5.0) g/dL Urine Appearance (Clear) Urine Protein (Negative) Hyaline Casts (0-2) /lpf Urine Mucus (None) /hpf 10/19/17 10/19/17 10/19/17 Range/Units 05:54 05:54 05:54 WBC 23.1 H (3.8-10.6) k/uL RBC (3.80-5.40) m/uL Hgb 9.7 L (11.4-16.0) gm/dL Hct 30.8 L (34.0-46.0) % MCV 77.4 L (80.0-100.0) fL MCH 24.4 L (25.0-35.0) pg MCHC (31.0-37.0) g/dL RDW 18.8 H (11.5-15.5) % Plt Count 133 L (150-450) k/uL PT 13.2 H (9.0-12.0) sec INR 1.4 H (<1.2) Sodium 135 L (137-145) mmol/L Chloride 93 L (98-107) mmol/L Carbon Dioxide 32 H (22-30) mmol/L BUN 38 H (7-17) mg/dL Glucose 182 H (74-99) mg/dL POC Glucose (mg/dL) (75-99) mg/dL Calcium 7.7 L (8.4-10.2) mg/dL Total Bilirubin 1.8 H (0.2-1.3) mg/dL AST 59 H (14-36) U/L Ammonia (<30) umol/L Lactate Dehydrogenase (313-618) U/L Total Protein 4.6 L (6.3-8.2) g/dL Albumin 2.3 L (3.5-5.0) g/dL Urine Appearance (Clear) Urine Protein (Negative) Hyaline Casts (0-2) /lpf Urine Mucus (None) /hpf 10/19/17 10/19/17 Range/Units 06:15 09:42 WBC (3.8-10.6) k/uL RBC (3.80-5.40) m/uL Hgb (11.4-16.0) gm/dL Hct (34.0-46.0) % MCV (80.0-100.0) fL MCH (25.0-35.0) pg MCHC (31.0-37.0) g/dL RDW (11.5-15.5) % Plt Count (150-450) k/uL PT (9.0-12.0) sec INR (<1.2) Sodium (137-145) mmol/L Chloride (98-107) mmol/L Carbon Dioxide (22-30) mmol/L BUN (7-17) mg/dL Glucose (74-99) mg/dL POC Glucose (mg/dL) 186 H (75-99) mg/dL Calcium (8.4-10.2) mg/dL Total Bilirubin (0.2-1.3) mg/dL AST (14-36) U/L Ammonia 65 H (<30) umol/L Lactate Dehydrogenase (313-618) U/L Total Protein (6.3-8.2) g/dL Albumin (3.5-5.0) g/dL Urine Appearance (Clear) Urine Protein (Negative) Hyaline Casts (0-2) /lpf Urine Mucus (None) /hpf Microbiology - Last 24 Hours (Table) 10/18/17 10:30 Gram Stain - Preliminary Thoracic Fluid Body Fluid Culture - Preliminary Assessment and Plan Assessment: #1 Acute on chronic hypoxic respiratory failure secondary to large right pleural effusion, acute exacerbation of chronic systolic congestive heart failure,, moderate to severe aortic stenosis, acute exacerbation of chronic obstructive pulmonary disease.. #2 Large right pleural effusion status post thoracentesis with 2400 ML's of dark bloody fluid returned. Suspect hemothorax status post fall with rib fracture. #3 Acute exacerbation of chronic systolic congestive heart failure with ejection fraction 45%. #4 Moderate to severe aortic stenosis. #5 Cirrhosis with ascites requiring multiple paracentesis. #6 Chronic obstructive pulmonary disease. #7 Diabetes mellitus, type II. #8 Hypertension. #9 Gastroesophageal reflux disease. #10 History of esophageal varices. #11 Coronary artery disease. Recommendation: Continue present supportive care measures, final report on the pleural effusion is pending, but again this is felt to be most likely hemothorax secondary to trauma, cytology is pending, LDH protein is pending, continue present meds, follow-up chest x-ray in a.m. Time with Patient: Less than 30
[2017-10-19 12:04] VITALS: BP 100/68; PULSE 190
[2017-10-19 12:16] LABS: Glucose,Whole Blood 195 mg/dL (75-99)
--- NOTE | 2017-10-19 13:24 | P.DS ---
Providers Date of admission: 10/10/17 12:09 Expected date of discharge: 10/19/17 Attending physician: Delgado Colin MD Consults: 10/10/17 18:57 Consult Physician Stat Consulting Provider: Don Figueroa Consult Reason/Comments: A flutter with RVR Do you want consulting provider notified?: Yes 10/13/17 13:15 Consult Physician Routine Consulting Provider: Kalyan Ingram Consult Reason/Comments: Antibiotic guidance Do you want consulting provider notified?: Yes 10/13/17 14:44 Consult Physician Stat Consulting Provider: Kalyan Ingram Consult Reason/Comments: antibiotic guidance Do you want consulting provider notified?: Yes 10/18/17 10:14 Consult Physician Routine Consulting Provider: Scot Martinez Consult Reason/Comments: pleural effusion Do you want consulting provider notified?: Yes 10/18/17 17:55 Consult Physician Routine Consulting Provider: Donn Hernandez Consult Reason/Comments: A fib with RVR Do you want consulting provider notified?: Already Contacted 10/18/17 18:06 Consult Physician Routine Consulting Provider: Irena Hernandez Consult Reason/Comments: cirrhosis, decompensated Do you want consulting provider notified?: Already Contacted Primary care physician: Ivan [facility] Hospital Course: Discharge diagnoses: Decompensated cirrhosis secondary to [place], end-stage Systolic congestive heart failure with ejection fraction 40-45%. ACC stage D Severe aortic stenosis A. fib with RVR Probable spontaneous bacterial peritonitis Probable Pneumonia, likely gram negative Hepatic encephalopathy Right-sided hemothorax, right sided rib fractures Fall Leukocytosis Acute exacerbation of COPD Diabetes mellitus type 2 Orthostatic hypotension Acute kidney injury Dizziness, resolved Toxic metabolic encepalopathy likely related to SBP, resolved Hyperglycemia resolved Hypertension Coronary artery disease GERD History of esophageal varices Chronic back pain Coronary artery disease Hospital course: Patient is a 66 yo CF with a history of Cirrhosis requiring frequent large volume paracentesis, CHF, COPD with chronic home O2 use and multiple other conditions who presented with abdominal pain following a fall. In the emergency department she underwent an extensive evaluation. Her initial vital signs were within normal limits. Initial laboratory analysis was consistent with her baseline labs. Chest x-ray was negative, rib x-ray did not show any fractures, KUB was negative. CT abdomen and pelvis showed cirrhotic liver, splenomegaly, paraesophageal varices, and moderately improved ascites of the right basilar pleural effusion. It also showed suspected jejunal enteritis. She was started on IVF and admitted to the general medical floor. She underwent CT of head which showed no acute process. Her ammonia level was normal and UA was negative. She developed A fib with RVR and a fever of 100.2 [facility]. She received a bolus of fluids and IV fluids were started her heart rate normalized without need for additional medications. There was concern for SBP and rocephin was ordered. IR consult was also ordered but they are not available at this time. She felt much better after antibiotics were started and her confusion improved. She was asking about going home. ECHO show moderate to sever aortic stenosis and EF 40-45%. She was found to have a right sided pleural effusion and she had a thoracentesis completed by IR, unfortunately not fluid was sent for diagnositic analysis. She was found to have 2 right sided rib fractures. ID saw the patient and suggested completing a course of ceftin as she did not have enough fluid for paracentesis. She fell twice overnight on 10/15 and feels that she might be passing out. On 10/16 her Cardizem was decreased to 30 mg by mouth every 6 hours secondary to orthostatic hypotension. At midnight on 10/17 she went into A. fib with RVR and then spontaneously converted to hours later. She again went into A fib wtih RVR on the night on 10/17 and she was given an extra dose of metoprolol. On 10/18 patient again went into A fib with RVR and developed respiratory distress. Her WBC had increased. UA was negative and her CXR showed a large right sided pleural effusion. Dr. Martinez urgently tapped her. Cardiology was asked to re-eval the patient with her frequent episode of RVR. She required multiple doses of IV metoprolol on 10/18 and had been started on digoxin on . She had indicated that she wanted to be made a DNR and hospice consult was requested for 10/19. Her ammonia level was also found to be elevated when it had previously been normal and she was started on lactulose. She continued to struggle with elevated heart rate despite multiple doses of IV Lopressor and increase in her oral Lopressor on 10/18. On the morning of 10/19 patient was again lethargic, dyspneic, and had elevated heart rate. She was given morphine and additional IV andoral lopressor. Another meeting was held with family including who came in from out of town. Patient has been stating she does not want to keep doing this and that she is done. They have elected hospice care and she was discharged to inpatient hospice. For physical exam please see progress note same date. A total of 40 minutes of time were spent preparing this complex discharge summary . Pertinent Studies: Head CT-acute left maxillary sinusitis CT abdomen and pelvis-cirrhotic liver, splenomegaly, paraesophageal varices, improved ascites right basilar pleural effusion, jejunal enteritis Chest x-ray-right sided pleural effusion Procedures: Thoracentesis 10/18-hemothorax Thoracentesis 10/14 Patient Condition at Discharge: Critical Plan - Discharge Summary Discharge Rx Participant: No New Discharge Prescriptions: No Action Venlafaxine HCl [Effexor] 37.5 mg PO BID Tiotropium 18 Mcg/Puff [Spiriva] 1 cap INHALATION RT-DAILY Pantoprazole [Protonix] 40 mg PO DAILY Ondansetron [Zofran] 4 mg PO TID PRN PRN Reason: Nausea Spironolactone 100 mg PO DAILY Metoprolol Tartrate [Lopressor] 50 mg PO BID Furosemide [Lasix] 80 mg PO BID Diltiazem HCl 60 mg PO Q6H Atorvastatin [Lipitor] 80 mg PO HS Acetaminophen Tab [Tylenol] 1,000 mg PO Q6HR PRN PRN Reason: Pain Albuterol Sulfate [Proair Hfa] 2 puff INHALATION RT-QID PRN PRN Reason: Shortness Of Breath Aspirin EC [Ecotrin Low Dose] 81 mg PO HS Glimepiride [Amaryl] 2 mg PO BID Insulin Glargine,Hum.rec.anlog [Lantus Solostar] 20 unit SQ BID Discharge Medication List Acetaminophen Tab [Tylenol] 1,000 mg PO Q6HR PRN 08/05/17 [History] Atorvastatin [Lipitor] 80 mg PO HS 08/05/17 [History] Diltiazem HCl 60 mg PO Q6H 08/05/17 [History] Furosemide [Lasix] 80 mg PO BID 08/05/17 [History] Metoprolol Tartrate [Lopressor] 50 mg PO BID 08/05/17 [History] Ondansetron [Zofran] 4 mg PO TID PRN 08/05/17 [History] Pantoprazole [Protonix] 40 mg PO DAILY 08/05/17 [History] Spironolactone 100 mg PO DAILY 08/05/17 [History] Tiotropium 18 Mcg/Puff [Spiriva] 1 cap INHALATION RT-DAILY 08/05/17 [History] Venlafaxine HCl [Effexor] 37.5 mg PO BID 08/05/17 [History] Albuterol Sulfate [Proair Hfa] 2 puff INHALATION RT-QID PRN 09/22/17 [History] Aspirin EC [Ecotrin Low Dose] 81 mg PO HS 10/10/17 [History] Glimepiride [Amaryl] 2 mg PO BID 10/10/17 [History] Insulin Glargine,Hum.rec.anlog [Lantus Solostar] 20 unit SQ BID 10/10/17 [ History] Follow up Appointment(s)/Referral(s): Don Figueroa MD [STAFF PHYSICIAN] - 3 Weeks Irena Hernandez MD [STAFF PHYSICIAN] - 11/05/17 4:30 pm Ivan Nolasco MD [Primary Care Provider] - 10/16/17 10:45 am () Discharge Disposition: DC/TRNS IP HOSP W/PLND IP READ
[2017-10-19] MEDS ORDERED: METOPROLOL TARTRATE 50 MG TAB PO SCH (16:00)
--- NOTE | 2017-10-20 13:24 | CDI ---
Last Revision, February 2017 Documentation Clarification Form Date: 10/20/17 From: Brenda Prashant Seble Tu, [employer] Hours-8:30 am & 5 pm MAmerico[facility] Admit Date: 10/10/2017 12:09:00 PM Patient Name: Jenny Lenz Visit Number: [id number] Discharge Date:10/19/17 ATTENTION: The Clinical Documentation Specialists (CDI) and [facility] Coding Staff appreciate your assistance in clarifying documentation. Please respond to the clarification below the line at the bottom and electronically sign. The CDI & [facility] Coding staff will review the response and follow-up if needed. Please note: Queries are made part of the Legal Health Record. If you have any questions, please contact the author of this message via ITS. Dr. Pauline Fowler Acute kidney injury was documented in the discharge summary History/Risk Factors: BARRY, AC/Chr systolic CHF,HTN, SBP Current BUN: 16, 15, 28, 29, 27, 27,25,26, 34, 38 Current Cr: 0.92, 0.80, 0.97, 0.85, 0.80, 0.87, 0.85, 0.93, 1.04, 1.02 Current GFR: 64, 76, 61, 71, 76, 69, 71, 64, 56, 57 KIDGO defines HUMBERTO as the occurrence of any 1 of the following: Increase in serum creatinine level by 0.3 mg/dl, measured prospectively by at least 2 separate levels obtained within 48 hrs, or Increase in serum creatinine level to 1.5 times baseline or greater, which is known or presumed to have occurred within the prior 7 days, or A urine volume of less than 0.5 ml/kg/h for 6 hours or longer. In order to capture the severity of condition, please clarify if the condition signifies: Acute kidney injury ruled in Acute kidney injury ruled out Other, please specify Unable to determine Please continue to document in your progress notes and discharge summary in order to capture severity of illness and risk of mortality. Include clinical findings that support your diagnosis. Acute Kidney injury ruled out MTDD
== END 2017-10-19 12:33 | disposition hospice, inpatient (51) | DRG 371 ==
LOC: EC 08:01 → 4MS4W 12:09 → 6SEL 18:46 → 5MS5E 10-15 18:36 → 6SEL 10-18 12:09
PROVIDERS: ADMIT Internal Medicine; ATTEND Internal Medicine
PROC: 0W993ZZ Drainage of Right Pleural Cavity, Percutaneous Approach (ICD-10-PCS; principal; 2017-10-14)
PROC: 0W993ZX Drainage of Right Pleural Cavity, Percutaneous Approach, Diagnostic (ICD-10-PCS; 2017-10-18)
DX: K65.2 Spontaneous bacterial peritonitis (principal); S27.1XXA Traumatic hemothorax, initial encounter; J96.21 Acute and chronic respiratory failure with hypoxia; I50.23 Acute on chronic systolic (congestive) heart failure; J15.6 Pneumonia due to other Gram-negative bacteria; G92 Toxic encephalopathy; J44.1 Chronic obstructive pulmonary disease with (acute) exacerbation; R64 Cachexia; J44.0 Chronic obstructive pulmonary disease with (acute) lower respiratory infection; I85.00 Esophageal varices without bleeding; K76.6 Portal hypertension; I85.10 Secondary esophageal varices without bleeding; I42.9 Cardiomyopathy, unspecified; J98.11 Atelectasis; R18.8 Other ascites; S22.41XA Multiple fractures of ribs, right side, initial encounter for closed fracture; Z66 Do not resuscitate; Z51.5 Encounter for palliative care; D69.6 Thrombocytopenia, unspecified; I11.0 Hypertensive heart disease with heart failure; I48.0 Paroxysmal atrial fibrillation; I27.20 Pulmonary hypertension, unspecified; I50.84 End stage heart failure; K75.81 Nonalcoholic steatohepatitis (NASH); K72.90 Hepatic failure, unspecified without coma; E11.65 Type 2 diabetes mellitus with hyperglycemia; K74.60 Unspecified cirrhosis of liver; R16.1 Splenomegaly, not elsewhere classified; I08.0 Rheumatic disorders of both mitral and aortic valves; D50.9 Iron deficiency anemia, unspecified; E78.5 Hyperlipidemia, unspecified; I25.10 Atherosclerotic heart disease of native coronary artery without angina pectoris; F32.9 Major depressive disorder, single episode, unspecified; K21.9 Gastro-esophageal reflux disease without esophagitis; K22.70 Barrett's esophagus without dysplasia; K44.9 Diaphragmatic hernia without obstruction or gangrene; G89.29 Other chronic pain; M54.9 Dorsalgia, unspecified; I95.1 Orthostatic hypotension; K42.9 Umbilical hernia without obstruction or gangrene; K52.9 Noninfective gastroenteritis and colitis, unspecified; M25.551 Pain in right hip; D72.829 Elevated white blood cell count, unspecified; T38.0X5A Adverse effect of glucocorticoids and synthetic analogues, initial encounter; R29.6 Repeated falls; Z68.24 Body mass index [BMI] 24.0-24.9, adult; F17.200 Nicotine dependence, unspecified, uncomplicated; Z71.6 Tobacco abuse counseling; Z99.81 Dependence on supplemental oxygen; Z79.82 Long term (current) use of aspirin; Z79.4 Long term (current) use of insulin; Z79.899 Other long term (current) drug therapy; Z86.010 Personal history of colon polyps; Z95.2 Presence of prosthetic heart valve; Z86.14 Personal history of Methicillin resistant Staphylococcus aureus infection; Z90.49 Acquired absence of other specified parts of digestive tract; Z95.5 Presence of coronary angioplasty implant and graft; Z96.641 Presence of right artificial hip joint; Z87.19 Personal history of other diseases of the digestive system; Z98.51 Tubal ligation status; Z88.2 Allergy status to sulfonamides; Z82.49 Family history of ischemic heart disease and other diseases of the circulatory system; Z83.3 Family history of diabetes mellitus; Z80.52 Family history of malignant neoplasm of bladder; Z80.1 Family history of malignant neoplasm of trachea, bronchus and lung; Z82.5 Family history of asthma and other chronic lower respiratory diseases; W01.0XXA Fall on same level from slipping, tripping and stumbling without subsequent striking against object, initial encounter
CPT/HCPCS: 32555; 36415; 36600; 70450; 71045; 71046; 73502; 74018; 74177; 76604; 76705; 80048; 80053; 81001; 81003; 82140; 82150; 82550; 82553; 82805; 83605; 83615; 83690; 83735; 84155; 84157; 84484; 85025; 85027; 85610; 85730; 87040; 87070; 87205; 88108; 88305; 89050; 93005; 93306; 94640; 94760; 99285

== ENCOUNTER 2017-10-19 12:40 | Inpatient (IN) | payer MEDICAID ==
[2017-10-19] MEDS ORDERED: ACETAMINOPHEN SUPPOSITORY 650 MG SUPP RECTAL PRN (13:28)
[2017-10-19] MEDS ORDERED: ONDANSETRON 4 MG/2 ML VIAL IVP PRN (13:28)
[2017-10-19] MEDS ORDERED: ATROPINE OPHTH SOLN 1% 5ML BTL SUBLINGUAL PRN (13:28)
[2017-10-19] MEDS ORDERED: SCOPOLAMINE 1.5MG/72HR PATCH TRANSDERM PRN (13:28)
[2017-10-19] MEDS ORDERED: BISACODYL 10 MG SUPP RECTAL PRN (13:31)
--- NOTE | 2017-10-19 13:33 | P.HPIM ---
History of Present Illness H&P Date: 10/19/17 Chief Complaint: shortness of breath Patient is a 66-year-old female with a history of end-stage cirrhosis paracentesis dependent, systolic cardiomyopathy with ejection fraction 40-45% ACC stage D, severe aortic stenosis, diabetes mellitus, and multiple other comorbid conditions well-known to our service from recent hospital admission from 10/10/17 through 10/19/17. She was subsequently elected to go with hospice and has been admitted [facility]. At this point in time she wakes up and answers one or 2 words but cannot communicate effectively. History taking is from review of prior records including recent hospitalization, discussion with family, and my prior communications with the patient. Patient seen and examined at bedside. She is rather lethargic but does wake up and complain of abdominal pain and shortness of breath. She is able to tell me that she "doesn't want to do this anymore" but then falls back asleep. She then opens her eyes and looks at me but does not answer continued questions. Review of Systems Unable to obtain secondary to patient cooperation level and altered mentation Past Medical History Past Medical History: Atrial Fibrillation, Coronary Artery Disease (CAD), Heart Failure, COPD, Diabetes Mellitus, GERD/Reflux, GI Bleed, Hyperlipidemia, Hypertension Additional Past Medical History / Comment(s): COPD with home O2 at night, end stage liver disease (was previously documentedwith refractory acsities q7-10 days). Barretts esophagus, esophageal varicies with bleed requiring banding X 3 , hiatal hernia, iron def anemia, thrombocytopenia, chronic back pain, pancreatitis, colon polyps, needs one of her heart valve replaced , septic infection with PICC line since removed History of Any Multi-Drug Resistant Organisms: MRSA Date of last positivie culture/infection: 2015 MDRO Source:: nose Past Surgical History: Adenoidectomy, Appendectomy, Section, Cholecystectomy, Heart Catheterization, Heart Catheterization With Stent, Joint Replacement, Tubal Ligation Additional Past Surgical History / Comment(s): paracentesis, right JUSTINO, esophageal banding X 3, bone marrow bx, EGD and colonoscopy Past Anesthesia/Blood Transfusion Reactions: No Reported Reaction Date of Last Stent Placement:: 2016 Smoking Status: Current every day smoker - Past Family History Father Family Medical History: Cancer, Coronary Artery Disease (CAD), Diabetes Mellitus Additional Family Medical History / Comment(s): bladder ca Mother Family Medical History: Cancer, COPD, Diabetes Mellitus Additional Family Medical History / Comment(s): lung ca Medications and Allergies Home Medications Medication Instructions Recorded Confirmed Type RX: Acetaminophen Tab [Tylenol] 1,000 mg PO Q6HR PRN 08/05/17 10/10/17 History RX: Atorvastatin [Lipitor] 80 mg PO HS 08/05/17 10/10/17 History RX: Diltiazem HCl 60 mg PO Q6H 08/05/17 10/10/17 History RX: Furosemide [Lasix] 80 mg PO BID 08/05/17 10/10/17 History RX: Metoprolol Tartrate [Lopressor] 50 mg PO BID 08/05/17 10/10/17 History RX: Ondansetron [Zofran] 4 mg PO TID PRN 08/05/17 10/10/17 History RX: Pantoprazole [Protonix] 40 mg PO DAILY 08/05/17 10/10/17 History RX: Spironolactone 100 mg PO DAILY 08/05/17 10/10/17 History RX: Tiotropium 18 Mcg/Puff 1 cap INHALATION RT-DAILY 08/05/17 10/10/17 History [Spiriva] RX: Venlafaxine HCl [Effexor] 37.5 mg PO BID 08/05/17 10/10/17 History Albuterol Sulfate [Proair Hfa] 2 puff INHALATION RT-QID PRN 09/22/17 10/10/17 History Aspirin EC [Ecotrin Low Dose] 81 mg PO HS 10/10/17 10/10/17 History Glimepiride [Amaryl] 2 mg PO BID 10/10/17 10/10/17 History Insulin Glargine,Hum.rec.anlog 20 unit SQ BID 10/10/17 10/10/17 History [Lantus Solostar] Allergies Allergy/AdvReac Type Severity Reaction Status Date / Time sulfamethoxazole AdvReac Rash/Hives Verified 10/10/17 08:17 [From Bactrim] trimethoprim [From Bactrim] AdvReac Rash/Hives Verified 10/10/17 08:17 Physical Exam Osteopathic Statement: *. No significant issues noted on an osteopathic structural exam other than those noted in the History and Physical/Consult. Vitals: Intake and Output 10/18/17 10/19/17 10/19/17 22:59 06:59 14:59 Other: Weight 65.5 kg General: Appearing, moderate distress, appears older than stated age, [normal weight] Derm: [no unusual rashes/lesions] large ecchymosis over right flank healing, multiple ecchymoses over bilateral arms, [warm], [dry] Head: [atraumatic], [normocephalic], [symmetric] Eyes: [EOMI], [no lid lag], [anicteric sclera], [pupils equal round reactive to light] ENT: [Nose and ears atraumatic], [no thrush], [no pharyngeal erythema] Neck: [No thyromegaly], [no cervical lymphadenopathy], [trachea midline], [ supple] Mouth: [no lip lesion], this membranes dry Cardiovascular: S1-S2 irregular tachycardic with grade 4 systolic ejection murmur, [positive posterior tibial pulse bilateral], 2+ bilateral lower extremity edema, [capillary refill less than 2 seconds] Lungs: Rhonchi right base , + accessory muscle use Abdominal: [soft], or to palpation right flank and suprapubic area, [no guarding ],, distended, hepatomegaly, hyperactive bowel sounds Ext: [+ gross muscle atrophy], muscle strength testing is unable to be performed for patient moving all 4 extremities in bed, [no contractures], Neuro: [ CN II-XI grossly intact], [light touch intact all 4 extremities], participate in formal finger to nose testing, Psych: Lethargic and somnolent, appropriate affect Thrombosis Risk Factor Assmnt - DVT/VTE Prophylaxis DVT/VTE Prophylaxis: Contraindicated - See note Assessment and Plan Assessment: ASSESSMENT 1. Decompensated cirrhosis secondary to [place], end-stage 2. Hepatic encephalopathy 3. Systolic congestive heart failure with ejection fraction 40-45%. ACC stage D 4. Severe aortic stenosis 5. A. fib with RVR 6. Probable spontaneous bacterial peritonitis 7. Probable Pneumonia, likely gram negative 8. Hepatic encephalopathy 9. Right-sided hemothorax, right sided rib fractures 10. Diabetes mellitus type 2 11. Orthostatic hypotension 12. Acute kidney injury PLAN End of life and comfort care Morphine gtt, ativan, atropine gtts, lasix, scolapaime metoprolol. Henson for comfort
[2017-10-19 13:45] VITALS: BMI 24.7
[2017-10-19] MEDS ORDERED: MORPHINE SULFATE (100 MG/2 ML) 100 MG in SODIUM CHLORIDE 0.9% 100 ML IV SCH (13:45)
[2017-10-19] MEDS: METOPROLOL TARTRATE 50 MG TAB PO SCH ×2 (15:58→22:08)
[2017-10-19] MEDS: LORazepam 2 MG/ML INJ IV PRN (16:05)
[2017-10-20 07:36] VITALS: BP 135/51; PULSE 107; RESP 22; TEMP 97.8
[2017-10-20] MEDS: METOPROLOL TARTRATE 50 MG TAB PO SCH ×2 (07:40→15:17)
--- NOTE | 2017-10-20 13:29 | P.PN ---
Subjective Progress Note Date: 10/20/17 Patient seen and examined daughter at bedside, inquiring about when the patient would eventually pass away. Discussed with the patient's daughter that there is no exact science to this and that I'm unable to give her an estimation. Objective - Vital Signs Vital signs: Vital Signs Temp 97.8 F 10/20/17 07:00 Pulse 107 H 10/20/17 07:43 Resp 22 10/20/17 07:43 BP 135/51 10/20/17 07:00 Pulse Ox 91 L 10/20/17 07:00 Intake & Output 10/19/17 10/20/17 10/20/17 18:59 06:59 18:59 Intake Total 19.958 Output Total 600 300 Balance -600 -300 19.958 Weight 65.5 kg Intake: Intake, IV Titration 19.958 Amount Morphine Sulfate (100 mg/ 19.958 2 ml) 100 mg In Sodium Chloride 0.9% 100 ml @ 1 MG/HR 1.02 mls/hr IV . Q24H [facility] Rx#:[id number] Output: Urine 600 300 Other: Voiding Method Indwelling Catheter Indwelling Catheter Indwelling Catheter - Exam General: Appearing, moderate distress, appears older than stated age, [normal weight] Derm: [no unusual rashes/lesions] large ecchymosis over right flank healing, multiple ecchymoses over bilateral arms, [warm], [dry] Head: [atraumatic], [normocephalic], [symmetric] Eyes: [EOMI], [no lid lag], [anicteric sclera], [pupils equal round reactive to light] ENT: [Nose and ears atraumatic], [no thrush], [no pharyngeal erythema] Neck: [No thyromegaly], [no cervical lymphadenopathy], [trachea midline], [ supple] Mouth: [no lip lesion], this membranes dry Cardiovascular: S1-S2 irregular tachycardic with grade 4 systolic ejection murmur, [positive posterior tibial pulse bilateral], 2+ bilateral lower extremity edema, [capillary refill less than 2 seconds] Lungs: Rhonchi right base , + accessory muscle use Abdominal: [soft], or to palpation right flank and suprapubic area, [no guarding ],, distended, hepatomegaly, hyperactive bowel sounds Ext: [+ gross muscle atrophy], muscle strength testing is unable to be performed for patient moving all 4 extremities in bed, [no contractures], Neuro: Somnolent and not arousable, appears comfortable Psych: Lethargic and somnolent, appropriate affect Assessment and Plan Plan: 1. Decompensated cirrhosis secondary to [place], end-stage 2. Hepatic encephalopathy 3. Systolic congestive heart failure with ejection fraction 40-45%. ACC stage D 4. Severe aortic stenosis 5. A. fib with RVR 6. Probable spontaneous bacterial peritonitis 7. Probable Pneumonia, likely gram negative 8. Hepatic encephalopathy 9. Right-sided hemothorax, right sided rib fractures 10. Diabetes mellitus type 2 11. Orthostatic hypotension 12. Acute kidney injury Plan End of life and comfort care Morphine gtt, ativan, atropine gtts, lasix, scolapaime metoprolol. Henson for comfort Anticipated discharge 1-2 days
[2017-10-20] MEDS ORDERED: SCOPOLAMINE 1.5MG/72HR PATCH TRANSDERM SCH (13:30)
[2017-10-20] MEDS: LORazepam 2 MG/ML INJ IV PRN ×2 (15:20→18:49)
[2017-10-20] MEDS ORDERED: ATROPINE OPHTH SOLN 1% 5ML BTL SUBLINGUAL SCH (16:00)
[2017-10-20] MEDS ORDERED: ATROPINE OPHTH SOLN 1% 5ML BTL RIGHT EYE SCH (18:00)
--- NOTE | 2017-10-21 15:33 | P.DS ---
Providers Date of admission: 10/19/17 12:40 Expected date of discharge: 10/20/17 Attending physician: Pauline Fowler DO Primary care physician: [facility] Course: Admission and discharge diagnoses 1. Decompensated cirrhosis secondary to [place], end-stage 2. Hepatic encephalopathy 3. Systolic congestive heart failure with ejection fraction 40-45%. ACC stage D 4. Severe aortic stenosis 5. A. fib with RVR 6. Probable spontaneous bacterial peritonitis 7. Probable Pneumonia, likely gram negative 8. Hepatic encephalopathy 9. Right-sided hemothorax, right sided rib fractures 10. Diabetes mellitus type 2 11. Orthostatic hypotension 12. Acute kidney injury Hospital course Patient is a 66-year-old female with a history of end-stage cirrhosis paracentesis dependent, systolic cardiomyopathy with ejection fraction 40-45% ACC stage D, severe aortic stenosis, diabetes mellitus, and multiple other comorbid conditions well-known to our service from recent hospital admission from 10/10/17 through 10/19/17. She was subsequently elected to go with hospice and has been admitted [facility]. At this point in time she wakes up and answers one or 2 words but cannot communicate effectively. History taking is from review of prior records including recent hospitalization, discussion with family, and my prior communications with the patient. Patient seen and examined at bedside on 10/20/17 . She was rather lethargic, obtunded and not arousable. The patient had been made comfort care yesterday and I spoke with the patient's daughter who agrees and wants to continue comfort care, I did mention to the patient's daughter that the patient would likely pass in the next 1-2 days. Per nursing documentation the patient was pronounced on 10/20/17 at 20:28. Patient certificate was completed 10/21/17. This whole discharge/ expiration of record process took approximately 35 minutes Patient Condition at Discharge: Critical Plan - Discharge Summary New Discharge Prescriptions: No Action Venlafaxine HCl [Effexor] 37.5 mg PO BID Tiotropium 18 Mcg/Puff [Spiriva] 1 cap INHALATION RT-DAILY Pantoprazole [Protonix] 40 mg PO DAILY Ondansetron [Zofran] 4 mg PO TID PRN PRN Reason: Nausea Spironolactone 100 mg PO DAILY Metoprolol Tartrate [Lopressor] 50 mg PO BID Furosemide [Lasix] 80 mg PO BID Diltiazem HCl 60 mg PO Q6H Atorvastatin [Lipitor] 80 mg PO HS Acetaminophen Tab [Tylenol] 1,000 mg PO Q6HR PRN PRN Reason: Pain Albuterol Sulfate [Proair Hfa] 2 puff INHALATION RT-QID PRN PRN Reason: Shortness Of Breath Aspirin EC [Ecotrin Low Dose] 81 mg PO HS Glimepiride [Amaryl] 2 mg PO BID Insulin Glargine,Hum.rec.anlog [Lantus Solostar] 20 unit SQ BID Discharge Medication List Acetaminophen Tab [Tylenol] 1,000 mg PO Q6HR PRN 08/05/17 [History] Atorvastatin [Lipitor] 80 mg PO HS 08/05/17 [History] Diltiazem HCl 60 mg PO Q6H 08/05/17 [History] Furosemide [Lasix] 80 mg PO BID 08/05/17 [History] Metoprolol Tartrate [Lopressor] 50 mg PO BID 08/05/17 [History] Ondansetron [Zofran] 4 mg PO TID PRN 08/05/17 [History] Pantoprazole [Protonix] 40 mg PO DAILY 08/05/17 [History] Spironolactone 100 mg PO DAILY 08/05/17 [History] Tiotropium 18 Mcg/Puff [Spiriva] 1 cap INHALATION RT-DAILY 08/05/17 [History] Venlafaxine HCl [Effexor] 37.5 mg PO BID 08/05/17 [History] Albuterol Sulfate [Proair Hfa] 2 puff INHALATION RT-QID PRN 09/22/17 [History] Aspirin EC [Ecotrin Low Dose] 81 mg PO HS 10/10/17 [History] Glimepiride [Amaryl] 2 mg PO BID 10/10/17 [History] Insulin Glargine,Hum.rec.anlog [Lantus Solostar] 20 unit SQ BID 10/10/17 [ History] Discharge Disposition:
== END 2017-10-20 20:28 | disposition expired | DRG 951 ==
LOC: 6SEL 12:40
PROVIDERS: ADMIT Internal Medicine; ATTEND Internal Medicine
DX: Z51.5 Encounter for palliative care (principal); K65.2 Spontaneous bacterial peritonitis; J15.6 Pneumonia due to other Gram-negative bacteria; S27.1XXA Traumatic hemothorax, initial encounter; I50.22 Chronic systolic (congestive) heart failure; N17.9 Acute kidney failure, unspecified; I42.9 Cardiomyopathy, unspecified; J44.0 Chronic obstructive pulmonary disease with (acute) lower respiratory infection; I85.00 Esophageal varices without bleeding; S22.41XA Multiple fractures of ribs, right side, initial encounter for closed fracture; Z66 Do not resuscitate; I11.0 Hypertensive heart disease with heart failure; D69.6 Thrombocytopenia, unspecified; K75.81 Nonalcoholic steatohepatitis (NASH); K72.90 Hepatic failure, unspecified without coma; I48.91 Unspecified atrial fibrillation; K74.60 Unspecified cirrhosis of liver; E11.9 Type 2 diabetes mellitus without complications; I25.10 Atherosclerotic heart disease of native coronary artery without angina pectoris; I35.0 Nonrheumatic aortic (valve) stenosis; I95.1 Orthostatic hypotension; E78.5 Hyperlipidemia, unspecified; K21.9 Gastro-esophageal reflux disease without esophagitis; K22.70 Barrett's esophagus without dysplasia; K44.9 Diaphragmatic hernia without obstruction or gangrene; D50.9 Iron deficiency anemia, unspecified; G89.29 Other chronic pain; M54.9 Dorsalgia, unspecified; F17.200 Nicotine dependence, unspecified, uncomplicated; Z99.81 Dependence on supplemental oxygen; Z79.82 Long term (current) use of aspirin; Z79.4 Long term (current) use of insulin; Z79.899 Other long term (current) drug therapy; Z86.010 Personal history of colon polyps; Z86.14 Personal history of Methicillin resistant Staphylococcus aureus infection; Z90.49 Acquired absence of other specified parts of digestive tract; Z95.5 Presence of coronary angioplasty implant and graft; Z96.641 Presence of right artificial hip joint; Z87.19 Personal history of other diseases of the digestive system; Z88.2 Allergy status to sulfonamides; Z80.52 Family history of malignant neoplasm of bladder; Z83.3 Family history of diabetes mellitus; Z82.49 Family history of ischemic heart disease and other diseases of the circulatory system; Z80.1 Family history of malignant neoplasm of trachea, bronchus and lung; Z82.5 Family history of asthma and other chronic lower respiratory diseases